=== PATIENT | female | born 2000 | race Caucasian/White ===

== ENCOUNTER → 2025-01-12 | Outpatient (CLI) | payer OTHER, SELFPAY ==
[2025-01-12 17:49] LABS: hCG Titer Quant., Serum 6784 mIU/mL (<9 non-preg)
== END | disposition home or self-care (01) ==
LOC: BWCLAB 15:03
PROVIDERS: Nurse Practitioner Family; Referring Provider Advanced Practice Midwife; Visit Provider Advanced Practice Midwife
DX: Z34.90 Encounter for supervision of normal pregnancy, unspecified, unspecified trimester (principal)
CPT/HCPCS: 36415; 84702

== ENCOUNTER → 2025-01-14 | Outpatient (CLI) | payer OTHER, SELFPAY ==
[2025-01-14 16:23] LABS: hCG Titer Quant., Serum 14772 mIU/mL (<9 non-preg)
== END | disposition home or self-care (01) ==
LOC: LAB 15:07
PROVIDERS: PCP Physician Assistant Medical; Referring Provider Nurse Practitioner Family; Visit Provider Nurse Practitioner Family
DX: Z34.90 Encounter for supervision of normal pregnancy, unspecified, unspecified trimester (principal)
CPT/HCPCS: 36415; 84702

== ENCOUNTER → 2025-02-10 | Outpatient (CLI) | payer OTHER, SELFPAY ==
[2025-02-10 16:47] LABS: Protein:Creat Ratio 123 mg/g CRE (0-200)
[2025-02-13 23:07] LABS: Chlamydia By Nucleic Acid AMP Negative (Negative); Gonococcus By Nucleic Acid AMP Negative (Negative)
== END | disposition home or self-care (01) ==
LOC: LABSPEC 14:56
PROVIDERS: Nurse Practitioner Women's Health; PCP Physician Assistant Medical; Referring Provider Registered Nurse; Visit Provider Registered Nurse
DX: O09.299 Supervision of pregnancy with other poor reproductive or obstetric history, unspecified trimester (principal); Z3A.00 Weeks of gestation of pregnancy not specified
CPT/HCPCS: 82570; 84156; 87086; 87491; 87591

== ENCOUNTER → 2025-02-20 | Outpatient (CLI) | payer OTHER, SELFPAY ==
[2025-02-20 17:12] LABS: Absolute Lymphocyte Count 2.28 X10^3/uL (0.83-4.51); Absolute Neutrophil Count 5.9 X10^3/uL (2.0-7.7); Basophil# 0.02 X10^3/uL; Basophil% 0.2 % (0-1); Eosinophil# 0.21 X10^3/uL; Eosinophils% 2.3 % (0-5); Hemoglobin 11.7 g/dL (12.0-15.0); Lymphocyte # 2.28 X10^3/ul (0.83-4.51); Lymphocyte % 25.4 % (19-41); Mean Corp Hgb Conc 34.4 g/dL (32-36); Mean Corpuscular Hgb 30.5 pg (27.0-32.0); Mean Corpuscular Volume 88.5 fL (81-99); Mean Platelet Vol. 9.3 fl (6.2-12.0); Monocyte# 0.53 X10^3/uL; Monocyte% 5.9 % (0-10); NRBC Flagged by Analyzer 0 % (0-5); Neutrophil # 5.91 X10^3/uL (2.7-7.7); Neutrophil % 65.9 % (47-70); Platelet Count 227 K/mm3 (150-450); RBC Distribution Width CV 12.3 % (11.6-14.6); RBC Distribution Width SD 39.6 fl (35.1-43.9); Red Blood Count 3.84 M/mm3 (4.2-5.4)
[2025-02-20 17:57] LABS: HIV Nonreactive (Nonreactive); Hepatitis B Surface Antigen Nonreactive (Nonreactive); Hepatitis C Antibody Nonreactive (Nonreactive); Rubella IgG REAC (Nonreactive); Syphilis Antibodies Nonreactive (Nonreactive)
[2025-02-20 18:44] LABS: ALB/GLOB Ratio 1.4 RATIO (0.9-2.4); AST(SGOT) 17 U/L (<=31); Alanine Aminotransfer ALT/SGPT 16 U/L (<=34); Albumin, Serum 3.9 g/dL (3.5-5.0); Alkaline Phosphatase 59 U/L (35-104); Anion Gap 14 (5-15); BUN 9 mg/dL (4-19); BUN/Creat Ratio 13.2 RATIO (10-20); Chloride 104 mmol/L (98-108); Creatinine, Serum 0.68 mg/dL (0.70-1.20); EST Glomerular Filtration Rate 123 (>60); Globulin 2.8 g/dL (2.2-4.2); Glucose 77 mg/dL (70-99); Potassium 3.9 mmol/L (3.3-5.1); Protein, Total 6.8 g/dL (5.9-8.4); Sodium Level 139 mmol/L (133-145); Total Bilirubin < 0.15 mg/dL (0.00-1.30)
--- OUTSIDE RECORDS SUMMARY | 2025-02-21 00:04 | XMS RPT_ITS | CCD ---
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 Name Role Phone Generic Provider MD, No Assigned Pcp Primary Car e Provider Unavailable Pat PA-C Bney B Primary Care Provider Pat PAJayden Beny B Primary Care Provider Pat NEWELL Beny B Primary Care Provider BRADY YANG Attending Unavailable GENERIC PROVIDER, NO ASSIGNED PCP Primary Care Unavailable PAT, BENY B Referring Unavailable PAT, BENY B Primary Care Unavailable PAT, BENY B Referring Unavailable PAT, BENY B Primary Care Unavailable PAT, BENY B Attending Unavailable PAT, BENY B Primary Care Unavailable PAT, BENY B Attending Unavailable PAT, BENY B Primary Care Unavailable DERECK HERNANDEZ Attending Unavailable PAT, BENY B Referring Unavailable PAT, BENY B Primary Care Unavailable Sherie Hubbard Attending Provider Olga Manzo CNM Attending Provider Olga Manzo CNM Referring Provider Beny Yanez Primary Care Provider Sherie Hubbard Referring Provider Beny Yanez Referring Provider Joanna COVINGTON, Dr. Elam Attending Provider Yeimi Anthony RN Attending Provider UnavailAraseli Heaton CNM Attending Provider Beny Yanez Primary Care UnavailBeny Villatoro Referring UnavailAraseli Heaton Attending Unavailable Yeimi Anthony Attending Unavailable Pat MEYER Beny [facility] UnavailSherie Ceballos Attending Unavailable Olga Manzo Attending Unavailable Olga Manzo Referring Unavailable Sherie Padilla Attending Unavailable Sherie Padilla Referring Unavailable Beny Yanez [facility] UnavailAraseli Heaton Referring Unavailable Beny Yanez [facility] Care UnavailAraseli Heaton Attending Unavailable Marialuisa Marshall Attending Unavailable Pat MEYER Beny [facility] UnavailHadley MEYER, Venus Referring Unavailvalentín Jacob CNM, Araseli Referring Provider Medications Current Medications Medication Drug Class(es) Dates Sig (Normalized) Sig (Original) docosahexaenoic acid 200 mg oral capsule (2 sources) Start: 01-24-2025 Docosahexaenoic Acid ( Dha) 200 mg capsule Active mg PO January 24, 2025 12:00am ergocalciferol 1.25 mg oral capsule (3 sources) Provitamin D2 Compound Start: 11-28-2024 take 1 capsule by mouth every week ergocalciferol (Vitamin D-2) 1250 mcg (50,000 units) capsule Indications: Vitamin D deficiency Take 1 capsule (50,000 Units) by mouth 1 (one) time per week. 4 capsule 11 11/28/2024 Active PNV no.95/ferrous fum/folic ac ( ORAL) (6 sources) PNV no.95/ferrou s fum/folic ac ( ORAL) Take by mouth once daily. Active Completed/Discontinued Medications Medication Drug Class(es) Dates Sig (Normalized) Sig (Original) 24 hr dilTIAZem hydrochloride 120 mg extended release oral capsule (5 sources) Calcium Channel Ventura Start: 12-26-2024 End: 12-26-2025 take 1 capsule by mouth once daily Diltiazem Hcl 120 mg capsule,extended release 24hr Discontinued 120 mg PO daily January 12, 2025 12:00am January 24, 2025 11:07am 24 hr metoprolol succinate 25 mg extended release oral tablet (3 sources) beta-Adrenergic Ventura Start: 10-27-2024 End: 12-26-2024 take 1 tablet by mouth once daily metoprolol succinate XL (Toprol-XL) 25 mg 24 hr tablet Indications: Tachycardia , Heart palpitations Take 1 tablet (25 mg) by mouth once daily. Do not crush or chew. 30 tablet 2 10/27/2024 12/26/2024 Discontinued (Side effects) Problems Active Problems Problem Classification Problem Date Documented Date Episodic/Chronic Administrative/social admission (3 sources) First encounter by subject; Translations: [Persons encountering health services in other specified circumstances] Onset: 09-28-2024 09-28-2024 Episodic Cardiac dysrhythmias (8 sources) Postural orthostatic tachycardia syndrome ; Translations: [POTS (postural orthostatic tachycardia syndrome)] Onset: 09-28-2024 12-26-2024 Chronic Comment on above: On Cardizem - stoppe d prior to , pt will talk with cardiology about new med Cardiac dysrhythmias (20 sources) Tachycardia; Translations: [Palpitations] Onset: 09-28-2024 09-28-2024 Episodic Conditions associated with dizziness or vertigo (18 sources) Dizziness; Translations: [Dizziness and giddiness] Onset: 09-28-2024 09-28-2024 Episodic Malaise and fatigue (12 sources) Fatigue; Translations: [Other fatigue] Onset: 09-28-2024 09-28-2024 Episodic Menstrual disorders (2 sources) Secondary amenorrhea; Translations: [Irregular menstruation, unspecified] Onset: 01-12-2025 Chronic Nutritional deficiencies (10 sources) Vitamin D deficiency; Translations: [Vitamin D deficiency, unspecified] Onset: 09-28-2024 09-28-2024 Chronic Other circulatory disease (4 sources) Postural orthostatic tachycardia syndrome ; Translations: [Postural orthostatic tachycardia syndrome (POTS)] Onset: 12-26-2024 Episodic Other complications of (4 sources) H/O: miscarriage; Translations: [Supervision of with other poor reproductive or obstetric history, unspecified trimester] 01-24-2025 Episodic Comment on above: chemical - Jul 2024 Other complications of (4 sources) High risk ; Translations: [Supervision of high risk , unspecified, unspecified trimester] 01-24-2025 Episodic Comment on above: ; VICKY 09/14/25; PC : Doan; : Tal Other complications of (2 sources) Supervision of with other poor reproductive or obstetric history, unspecified trimester; Translations: [Supervision of with other poor reproductive or obstetric history, unspecified trimester] Onset: 02-14-2025 Episodic Other complications of (2 sources) Supervision of high risk , unspecified, unspecified trimester; Translations: [Supervision of high risk , unspecified, unspecified trimester] Onset: 02-10-2025 Episodic Other female genital disorders (1 source) Vaginal bleeding; Translations: [Abnormal uterine and vaginal bleeding, unspecified] 08-08-2024 Chronic Other female genital disorders (2 sources) Abnormal uterine and vaginal bleeding, unspecified; Translations: [Abnormal uterine and vaginal bleeding, unspecified] Onset: 08-08-2024 Chronic Other nervous system disorders (2 sources) Other chronic pain; Translations: [Other chronic pain] Onset: 09-28-2024 Chronic Other non-traumatic joint disorders (8 sources) Chronic pain of left upper limb; Translations: [Pain in left shoulder] Onset: 09-28-2024 09-28-2024 Episodic Other non-traumatic joint disorders (2 sources) Pain in left shoulder; Translations: [Pain in left shoulder] Onset: 09-28-2024 Episodic Other and delivery including normal (6 sources) ; Translations: [Encounter for supervision of normal , unspecified, unspecified trimester] Onset: 01-18-2025 02-10-2025 Episodic Comment on above: Discussed genetic/ca rrier testing - undecided Other screening for suspected conditions (not mental disorders or infectious disease) (7 sources) Ferritin level low; Translations: [Abnormal level of blood mineral] Onset: 11-28-2024 11-28-2024 Episodic Residual codes; unclassified (12 sources) History of pre-eclampsia; Translations: [Personal history of other complications of , childbirth and the puerperium] Onset: 09-28-2024 09-28-2024 Episodic Comment on above: Pre-e baseline labs ordered w/NOB; Baby ASA @ 12-28weeks Residual codes; unclassified (2 sources) Personal history of other complications of , childbirth and the puerperium; Translations: [Personal history of other complications of , childbirth and the puerperium] Onset: 09-28-2024 Episodic Residual codes; unclassified (3 sources) History of operative procedure on shoulder; Translations: [Other specified postprocedural states] 01-24-2025 Episodic Comment on above: 2012, 2015 - both on L shoulder Residual codes; unclassified (1 source) 9 weeks gestation of ; Translations: [9 weeks gestation of ] Onset: 02-10-2025 Episodic Unclassified (2 sources) Chronic pain of left upper limb 09-28-2024 Past or Other Problems Problem Classification Problem Date Documented Da te Episodic/Chronic Unclassified (6 sources) Onset: 09-28-2024 Resolved: 12-26-2024 09-28-2024 Results Test Name Value Interpretation Reference Range Facility Chlamydia/GC TINA aptimaon CHLAMY,NUC ACID Negative Normal Negative [facility] Comment on above: Performed By: #### M 100.2200, L7000.1800 #### [facility] [address] [place], [place], [address] GC BY NUC ACID Negative Normal Negative [facility] Comment on above: Result Comment: Perf ormed at: =G - [facility] [address] [id number] Seafood Specialist: Nhi Isaac MD, Phone: [phone] Performed By: #### M 100.2200, L7000.1800 #### [facility] [address] [place], [place], [address] Urine Cultureon 02-11-2025 URC Culture exhibits no growth. Normal [facility] Comment on above: Performed By: #### M 100.2200, L7000.1800 #### [facility] [address] [place], [address] Chlamydia trachomatis rRNA d etection by probe and target amplification methodOrdered By: Araseli Jacob on 02-10-2025 C. trachomatis rRNA TINA+probe Ql (Unsp spec) Negative Negative [facility] Neisseria gonorrhoeae nuclei c acid detection by amplified probe techniqueOrdered By: Araseli Jacob on 02-10-2025 N. gonorrhoeae DNA TINA+probe Ql (Unsp spec) Negative Negative [facility] Comment on above: Performed at: =G [facility] [id number] [place] [id number] Director: Nhi Isaac MD, Phone: [phone] Specification Writer Office Visit Reporton 02-10-2025 Specification Writer Office Visit Report [facility] [address], [address] [place] [address] OFFICE VISIT Date of Service: 02/10/25 MR#: [id number] Acct: [id number] Name: JUSTINO RENDON Rep #: [id number] : 2000 Provider: FAB barr Age/Sex: 24/F Location: [facility] Status: Signed Intake Vital Signs 01/12/25 14:16 01/24/25 11:38 02/10/25 13:04 Height 5 ft 4 in 5 ft 4 in 5 ft 4 in Weight: 152 lb BMI 26.1 BP 120/76 Intake Visit Reasons: NOB LMP 12/08 Customer Engagement Manager Required: No Is patient in pain?: No Allergies No Known Allergies Allergy (Verified 02/10/25 13:08) Medications ???Medication ???Instructions ???Recorded ???Confirmed ???Type docosahexaenoic acid 200 mg mg PO 01/24/25 02/10/25 History capsule ( DHA) Last Menstrual Period: 12/08/24 Zika: Zika virus screening: Negative : Yes Have you fallen in the past year?: No PFSH PFSH Medical History H/O: hypertension POTS (postural orthostatic tachycardia syndrome) Surgical History S/P wisdom tooth extraction History of shoulder surgery Family History (Updated 02/10/25 @ 13:13 by Oneida Martinez) Father Diabetes Mother Age: 56 Breast cancer Grandmother Breast cancer Social History adopted: No household members: spouse and children housing: house number of children: 1 current occupational status: employed 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 current occupational exposures/hazards: No pets and animals: Yes pets and animals: dog(s) history of recent travel: Yes ([place] - December 2024) out of state: Yes out of country: No sexually active: Yes Smoking Status: Never smoker second hand exposure: No alcohol intake: current alcohol intake frequency: holidays/special occasions only details: Not while substance use type: does not use well-balanced diet: daily or most days caffeine: Yes Type: coffee Number of servings: 1 eating out: 1-3 times/week during the past year weight has: remained stable what type of physical activity do you participate in: weight training frequency: 1-2 times per week duration: 15-30 minutes/day deric/catholic: Cheondoism seatbelt use: always do you feel safe at home: Yes 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 Date Name GA/Weeks Outcome Route Bth Weight Infant Gen Labor Lgth Anesthesia Del Locatn Provider FOB 05/23/23 Doan 39 live - full term vacuum 7lbs 11oz Male epidural [facility] arolin Tal 07/15/24 Chemical 5 spontaneous Delivery Date: 05/23/23 Last Updated by: Yeimi Anthony RN Pre-e, loree pp htn x4mo HPI NOB LMP 12/08 Details: JUSTINO RENDON is a 24 year old who presents for New OB visit. OB Visit VICKY Calculator Estimated Delivery Date Method Current WG Current Estimate 09/14/25 LMP (Certain) 9w 1d Estimated Due Date: 09/14/25 Expected Delivery Route/Plan Labor Preferences- CB/BF classes: [] labor support person: [] labor intervention preferences: [] pain management options preferred: [] cut cord/dad catch: [] : [] PP control planned: [] discussed possible routes of delivery and associated risks: [] special requests: [] Specific Issue/Plans Covid status: [] Flu vaccine: [] Tdap vaccine: [] Rhogam: [] LARC form signed: [] Problem list reviewed and updated with the most current plan of care details and appropriate orders placed. Relevant counseling for the gestational age provided. Continue routine care and follow up unless otherwise noted in visit notes/problem list details Initial Weight: 152 lb Date -???-???-???-???-???- ???-???-???-???-???-? ??-???- EGA Weight BP Urine Prot -???-???-???-???-???- ???-???-???-???-???-? ??-???- Glucose FHR FuHt Pres Dilation -???-???-???-???-???- ???-???-???-???-???-? ??-???- Effaced St Visit Note 02/10/25 -???-???-???-???-???- ???-???-???-???-???-? ??-???- 9w 1d 152 lb (+0 oz) 120/76 -???-???-???-???-???- ???-???-???-???-???-? ??-???- 174 -???-???-???-???-???- ???-???-???-???-???-? ??-???- LC 2.24cm cr l con with lmp. accepts genetics. baseline pec labs added for hx. Menstrual History Last Menstrual Period: 12/08/24 Reported LMP: definite Normal amount/duration: Yes Antepartum Record Genetic Screening: Congenital Heart Defect: Other, Neural Tube Defect: Other, Hemoglobinopat (more content not included)... Normal [facility] Protein+Creatinine Ratio,Uri neon 02-10-2025 PROT:CRE RATIO 123 mg/g CRE Normal 0-200 [facility] Comment on above: Performed By: #### L 501.0900 #### [facility] [address] [place], [address] Protein (U) [Mass/Vol] 10.0 mg/dL Normal 0.0-12.0 [facility] Comment on above: Performed By: #### L 501.0900 #### [facility] [address] [place], [place], [id number] UR CREAT 81.00 mg/dL Normal 28.00-217.00 [facility] Comment on above: Performed By: #### L 501.0900 #### [facility] [address] [place], [address] Random urine creatinine luiza urement (mass/volume)Ordered By: Shireen Carnes on 02-10-2025 Creatinine Unsp time (U) [Mass/Vol] 81.00 mg/dL 28.00-217.00 [facility] Urine cultureOrdered By: Tania Jacob on 02-10-2025 Bacteria identified Cx Nom (U) Culture exhibits no growth. [facility] Urine protein measurement (m ass/volume)Ordered By: Shireen Carnes on 02-10-2025 Protein (U) [Mass/Vol] 10.0 mg/dL 0.0-12.0 [facility] Urine protein/creatinine mas s ratioOrdered By: Shireen Carnes on 02-10-2025 Protein/Creatinine (U) [Mass ratio] 123 mg/g CRE 0-200 [facility] Laboratory - Chemistry and C hemistry - challengeOrdered By: Marialuisa Marshall on 01-24-2025 HCG ( test) Ql (U) Positive [facility] Office Visit Reporton 2024 Office Visit Report [facility] [address] [place] [address] OFFICE VISIT Date of Service: MR#: [id number] Acct: [id number] Patient: JUSTINO RENDON Rep #: [id number] : 2000 Provider: Yeimi Anthony RN Age/Sex: 24/F Location: [facility] Status: Signed Intake Vital Signs 01/24/25 08:05 01/24/25 11:38 Height 5 ft 4 in 5 ft 4 in Weight: 151 lb 4 oz BMI 25.9 BP 110/64 Intake Visit Reasons: Amb Documentation Chief Complaint: PNOB in person Customer Engagement Manager Required: No Is patient in pain?: No Allergies No Known Allergies Allergy (Verified 01/24/25 11:07) Medications ???Medication ???Instructions ???Recorded ???Confirmed ???Type docosahexaenoic acid 200 mg mg PO 01/24/25 01/24/25 History capsule ( DHA) Is last menstrual period known: Yes Post menopausal: No Patient : Yes Have you fallen in the past year?: No Nurse's Note: Pt here for PNOB. Office UPT: positive. Vitals WNL. PNOB questions completed. Problem list, allergies, and medications updated. First trimester ACOG education completed. Results POC Urine Office , Urine Positive Last Edit by Yeimi Anthony RN on 01/24/25 11:41 Assessment and Plan Assessment and Plan (1) POTS (postural orthostatic tachycardia syndrome): Status: Acute Comment: On Cardizem - stopped prior to , pt will talk with cardiology about new med (2) History of pre-eclampsia in prior , currently : Status: Acute Comment: Pre-e baseline labs ordered w/NOB; Baby ASA @ 12-28weeks (3) : Status: Acute Comment: Discussed genetic/carrier testing - undecided (4) Supervision of high-risk : Status: Acute Comment: ; VICKY 09/14/25; PC: Franki; : Tal (5) History of miscarriage, currently : Status: Acute Comment: chemical - Jul 2024 Orders: Orders POC Urine 01/24/25 Dr. Marialuisa Marshall MD N91.1 - Secondary amenorrhea CBC W/Diff, Automated 01/24/25 Araseli Jacob CNM O09.90 - Supervision of high risk , unspecified, unspecified trimester Type Screen 01/24/25 Araseli Jacob CNM O09.90 - Supervision of high risk , unspecified, unspecified trimester Rubella IgG 01/24/25 Araseli Jacob CNM O09.90 - Supervision of high risk , unspecified, unspecified trimester Hepatitis C Antibody 01/24/25 Araseli Jacob CNM O09.90 - Supervision of high risk , unspecified, unspecified trimester Hepatitis B Surface Antigen 01/24/25 Araseli Jacob CNM O09.90 - Supervision of high risk , unspecified, unspecified trimester Culture, Urine 01/24/25 Araseli Jacob CNM O09.90 - Supervision of high risk , unspecified, unspecified trimester Syphilis Antibodies 01/24/25 Araseli Jacob CNM O09.90 - Supervision of high risk , unspecified, unspecified trimester Chlamydia/GC TINA aptima 01/24/25 Araseli Jacob CNM O09.90 - Supervision of high risk , unspecified, unspecified trimester HIV 01/24/25 Araseli Jacob CNM O09.90 - Supervision of high risk , unspecified, unspecified trimester Protein+Creatinine Ratio,Urine 01/24/25 Shireen Carnes NP, VICKI-Lea O09.299 - Supervision of with other poor reproductive or obstetric history, unspecified trimester, O09.90 - Supervision of high risk , unspecified, unspecified trimester Comprehensive Metabolic Profil 01/24/25 Shireen Carnes NP, NP-Lea O09.299 - Supervision of with other poor reproductive or obstetric history, unspecified trimester, O09.90 - Supervision of high risk , unspecified, unspecified trimester Clinical Quality Measures Falls Risk Screening/Assistive Devices Have you fallen in the past year?: No 01/27/25 1637 Date Marialuisa Shoemaker Signature: Date (if applicable) CC: Normal [facility] Serum human chorionic gonado tropin detection for pregnancyOrdered By: Sherie Padilla on 01-14-2025 HCG ( test) Ql [address] mIU/mL High <9 [facility] Comment on above: Gestational Age0.2-1 Week: 5-50 mIU/mL1-2 Weeks: 50-500 mIU/mL2-3 Weeks: 100-5000 mIU/mL3-4 Weeks: 500-10,000 mIU/mL4-5 Weeks:1000-50,000 mIU/mL5-6 Weeks: 10,000-100,000 mIU/mL6-8 Weeks: 15,000-200,000 mIU/mL2-3 Months:10,000-100,000 mIU/mL hCG Titer Quant., Serumon HCG QUANT. 55976 mIU/mL High <9 non-preg [facility] Comment on above: Result Comment: Gest ational Age 0.2-1 Week: 5-50 mIU/mL 1-2 Weeks: 50-500 mIU/mL 2-3 Weeks: 100-5000 mIU/mL 3-4 Weeks: 500-10,000 mIU/mL 4-5 Weeks:1000-50,000 mIU/mL 5-6 Weeks: 10,000-100,000 mIU/mL 6-8 Weeks: 15,000-200,000 mIU/mL 2-3 Months:10,000-100,000 mIU/mL Performed By: #### L 700.8000 #### [facility] [address] [place], [address] Laboratory - Chemistry and C hemistry - challengeOrdered By: Sherie Padilla on 01-12-2025 HCG ( test) Ql (U) Positive [facility] Specification Writer Office Visit Reporton 01-12-2025 Specification Writer Office Visit Report [facility] [address], [address] [place] [address] OFFICE VISIT Date of Service: 01/12/25 MR#: [id number] Acct: [id number] Name: JUSTINO RENDON Suzan Rep #: [id number] : 2000 Provider: JH Keating Age/Sex: 24/F Location: [facility] Status: Signed Intake Vital Signs 01/12/25 14:16 Height 5 ft 4 in Weight: 150 lb 4 oz BMI 25.7 BP 129/74 H 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) Chief Complaint: annual, est care Customer Engagement Manager Required: No Is patient in pain?: No Allergies No Known Allergies Allergy (Verified 01/12/25 14:09) Medications ???Medication ???Instructions ???Recorded ???Confirmed ???Type diltiazem HCl 120 mg 120 mg PO QDAY 01/12/25 01/12/25 H istory capsule,extended release 24 hr Is last menstrual period known: Yes Last Menstrual Period: 12/08/24 Post menopausal: No Patient : Yes : No Control Method: none PFSH Medical History POTS (postural orthostatic tachycardia syndrome) Family History (Updated 01/12/25 @ 14:17 by Oneida Martinez) Father Diabetes Mother Breast cancer Grandmother Breast cancer Social History adopted: No number of children: 1 current occupational status: employed 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 Date Name GA/Weeks Outcome Route Bth Weight [facility] Doan live - full term 7lbs 11oz Male epidural [facility] anastasia Parada [facility] Encounter for routine gynecological examination Details: JUSTINO RENDON is a 24 year old who presents for annual exam. She reports she has not had a period this month. Her and her are trying. She reports she previously had chemical in July. Since then she has had regular menses until this month. She reports no vaginal bleeding. 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 We do not have records for review. She was also recently diagnosed with POTS and has been started on Cardizem. Previous vaginal delivery; did have pre-eclampsia at end of . Last PAP: 2022 per patient--reports negative. History of abnormal PAP: no. Last mammogram: age 38 History of abnormal mammogram: n/a Colon cancer screening: age 43 Other preventative health care screenings: Beny Avalos; PCP. Female Reproductive History Last Menstrual Period: 12/08/24 Cycle Length: 21-35 Bleeding Duration: 5 Questions: metorrhagia: No, sexually active: Yes, dyspareunia: No and PCB: No ROS Const Constitutional: Denies chills, fatigue, fever(s), headache(s) or weight loss Eyes Eyes: Denies change in vision ENT ENT: Denies dizziness Resp Resp: Denies cough GI GI: Denies abdominal pain, constipation or nausea : Denies difficulty voiding, dysuria, hematuria, nipple discharge, pelvic pain, prolapse symptoms, urinary incontinence, vaginal discharge, vaginal dryness, vaginal odor or vaginal pruritus Skin Skin/Breast: Denies alopecia, rash, breast mass, breast pain, breast skin changes or nipple discharge Neuro Neuro: Denies dizziness Psych Psych: Denies anxiety or depression Endo Endo: Denies cold intolerance, excessive sweating or heat intolerance Exam Const General: cooperative, healthy appearing, comfortable, no acute distress, well groomed and well hydrated Nutritional Appearance: well nourished Orientation: alert, awake and oriented x3 HENMT Head: normal to inspection and normocephalic Ears: hearing grossly normal bilaterally and external ears normal Nose: external nose normal Face and sinus: normal facial exam Eyes General: appearance normal, both eyes and all related structures Neck Neck: normal visual inspection, full ROM and no lymphadenopathy Thyroid: thyroid normal Chest Chest palpation inspection: normal inspection of the chest Breast inspection: normal inspection of the breasts and normal inspection of the axillae Breast palpation: normal palpation of the breasts, normal palpation of the axillae and no axillary lymphadenopathy (more content not included)... Normal [facility] Serum human chorionic gonado tropin detection for pregnancyOrdered By: Sherie Padilla on 01-12-2025 HCG ( test) Ql 6784 mIU/mL High <9 [facility] Comment on above: Gestational Age0.2-1 Week: 5-50 mIU/mL1-2 Weeks: 50-500 mIU/mL2-3 Weeks: 100-5000 mIU/mL3-4 Weeks: 500-10,000 mIU/mL4-5 Weeks:1000-50,000 mIU/mL5-6 Weeks: 10,000-100,000 mIU/mL6-8 Weeks: 15,000-200,000 mIU/mL2-3 Months:10,000-100,000 mIU/mL hCG Titer Quant., Serumon HCG QUANT. 6784 mIU/mL High <9 non-preg [facility] Comment on above: Result Comment: Gest ational Age 0.2-1 Week: 5-50 mIU/mL 1-2 Weeks: 50-500 mIU/mL 2-3 Weeks: 100-5000 mIU/mL 3-4 Weeks: 500-10,000 mIU/mL 4-5 Weeks:1000-50,000 mIU/mL 5-6 Weeks: 10,000-100,000 mIU/mL 6-8 Weeks: 15,000-200,000 mIU/mL 2-3 Months:10,000-100,000 mIU/mL Performed By: #### L 700.8000 #### [facility] [address] [facility] [place], [address] ECG 12 lead (Clinic Performe d)on 12-26-2024 Normal sinus rhythm [facility] Work Phone: CBC (INCLUDES DIFF/PLT)on Basophils (Bld) [#/Vol] 0.042 10*3/uL Normal 0-200 [facility] Comment on above: Performed By: #### 7 573, 51670, 622, 7600, 6399, 899, 927, 69615, 866 #### [facility] [address] [facility], [address] [place] [phone] Picture Copyist: Noble Brown MD Basophils/100 WBC (Bld) 0.6 % Normal [facility] Comment on above: Performed By: #### 7 573, 10714, 622, 7600, 6399, 899, 927, 05495, 866 #### [facility] [address] [place] , [address] [place] [phone] Picture Copyist: Noble Brown MD Eosinophils (Bld) [#/Vol] 0.252 10*3/uL Normal 15-500 [facility] Comment on above: Performed By: #### 7 573, 41457, 622, 7600, 6399, 899, 927, 36505, 866 #### [facility] of [place] [address] Picture Copyist: Noble Brown MD Eosinophils/100 WBC (Bld) 3.6 % Normal [facility] Comment on above: Performed By: #### 7 573, 13574, 622, 7600, 6399, 899, 927, 16398, 866 #### [facility] of [place] [address] Picture Copyist: Noble Brown MD Erythrocyte distribution width (RBC) [Ratio] 12.6 % Normal 11.0-15.0 [facility] Comment on above: Performed By: #### 7 573, 49725, 622, 7600, 6399, 899, 927, 76051, 866 #### [facility] of [place] [address] Picture Copyist: Noble Brown MD Hematocrit (Bld) [Volume fraction] 43.5 % Normal 35.0-45.0 [facility] Comment on above: Performed By: #### 7 573, 39504, 622, 7600, 6399, 899, 927, 46879, 866 #### [facility] of [place] [address] Picture Copyist: Noble Brown MD Hemoglobin (Bld) [Mass/Vol] 13.9 g/dL Normal 11.7-15.5 [facility] Comment on above: Performed By: #### 7 573, 49168, 622, 7600, 6399, 899, 927, 42235, 866 #### [facility] of [place] [address] Picture Copyist: Noble Brown MD Lymphocytes (Bld) [#/Vol] 2.38 10*3/uL Normal 850-3900 [facility] Comment on above: Performed By: #### 7 573, 16093, 622, 7600, 6399, 899, 927, 57672, 866 #### [facility] [address], [address] [place] [address] Picture Copyist: Noble Brown MD Lymphocytes/100 WBC (Bld) 34.0 % Normal [facility] Comment on above: Performed By: #### 7 573, 83000, 622, 7600, 6399, 899, 927, 96322, 866 #### [facility] [place] [address] Picture Copyist: Noble Brown MD MCH (RBC) [Entitic mass] 30.0 pg Normal 27.0-33.0 [facility] Comment on above: Performed By: #### 7 573, 85191, 622, 7600, 6399, 899, 927, 68756, 866 #### [facility] [place] [address] Picture Copyist: Noble Brown MD MCHC (RBC) [Mass/Vol] 32.0 g/dL Normal 32.0-36.0 [facility] Comment on above: Result Comment: For adults, a slight decrease in the calculated MCHC value (in the range of 30 to 32 g/dL) is most likely not clinically significant; however, it should be interpreted with caution in correlation with other red cell parameters and the patient's clinical condition. Performed By: #### 7 573, 18469, 622, 7600, 6399, 899, 927, 96556, 866 #### [facility] [place] [address] Picture Copyist: Noble Brown MD MCV (RBC) [Entitic vol] 94.0 fL Normal 80.0-100.0 [facility] Comment on above: Performed By: #### 7 573, 57793, 622, 7600, 6399, 899, 927, 07089, 866 #### [facility] [place] [address] Picture Copyist: Noble Brown MD Monocytes (Bld) [#/Vol] 0.329 10*3/uL Normal 200-950 [facility] Comment on above: Performed By: #### 7 573, 25020, 622, 7600, 6399, 899, 927, 20229, 866 #### [facility] [address], [address] [place] [address] Picture Copyist: Noble Brown MD Monocytes/100 WBC (Bld) 4.7 % Normal [facility] Comment on above: Performed By: #### 7 573, 77253, 622, 7600, 6399, 899, 927, 46660, 866 #### [facility] [place] [address] Picture Copyist: Noble Bronw MD Neutrophils (Bld) [#/Vol] 3.997 10*3/uL Normal 5068-5679 [facility] Comment on above: Performed By: #### 7 573, 78912, 622, 7600, 6399, 899, 927, 89338, 866 #### [facility] [place] [address] Picture Copyist: Noble Brown MD Neutrophils/100 WBC (Bld) 57.1 % Normal [facility] Comment on above: Performed By: #### 7 573, 15357, 622, 7600, 6399, 899, 927, 23033, 866 #### [facility] [place] [address] Picture Copyist: Noble Brown MD Platelet mean volume (Bld) [Entitic vol] 10.2 fL Normal 7.5-12.5 [facility] Comment on above: Performed By: #### 7 573, 96466, 622, 7600, 6399, 899, 927, 25065, 866 #### [facility] of [address], [address] [place] [address] Picture Copyist: Noble Brown MD Platelets (Bld) [#/Vol] 257 10*3/uL Normal 140-400 [facility] Comment on above: Performed By: #### 7 573, 05170, 622, 7600, 6399, 899, 927, 18554, 866 #### [facility] [place] [address] Picture Copyist: Noble Brown MD RBC (Bld) [#/Vol] 4.63 10*6/uL Normal 3.80-5.10 [facility] Comment on above: Performed By: #### 7 573, 01619, 622, 7600, 6399, 899, 927, 54493, 866 #### [facility] [place] [address] Picture Copyist: Noble Brown MD WBC (Bld) [#/Vol] 7.0 10*3/uL Normal 3.8-10.8 [facility] Comment on above: Performed By: #### 7 573, 64851, 622, 7600, 6399, 899, 927, 37440, 866 #### [facility] [place] [address] Picture Copyist: Noble Brown MD COMPREHENSIVE METABOLIC PANE L W/ANION GAPon 10-25-2024 Albumin [Mass/Vol] 4.7 g/dL Normal 3.6-5.1 [facility] Comment on above: Performed By: #### 7 573, 08218, 622, 7600, 6399, 899, 927, 39354, 866 #### [facility] [place] [address] Picture Copyist: Noble Brown MD ALP [Catalytic activity/Vol] 71 U/L Normal 31-125 [facility] Comment on above: Performed By: #### 7 573, 24535, 622, 7600, 6399, 899, 927, 01379, 866 #### [facility] [place] [address] Picture Copyist: Noble Brown MD ALT [Catalytic activity/Vol] 11 U/L Normal 6-29 [facility] Comment on above: Performed By: #### 7 573, 00017, 622, 7600, 6399, 899, 927, 51177, 866 #### [facility] [place] [address] Picture Copyist: Noble Brown MD AST [Catalytic activity/Vol] 15 U/L Normal 10-30 [facility] Comment on above: Performed By: #### 7 573, 66105, 622, 7600, 6399, 899, 927, 74792, 866 #### [facility] [place] [address] Picture Copyist: Noble Brown MD Bilirubin [Mass/Vol] 0.3 mg/dL Normal 0.2-1.2 [facility] Comment on above: Performed By: #### 7 573, 36973, 622, 7600, 6399, 899, 927, 03445, 866 #### [facility] [place] [address] Picture Copyist: Noble Brown MD Calcium [Mass/Vol] 9.0 mg/dL Normal 8.6-10.2 [facility] Comment on above: Performed By: #### 7 573, 74321, 622, 7600, 6399, 899, 927, 79381, 866 #### [facility] [place] [address] Picture Copyist: Noble Brown MD Chloride [Moles/Vol] 104 mmol/L Normal 98-110 [facility] Comment on above: Performed By: #### 7 573, 91482, 622, 7600, 6399, 899, 927, 17843, 866 #### [facility] [address], [address] [place] [address] Picture Copyist: Noble Brown MD CO2 [Moles/Vol] 26 mmol/L Normal 20-32 [facility] Comment on above: Performed By: #### 7 573, 87878, 622, 7600, 6399, 899, 927, 00032, 866 #### [facility] [place] [address] Picture Copyist: Noble Brown MD Creatinine [Mass/Vol] 0.85 mg/dL Normal 0.50-0.96 [facility] Comment on above: Performed By: #### 7 573, 54283, 622, 7600, 6399, 899, 927, 91590, 866 #### [facility] [place] [address] Picture Copyist: Noble Brown MD ELECTROLYTE BALANCE 9 mmol/L (calc) Normal 7-17 [facility] Comment on above: Performed By: #### 7 573, 63241, 622, 7600, 6399, 899, 927, 28020, 866 #### [facility] [place] [address] Picture Copyist: Noble Brown MD GFR/1.73 sq M.predicted among non-blacks MDRD (S/P/Bld) [Vol rate/Area] 97 mL/min/{1.73_m2} Normal > OR = 60 [facility] Comment on above: Performed By: #### 7 573, 07553, 622, 7600, 6399, 899, 927, 54348, 866 #### [facility] [place] [address] Picture Copyist: Noble Brown MD Glucose [Mass/Vol] 89 mg/dL Normal 65-99 [facility] Comment on above: Result Comment: Fasting reference interval Performed By: #### 7 573, 20657, 622, 7600, 6399, 899, 927, 39904, 866 #### [facility] [place] [address] Picture Copyist: Noble Brown MD Potassium [Moles/Vol] 4.2 mmol/L Normal 3.5-5.3 [facility] Comment on above: Performed By: #### 7 573, 80093, 622, 7600, 6399, 899, 927, 74093, 866 #### [facility] [place] [address] Picture Copyist: Nbole Brown MD Protein [Mass/Vol] 7.3 g/dL Normal 6.1-8.1 [facility] Comment on above: Performed By: #### 7 573, 89961, 622, 7600, 6399, 899, 927, 33432, 866 #### [facility] [place] [address] Picture Copyist: Noble Brown MD Sodium [Moles/Vol] 139 mmol/L Normal 135-146 [facility] Comment on above: Performed By: #### 7 573, 82775, 622, 7600, 6399, 899, 927, 66688, 866 #### [facility] [place] [address] Picture Copyist: Noble Brown MD Urea nitrogen [Mass/Vol] 13 mg/dL Normal 7-25 [facility] Comment on above: Performed By: #### 7 573, 30170, 622, 7600, 6399, 899, 927, 94625, 866 #### [facility] [place] [address] Picture Copyist: Noble Brown MD FERRITINon 10-25-2024 Ferritin [Mass/Vol] 20 ng/mL Normal 16-154 [facility] Comment on above: Performed By: #### 7 573, 37380, 622, 7600, 6399, 899, 927, 87551, 866 #### [facility] [address], [address] [place] [address] Picture Copyist: Noble Brown MD IRON AND TOTAL IRON BINDING CAPACITYon 10-25-2024 % SATURATION 23 % (calc) Normal 16-45 [facility] Comment on above: Performed By: #### 7 573, 77800, 622, 7600, 6399, 899, 927, 49299, 866 #### [facility] [place] [address] Picture Copyist: Noble Brown MD IRON BINDING CAPACITY 330 mcg/dL (calc) Normal 250-450 [facility] Comment on above: Performed By: #### 7 573, 60568, 622, 7600, 6399, 899, 927, 30306, 866 #### [facility] [place] [address] Picture Copyist: Noble Brown MD IRON, TOTAL 75 mcg/dL Normal 40-190 [facility] Comment on above: Performed By: #### 7 573, 67529, 622, 7600, 6399, 899, 927, 34726, 866 #### [facility] [place] [address] Picture Copyist: Noble Brown MD LIPID PANEL, [facility] 10-15 Cholesterol [Mass/Vol] 136 mg/dL Normal <200 [facility] Comment on above: Order Comment: FASTI NG:YES FASTING: YES Performed By: #### 7 573, 98080, 622, 7600, 6399, 899, 927, 98437, 866 #### [facility] [place] [address] Picture Copyist: Noble Brown MD Cholesterol in HDL [Mass/Vol] 55 mg/dL Normal > OR = 50 [facility] Comment on above: Order Comment: FASTI NG:YES FASTING: YES Performed By: #### 7 573, 26750, 622, 7600, 6399, 899, 927, 59647, 866 #### [facility] [address], [address] [place] [address] Picture Copyist: Noble Brown MD Cholesterol in LDL [Mass/Vol] 68 mg/dL Normal [facility] Comment on above: Order Comment: FASTI NG:YES FASTING: YES Result Comment: Refe rence range: <100 Desirable range <100 mg/dL for primary prevention; <70 mg/dL for patients with CHD or diabetic patients with > or = 2 CHD risk factors. LDL-C is now calculated using the Zulema calculation, which is a validated novel method providing better accuracy than the Friedewald equation in the estimation of LDL-C. Calin SS et al. DINA. 2013;310(19): 3736-0385 (http://education.Cloud9 IDE/faq/YRP125) Performed By: #### 7 573, 30939, 622, 7600, 6399, 899, 927, 85160, 866 #### [facility] [address], [address] [place] [address] Picture Copyist: Noble Brown MD Cholesterol.total/Cho lesterol in HDL [Mass ratio] 2.5 {ratio} Normal <5.0 [facility] Comment on above: Order Comment: FASTI NG:YES FASTING: YES Performed By: #### 7 573, 77469, 622, 7600, 6399, 899, 927, 76559, 866 #### [facility] [address], [address] [place] [address] Picture Copyist: Noble Brown MD NON HDL CHOLESTEROL 81 mg/dL (calc) Normal <130 [facility] Comment on above: Order Comment: FASTI NG:YES FASTING: YES Result Comment: For patients with diabetes plus 1 major ASCVD risk factor, treating to a non-HDL-C goal of <100 mg/dL (LDL-C of <70 mg/dL) is considered a therapeutic option. Performed By: #### 7 573, 55974, 622, 7600, 6399, 899, 927, 34848, 866 #### [facility] of [address], [address] [place] [address] Picture Copyist: Noble Brown MD Triglyceride [Mass/Vol] 58 mg/dL Normal <150 [facility] Comment on above: Order Comment: FASTI NG:YES FASTING: YES Performed By: #### 7 573, 26884, 622, 7600, 6399, 899, 927, 46213, 866 #### [facility] [place] [address] Picture Copyist: Noble Brown MD MAGNESIUMon 10-25-2024 Magnesium [Mass/Vol] 2.2 mg/dL Normal 1.5-2.5 [facility] Comment on above: Performed By: #### 7 573, 61852, 622, 7600, 6399, 899, 927, 86695, 866 #### [facility] [place] [address] Picture Copyist: Noble Brown MD T4, FREEon 10-25-2024 Free T4 [Mass/Vol] 1.1 ng/dL Normal 0.8-1.8 [facility] Comment on above: Performed By: #### 7 573, 01986, 622, 7600, 6399, 899, 927, 75003, 866 #### [facility] [place] [address] Picture Copyist: Noble Brown MD TSHon 10-25-2024 TSH Qn 0.90 m[IU]/L Normal [facility] Comment on above: Result Comment: Refe rence Range > or = 20 Years 0.40-4.50 Ranges First trimester 0.26-2.66 Second trimester 0.55-2.73 Third trimester 0.43-2.91 Performed By: #### 7 573, 62789, 622, 7600, 6399, 899, 927, 99147, 866 #### [facility] [place] [address] Picture Copyist: Noble Brown MD VITAMIN B12on 10-25-2024 Cobalamin (Vitamin B12) [Mass/Vol] 351 pg/mL Normal 200-1100 [facility] Comment on above: Result Comment: Please Note: Although the reference range for vitamin B12 is 200-1100 pg/mL, it has been reported that between 5 and 10% of patients with values between 200 and 400 pg/mL may experience neuropsychiatric and hematologic abnormalities due to occult B12 deficiency; less than 1% of patients with values above 400 pg/mL will have symptoms. Performed By: #### 7 573, 63301, 622, 7600, 6399, 899, 927, 40707, 866 #### [facility] [address], [address] [place] [phone] Picture Copyist: Noble Brown MD VITAMIN D,25-OH,TOTAL,IAon 0 10-25-2024 VITAMIN D,25-OH,TOTAL,IA 28 ng/mL Low 30-100 [facility] Comment on above: Result Comment: Mary Jane min D Status 25-OH Vitamin D: Deficiency: <20 ng/mL Insufficiency: 20 - 29 ng/mL Optimal: > or = 30 ng/mL For 25-OH Vitamin D testing on patients on D2-supplementation and patients for whom quantitation of D2 and D3 fractions is required, the [facility](TM) 25-OH VIT D, (D2,D3), LC/MS/MS is recommended: order code 30700 (patients >2yrs). See Note 1 Note 1 For additional information, please refer to http://education.BoomBang.Tiqets/faq/WNI544 (This link is being provided for informational/ educational purposes only.) Performed By: #### 7 573, 24276, 622, 7600, 6399, 899, 927, 86987, 866 #### [facility] [address], [address] [place] [phone] Picture Copyist: Noble Brown MD TRANSTHORACIC ECHO (TTE) COM PLETEon 10-12-2024 TRANSTHORACIC ECHO (TTE) [place] [address] [phone], TRANSTHORACIC ECHOCARDIOGRAM REPORT Patient Name: JUSTINO RENDON Reading Physician: [id number] Sam Garcia MD Study Date: 10/12/2024 Ordering Provider: [id number] BENY Marck CORTÉSPAT MRN/PID: [id number] Fellow: Nurse: Sharmila Thurman RN Date of /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 Agitated saline used as a contrast agent for intraseptal flow evaluation. PHYSICIAN INTERPRETATION: Left Ventricle: Left ventricular ejection fraction is normal, by visual estimate at 55-60%. There are no regional wall motion abnormalities. The left ventricular cavity size is normal. There is normal septal and normal posterior left ventricular wall thickness. There is left ventricular concentric remodeling. Spectral Doppler shows a normal pattern of left ventricular diastolic filling. Left Atrium: The left atrial size is normal. A bubble study using agitated saline was performed. Bubble study is negative. Right Ventricle: The right ventricle is normal in size. There is normal right ventricular global systolic function. Right Atrium: The right atrial size is normal. Aortic Valve: The aortic valve is trileaflet. The aortic valve dimensionless index is 0.77. There is no evidence of aortic valve regurgitation. The peak instantaneous gradient of the aortic valve is 8 mmHg. The mean gradient of the aortic valve is 4 mmHg. Mitral Valve: The mitral valve is normal in structure. There is trace mitral valve regurgitation. Tricuspid Valve: The tricuspid valve is structurally normal. There is trace tricuspid regurgitation. Pulmonic Valve: The pulmonic valve is structurally normal. There is no indication of pulmonic valve regurgitation. Pericardium: No pericardial effusion noted. Aorta: The aortic root is normal. CONCLUSIONS: 1. Left ventricular ejection fraction is normal, by visual estimate at 55-60%. 2. There is normal right ventricular global systolic function. QUANTITATIVE DATA SUMMARY: 2D MEASUREMENTS: Normal Ranges: Ao Root d: 2.90 cm (2.0-3.7cm) LAs: 2.90 cm (2.7-4.0cm) IVSd: 0.78 cm (0.6-1.1cm) LVPWd: 0.87 cm (0.6-1.1cm) LVIDd: 3.66 cm (3.9-5.9cm) LVIDs: 2.56 cm LV Mass Index: 49.8 g/m2 LVEDV Index: 34.55 ml/m2 LV % FS 30.1 % LEFT ATRIUM: Normal Ranges: LA Vol A4C: 21.2 ml (22+/-6mL/m2) LA Vol A2C: 15.6 ml LA Vol BP: 18.2 ml LA Vol Index A4C: 12.5ml/m2 LA Vol Index A2C: 9.2 ml/m2 LA Vol Index BP: 10.8 ml/m2 LA Area A4C: 10.5 cm2 LA Area A2C: 9.0 cm2 LA Major [place] A4C: 4.4 cm LA Major [place] A2C: 4.4 cm LA Volume Index: 11.4 ml/m2 LA Vol A4C: 19.2 ml LA Vol A2C: 15.1 ml LA Vol Index BSA: 10.1 ml/m2 LV SYSTOLIC FUNCTION: Normal Ranges: EF-A4C View: 57 % (>=55%) EF-A2C View: 56 % EF-Biplane: 58 % EF-Visual: 58 % LV EF Reported: 58 % LV DIASTOLIC FUNCTION: Normal Ranges: MV Peak E: 1.02 m/s (0.7-1.2 m/s) MV Peak A: 0.61 m/s (0.42-0.7 m/s) E/A Ratio: 1.68 (1.0-2.2) MV e' 0.156 m/s (>8.0) MV lateral e' 0.18 m/s MV medial e' 0.13 m/s E/e' Ratio: 6.52 (<8.0) MITRAL VALVE: Normal Ranges: MV DT: 208 msec (150-240msec) AORTIC VALVE: Normal Ranges: AoV Vmax: 1.39 m/s (<=1.7m/s) AoV Peak P.7 mmHg (<20mmHg) AoV Mean P.0 mmHg (1.7-11.5mmHg) LVOT Max Arthur: 1.03 m/s (<=1.1m/s) AoV VTI: 27.00 cm (18-25cm) LVOT VTI: 20.80 cm LVOT Diameter: 1.60 cm (1.8-2.4cm) AoV Area, VTI: 1.55 cm2 (2.5-5.5cm2) AoV Area,Vmax: 1.49 cm2 (2.5-4.5cm2) AoV Dimensionless Index: 0.77 RIGHT VENTRICLE: RV Basal 3.39 cm RV Mid 2.30 cm RV Major 7.8 cm TAPSE: 18.3 mm RV s' 0.16 m/s TRICUSPID VALVE/RVSP: Normal Ranges: Peak TR Velocity: 1.73 m/s RV Syst Pressure: 15 mmHg (< 30mmHg) [id number] Sam Garcia MD Electronically signed on 10/13/2024 at 9:07:36 PM Final Normal [facility] ECG 12 Leadon 09-28-2024 NSR with sinus arrhythmia [facility] Work Phone: [facility] Work Phone: Bacteria identifiedon 2023 Bacteria identified Cx Nom (U) Test: Urine Culture Specimen Source: Clean Catch/Voided Specimen Type: Urine Specimen Date: 08/08/202436 Result Date: 08/09/2024 141 Result Status: Final result Abnormal: Yes Resulting Lab: [facility] [id number] [place] [address] CULTURE Growth indicates contamination with periurethral corey. Repeat culture if clinically indicated. <=10,000 CFU/mL Streptococcus agalactiae (Group B Streptococcus) (Abnormal) Streptococcus agalactiae (Group B Streptococcus, GBS) may be significant in individuals. Recovery from non- individuals likely represents an insignificant finding. Routine GBS screening should be ordered using test ???Group B Streptococcus (GBS) Screen, Culture??? ([id number]). Streptococcus agalactiae (Group B Streptococcus) is universally susceptible to beta-lactam antibiotics and vancomycin. Routine susceptibility testing not performed. For penicillin allergic patients, please contact the laboratory within 5 days of collection at to request susceptibility testing. Abnormal [facility] Comment on above: Performed By: #### 6 30-4 #### NAVI Delacruz ([id number]) [facility] ([facility]) [address] [place] [address] Blood type and Indirect anti body screen panel (Bld)on 08-08-2024 ABO group Nom (Bld) A Normal [facility] Comment on above: Performed By: #### 3 4532-2 #### BERTIN FERNÁNDEZ ([id number]) [facility] BLOOD [facility] ([facility]) [address] [place] [address] Blood group antibody screen Ql Negative Normal [facility] Comment on above: Performed By: #### 3 4532-2 #### BERTIN FERNÁNDEZ ([id number]) [facility] BLOOD [facility] ([facility]) [address] [place] [address] US D Ag Ql (Bld) Positive [facility] Comment on above: Performed By: #### 3 4532-2 #### BERTIN FERNÁNDEZ ([id number]) [facility] BLOOD [facility] ([facility]) [address] [place] [address] US Choriogonadotropin.beta subu niton 08-08-2024 HCG.beta subunit Qn 3 m[IU]/mL Normal <5 [facility] Comment on above: Order Comment: Total HCG measurement is performed using the Lei [employer]igi Access Immunoassay which detects intact HCG and free beta HCG subunit. This test is not indicated for use as a tumor marker. HCG testing is performed using a different test methodology at [facility] than other [facility]. Direct result comparison should only be made within the same method. Performed By: #### 2 1198-7 #### BERTIN FERNÁNDEZ ([id number]) [facility] ([facility]) [address] [id number] HCG ( test) IA.rapi d Ql (U)Ordered By: Amaya Turner on 08-08-2024 HCG ( test) Ql (U) Negative NEGATIVE [facility] Interpretation and review of laboratory results Normal [facility] HCG ( test) IA.rapi d Ql (U)on 08-08-2024 HCG ( test) Ql (U) Negative Normal NEGATIVE [facility] Comment on above: Performed By: #### 8 0384-1 #### DENTON JOLENE ([id number]) [facility] ([facility]) [address] [place] [address] HCG.beta subunit Qnon 2023 Interpretation and review of laboratory results Normal [facility] Total HCG measuremen t is performed using the [employer] [place] Access Immunoassay which detects intact HCG and free beta HCG subunit. This test is not indicated for use as a tumor marker. HCG testing is performed using a different test methodology at [facility] than other [facility]. Direct result comparison should only be made within the same method. [facility] No Panel Informationon 08-08 Interpretation and review of laboratory results Abnormal [facility] Urinalysis complete W Reflex Culture panel (U)on 08-08-2024 Appearance (U) Ex.Turbid Abnormal Clear [facility] Bilirubin (U) [Mass/Vol] Negative NEGATIVE [facility] Color (U) Dark-Brown Abnormal Light-Yellow, Yellow, Dark-Yellow [facility] Glucose Auto test strip (U) [Mass/Vol] Normal Normal mg/dL [facility] Ketones (U) [Mass/Vol] Negative NEGATIVE mg/dL [facility] Leukocyte esterase Auto test strip Ql (U) 250 Jomar/ L Abnormal NEGATIVE [facility] Nitrite Auto test strip Ql (U) Negative NEGATIVE [facility] pH (U) 6 [pH] 5.0, 5.5, 6.0, 6.5, 7.0, 7.5, 8.0 [facility] Protein (U) [Mass/Vol] 70 (1+) Abnormal NEGATIVE, 10 (TRACE), 20 (TRACE) mg/dL [facility] RBC (U) [#/Vol] OVER (3+) Abnormal NEGATIVE [facility] Specific gravity (U) [Rel density] 1.020 1.005 - 1.035 [facility] Urobilinogen (U) [Mass/Vol] Normal Normal mg/dL [facility] OVER is reported whe n the result is greater than the clinically reportable range. [facility] Appearance (U) Ex.Turbid Normal Clear [facility] Comment on above: Order Comment: OVER is reported when the result is greater than the clinically reportable range. Performed By: #### 5 8077-9 #### BERTIN FERNÁNDEZ ([id number]) [facility] ([facility]) [address] [place] [address] Bilirubin (U) [Mass/Vol] Negative Normal NEGATIVE [facility] Comment on above: Order Comment: OVER is reported when the result is greater than the clinically reportable range. Performed By: #### 5 8077-9 #### BERTIN FERNÁNDEZ ([id number]) [facility] ([facility]) [address] [place] [address] Color (U) Dark-Brown Normal Light-Yellow, Yellow, Dark-Yellow [facility] Comment on above: Order Comment: OVER is reported when the result is greater than the clinically reportable range. Performed By: #### 5 8077-9 #### BERTIN FERNÁNDEZ ([id number]) [facility] ([facility]) [address] [place], [place] [id number] Glucose Auto test strip (U) [Mass/Vol] Normal Normal Normal [facility] Comment on above: Order Comment: OVER is reported when the result is greater than the clinically reportable range. Performed By: #### 5 8077-9 #### BERTIN FERNÁNDEZ ([id number]) [facility] ([facility]) [address] [place] [id number] Ketones (U) [Mass/Vol] Negative Normal NEGATIVE [facility] Comment on above: Order Comment: OVER is reported when the result is greater than the clinically reportable range. Performed By: #### 5 8077-9 #### BERTIN FERNÁNDEZ ([id number]) [facility] ([facility]) [address] [place] [address] Leukocyte esterase Auto test strip Ql (U) 250 Jomar/???L Abnormal NEGATIVE [facility] Comment on above: Order Comment: OVER is reported when the result is greater than the clinically reportable range. Performed By: #### 5 8077-9 #### BERTIN FERNÁNDEZ ([id number]) [facility] ([facility]) [address] [place] [address] Nitrite Auto test strip Ql (U) Negative Normal NEGATIVE [facility] Comment on above: Order Comment: OVER is reported when the result is greater than the clinically reportable range. Performed By: #### 5 8077-9 #### BERTIN FERNÁNDEZ ([id number]) [facility] ([facility]) [address] [place] [address] pH (U) 6.0 [pH] Normal 5.0, 5.5, 6.0, 6.5, 7.0, 7.5, 8.0 [facility] Comment on above: Order Comment: OVER is reported when the result is greater than the clinically reportable range. Performed By: #### 5 8077-9 #### BERTIN FERNÁNDEZ ([id number]) [facility] ([facility]) [address] [place] [address] Protein (U) [Mass/Vol] 70 (1+) Abnormal NEGATIVE, 10 (TRACE), 20 (TRACE) [facility] Comment on above: Order Comment: OVER is reported when the result is greater than the clinically reportable range. Performed By: #### 5 8077-9 #### BERTIN FERNÁNDEZ ([id number]) [facility] ([facility]) [address] [place] [address] RBC (U) [#/Vol] OVER (3+) Abnormal NEGATIVE [facility] Comment on above: Order Comment: OVER is reported when the result is greater than the clinically reportable range. Performed By: #### 5 8077-9 #### BERTIN FERNÁNDEZ ([id number]) [facility] ([facility]) [address] [place] [address] Specific gravity (U) [Rel density] 1.020 Normal 1.005-1.035 [facility] Comment on above: Order Comment: OVER is reported when the result is greater than the clinically reportable range. Performed By: #### 5 8077-9 #### BERTIN FERNÁNDEZ ([id number]) [facility] ([facility]) [address] [place] [address] Urobilinogen (U) [Mass/Vol] Normal Normal Normal [facility] Comment on above: Order Comment: OVER is reported when the result is greater than the clinically reportable range. Performed By: #### 5 8077-9 #### BERTIN FERNÁNDEZ ([id number]) [facility] ([facility]) [address] [place] [address] Urinalysis microscopic panel Auto Ql (U)on 08-08-2024 Epithelial cells.squamous Auto (Urine sed) [#/Area] 10-25 (FEW) Reference range not established. /HPF [facility] Mucus Auto (Urine sed) [#/Area] 1+ Reference range not established. /LPF [facility] RBC Auto (Urine sed) [#/Area] >20 Abnormal NONE, 1-2, 3-5 /HPF [facility] WBC Auto (Urine sed) [#/Area] >50 Abnormal 1-5, NONE /HPF [facility] Epithelial cells.squamous Auto (Urine sed) [#/Area] 10-25 (FEW) Normal Reference range not established. [facility] Comment on above: Performed By: #### 5 3315-8 #### BERTIN FERNÁNDEZ ([id number]) [facility] ([facility]) [address] [place] [address] Mucus Auto (Urine sed) [#/Area] 1+ /LPF Normal Reference range not established. [facility] Comment on above: Performed By: #### 5 3315-8 #### BERTIN FERNÁNDEZ ([id number]) [facility] ([facility]) [address] [place] [address] RBC Auto (Urine sed) [#/Area] >20 Abnormal NONE, 1-2, 3-5 [facility] Comment on above: Performed By: #### 5 3315-8 #### BERTIN FERNÁNDEZ ([id number]) [facility] ([facility]) [address] [place] [address] WBC Auto (Urine sed) [#/Area] >50 Abnormal 1-5, NONE [facility] Comment on above: Performed By: #### 5 3315-8 #### BERTIN FERNÁNDEZ ([id number]) [facility] ([facility]) [address] [place] [id number] hCG, quantitative, on 08-08-2024 HCG.beta subunit Qn 3 m[IU]/mL [facility] Vital Signs Date Time Vital Sign Value Performing Clinician Facility 02-10-2025 13:04-0400 Body height 162.56 cm Olga Manzo CNM Work Phone: [facility] 02-10-2025 13:04-0400 Body mass index (BMI) [Ratio] 26.1 kg/m2 Olga CORDONM Work Phone: [facility] 02-10-2025 13:04-0400 Body weight 68.94 kg Olga CORDONM Work Phone: [facility] 02-10-2025 13:04-0400 Diastolic blood pressure 76 mm[Hg] Ogla CORDONM Work Phone: [facility] 02-10-2025 13:04-0400 Systolic blood pressure 120 mm[Hg] Olga CORDONM Work Phone: [facility] 01-24-2025 11:38-0400 Body mass index (BMI) [Ratio] 25.9 kg/m2 Olga CORDONM Work Phone: [facility] 01-24-2025 11:38-0400 Body weight 68.6 kg Olga CORDONM Work Phone: [facility] 01-24-2025 11:38-0400 Diastolic blood pressure 64 mm[Hg] Olga CORDONM Work Phone: [facility] 01-24-2025 11:38-0400 Systolic blood pressure 110 mm[Hg] Olga Manzo CNM Work Phone: [facility] 01-24-2025 08:05-0400 Body height 162.56 cm Olga Manzo CNM Work Phone: [facility] 01-12-2025 14:16-0400 Body height 162.56 cm Olga Manzo CNM Work Phone: [facility] 01-12-2025 14:16-0400 Body mass index (BMI) [Ratio] 25.7 kg/m2 Olga Manzo CNM Work Phone: [facility] 01-12-2025 14:16-0400 Body weight 68.15 kg Olga Manzo CNM Work Phone: [facility] 01-12-2025 14:16-0400 Diastolic blood pressure 74 mm[Hg] Olga Manzo CNM Work Phone: [facility] 01-12-2025 14:16-0400 Systolic blood pressure 129 mm[Hg] Olga Manzo CNM Work Phone: [facility] 12-26-2024 14:33-0400 Body height 162.6 cm Dereck Hernandez APRN-[employer] SALESPERSON Work Phone: [facility] 12-26-2024 14:33-0400 Body mass index (BMI) [Ratio] 25.52 kg/m2 Dereck Hernandez APRN-[employer] SALESPERSON Work Phone: [facility] 12-26-2024 14:33-0400 Body weight 67.45 kg Dereck Hernandez APRN-[employer] SALESPERSON Work Phone: [facility] 12-26-2024 14:33-0400 Diastolic blood pressure 78 mm[Hg] Dereck Hernandez APRN-[employer] SALESPERSON Work Phone: [facility] 12-26-2024 14:33-0400 Heart rate 93 /min Dereck Hernandez APRN-[employer] SALESPERSON Work Phone: [facility] 12-26-2024 14:33-0400 SaO2% (BldA) [Mass fraction] 99 % Dereck Duyen ROBOTIC WELD TECHNICIAN-[employer] SALESPERSON Work Phone: [facility] 12-26-2024 14:33-0400 Systolic blood pressure 110 mm[Hg] Dereck Duyen ROBOTIC WELD TECHNICIAN-[employer] SALESPERSON Work Phone: [facility] 12-15-2024 08:43-0400 Diastolic blood pressure 66 mm[Hg] Enrrique 1 [facility] 12-15-2024 08:43-0400 Heart rate 109 /min Enrrique 1 [facility] 12-15-2024 08:43-0400 SaO2% (BldA) [Mass fraction] 98 % Enrrique 1 [facility] 12-15-2024 08:43-0400 Systolic blood pressure 118 mm[Hg] Enrrique 1 [facility] 11-28-2024 14:20-0400 Body height 160 cm Beny Pat PA-C Work Phone: [facility] 11-28-2024 14:20-0400 Body mass index (BMI) [Ratio] 25.69 kg/m2 Beny Pat PA-C Work Phone: [facility] 11-28-2024 14:20-0400 Body weight 65.77 kg Beny [employer] PA-C Work Phone: [facility] 11-28-2024 14:20-0400 Diastolic blood pressure 68 mm[Hg] Beny Pat PA-C Work Phone: [facility] 11-28-2024 14:20-0400 Heart rate 92 /min Beny Pat PA-C Work Phone: [facility] 11-28-2024 14:20-0400 Systolic blood pressure 100 mm[Hg] Beny [employer] PA-C Work Phone: [facility] 09-28-2024 13:52-0500 Body height 160 cm Beny [employer] PA-C Work Phone: [facility] 09-28-2024 13:52-0500 Body mass index (BMI) [Ratio] 25.86 kg/m2 Beny Cortésall PA-C Work Phone: [facility] 09-28-2024 13:52-0500 Body weight 66.22 kg Benyradha Cortésall PA-C Work Phone: [facility] 09-28-2024 13:52-0500 Diastolic blood pressure 80 mm[Hg] Benyradha Cortésall PA-C Work Phone: [facility] 09-28-2024 13:52-0500 Heart rate 90 /min Benyradha Cortésall PA-C Work Phone: [facility] 09-28-2024 13:52-0500 Systolic blood pressure 133 mm[Hg] Benyradha Cortésall PA-C Work Phone: [facility] 08-08-2024 11:34-0500 Diastolic blood pressure 72 mm[Hg] Brady Yang DO Work Phone: [facility] 08-08-2024 11:34-0500 Heart rate 94 /min Brady Yang DO Work Phone: [facility] 08-08-2024 11:34-0500 Respiratory rate 18 /min Brady Yang DO Work Phone: [facility] 08-08-2024 11:34-0500 SaO2% (BldA) [Mass fraction] 99 % Brady Yang DO Work Phone: [facility] 08-08-2024 11:34-0500 Systolic blood pressure 119 mm[Hg] Brady Yang DO Work Phone: [facility] 08-08-2024 09:17-0500 Body height 160 cm Brady Yang DO Work Phone: [facility] 08-08-2024 09:17-0500 Body mass index (BMI) [Ratio] 25.69 kg/m2 Brady Yang DO Work Phone: [facility] 08-08-2024 09:17-0500 Body temperature 98.01 [degF] Brady Yang DO Work Phone: [facility] 08-08-2024 09:17-0500 Body weight 65.77 kg Brady Yang DO Work Phone: [facility] Encounters Encounter Date Encounter Type Care Provider Facility Start: 02-10-2025 End: 02-10-2025 ambulatory Olga Manzo CNM Work Phone: [facility] Work Phone: Start: 02-10-2025 End: 02-10-2025 Patient encounter procedure Araseli Jacob CNM -Laboratory Specimen Work Phone: Start: 02-10-2025 End: 02-10-2025 Patient encounter procedure Araseli Jacob CNM -[facility] Work Phone: Start: 02-10-2025 End: 02-10-2025 ambulatory Olga Manzo CNM Work Phone: [facility] Work Phone: Start: 02-10-2025 End: 02-10-2025 ambulatory Araseli Jacob Facility:[facility] Start: 01-24-2025 Non-patient / Non-visit Yeimi cruz RN -[facility] Work Phone: Start: 01-24-2025 End: 01-24-[address] Marialuisa Marshall MD -[facility] Work Phone: Start: 01-24-2025 End: 01-24-2025 ambulatory Olga Manzo CNM Work Phone: [facility] Work Phone: Start: 01-14-2025 End: 01-14-2025 ambulatory Olga Manzo CNM Work Phone: [facility] Work Phone: Start: 01-14-2025 End: 01-14-2025 Patient encounter procedure Sherie Barkman HAND I TUBE BENDER-C -Laboratory Work Phone: Start: 01-14-2025 End: 01-14-2025 ambulatory Sherie Padilla Facility:[facility] Start: 01-12-2025 End: 01-12-2025 Patient encounter procedure Sherie Padilla HAND I TUBE BENDER-C -[facility] Work Phone: Start: 01-12-2025 End: 01-12-2025 Patient encounter status Sherie Padilla HAND I TUBE BENDER-C [facility] Start: 01-12-2025 End: 01-12-2025 ambulatory Sheriemara Padilla [facility] Start: 01-12-2025 End: 01-12-2025 ambulatory Olga Manzo Facility:[facility] Start: 12-26-2024 End: 12-26-2024 Office outpatient new 45 minutes Dereck Hernandez ROBOTIC WELD TECHNICIAN-[employer] SALESPERSON Work Phone: [facility] Comment on above: Heart palpitations ( Primary Dx); Tachycardia; Dizziness; POTS (postural orthostatic tachycardia syndrome) Start: 12-26-2024 End: 12-26-2024 ambulatory [facility] Start: 12-15-2024 End: 12-15-2024 ambulatory [facility] Start: 12-15-2024 End: 12-15-2024 Subsequent hospital visit by physician Enrrique Exam 1 [facility] Comment on above: Tachycardia; Heart palpitations; Dizziness Start: 11-28-2024 End: 11-28-2024 Office outpatient visit 25 minutes Beny Avalos PA-C Work Phone: [facility] Internal Medicine Comment on above: Vitamin D deficiency (Primary Dx); Tachycardia; Heart palpitations; Dizziness; Low ferritin; Chronic left shoulder pain Start: 11-28-2024 End: 11-28-2024 ambulatory [facility] Ambulatory Start: 10-12-2024 End: 10-12-2024 Subsequent hospital visit by physician Enrrique Cordoba Cardiac Room [facility] Comment on above: Tachycardia; Dizziness; Fatigue, unspecified type; Heart palpitations Start: 10-12-2024 End: 10-12-2024 ambulatory [facility] Start: 09-28-2024 End: 09-28-2024 Office outpatient new 45 minutes Beny Avalos PA-C Work Phone: [facility] Internal Medicine Comment on above: Encounter to [facility] care with new doctor (Primary Dx); Chronic left shoulder pain; Vitamin D deficiency; Tachycardia; Dizziness; Fatigue, unspecified type; Heart palpitations; History of pre-eclampsia Start: 09-28-2024 End: 09-28-2024 ambulatory [facility] Ambulatory Start: 08-08-2024 End: 08-08-2024 Emergency department patient visit Brady Yang DO Work Phone: [facility] Emergency Medicine Comment on above: Vaginal bleeding (Pr imary Dx) Procedures Date Procedure Procedure Detail Performing Clinician Start: 02-10-2025 Urine culture Olga Coliln diego CNM Work Phone: Start: 12-26-2024 Ecg routine ecg w/le ast 12 lds w/i&r Dereck Hernandez ROBOTIC WELD TECHNICIAN-[employer] SALESPERSON Work Phone: Start: 10-22-2024 Lipid 1996 panel - S mallorie or Plasma Beny Avalos PA-C Work Phone: Start: 09-28-2024 Ecg routine ecg w/le ast 12 lds w/i&r Beny Avalos PA-C Work Phone: Start: 08-08-2024 Gonadotropin chorion ic quantitative Brady Yang DO Work Phone: Start: 08-08-2024 Urinalysis microscop ic panel - Urine Qualitative by Automated Brady Yang DO Work Phone: Start: 08-08-2024 Urine test visual color cmprsn meths Brady Yang DO Work Phone: Start: 08-08-2024 Urnls dip stick/tabl et reagent auto microscopy Brady Yang DO Work Phone: Plan of Treatment Date Care Activity Detail Author Start: 2073 RSV High Risk: (Elderly (60+) or Population) (1 - 1-dose 75+ series) RSV High Risk: (Elderly (60+) or Population) (1 - 1-dose 75+ series) [facility] Start: 2048 Zoster Vaccines (1 of 2) Zoster Vaccines (1 of 2) [facility] Start: 10-22-2029 Lipid panel Lipid Panel [facility] Start: 06-27-2025 End: 06-27-2025 Patient encounter procedure 06/27/2025 2:30 PM EDT Office Visit [facility] [address] [place] [phone] Dereck Hernandez, ROBOTIC WELD TECHNICIAN-[employer] SALESPERSON [address] [facility], [address] [place], [place] [phone] [facility] Start: 05-15-2025 Influenza vaccination Influenza Vaccine (Season Ended) [facility] Start: 05-01-2025 End: 05-01-2025 Patient encounter procedure 05/01/2025 2:00 PM EDT Office Visit [facility] Internal Medicine [address] [facility] [place] [phone] Beny Avalos, PAGuillerminaC [address] [place], [place] [phone] [facility] Start: 02-28-2025 End: 11-28-2025 25-hydroxyvitamin D3 [Mass/volume] in Serum or Plasma Vitamin D 25-Hydroxy,Total (for eval of Vitamin D levels) Lab Routine Vitamin D deficiency Expected: 02/28/2025 (Approximate), Expires: 11/28/2025 [facility] Work Phone: Comment on above: Expected: 02/28/2025 (Approximate), Expi res: 11/28/2025 Start: 02-28-2025 End: 11-28-2025 CBC W Auto Differential panel - Blood CBC and Auto Differential Lab Routine Heart palpitations Dizziness Low ferritin Expected: 02/28/2025 (Approximate), Expires: 11/28/2025 [facility] Work Phone: Comment on above: Expected: 02/28/2025 (Approximate), Expi res: 11/28/2025 Start: 02-28-2025 End: 11-28-2025 Ferritin [Mass/volume] in Serum or Plasma Ferritin Lab Routine Heart palpitations Dizziness Low ferritin Expected: 02/28/2025 (Approximate), Expires: 11/28/2025 [facility] Work Phone: Comment on above: Expected: 02/28/2025 (Approximate), Expi res: 11/28/2025 Start: 02-28-2025 End: 11-28-2025 Iron and Iron binding capacity panel - Serum or Plasma Iron and TIBC Lab Routine Heart palpitations Dizziness Low ferritin Expected: 02/28/2025 (Approximate), Expires: 11/28/2025 [facility] Work Phone: Comment on above: Expected: 02/28/2025 (Approximate), Expi res: 11/28/2025 Start: 12-26-2024 End: 12-26-2024 Patient encounter procedure 12/26/2024 2:30 PM EDT Office Visit [facility] [address] [place] [address] Dereck Hernandez, ROBOTIC WELD TECHNICIAN-[employer] SALESPERSON [address], [facility] [place] [address] [facility] Start: 12-15-2024 End: 12-15-2024 Patient encounter procedure 12/15/2024 8:00 AM EDT Appointment [facility] [address] [place] [phone] [facility] Start: 12-13-2024 End: 12-13-2024 Patient encounter procedure 12/13/2024 4:00 PM EDT Office Visit [facility] [address] [place] [phone] Dave Bryant MD [address] [place] [address] [facility] Start: 12-06-2024 End: 12-06-2024 Patient encounter procedure 12/06/2024 1:30 PM EDT Office Visit [facility] [address] [place] [address] Dereck Hernandez, ROBOTIC WELD TECHNICIAN-H[employer] SALESPERSON [address] [place] [address] [facility] Office [facility] Start: 11-28-2024 End: 11-28-2024 Patient encounter procedure 11/28/2024 2:40 PM EDT Office Visit [facility] Internal Medicine [address] [place] [phone] Beny Avalos, PAGuillerminaC [address] [place] [address] [facility] Start: 11-28-2024 End: 11-28-2026 Tilt table study [facility] Routine Tachycardia Heart palpitations Dizziness Expected: 11/28/2024 (Approximate), Expires: 11/28/2026 [facility] Service Area Work Phone: Comment on above: Expected: 11/28/2024 (Approximate), Expi res: 11/28/2026 Start: 10-12-2024 End: 10-12-2024 Patient encounter procedure [facility] Start: 09-28-2024 End: 09-28-2025 25-hydroxyvitamin D3 [Mass/volume] in Serum or Plasma Vitamin D 25-Hydroxy,Total (for eval of Vitamin D levels) Lab Routine Vitamin D deficiency Tachycardia Dizziness Fatigue, unspecified type Expected: 09/28/2024 (Approximate), Expires: 09/28/2025 [facility] Work Phone: Comment on above: Expected: 09/28/2024 (Approximate), Expi res: 09/28/2025 Start: 09-28-2024 End: 09-28-2025 CBC W Auto Differential panel - Blood CBC and Auto Differential Lab Routine Tachycardia Dizziness Fatigue, unspecified type Expected: 09/28/2024 (Approximate), Expires: 09/28/2025 [facility] Work Phone: Comment on above: Expected: 09/28/2024 (Approximate), Expi res: 09/28/2025 Start: 09-28-2024 End: 09-28-2025 Cobalamin (Vitamin B12) [Mass/volume] in Serum or Plasma Vitamin B12 Lab Routine Tachycardia Dizziness Fatigue, unspecified type Expected: 09/28/2024 (Approximate), Expires: 09/28/2025 [facility] Work Phone: Comment on above: Expected: 09/28/2024 (Approximate), Expi res: 09/28/2025 Start: 09-28-2024 End: 09-28-2025 Comprehensive metabolic 2000 panel - Serum or Plasma Comprehensive Metabolic Panel Lab Routine Tachycardia Dizziness Fatigue, unspecified type Expected: 09/28/2024 (Approximate), Expires: 09/28/2025 [facility] Work Phone: Comment on above: Expected: 09/28/2024 (Approximate), Expi res: 09/28/2025 Start: 09-28-2024 End: 09-28-2025 Ferritin [Mass/volume] in Serum or Plasma Ferritin Lab Routine Tachycardia Dizziness Fatigue, unspecified type Expected: 09/28/2024 (Approximate), Expires: 09/28/2025 [facility] Work Phone: Comment on above: Expected: 09/28/2024 (Approximate), Expi res: 09/28/2025 Start: 09-28-2024 End: 09-28-2026 Holter monitor study Holter Or Event Perishable Fruit Inspector Cardiac Services Routine Tachycardia Dizziness Fatigue, unspecified type Heart palpitations Expected: 09/28/2024 (Approximate), Expires: 09/28/2026 [facility] Work Phone: Comment on above: Expected: 09/28/2024 (Approximate), Expi res: 09/28/2026 Start: 09-28-2024 End: 09-28-2025 Iron and Iron binding capacity panel - Serum or Plasma Iron and TIBC Lab Routine Tachycardia Dizziness Fatigue, unspecified type Expected: 09/28/2024 (Approximate), Expires: 09/28/2025 [facility] Work Phone: Comment on above: Expected: 09/28/2024 (Approximate), Expi res: 09/28/2025 Start: 09-28-2024 End: 09-28-2025 Lipid 1996 panel - Serum or Plasma Lipid Panel Lab Routine Tachycardia Dizziness Fatigue, unspecified type Expected: 09/28/2024 (Approximate), Expires: 09/28/2025 [facility] Work Phone: Comment on above: Expected: 09/28/2024 (Approximate), Expi res: 09/28/2025 Start: 09-28-2024 End: 09-28-2025 Magnesium [Mass/volume] in Serum or Plasma Magnesium Lab Routine Tachycardia Dizziness Fatigue, unspecified type Expected: 09/28/2024 (Approximate), Expires: 09/28/2025 [facility] Work Phone: Comment on above: Expected: 09/28/2024 (Approximate), Expi res: 09/28/2025 Start: 09-28-2024 End: 09-28-2025 Thyrotropin [Units/volume] in Serum or Plasma Thyroid Stimulating Hormone Lab Routine Tachycardia Dizziness Fatigue, unspecified type Expected: 09/28/2024 (Approximate), Expires: 09/28/2025 [facility] Work Phone: Comment on above: Expected: 09/28/2024 (Approximate), Expi res: 09/28/2025 Start: 09-28-2024 End: 09-28-2025 Thyroxine (T4) free [Mass/volume] in Serum or Plasma Thyroxine, Free Lab Routine Tachycardia Dizziness Fatigue, unspecified type Expected: 09/28/2024 (Approximate), Expires: 09/28/2025 [facility] Work Phone: Comment on above: Expected: 09/28/2024 (Approximate), Expi res: 09/28/2025 Start: 09-28-2024 End: 09-28-2026 US Heart Transthoracic Transthoracic Echo Complete Echocardiography Routine Tachycardia Dizziness Fatigue, unspecified type Heart palpitations Expected: 09/28/2024 (Approximate), Expires: 09/28/2026 [facility] Work Phone: Comment on above: Expected: 09/28/2024 (Approximate), Expi res: 09/28/2026 Start: 09-28-2024 End: 09-28-2025 XR Shoulder - left 2 Views XR shoulder left 2+ views Imaging Routine Chronic left shoulder pain Expected: 09/28/2024, Expires: 09/28/2025 [facility] Service Area Work Phone: Comment on above: Expected: 09/28/2024, Expires: Start: 05-15-2024 COVID-19 Vaccine ( season) COVID-19 Vaccine ( season) [facility] Start: 05-15-2024 Influenza vaccination Influenza Vaccine (#1) [facility] Start: 2020 DTaP/Tdap/Td Vaccines (1 - Tdap) DTaP/Tdap/Td Vaccines (1 - Tdap) [facility] Start: 2019 Screening for malignant neoplasm of cervix [facility] Start: 2017 Hepatitis B Vaccines (1 of 3 - 19+ 3-dose series) Hepatitis B Vaccines (1 of 3 - 19+ 3-dose series) [facility] Start: 2016 Diabetes mellitus screening Diabetes Screening [facility] Start: 2016 Hepatitis C screening Hepatitis C Screening [facility] Start: 2013 HPV Vaccines (1 - 3-dose series) HPV Vaccines (1 - 3-dose series) [facility] Start: 2011 Varicella vaccination Varicella Vaccines (1 of 2 - 13+ 2-dose series) [facility] Start: 1999 MMR Vaccines (1 of 1 - Standard series) MMR Vaccines (1 of 1 - Standard series) [facility] Start: 1998 HIV screening HIV Screening [facility] Start: 1998 Lipid panel Lipid Panel [facility] Start: 1998 Yearly Adult Physical Yearly Adult Physical [facility] End: 08-08-2024 Bacteria identified in Urine by Culture [facility] Work Phone: Comment on above: Once (Lab) for 1 Occurrences starting until 08/08/2024 End: 08-08-2024 Blood type and Indirect antibody screen panel - Blood [facility] Work Phone: Comment on above: Once (Lab) for 1 Occurrences starting until 08/08/2024 CBC W Auto Different ial panel - Blood [facility] Chlamydia deoxyribonucleic acid detection [facility] Comprehensive metabo lic 2000 panel - Serum or Plasma [facility] End: 08-08-2024 Extra Urine Isabel Tube [facility] Work Phone: Comment on above: Once for 1 Occurrences starting 08/08/20 until 08/08/2024 Hepatitis C antibody measurement [facility] End: 10-12-[address] [facility] Service Area Work Phone: Comment on above: Once for 1 Occurrences starting 10/12/19 until 10/12/2024 Liquid based cervica l cytology screening [facility] Protein/Creatinine [Ratio] in Urine [facility] Rubella IgG measurement [facility] Serologic test for syphilis [facility] End: 12-15-[address] [facility] Service Area Work Phone: Comment on above: Once for 1 Occurrences starting 12/16/19 until 12/15/2024 End: 08-08-2024 Urinalysis complete W Reflex Culture panel - Urine [facility] Service Area Work Phone: Comment on above: Once (Lab) for 1 Occurrences starting until 08/08/2024 End: 10-12-[address] [facility] Service Area Work Phone: Comment on above: Once for 1 Occurrences starting 10/12/19 until 10/12/2024 General acute hospital Payers Date Payer Category Payer Self-pay 2023 Managed Care (Private) [id number] [id number] 2023 Private Health Insurance [id number] 1998 Unknown [id number] 2.16.8 [id number] 1998 Unknown [id number] 2.16.8 [id number] 1998 Unknown [id number] 2.16.8 [id number] 1998 Unknown [id number] 2.16.8 [id number] 1998 Unknown [id number] 2.16. [id number] 1998 Unknown [id number] 2.16. [id number] 1998 Unknown [id number] 2.16. [id number] Unknown [id number] 2.16.8 [id number] Unknown [id number] 2.16.8 [id number] Unknown [id number] 2.16.8 [id number] Unknown [id number] 2.16.8 [id number] Unknown [id number] 2.16.8 [id number] Unknown [id number] 2.16.8 [id number] Unknown [id number] 2.16.8 [id number] Social History Date Type Detail Facility Start: 08-08-2024 End: 01-24-2025 Tobacco smoking status NHIS Never smoked tobacco [facility] Work Phone: Start: 08-08-2024 Tobacco use and exposure Smokeless tobacco non-user [facility] Work Phone: Start: 08-08-2024 End: 11-28-2024 Alcoholic beverage intake Lifetime non-drinker (finding) [facility] Work Phone: Start: 2000 [facility] Start: 09-28-2024 End: 11-28-2024 Gender identity Not on file [facility] Work Phone: Start: 07-29-2024 End: 12-26-2024 Exposure to SARS-CoV-2 (event) Not sure [facility] Work Phone: Start: 09-28-2024 End: 11-28-2024 History of Social function [facility] Work Phone: Start: 12-26-2024 Alcoholic beverage intake Current drinker of alcohol (finding) [facility] Work Phone: Start: 2000 Sex Assigned At Female [facility] Clinical Notes 08-08-2024 to 02-10-2025 Note Date & Type Note Facility 02-10-2025 Progress note [facility] 01-12-2025 Evaluation note Diagnosis Onset Date Resolution Encounter for routine gynecological examination noneactive January 12, 2025 2: 05pm [facility] Work Phone: 1(983) 413-554405-01-2025 Evaluation note* Diagnosis Onset Date Resolution Status Admit Date Encounter for routine gynecological examination noneactive January 2:05pm History of miscarriage, currently acute February 10 1:02pm History of pre-eclampsia in prior , currently acute February 10, 2025 1 :02pm POTS (postural orthostatic tachycardia syndrome) acute February 10, 2025 1:02pm acute February 10, 2025 1:02pm Supervision of high-risk acute February 10, 2025 1 :02pm [facility] Work Phone: 1(328) 823-836804-14-2025 History of Present illness Narrative* Dereck Nubia Hernandez, MAR - 12/26/2024 2:30 PM EDT Images from the original note were not included. [facility] Clinic Visit Note History of present illness: This is a 24 y.o. female with history of preeclampsia and palpitations who presents to the clinic complain of palpitations She complained of palpitations at her new PCP visit. Echo, tilt and 7-day Holter monitor were ordered and she was referred to the cardiology clinic. Volleyball and softball and basketball in high school. Diagnosed with tachycardia and given PRN metoprolol but didn't take due to fear of hypotension. Reports home blood pressure 98/70 at lowest while taking metoprolol. Drinks 3-4 giant Kurtis cups of water a day. Has poor appetite at times, will fast until to dinner. PMHx/PSHx: As above Tobacco Quit vape in 2022 , Alcohol 1 beer or mixed drink every other week , Caffeine use previous 1 cup a day, now rare red bull , Drug use Denies FamHx: denies Subjective: Has complaints of palpitations, mostly with standing position changes and sometimes at night when she lays down to sleep. Endorses dizziness lightheadedness with position changes sitting to standing.Denies chest pain or pressure, shortness of breath, fever or chills. Cardiac Testing Tilt table (December 2024): Abnormal. Suggestive of postural orthostatic tachycardia syndrome. Echo (September 2024): LVEF 55 to 60%, normal biatrial size, no effusion, no hemodynamically significant valvular disease 7-day Holter (September 2024): Predominantly sinus rhythm with an average heart rate of 89 bpm with arange of 171 to 47 bpm. 30% of the time her heart rate was greater than 100 bpm. PVC and PAC burdenless than 1%. There were 12 patient triggered events with no specified symptoms send of which correlated with sinus tachycardia Assessment and Plan Palpitations Postural orthostatic tachycardia syndrome - Holter monitor and tilt table test suggestive of POTS - Unable to tolerate metoprolol in the past due to symptomatic hypotension - Offered autonomic testing, she elected to defer at this time - Start diltiazem 120 mg daily -Encouraged use of electrolyte supplement powders and her water and to better about eating more regularly that may certainly be a contributing factor. - If not controlled with AV odin blockers we will proceed with autonomic testing and neurology referral Return to Care: 6-months Objective VITALS Vitals: 12/26/24 1433 BP: 110/78 Pulse: 93 SpO2: 99% Weight Vitals: 12/26/24 1433 Weight: 67.4 kg (148 lb 11.2 oz) Past Medical History No past medical history on file. Past Surgical History Past Surgical History: Procedure Laterality Date SHOULDER SURGERY Left X 2 - DETACHED BICEP, BONE SPUR Medications Current Outpatient Medications Medication Instructions ergocalciferol (VITAMIN D-2) 50,000 Units, oral, Once Weekly metoprolol succinate XL (TOPROL-XL) 25 mg, oral, Daily, Do not crush or chew. PNV no.95/ferrous fum/folic ac ( ORAL) Daily Allergies No Known Allergies Social History Social History Tobacco Use Smoking status: Never Smokeless tobacco: Never Vaping Use Vaping status: Former Substance Use Topics Alcohol use: Never Drug use: Never Family History Family History Problem Relation Name Age of Onset Breast cancer Mother 40 METS TO LIVER - CURRENTLY IN REMISSION Diabetes type II Father 64 Lung cancer Maternal Grandmother Breast cancer Maternal Grandmother Lung cancer Maternal Grandfather Lung cancer Paternal Grandmother Lung cancer Paternal Grandfather PHYSICAL EXAM Physical Exam Vitals and nursing note reviewed. Constitutional: General: She is not in acute distress. HENT: Head: Normocephalic and atraumatic. Mouth/Throat: Mouth: Mucous membranes are moist. Pharynx: Oropharynx is clear. Eyes: General: No scleral icterus. Pupils: Pupils are equal, round, and reactive to light. Cardiovascular: Rate and Rhythm: Regular rhythm. Tachycardia present. Pulses: Normal pulses. Heart sounds: Normal heart sounds, S1 normal and S2 normal. No murmur heard. No friction rub. Pulmonary: Effort: Pulmonary effort is normal. Breath sounds: Normal breath sounds. Abdominal: General: Bowel sounds are normal. There is no distension. Palpations: Abdomen is soft. Tenderness: There is no abdominal tenderness. Musculoskeletal: General: Normal range of motion. Cervical back: Normal range of motion and neck supple. Right lower leg: No edema. Left lower leg: No edema. Skin: General: Skin is warm and dry. Capillary Refill: Capillary refill takes less than 2 seconds. Findings: No rash. Neurological: General: No focal deficit present. Mental Status: She is alert. Psychiatric: Mood and Affect: Mood normal. Behavior: Behavior normal. Cardiovascular Labs Lab Results Component Value Date HGB 13.9 10/22/2024 PLT 257 10/22/2024 WBC 7.0 10/22/2024 NA 139 10/22/2024 K 4.2 10/22/2024 CREATININE 0.85 10/22/2024 BUN 13 10/22/2024 CALCIUM 9.0 10/22/2024 Echocardiogram Results for orders placed during the hospital encounter of 10/12/24 [place] [phone], TRANSTHORACIC ECHOCARDIOGRAM REPORT Patient Name: JUSTINO Taylor Physician: [id number] Sam Garcia MD Study Date: 10/12/2024 Ordering Provider: [id number] BENY AVALOS MRN/PID: [id number] Fellow: Nurse: Sharmila Thurman RN Date of /Age: 9 2000 Country Printer Apprentice: Roberto Proctor RDCS years Gender Assigned at F Additional Staff: : Height: 160.02 cm Admit Date: Weight: 66.23 kg Admission Status: Outpatient BSA / BMI: 1.69 m2 / 25.86 Department Location: [facility] Echo Lab kg/m2 Blood Pressure: 102 /72 mmHg Study Type: TRANSTHORACIC ECHO (TTE) COMPLETE Diagnosis/ICD: Dizziness and giddiness-R42 CPT Codes: Echo Complete w Full Doppler-81684 Study Detail: The following Echo studies were performed: 2D, M-Mode, Doppler and color flow. Agitated saline used as a contrast agent for intraseptal flow evaluation. PHYSICIAN INTERPRETATION: Left Ventricle: Left ventricular ejection fraction is normal, by visual estimate at 55-60%. There are no regional wall motion abnormalities. The left ventricular cavity size is normal. There is normal septal and normal posterior left ventricular wall thickness. There is left ventricular concentric r emodeling. Spectral Doppler shows a normal pattern of left ventricular diastolic filling. Left Atrium: The left atrial size is normal. A bubble study using agitated saline was performed. Bubble study is negative. Right Ventricle: The right ventricle is normal in size. There is normal right ventricular global systolic function. Right Atrium: The right atrial size is normal. Aortic Valve: The aortic valve is trileaflet. The aortic valve dimensionless index is 0.77. There is no evidence of aortic valve regurgitation. The peak instantaneous gradient of the aortic valve is 8 mmHg. The mean gradient of the aortic valve is 4 mmHg. Mitral Valve: The mitral valve is normal in structure. There is trace mitral valve regurgitation. Tricuspid Valve: The tricuspid valve is structurally normal. There is trace tricuspid regurgitation. Pulmonic Valve: The pulmonic valve is structurally normal. There is no indication of pulmonic valveregurgitation. Pericardium: No pericardial effusion noted. Aorta: The aortic root is normal. CONCLUSIONS: 1. Left ventricular ejection fraction is normal, by visual estimate at 55-60%. 2. There is normal right ventricular global systolic function. QUANTITATIVE DATA SUMMARY: 2D MEASUREMENTS: Normal Ranges: Ao Root d: 2.90 cm (2.0-3.7cm) LAs: 2.90 cm (2.7-4.0cm) IVSd: 0.78 cm (0.6-1.1cm) LVPWd: 0.87 cm (0.6-1.1cm) LVIDd: 3.66 cm (3.9-5.9cm) LVIDs: 2.56 cm LV Mass Index: 49.8 g/m2 LVEDV Index: 34.55 ml/m2 LV % FS 30.1 % LEFT ATRIUM: Normal Ranges: LA Vol A4C: 21.2 ml (22+/-6mL/m2) LA Vol A2C: 15.6 ml LA Vol BP: 18.2 ml LA Vol Index A4C: 12.5ml/m2 LA Vol Index A2C: 9.2 ml/m2 LA Vol Index BP: 10.8 ml/m2 LA Area A4C: 10.5 cm2 LA Area A2C: 9.0 cm2 LA Major [place] A4C: 4.4 cm LA Major [place] A2C: 4.4 cm LA Volume Index: 11.4 ml/m2 LA Vol A4C: 19.2 ml LA Vol A2C: 15.1 ml LA Vol Index BSA: 10.1 ml/m2 LV SYSTOLIC FUNCTION: Normal Ranges: EF-A4C View: 57 % (>=55%) EF-A2C View: 56 % EF-Biplane: 58 % EF-Visual: 58 % LV EF Reported: 58 % LV DIASTOLIC FUNCTION: Normal Ranges: MV Peak E: 1.02 m/s (0.7-1.2 m/s) MV Peak A: 0.61 m/s (0.42-0.7 m/s) E/A Ratio: 1.68 (1.0-2.2) MV e' 0.156 m/s (>8.0) MV lateral e' 0.18 m/s MV medial e' 0.13 m/s E/e' Ratio: 6.52 (<8.0) MITRAL VALVE: Normal Ranges: MV DT: 208 msec (150-240msec) AORTIC VALVE: Normal Ranges: AoV Vmax: 1.39 m/s (<=1.7m/s) AoV Peak P.7 mmHg (<20mmHg) AoV Mean P.0 mmHg (1.7-11.5mmHg) LVOT Max Arthur: 1.03 m/s (<=1.1m/s) AoV VTI: 27.00 cm (18-25cm) LVOT VTI: 20.80 cm LVOT Diameter: 1.60 cm (1.8-2.4cm) AoV Area, VTI: 1.55 cm2 (2.5-5.5cm2) AoV Area,Vmax: 1.49 cm2 (2.5-4.5cm2) AoV Dimensionless Index: 0.77 RIGHT VENTRICLE: RV Basal 3.39 cm RV Mid 2.30 cm RV Major 7.8 cm TAPSE: 18.3 mm RV s' 0.16 m/s TRICUSPID VALVE/RVSP: Normal Ranges: Peak TR Velocity: 1.73 m/s RV Syst Pressure: 15 mmHg (< 30mmHg) [id number] Sam Garcia MD Electronically signed on 10/13/2024 at 9:07:36 PM Final The ASCVD Risk score (Katy DK, et al., 2019) failed to calculate for the following reasons: The 2019 ASCVD risk score is only valid for ages 40 to 79 Low Risk: <5% Borderline Risk: 5%-7.4% Intermediate Risk: 7.5% - 19.9% High Risk: >20% If your symptoms worsen or progress please go directory to your nearest emergency department for evaluation. Thank you for this interesting clinical case and allowing me to participate in the care of this patient. Please reach me out if you have any questions or if you need any clarifications regarding thispatient's care. Disclaimer: This note was dictated by speech recognition, and every effort has been made to prevent any error in supervisor quilting, however minor errors may be present Dereck Hernandez, MSN, HOTEL SUPPLIES SALESPERSON, ACNPC, CCRN Advanced Practice Provider, Nurse Practitioner Division of Cardiovascular Medicine [facility] documented in this [facility] Work Phone: 1(980) 559-324804-03-2025 Miscellaneous Notes* Post-Procedure Note - Patrick Armenta MD - 12/15/2024 8:00 AM EDT Physician Transition of Care Summary Invasive Cardiovascular Lab Procedure Date: 12/15/2024 Attending: * No surgeons found in log * Resident/Fellow/Other Principal Embedded Software Engineer: * No surgeons found in log * Indications: Postural orthostatic tachycardia syndrome (POTS) Post-procedure diagnosis: Postural orthostatic tachycardia syndrome (POTS) Procedure(s): Tilt-Table Test Procedure Findings: Tilt Table Study Summary: Abnormal Tilt table testing for Neurally Mediated Syncope. Symptoms are suggestive of neurocardiogenic syncope and Postural orthostatic tachycardia syndrome (POTS). No significant cardioinhibitory or vasodepressive response noted during the test Recommendations: The patient should continue with the present medications. Discharge: Patient was discharged from procedure room after vital signs returned to baseline. Follow up: Follow up with PCP or cardiology office in six weeks. Procedures: Tilt table test. Patient history: Health history was acquired from the patient's chart and the patient. Signs/symptoms include lightheadedness and syncope. Procedure narrative: The risks, benefits, and alternatives to the procedure were explained to the patient, and informed consent was obtained. The patient was in the fasting state. The patient was set up for continuous telemetry monitoring of surface 12 lead ECG. Blood pressure was monitored with automatic cuff measurements. Patient had a syncopal episode upon standing up, probably neurocardiogenic syncope. No vasodepression or cardio-inhibitory response. See signed procedural log and parameters. Complications: The patient tolerated the procedure without any complications or incident. Stents/Implants: Implants No implant documentation for this case. Estimated Blood Loss: * No values recorded between 12/15/2024 8:02 AM and 12/15/2024 9:01 AM * Anesthesia: * No anesthesia type entered * Anesthesia Staff: No anesthesia staff entered. Any Specimen(s) Removed: No specimens collected during this procedure. Disposition: Home Electronically signed by: Patrick Armenta MD, 12/15/2024 2:52 PM documented in this [facility] Work Phone: 1(554) 375-980604-03-2025 Surgery Postoperative evaluation and management note* Post-Procedure Note - Patrick Armenta MD - 12/15/2024 8:00 AM EDT Physician Transition of Care Summary Invasive Cardiovascular Lab Procedure Date: 12/15/2024 Attending: * No surgeons found in log * Resident/Fellow/Other Principal Embedded Software Engineer: * No surgeons found in log * Indications: Postural orthostatic tachycardia syndrome (POTS) Post-procedure diagnosis: Postural orthostatic tachycardia syndrome (POTS) Procedure(s): Tilt-Table Test Procedure Findings: Tilt Table Study Summary: Abnormal Tilt table testing for Neurally Mediated Syncope. Symptoms are suggestive of neurocardiogenic syncope and Postural orthostatic tachycardia syndrome (POTS). No significant cardioinhibitory or vasodepressive response noted during the test Recommendations: The patient should continue with the present medications. Discharge: Patient was discharged from procedure room after vital signs returned to baseline. Follow up: Follow up with PCP or cardiology office in six weeks. Procedures: Tilt table test. Patient history: Health history was acquired from the patient's chart and the patient. Signs/symptoms include lightheadedness and syncope. Procedure narrative: The risks, benefits, and alternatives to the procedure were explained to the patient, and informed consent was obtained. The patient was in the fasting state. The patient was set up for continuous telemetry monitoring of surface 12 lead ECG. Blood pressure was monitored with automatic cuff measurements. Patient had a syncopal episode upon standing up, probably neurocardiogenic syncope. No vasodepression or cardio-inhibitory response. See signed procedural log and parameters. Complications: The patient tolerated the procedure without any complications or incident. Stents/Implants: Implants No implant documentation for this case. Estimated Blood Loss: * No values recorded between 12/15/2024 8:02 AM and 12/15/2024 9:01 AM * Anesthesia: * No anesthesia type entered * Anesthesia Staff: No anesthesia staff entered. Any Specimen(s) Removed: No specimens collected during this procedure. Disposition: Home Electronically signed by: Patrick Armenta MD, 12/15/2024 2:52 PM [facility] Work Phone: 1(690) 664-937903-17-2025 History of Present illness Narrative* Beny Avalos PA-C - 11/28/2024 2:40 PM EDT Subjective Patient ID: Justino Rendon is a 24 y.o. female who presents for Follow-up (2 MONTH F/U WITH LABS, HOLTER, ECHO. CONTINUES TO HAVE DIZZINESS AND HEART PALPITATIONS. LEFT SHOULDER PAIN REMAINS - NO XRAY DONE YET. ) HPI Labs Meds L shoulder pain x 1 year and getting worse with time Hx of surgery x 2 Most recent surgery was around 2014 Denies any injury but just notes pain, inc weakness and inc limitations with ROM xray ordered but not done Set to do xray and follow with ortho in next few weeks Cardio concerns similar symptoms when in high school - exp 2-3 x/week Tachycardia and episodes last 20 min Palp, dizziness, SOB with spells but denies CP or sweating with the spells Pt denies feeling like anxiety component Monitor - - pt states was quite high in the evening but states nothing was really done outside of metoprolol but struggle taking this d/t BP being on the low side Denies echo done in the past Denies fam hx of cardio concerns Pt denies excessive caffeine and pt feels sleep is adequate Pt denies fam hx of sleep apnea and denies snoring In office EKG - NSR with sinus arrhythmia Suggest updated labs, echo and monitor BP is higher so consider retrial of BB pending tesitng Monitor Sinus tachy and PAC - possible POTS - consider BB or CCB ECHO CONCLUSIONS: 1. Left ventricular ejection fraction is normal, by visual estimate at 55-60%. 2. There is normal right ventricular global systolic function. Mid oct 2024 - given symptoms -started on trial of BB Possible slight inc in energy since starting BB but overall min to no change with the other cardio symptoms Given little changes suggest tilt table and start referral to cardio for second opinion Preventative PAP Mammo- suggest age 28, mom diagnosed with stage 4 age 40 DEXA Colon suggest age 45 Fall - NEG SEP 2024 Phq2 NEG SEP 2024 Patient Active Problem List Diagnosis Tachycardia Chronic left shoulder pain Vitamin D deficiency Heart palpitations History of pre-eclampsia Review of Systems Constitutional: Positive for fatigue. Negative for chills and fever. HENT: Negative for congestion, rhinorrhea, sinus pain, sore throat and tinnitus. Eyes: Negative for discharge, redness and visual disturbance. Respiratory: Positive for shortness of breath. Negative for cough, chest tightness and wheezing. Cardiovascular: Positive for palpitations. Negative for chest pain and leg swelling. Gastrointestinal: Negative for abdominal pain, constipation, diarrhea, nausea and vomiting. Endocrine: Negative for cold intolerance and heat intolerance. Genitourinary: Negative for flank pain, frequency and urgency. Musculoskeletal: Positive for arthralgias. Negative for back pain, gait problem and neck pain. Skin: Negative for rash and wound. Neurological: Positive for dizziness. Negative for tremors, syncope, numbness and headaches. Hematological: Does not bruise/bleed easily. Psychiatric/Behavioral: Negative for confusion, sleep disturbance and suicidal ideas. History reviewed. No pertinent past medical history. Past Surgical History: Procedure Laterality Date SHOULDER SURGERY Left X 2 - DETACHED BICEP, BONE SPUR Family History Problem Relation Name Age of Onset Breast cancer Mother 40 METS TO LIVER - CURRENTLY IN REMISSION Diabetes type II Father 64 Lung cancer Maternal Grandmother Breast cancer Maternal Grandmother Lung cancer Maternal Grandfather Lung cancer Paternal Grandmother Lung cancer Paternal Grandfather Social History Tobacco Use Smoking status: Never Smokeless tobacco: Never Vaping Use Vaping status: Former Substance Use Topics Alcohol use: Never Drug use: Never No Known Allergies Current Outpatient Medications Medication Sig Dispense Refill metoprolol succinate XL (Toprol-XL) 25 mg 24 hr tablet Take 1 tablet (25 mg) by mouth once daily. Do not crush or chew. 30 tablet 2 PNV no.95/ferrous fum/folic ac ( ORAL) Take by mouth once daily. No current facility-administered medications for this visit. Objective BP 100/68 Pulse 92 Ht 1.6 m (5' 3) Wt 65.8 kg (145 lb) BMI 25.69 kg/m Physical Exam Vitals reviewed. Constitutional: Appearance: Normal appearance. She is normal weight. HENT: Head: Normocephalic. Right Ear: External ear normal. Left Ear: External ear normal. Nose: Nose normal. No congestion or rhinorrhea. Mouth/Throat: Mouth: Mucous membranes are moist. Eyes: Extraocular Movements: Extraocular movements intact. Conjunctiva/sclera: Conjunctivae normal. Pupils: Pupils are equal, round, and reactive to light. Cardiovascular: Rate and Rhythm: Normal rate and regular rhythm. Pulses: Normal pulses. Pulmonary: Effort: Pulmonary effort is normal. Breath sounds: Normal breath sounds. Abdominal: General: Bowel sounds are normal. Palpations: Abdomen is soft. Tenderness: There is no abdominal tenderness. There is no right CVA tenderness or left CVA tenderness. Musculoskeletal: General: No tenderness. Normal range of motion. Cervical back: Normal range of motion and neck supple. No tenderness. Skin: General: Skin is warm and dry. Neurological: General: No focal deficit present. Mental Status: She is alert and oriented to person, place, and time. Psychiatric: Mood and Affect: Mood normal. Behavior: Behavior normal. Testing Component Latest Ref [facility] 10/22/2024 WHITE BLOOD CELL COUNT 3.8 - 10.8 Thousand/uL 7.0 RED BLOOD CELL COUNT 3.80 - 5.10 Million/uL 4.63 HEMOGLOBIN 11.7 - 15.5 g/dL 13.9 HEMATOCRIT 35.0 - 45.0 % 43.5 MCV 80.0 - 100.0 fL 94.0 MCH 27.0 - 33.0 pg 30.0 MCHC 32.0 - 36.0 g/dL 32.0 RDW 11.0 - 15.0 % 12.6 PLATELET COUNT 140 - 400 Thousand/uL 257 MPV 7.5 - 12.5 fL 10.2 ABSOLUTE NEUTROPHILS 1,500 - 7,800 cells/uL 3,997 ABSOLUTE LYMPHOCYTES 850 - 3,900 cells/uL 2,380 ABSOLUTE MONOCYTES 200 - 950 cells/uL 329 ABSOLUTE EOSINOPHILS 15 - 500 cells/uL 252 ABSOLUTE BASOPHILS 0 - 200 cells/uL 42 NEUTROPHILS % 57.1 LYMPHOCYTES % 34.0 MONOCYTES % 4.7 EOSINOPHILS % 3.6 BASOPHILS % 0.6 GLUCOSE 65 - 99 mg/dL 89 UREA NITROGEN (BUN) 7 - 25 mg/dL 13 CREATININE 0.50 - 0.96 mg/dL 0.85 EGFR > OR = 60 mL/min/1.73m2 97 SODIUM 135 - 146 mmol/L 139 POTASSIUM 3.5 - 5.3 mmol/L 4.2 CHLORIDE 98 - 110 mmol/L 104 CARBON DIOXIDE 20 - 32 mmol/L 26 ELECTROLYTE BALANCE 7 - 17 mmol/L (calc) 9 CALCIUM 8.6 - 10.2 mg/dL 9.0 PROTEIN, TOTAL 6.1 - 8.1 g/dL 7.3 ALBUMIN 3.6 - 5.1 g/dL 4.7 BILIRUBIN, TOTAL 0.2 - 1.2 mg/dL 0.3 ALKALINE PHOSPHATASE 31 - 125 U/L 71 AST 10 - 30 U/L 15 ALT 6 - 29 U/L 11 CHOLESTEROL, TOTAL <200 mg/dL 136 HDL CHOLESTEROL > OR = 50 mg/dL 55 TRIGLYCERIDES <150 mg/dL 58 LDL-CHOLESTEROL mg/dL (calc) 68 CHOL/HDLC RATIO <5.0 (calc) 2.5 NON HDL CHOLESTEROL <130 mg/dL (calc) 81 IRON, TOTAL 40 - 190 mcg/dL 75 IRON BINDING CAPACITY 250 - 450 mcg/dL (calc) 330 % SATURATION 16 - 45 % (calc) 23 MAGNESIUM 1.5 - 2.5 mg/dL 2.2 FERRITIN 16 - 154 ng/mL 20 T4, FREE 0.8 - 1.8 ng/dL 1.1 TSH mIU/L 0.90 VITAMIN B12 200 - 1,100 pg/mL 351 VITAMIN D,25-OH,TOTAL,IA 30 - 100 ng/mL 28 (L) vit D - start supplement Consider OTC b12 supplement Consider OTC iron few times/week Impression MDM 1) COMPLEXITY: 1 UNDIAGNOSED NEW PROBLEM WITH UNCERTAIN PROGNOSIS 2)DATA: TESTS INTERPRETED AND OR ORDERED, TOOK INDEPENDENT HISTORY OR RECORDS REVIEWED 3)RISK: MODERATE RISK DUE TO NATURE OF MEDICAL CONDITIONS/COMORBIDITY OR MEDICATIONS ORDERED OR SURGICAL OR PROCEDURE REFERRAL, . Reviewed labs and Testing on file Patient to follow diet low in cholesterol, fat, and sodium. Patient is advised to increase Exercise. Patient is recommended to lose weight. Reviewed Meds and discussed common side effects Continue as directed Patient is strongly advised to be compliant with recommendations. Return to Clinic sooner if needed. Patient denies further questions/concerns at this time Assessment/Plan Problem List Items Addressed This Visit ICD-10-CM Tachycardia R00.0 Relevant Orders Referral to Cardiology Tilt Table Chronic left shoulder pain M25.512, G89.29 Vitamin D deficiency - Primary E55.9 Relevant Medications ergocalciferol (Vitamin D-2) 1250 mcg (50,000 units) capsule Other Relevant Orders Vitamin D 25-Hydroxy,Total (for eval of Vitamin D levels) Heart palpitations R00.2 Relevant Orders Referral to Cardiology Tilt Table Iron and TIBC Ferritin CBC and Auto Differential Low ferritin R79.0 Relevant Orders Iron and TIBC Ferritin CBC and Auto Differential Other Visit Diagnoses Codes Dizziness R42 Relevant Orders Referral to Cardiology Tilt Table Iron and TIBC Ferritin CBC and Auto Differential FU in 3-6 mo with labs and med check Tile table [facility]: [phone]) 682-203301-29-2025 Note* Significant Event - Araseli Thurman RN - 10/12/2024 1:08 PM EST 10ml of saline given for bubble study per information technology professor instruction [facility]01-29-2025 Miscellaneous Notes* Significant Event - Araseli Thurman RN - 10/12/2024 1:08 PM EST 10ml of saline given for bubble study per information technology professor instruction documented in this [facility] Work Phone: 1(959) 382-481401-15-2025 History of Present illness Narrative* Beny Avalos PA-C - 09/28/2024 2:00 PM EST Subjective Patient ID: Justino Rendon is a 24 y.o. female who presents for New Patient Visit (NEW PATIENT TO ESTABLISH - [place] FROM [place] 1 YEAR AGO. C/O LEFT SHOULDER PAIN - HISTORY OF SURGERY X 2. LIMITED ROM. C/O EPISODE X 2 OF RACING HEART WITH HEART RATE IN THE 150'S - EPISODES LAST APPROXIMATELY 20 MINUTES. ) HPI Est as new patient Suggest gen labs Meds - currently not taking anything besides vitamins L shoulder pain x 1 year and getting worse with time Hx of surgery x 2 Most recent surgery was around 2014 Denies any injury but just notes pain, inc weakness and inc limitations with ROM Cardio concerns similar symptoms when in high school Tachycardia and episodes last 20 min Palp, dizziness, SOB with spells but denies CP or sweating with the spells Pt denies feeling like anxiety component Monitor - - pt states was quite high in the evening but states nothing was really done outside of metoprolol but struggle taking this d/t BP being on the low side Denies echo done in the past Denies fam hx of cardio concerns Pt denies excessive caffeine and pt feels sleep is adequate Pt denies fam hx of sleep apnea and denies snoring In office EKG - NSR with sinus arrhythmia Suggest updated labs, echo and monitor BP is higher so consider retrial of BB pending tesitng Preventative PAP Mammo- suggest age 28, mom diagnosed with stage 4 age 40 DEXA Colon suggest age 45 Fall - NEG SEP 2024 Phq2 NEG SEP 2024 She does have a 16 month old and recently moved here from [place] her husbands family is here Patient Active Problem List Diagnosis Tachycardia Review of Systems Constitutional: Positive for fatigue. Negative for chills and fever. HENT: Negative for congestion, rhinorrhea, sinus pain, sore throat and tinnitus. Eyes: Negative for discharge, redness and visual disturbance. Respiratory: Negative for cough, chest tightness, shortness of breath and wheezing. Cardiovascular: Positive for palpitations. Negative for chest pain and leg swelling. Gastrointestinal: Negative for abdominal pain, constipation, diarrhea, nausea and vomiting. Endocrine: Negative for cold intolerance and heat intolerance. Genitourinary: Negative for flank pain, frequency and urgency. Musculoskeletal: Positive for arthralgias. Negative for back pain, gait problem and neck pain. Skin: Negative for rash and wound. Neurological: Positive for dizziness. Negative for tremors, syncope, numbness and headaches. Hematological: Does not bruise/bleed easily. Psychiatric/Behavioral: Negative for confusion, sleep disturbance and suicidal ideas. History reviewed. No pertinent past medical history. Past Surgical History: Procedure Laterality Date SHOULDER SURGERY Left X 2 - DETACHED BICEP, BONE SPUR Family History Problem Relation Name Age of Onset Breast cancer Mother 40 METS TO LIVER - CURRENTLY IN REMISSION Diabetes type II Father 64 Lung cancer Maternal Grandmother Breast cancer Maternal Grandmother Lung cancer Maternal Grandfather Lung cancer Paternal Grandmother Lung cancer Paternal Grandfather Social History Tobacco Use Smoking status: Never Smokeless tobacco: Never Vaping Use Vaping status: Former Substance Use Topics Alcohol use: Never Drug use: Never No Known Allergies No current outpatient medications on file. No current facility-administered medications for this visit. Objective BP 133/80 Pulse 90 Ht 1.6 m (5' 3) Wt 66.2 kg (146 lb) BMI 25.86 kg/m Physical Exam Vitals reviewed. Constitutional: Appearance: Normal appearance. She is normal weight. HENT: Head: Normocephalic. Right Ear: External ear normal. Left Ear: External ear normal. Nose: Nose normal. No congestion or rhinorrhea. Mouth/Throat: Mouth: Mucous membranes are moist. Eyes: Extraocular Movements: Extraocular movements intact. Conjunctiva/sclera: Conjunctivae normal. Pupils: Pupils are equal, round, and reactive to light. Cardiovascular: Rate and Rhythm: Regular rhythm. Tachycardia present. Pulses: Normal pulses. Pulmonary: Effort: Pulmonary effort is normal. Breath sounds: Normal breath sounds. Abdominal: General: Bowel sounds are normal. Palpations: Abdomen is soft. Tenderness: There is no abdominal tenderness. There is no right CVA tenderness or left CVA tenderness. Musculoskeletal: General: Tenderness present. Normal range of motion. Cervical back: Normal range of motion and neck supple. No tenderness. Comments: L shoulder tenderness Weakness and limited ROM with abduction, internal, external Skin: General: Skin is warm and dry. Neurological: General: No focal deficit present. Mental Status: She is alert and oriented to person, place, and time. Psychiatric: Mood and Affect: Mood normal. Behavior: Behavior normal. Testing Reviewed labs on file - limited from jul 2024 Impression MDM 1) COMPLEXITY: 1 UNDIAGNOSED NEW PROBLEM WITH UNCERTAIN PROGNOSIS 2)DATA: TESTS INTERPRETED AND OR ORDERED, TOOK INDEPENDENT HISTORY OR RECORDS REVIEWED 3)RISK: MODERATE RISK DUE TO NATURE OF MEDICAL CONDITIONS/COMORBIDITY OR MEDICATIONS ORDERED OR SURGICAL OR PROCEDURE REFERRAL, . Reviewed labs and Testing on file Patient to follow diet low in cholesterol, fat, and sodium. Patient is advised to increase Exercise. Patient is recommended to lose weight. Reviewed Meds and discussed common side effects Continue as directed Patient is strongly advised to be compliant with recommendations. Return to Clinic sooner if needed. Patient denies further questions/concerns at this time Assessment/Plan Problem List Items Addressed This Visit ICD-10-CM Tachycardia R00.0 Relevant Orders CBC and Auto Differential Comprehensive Metabolic Panel Lipid Panel Thyroid Stimulating Hormone Thyroxine, Free Iron and TIBC Ferritin Magnesium Vitamin B12 Vitamin D 25-Hydroxy,Total (for eval of Vitamin D levels) ECG 12 Lead (Completed) Transthoracic Echo Complete Holter Or Event Perishable Fruit Inspector Chronic left shoulder pain M25.512, G89.29 Relevant Orders XR shoulder left 2+ views Referral to Orthopaedic Surgery Vitamin D deficiency E55.9 Relevant Orders Vitamin D 25-Hydroxy,Total (for eval of Vitamin D levels) Heart palpitations R00.2 Relevant Orders ECG 12 Lead (Completed) Transthoracic Echo Complete Holter Or Event Perishable Fruit Inspector History of pre-eclampsia Z87.59 Other Visit Diagnoses Codes Encounter to establish care with new doctor - Primary Z76.89 Dizziness R42 Relevant Orders CBC and Auto Differential Comprehensive Metabolic Panel Lipid Panel Thyroid Stimulating Hormone Thyroxine, Free Iron and TIBC Ferritin Magnesium Vitamin B12 Vitamin D 25-Hydroxy,Total (for eval of Vitamin D levels) ECG 12 Lead (Completed) Transthoracic Echo Complete Holter Or Event Perishable Fruit Inspector Fatigue, unspecified type R53.83 Relevant Orders CBC and Auto Differential Comprehensive Metabolic Panel Lipid Panel Thyroid Stimulating Hormone Thyroxine, Free Iron and TIBC Ferritin Magnesium Vitamin B12 Vitamin D 25-Hydroxy,Total (for eval of Vitamin D levels) ECG 12 Lead (Completed) Transthoracic Echo Complete Holter Or Event Perishable Fruit Inspector FU in 1-2 mo with labs at [facility] fasting and med check Echo, monitor Ortho referral documented in this [facility] Work Phone: [phone]) 131-862611-25-2024 Emergency department Note* Brady Yang, DO - 08/08/2024 9:10 AM EST HPI Chief Complaint Patient presents with Vaginal Bleeding - Pt found out she was yesterday by at home preg test. This morning patient started having bright red vaginal bleeding with clots. Called OB and they told her to come here. Patient presents to the emergency department secondary to vaginal bleeding. She states that her last normal period was a month ago and her next normal period would have been 2 days ago. And her next normal period would have been 2 days ago. She took a positive test at home yesterday. States she began having bleeding today that is like a period. Denies pain or cramping. She has had 1 prior which was uneventful with 1 living child. States that she is currently trying to get and not using any form of control. History provided by: Patient certified massage therapist used: No Patient History History reviewed. No pertinent past medical history. History reviewed. No pertinent surgical history. No family history on file. Social History Tobacco Use Smoking status: Never Smokeless tobacco: Never Substance Use Topics Alcohol use: Never Drug use: Never Physical Exam ED Triage Vitals Temperature Heart Rate Respirations BP 08/08/24 0914 08/08/24 0917 08/08/24 0914 08/08/24 0917 36.7 C (98 F) (!) 104 18 123/79 Pulse Ox Temp src Heart Rate Source Patient Position 08/08/24916 -- -- -- 100 % BP Location FiO2 (%) -- -- Physical Exam Vitals and nursing note reviewed. Constitutional: General: She is not in acute distress. Appearance: Normal appearance. She is normal weight. She is not ill-appearing, toxic-appearing or diaphoretic. HENT: Head: Normocephalic and atraumatic. Nose: Nose normal. No rhinorrhea. Neck: Comments: Trachea is midline Cardiovascular: Rate and Rhythm: Normal rate and regular rhythm. Heart sounds: No murmur heard. Pulmonary: Effort: Pulmonary effort is normal. Breath sounds: Normal breath sounds. No wheezing. Abdominal: General: Abdomen is flat. Bowel sounds are normal. There is no distension. Palpations: Abdomen is soft. Tenderness: There is no abdominal tenderness. Musculoskeletal: General: Normal range of motion. Cervical back: Normal range of motion. Skin: General: Skin is warm and dry. Findings: No rash. Neurological: General: No focal deficit present. Mental Status: She is alert and oriented to person, place, and time. Mental status is at baseline. Psychiatric: Mood and Affect: Mood normal. Behavior: Behavior normal. Thought Content: Thought content normal. Judgment: Judgment normal. ED Course & MDM Diagnoses as of 08/08/24 1127 Vaginal bleeding No data recorded [place] Coma Scale Score: 15 (08/08/24 0915 : Jos Alex RN) Medical Decision Making Patient's urine test was negative. Given the history we did check a serum quantitative hCG level and that is also negative. It appears the patient may very well have had a false positive test at home although extraordinarily early spontaneous miscarriage is also a possibility. Regardless the patient is not experiencing life-threatening bleeding and I feel can be discharged safely at this time. She will be referred to [facility] and instructed to return for any other ongoing concerns. Procedure Procedures Brady Yang DO 08/08/24 1131 documented in this [facility] Work Phone: 1(274) 973-168711-25-2024 Physician Emergency department Note* Brady Yang DO - 08/08/2024 9:10 AM EST HPI Chief Complaint Patient presents with Vaginal Bleeding - Pt found out she was yesterday by at home preg test. This morning patient started having bright red vaginal bleeding with clots. Called OB and they told her to come here. Patient presents to the emergency department secondary to vaginal bleeding. She states that her last normal period was a month ago and her next normal period would have been 2 days ago. And her next normal period would have been 2 days ago. She took a positive test at home yesterday. States she began having bleeding today that is like a period. Denies pain or cramping. She has had 1 prior which was uneventful with 1 living child. States that she is currently trying to get and not using any form of control. History provided by: Patient certified massage therapist used: No Patient History History reviewed. No pertinent past medical history. History reviewed. No pertinent surgical history. No family history on file. Social History Tobacco Use Smoking status: Never Smokeless tobacco: Never Substance Use Topics Alcohol use: Never Drug use: Never Physical Exam ED Triage Vitals Temperature Heart Rate Respirations BP 08/08/2414 08/08/2491608/08/2491308/08/24916 36.7 C (98 F) (!) 104 18 123/79 Pulse Ox Temp src Heart Rate Source Patient Position 08/08/24916 -- -- -- 100 % BP Location FiO2 (%) -- -- Physical Exam Vitals and nursing note reviewed. Constitutional: General: She is not in acute distress. Appearance: Normal appearance. She is normal weight. She is not ill-appearing, toxic-appearing or diaphoretic. HENT: Head: Normocephalic and atraumatic. Nose: Nose normal. No rhinorrhea. Neck: Comments: Trachea is midline Cardiovascular: Rate and Rhythm: Normal rate and regular rhythm. Heart sounds: No murmur heard. Pulmonary: Effort: Pulmonary effort is normal. Breath sounds: Normal breath sounds. No wheezing. Abdominal: General: Abdomen is flat. Bowel sounds are normal. There is no distension. Palpations: Abdomen is soft. Tenderness: There is no abdominal tenderness. Musculoskeletal: General: Normal range of motion. Cervical back: Normal range of motion. Skin: General: Skin is warm and dry. Findings: No rash. Neurological: General: No focal deficit present. Mental Status: She is alert and oriented to person, place, and time. Mental status is at baseline. Psychiatric: Mood and Affect: Mood normal. Behavior: Behavior normal. Thought Content: Thought content normal. Judgment: Judgment normal. ED Course & MDM Diagnoses as of 08/08/24 1127 Vaginal bleeding No data recorded [place] Coma Scale Score: 15 (08/08/24 0915 : Jos Alex RN) Medical Decision Making Patient's urine test was negative. Given the history we did check a serum quantitative hCG level and that is also negative. It appears the patient may very well have had a false positive test at home although extraordinarily early spontaneous miscarriage is also a possibility. Regardless the patient is not experiencing life-threatening bleeding and I feel can be discharged safely at this time. She will be referred to [facility] and instructed to return for any other ongoing concerns. Procedure Procedures Brady Yang DO 08/08/24 1131 [facility] Work Phone: Evaluation note* Diagnosis Vaginal bleeding- Primary Other specified noninflammatory disorder of vagina documented in this encounter [facility] Work Phone: Evaluation note* Diagnosis Encounter to establish care with new doctor- Primary Chronic left shoulder pain Pain in joint, shoulder region Vitamin D deficiency Tachycardia Unspecified tachycardia Dizziness Dizziness and giddiness Fatigue, unspecified type Heart palpitations Palpitations History of pre-eclampsia documented in this encounter [facility] Work Phone: Evaluation note* Diagnosis Tachycardia Unspecified tachycardia Dizziness Dizziness and giddiness Fatigue, unspecified type Heart palpitations Palpitations documented in this encounter [facility] Work Phone: Evaluation note* Diagnosis Tachycardia Unspecified tachycardia Dizziness Dizziness and giddiness Fatigue, unspecified type Heart palpitations Palpitations documented in this encounter [facility] Work Phone: Evaluation note* Diagnosis Vitamin D deficiency- Primary Tachycardia Unspecified tachycardia Heart palpitations Palpitations Dizziness Dizziness and giddiness Low ferritin Other nonspecific findings on examination of blood Chronic left shoulder pain Pain in joint, shoulder region Left shoulder pain, unspecified chronicity documented in this encounter [facility] Work Phone: Evaluation note* Diagnosis Tachycardia Unspecified tachycardia Heart palpitations Palpitations Dizziness Dizziness and giddiness documented in this encounter [facility] Work Phone: Evaluation note* Diagnosis Heart palpitations- Primary Palpitations Tachycardia Unspecified tachycardia Dizziness Dizziness and giddiness POTS (postural orthostatic tachycardia syndrome) Unspecified tachycardia documented in this encounter [facility] Work Phone: Hospital Discharge instructions* Attachments The following attachments cannot be sent through Care Everywhere. * Menstruation ([place]an) documented in this [facility] Work Phone: Progress note Author Araseli Jacob [facility] Note Date/Time February 10, 2025 1:42p [facility] [address], [address] [place] [address] OFFICE VISIT Date of Service: 02/10/25 MR#: [id number] Acct: [id number] Name: JUSTINO RENDON Rep #: [id number] : 2000 Provider: FAB Jacob Age/Sex: 24/F Location: [facility] [place] Status: Signed Intake Vital Signs 01/12/25 14:16 01/24/25 11:38 02/10/25 13:04 Height 5 ft 4 in 5 ft 4 in 5 ft 4 in Weight: 152 lb BMI 26.1 BP 120/76 Intake Visit Reasons: NOB LMP 12/08 Customer Engagement Manager Required: No Is patient in pain?: No Allergies No Known Allergies Allergy (Verified 02/10/25 13:08) Medications ?Medication ?Instructions ?Recorded ?Confirmed ?Type docosahexaenoic acid 200 mg mg PO 01/24/25 02/10/25 Hi story capsule ( DHA) Last Menstrual Period: 12/08/24 Zika: Zika virus screening: Negative : Yes Have you fallen in the past year?: No PFSH PFSH Medical History H/O: hypertension POTS (postural orthostatic tachycardia syndrome) Surgical History S/P wisdom tooth extraction History of shoulder surgery Family History (Updated 02/10/25 @ 13:13 by Oneida Martinez) Father Diabetes Mother Age: 56 Breast cancer Grandmother Breast cancer Social History adopted: No household members: spouse and children housing: house number of children: 1 current occupational status: employed current occupation: [employer]- [employer] current occupational exposures/hazards: No pets and animals: Yes pets and animals: dog(s) history of recent travel: Yes ([place] - December 2024) out of state: Yes out of country: No sexually active: Yes Smoking Status: Never smoker second hand exposure: No alcohol intake: current alcohol intake frequency: holidays/special occasions only details: Not while substance use type: does not use well-balanced diet: daily or most days caffeine: Yes Type: coffee Number of servings: 1 eating out: 1-3 times/week during the past year weight has: remained stable what type of physical activity do you participate in: weight training frequency: 1-2 times per week duration: 15-30 minutes/day deric/catholic: Cheondoism seatbelt use: always do you feel safe at home: Yes 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 Date Name GA/Weeks Outcome Route Bth Weight Gen Labor Lgth Anesthesia Del Locatn Provider FOB 05/23/23 Doan 39 live - full term vacuum 7lbs 11oz Male epidural [place] 07/15/24 Chemical 5 spontaneous Delivery Date: 05/23/23 Last Updated by: Yeimi Anthony RN Pre-e, lingshakeel pp htn x4mo HPI NOB LMP 12/08 Details: JUSTINO RENDON is a 24 year old who presents for New OB visit. OB Visit VICKY Calculator Estimated Delivery Date Method Current WG Current Estimate 09/14/25 LMP (Certain) 9w 1d Estimated Due Date: 09/14/25 Expected Delivery Route/Plan Labor Preferences- CB/BF classes: [] labor support person: [] labor intervention preferences: [] pain management options preferred: [] cut cord/dad catch: [] : [] PP control planned: [] discussed possible routes of delivery and associated risks: [] special requests: [] Specific Issue/Plans Covid status: [] Flu vaccine: [] Tdap vaccine: [] Rhogam: [] LARC form signed: [] Problem list reviewed and updated with the most current plan of care details and appropriate orders placed. Relevant counseling for the gestational age provided. Continue routine care and follow up unless otherwise noted in visit notes/problem list details Initial Weight: 152 lb Date -?-?-?-?-?-?-?-?-?-?-?-?- EGA Weight BP Urine Prot -?-?-?-?-?-?-?-?-?-?-?-?- Glucose FHR FuHt Pres Dilation -?-?-?-?-?-?-?-?-?-?-?-?- Effaced St Visit Note 02/10/25 -?-?-?-?-?-?-?-?-?-?-?-?- 9w 1d 152 lb (+0 oz) 120/76 -?-?-?-?-?-?-?-?-?-?-?-?- 174 -?-?-?-?-?-?-?-?-?-?-?-?- LC 2.24cm crl co n with lmp. accepts genetics. baseline pec labs added for hx. Menstrual History Last Menstrual Period: 12/08/24 Reported LMP: definite Normal amount/duration: Yes Antepartum Record Genetic Screening: Congenital Heart Defect: Other, Neural Tube Defect: Other, Hemoglobinopathy Or Carrier: Other, Cystic Fibrosis: Other, Chromosome Abnormality: Other, Melvin-Sachs: Other, Hemophilia: Other, Intellectual Disability/Autism: Other, Recurrent Loss/Stillbirth: Other, Other Structural Defect: Other, Other Genetic Disease: Other and Maternal Metabolic Disorder: Other Comments/Counseling: FOB sister with downs syndrome Infection History: Live with someone with TB or Exposed to TB: No, Patient or Partner has history of Genital Herpes: No, Rash or Viral illness since last mentrual period: No, Prior GBS-Infected child: No, History of STD: No, HIV Infection: No, History of Hepatitis: No, Recent travel outside of [place]: No, Concern for hepatitis exposure: No, Varicella immune: Yes and Covid Vaccinated: No Medical History Medical History: Negative: Diabetes, Hypertension, Heart disease, Auto-immune disorder, Kidney disease/UTI, Neurologic/epilepsy, Psychiatric, Depression/ depression, Hepatitis/liver disease, Varicosities/phlebitis, Thyroid dysfunction, Trauma/domestic violence, History of blood transfusions, D (Rh) Sensitized, Pulmonary (e.g.,TB,Asthma), Seasonal allergies, Drug/latex allergies/reactions, Breast, International Relations Teacher surgery, Operations/hospitalizations, Anesthetic complications, History of abnormal pap, Uterine anomaly/dario, Infertility, Anti-retroviral treatment, Relevant family history and Other ACOG First Trimester First Trimester: Desire for , Alcohol, Tobacco Cessation, Illicit/Recreational Drug/Substance Use, Intimate Partner Violence, Barriers to care, Unstable Housing, Communication Barriers, Environmental/Work Hazards, Anticipated Course of Care, Nurtrition and weight gain, Toxoplasmosis Precations, Use of Any medications, Sexual activity, Exercise, Dental Care, Sauna/Hot tub use, Seat Belt use, Childbirth classes/Hospital facilities, , Travel, Indications for Ultrasound and Screening for Aneuploidy ROS Const Denies anorexia, Denies body aches, Denies chills, Denies excessive sweating, Denies fatigue, Denies headache(s) and Denies lethargy ENT Denies headache(s) GI Denies abdominal pain, Denies coffee ground emesis, Reports constipation, Denies cramping and Reports nausea Denies sexual dysfunction, Reports urinary frequency, Denies urinary incontinence, Denies urinary hesitancy, Denies urinary urgency, Denies vaginal discharge, Denies vaginal dryness, Denies vaginal odor and Denies vaginal pruritus Skin/Breast Details: breast discomfort Neuro No headache(s) Endo Denies cold intolerance, Denies deepening of the voice, Denies excessive sweating, Denies fatigue, Denies flushing, Denies heat intolerance, Denies polydipsia and Denies polyphagia Exam Const General: cooperative, healthy appearing, comfortable and no acute distress Neck Neck: normal visual inspection, full ROM and no lymphadenopathy Thyroid: thyroid normal Chest Chest palpation & inspection: normal inspection of the chest Breast inspection: normal inspection of the breasts and normal inspection of the axillae Resp Effort & Inspection: normal respiratory effort, able to speak in complete sentences and symmetric chest movement GI Inspection: normal to inspection Palpation: soft External Female Exam: normal external appearance and normal appearance of the urethra Urethra: normal appearance of the urethra Speculum Exam - Vagina: normal appearance of the vagina Speculum Exam - Cervix: normal appearance of the cervix Bimanual Exam- Vagina & Uterus: uterine size normal (consistent with dates of ) OB/External & Speculum: no bleeding Skin General: rashes and/or lesions noted Neuro General: patient alert, patient awake and patient oriented x3 Psych Appearance: grossly normal and well kempt Coding Level of Care Code OB Routine Diagnoses History of miscarriage, currently O09.299 Supervision of high-risk O09.90 9 weeks gestation of Z3A.09 Weeks of gestation: 9 weeks History of pre-eclampsia in prior , currently O09.299 POTS (postural orthostatic tachycardia syndrome) G90.A Assessment and Plan Assessment and Plan (1) History of miscarriage, currently : Status: Acute Comment: chemical - Jul 2024 (2) Supervision of high-risk : Status: Acute Comment: ; VICKY 09/14/25; PC: Franki; : Tal (3) : Status: Acute Qualifiers: Weeks of gestation: 9 weeks Qualified Code(s): Z3A.09 - 9 weeks gestation of Comment: Discussed genetic/carrier testing - undecided (4) History of pre-eclampsia in prior , currently : Status: Acute Comment: Pre-e baseline labs ordered w/NOB; Baby ASA @ 12-28weeks (5) POTS (postural orthostatic tachycardia syndrome): Status: Acute Comment: On Cardizem - stopped prior to , pt will talk with cardiology about new med Orders: Orders PAP I-G w/rfx hrHPV-Aptima Today Z12.4 - Encounter for screening for malignant neoplasm of cervix Plan Details Additional Comments: ACOG trimester education reviewed and updated. oriented to practice. reviewed genetic and carrier screening patient has decided to [obtain screening]. nutrition, medication approved list reviewed. weight gain goal [] in ACOG booklet provided and reviewed see problem list details for updated plan management information and see below for orders placed at this visit. GA appropriate handout given. Clinical Quality Measures Falls Risk Screening/Assistive Devices Have you fallen in the past year?: No 02/10/25 2542 <Electronically signed by Araseli merino CNM> Date _ Araseli Jacob CNM Cosigner Signature: Date (if applicable) CC: ~ [facility] Work Phone: Reason for referral (narrative)No reason for referral information availableWAshtab[facility] Work Phone: Reason for visit Narrative* Cardiovascular (Routine) - Authorized Specialty Diagnoses / Procedures Referred By Contac t Referred To Contact Cardiology Diagnoses Tachycardia Dizziness Fatigue, unspecified type Heart palpitations Procedures Holter Or Event Perishable Fruit Inspector Beny Avalos PA-C [address] [place] [address] Phone: tel: fax: Referral ID Status Reason Start Date Expiration Date V isits Requested Visits Authorized [id number] Authorized 09/28/2024 09/28/2025 1 1 [facility] Work Phone: Reason for visit Narrative* CV Imaging (Routine) - Authorized Specialty Diagnoses / Procedures Referred By Contac t Referred To Contact Cardiology Diagnoses Tachycardia Dizziness Fatigue, unspecified type Heart palpitations Procedures Transthoracic Echo Complete [place] ECHO TTHRC R-T 2D W/WOM-MODE COMPL SPEC&COLR D Beny Avalos PA-C [address] [place] [address] Phone: tel: fax: Referral ID Status Reason Start Date Expiration Date Visits Requested Visits Authorized [id number] Authorized Perform Procedure 09/28/2024 09/28/2025 1 1 [facility] Work Phone: Reason for visit Narrative* Cardiovascular (Routine) - Authorized Specialty Diagnoses / Procedures Referred By Contac t Referred To Contact Cardiology Diagnoses Tachycardia Heart palpitations Dizziness Procedures Tilt Table Beny Avalos PA-C Phone: tel: fax: Referral ID Status Reason Start Date Expiration Date V isits Requested Visits Authorized [id number] Authorized 11/28/2024 11/28/2025 1 1 [facility] Work Phone: Summary Purpose Family History Relationship Condition Age at Onset Recorded Date/T dotty father Diabetes mellitus Unknown mother Malignant neoplasm of breast Unknown grandmother Malignant neoplasm of breast Unknown Advance Directives No Advanced Directives Records FoundNo Advanced Directives Records FoundNo Advanced Directives Records FoundNo Advanced Directives Records Found Chief Complaint and Reason for Visit Chief Complaint Admit Date Annual (CITY CONTROLLER) January 12, 2025 2:05pm E ORDER January 14, 2025 3:05pm Reason for Visit Admit Date Encounter for routine gynecological exam ination January 12, 2025 2:05pm Chief Complaint Admit Date Annual (CITY CONTROLLER) January 12, 2025 2:05pm E ORDER January 14, 2025 3:05pm New ob/confirm /vitals January 10:55am Amb Documentation January 24, 2025 11:06 am Chief Complaint Admit Date Annual (CITY CONTROLLER) January 12, 2025 2:05pm E ORDER January 14, 2025 3:05pm New ob/confirm /vitals January 10:55am Amb Documentation January 24, 2025 11:06 am NOB LMP 12/08February 10, 2025 1:02p m Reason for Visit Admit Date Encounter for routine gynecological exam ination January 12, 2025 2:05pm History of miscarriage, currently pregna nt February 10, 2025 1:02pm History of pre-eclampsia in prior pregna ncy, currently February 10, 2025 1:02pm POTS (postural orthostatic tachycardia s yndrome) February 10, 2025 1:02pm February 10, 2025 1:02p m Supervision of high-risk January 142024 1:02pm Additional Source Comments Reason for Visit (unrecogniz ed section and content) Reason Comments Vaginal Bleeding - Pt found out she was yesterday by at home preg test. This morning patient started having bright red vaginal bleeding with clots. Called OB and they told her to come here. Reason Comments New Patient Visit NEW PATIENT TO [facility] - MOVED TO THE AREA FROM [place] 1 YEAR AGO. C/O LEFT SHOULDER PAIN - HISTORY OF SURGERY X 2. LIMITED ROM. C/O EPISODE X 2 OF RACING HEART WITH HEART RATE IN THE 150'S - EPISODES LAST APPROXIMATELY 20 MINUTES. Specialty Diagnoses / Procedures Referred By Contac t Referred To Contact Diagnoses Tachycardia Dizziness Fatigue, unspecified type Heart palpitations Procedures ECG 12 Lead Bryants StoreBeny belcher PA-C [address] [place] [address] Phone: tel: fax: Referral ID Status Reason Start Date Expiration Date V isits Requested Visits Authorized [id number] Authorized 09/28/2024 09/28/2025 1 1 Reason Comments Follow-up 2 MONTH F/U WITH LAB S, HOLTER, ECHO. CONTINUES TO HAVE DIZZINESS AND HEART PALPITATIONS. LEFT SHOULDER PAIN REMAINS - NO XRAY DONE YET. Reason Comments Dizziness Palpitations TachycardiaNPV Specialty Diagnoses / Procedures Referred By Contleon t Referred To Contact Cardiology Diagnoses Tachycardia Heart palpitations Dizziness Beny Avalos PA-C Phone: tel: fax: Referral ID Status Reason Start Date Expiration Date Visits Requested Visits Authorized [id number] Authorized Specialty Services Required 11/28/2024 11/28/2025 1 1 Care Teams (unrecognized sec tion and content) Metal Mold Dresser Relationship Specialty Start Date End Date Generic Provider, No [place] [address] PCP - General Automotive General Sales Manager 08/08/24 Metal Mold Dresser Relationship Specialty Start Date End Date Beny Avalos PA-C [address] [place] [address] PCP - General Internal Medicine 09/28/24 Metal Mold Dresser Relationship Specialty Start Date End Date Beny Avalos PA-C [address] [place] [address] PCP - General Internal Medicine 09/28/24 Metal Mold Dresser Relationship Specialty Start Date End Date Beny Avalos PA-C [address] [place] [address] [place] [address] PCP - General Internal Medicine 09/28/24 Metal Mold Dresser Relationship Specialty Start Date End Date Beny Avalos PA-C [address] [place] [address] PCP - General Internal Medicine 09/28/24 Metal Mold Dresser Relationship Specialty Start Date End Date Beny Avalos PA-C [address] [place] [address] PCP - General Internal Medicine 09/28/24 Metal Mold Dresser Relationship Specialty Start Date End Date Beny Avalos PA-C [address] [place] [address] PCP - General Internal Medicine 09/28/24 Team Status: Active Member Role Status Dates MITCH Claudio Primary Care Provider Active Team Status: Inactive Member Role Status Dates JH Almeida Attending Provider Active Start: January 12, 2025 End: January 12, 2025 Team Status: Inactive Member Role Status Dates Olga Manzo CNM Attending Provider Active S tart: January 12, 2025 End: January 12, 2025 Olga Manzo CNM Referring Provider Active S tart: January 12, 2025 End: January 12, 2025 Team Status: Inactive Member Role Status Dates MITCH Claudio Primary Care Provider Active Start: January 14, 2025 End: January 14, 2025 JH Almeida Attending Provider Active Start: January 14, 2025 End: January 14, 2025 JH Almeida Referring Provider Active Start: January 14, 2025 End: January 14, 2025 Team Status: Inactive Member Role Status Dates MITCH Claudio Primary Care Provider Active Start: January 24, 2025 End: January 24, 2025 MITCH Claudio Referring Provider Active Start: January 24, 2025 End: January 24, 2025 Dr. Marialuisa Marshall MD Attending Provider Active Start: January 24, 2025 End: January 24, 2025 Team Status: Active Member Role Status Dates MITCH Claudio Primary Care Provider Active Start: January 24, 2025 Yeimi Anthony RN Attending Provider Active St art: January 24, 2025 Team Status: Inactive Member Role Status Dates Araseli Jacob CNM Attending Provider Active Start: February 10, 2025 End: February 10, 2025 MITCH Claudio Primary Care Provider Active Start: February 10, 2025 End: February 10, 2025 MITCH Claudio Referring Provider Active Start: February 10, 2025 End: February 10, 2025 Team Status: Inactive Member Role Status Dates MITCH Claudio Primary Care Provider Active Start: February 10, 2025 End: February 10, 2025 Araseli Jacob CNM Attending Provider Active Start: February 10, 2025 End: February 10, 2025 Araseli Jacob CNM Referring Provider Active Start: February 10, 2025 End: February 10, 2025 INFORMATION SOURCE (unrecogn ized section and content) DATE CREATED AUTHOR 10/25/2024 [facility] DATE CREATED AUTHOR AUTHOR'S ORGANIZ ATION 12/22/2024 [facility] DATE CREATED AUTHOR AUTHOR'S ORGANIZ ATION 12/28/2024 [facility] DATE CREATED AUTHOR AUTHOR'S ORGANIZ ATION 02/17/2025 [facility] Goals (unrecognized section and content) Goals may be documented in a n alternate sectionGoals may be documented in an alternate sectionGoals may be documented in an alternate sectionGoals may be documented in an alternate section FOR RECORDS PERTAINING TO PATIENTS WHO ARE OR HAVE BEEN ENROLLED IN A CHEMICAL DEPENDENCY/SUBSTANCEABUSE PROGRAM, SOME INFORMATION MAY BE OMITTED. This clinical summary was aggregated from multiple sources. Caution should be exercised in using it in the provision of clinical care. This summary normalizes information from multiple sources, and as a consequence, information in this document may materially change the coding, format and clinical context of patient data. In addition, data may be omitted in some cases. CLINICAL DECISIONS SHOULD BE BASED ON THE PRIMARY CLINICAL RECORDS. [facility]. provides no warranty or guarantee of the accuracy or completeness of information in this document.
== END | disposition home or self-care (01) ==
PROVIDERS: Nurse Practitioner Women's Health; PCP Physician Assistant Medical; Referring Provider Registered Nurse; Visit Provider Registered Nurse
DX: O09.299 Supervision of pregnancy with other poor reproductive or obstetric history, unspecified trimester (principal); Z3A.00 Weeks of gestation of pregnancy not specified
CPT/HCPCS: 36415; 80053; 85025; 86703; 86762; 86780; 86803; 86850; 86900; 86901; 87340

== ENCOUNTER 2025-06-19 15:24 | Outpatient (CLI) | payer OTHER, SELFPAY ==
--- NOTE | 2025-06-19 16:15 | US_ITS ---
PROCEDURE: OB LIMITED WITH BIOMETRICS 06/19/2025 REASON FOR EXAM: DECREASED MOVEMENT TECHNIQUE: Procedure Code: USOBGROWTH Modality: US Procedure: OB LIMITED WITH BIOMETRICS COMPARISON: None FINDINGS Cephalic position with cardiac activity of 155 beats per minute. Max vertical pocket of 4.9 cm. CARMEN of 11.6 cm. Cervical length of 4 cm with closed cervix. Placenta is posterior position with grade 1. BPD of 7.4 cm, OFD of 9.4 cm, HC of 26.8 cm, AC of 24.5 cm, and FL 5.6 cm corresponding to overall gestational age of 29 weeks and 1 day and VICKY of 09/03/2025. Estimated weight of 1352g. US/OB Limited With Biometrics IMPRESSION: Sonographic gestational age of 29 weeks and 1 day and VICKY of 09/03/2025. No ac beatriz abnormalities. Reading Location: [id number]
[2025-06-19 16:23] VITALS: BP 113/64; PULSE 93; PULSE 94; RESP 16; TEMP 36.7; O2SAT 98
[2025-06-19 16:29] VITALS: BMI 29.5
[2025-06-19 16:59] LABS: Hematocrit 31.8 % (37-47); Hemoglobin 10.5 g/dL (12.0-15.0); Immature Granulocytes Count 0.090 X10^3/uL (0.0-0.0); Mean Corp Hgb Conc 33.0 g/dL (32-36); Mean Corpuscular Volume 89.1 fL (81-99); Mean Platelet Vol. 9.8 fl (6.2-12.0); NRBC Flagged by Analyzer 0 % (0-5); Platelet Count 240 K/mm3 (150-450); RBC Distribution Width CV 12.9 % (11.6-14.6); RBC Distribution Width SD 42.0 fl (35.1-43.9); Red Blood Count 3.57 M/mm3 (4.2-5.4); White Blood Count 11.0 K/mm3 (4.4-11.0)
[2025-06-19 17:36] LABS: Glucose Challenge Gest 1H 50g 131 mg/dL (70-140); HIV Nonreactive (Nonreactive); Syphilis Antibodies Nonreactive (Nonreactive)
--- NOTE | 2025-06-19 18:21 | OB.TRI.PN_ITS ---
Progress Notes Date of Service: 06/19/25 Progress Note: Patient presents for triage evaluation secondary to decreased movement FHT: 140 Moderate variability reactive no decelerations category I tracing [place]: no regular Contractions Assessment and plan: dec movement nl growth US done Reactive NST, re assuring maternal and status patient discharged to home to follow-up ass cheduled. See problem list details for additional plan information. Laboratory Studies: Laboratory Tests 06/19/25 Range/Units 15:25 WBC 11.0 (4.4-11.0) K/mm3 RBC 3.57 L (4.2-5.4) M/mm3 Hgb 10.5 L (12.0-15.0) g/dL Hct 31.8 L (37-47) % MCV 89.1 (81-99) fL MCH 29.4 (27.0-32.0) pg MCHC 33.0 (32-36) g/dL RDW Std Deviation 42.0 (35.1-43.9) fl RDW Coeff of Arcenio 12.9 (11.6-14.6) % Plt Count 240 (150-450) K/mm3 MPV 9.8 (6.2-12.0) fl Immature Gran % (Auto) 0.800 (0.0-0.9) % Neut % (Auto) 69.4 (47-70) % Lymph % (Auto) 22.5 (19-41) % [place] % (Auto) 5.9 (0-10) % Eos % (Auto) 1.3 (0-5) % Baso % (Auto) 0.1 (0-1) % Absolute Neuts (auto) 7.7 (2.0-7.7) X10^3/uL Absolute Lymphs (auto) 2.48 (0.83-4.51) X10^3/uL Nucleated RBC % 0 (0-5) % Glucose 1 Hr 50 gm 131 (70-140) mg/dL Syphilis Total Ab Nonreactive (Nonreactive) HIV 1&2 Antibody Nonreactive (Nonreactive) Charges/Coding Procedures Urinary/Genital 52xxx-59xxx: 44157-26 non-stress test Interp
== END 2025-06-19 18:30 | disposition home or self-care (01) ==
LOC: BWCLAB 15:24 → WPOUT 16:13 → WP 16:13
PROVIDERS: PCP Physician Assistant Medical; Referring Provider Obstetrics & Gynecology; Visit Provider Advanced Practice Midwife
DX: O36.8190 Decreased fetal movements, unspecified trimester, not applicable or unspecified (principal); Z79.82 Long term (current) use of aspirin; Z3A.00 Weeks of gestation of pregnancy not specified
CPT/HCPCS: 36415; 59050; 76816; 82950; 85025; 86703; 86780; 99221; G0378

== ENCOUNTER → 2025-07-20 | Outpatient (CLI) | payer OTHER, SELFPAY | END | disposition home or self-care (01) | LOC: LABSPEC 16:18 | PROVIDERS: PCP Physician Assistant Medical; Visit Provider Advanced Practice Midwife | DX: O26.899 Other specified pregnancy related conditions, unspecified trimester (principal); R10.20 Pelvic and perineal pain unspecified side; Z3A.00 Weeks of gestation of pregnancy not specified | CPT/HCPCS: 87086; 87088 ==

== ENCOUNTER → 2025-08-01 | Outpatient (CLI) | payer OTHER, SELFPAY | END | disposition home or self-care (01) | LOC: LABSPEC 16:12 | PROVIDERS: PCP Physician Assistant Medical; Visit Provider Obstetrics & Gynecology | DX: N76.0 Acute vaginitis (principal) | CPT/HCPCS: 87070; 87205 ==

== ENCOUNTER → 2025-08-17 | Outpatient (CLI) | payer OTHER, SELFPAY | END | disposition home or self-care (01) | LOC: LABSPEC 16:28 | PROVIDERS: PCP Physician Assistant Medical; Referring Provider Obstetrics & Gynecology; Visit Provider Obstetrics & Gynecology | DX: O09.92 Supervision of high risk pregnancy, unspecified, second trimester (principal); Z3A.00 Weeks of gestation of pregnancy not specified | CPT/HCPCS: 87077; 87081; 87186 ==

== ENCOUNTER 2025-09-05 19:40 | Outpatient (CLI) | payer OTHER, SELFPAY ==
[2025-09-05 19:46] VITALS: BMI 31.5
--- OUTSIDE RECORDS SUMMARY | 2025-09-05 19:46 | XMS RPT_ITS | CCD ---
Author Organization [facility] Clini[facility] Care Team Providers Care Director Of Grants Name Role Phone Generic Provider MD, No Assigned Pcp Primary Car e Provider Unavailable Pat PAJayden Beny B Primary Care Provider Beny Stewart PA-C Primary Care Provider Beny Stewart PA-C Primary Care Provider Sherie Hubbard Attending Provider Olga Manzo CNM Attending Provider Olga Manzo CNM Referring Provider Beny Yanez Primary Care Provider [phone] Sherie Hubbard Referring Provider Beny Yanez Referring Provider Joanna COVINGTON, Dr. Elam Attending Provider Yeimi Anthony RN Attending Provider UnavailAraseli Heaton CNM Attending Provider Araseli Jacob CNM Referring Provider Dr. Alyssia Moss DO Attending Provider BENY STEWART Referring Unavailable PAT BENY B Primary Care Unavailable PAT, BENY B Primary Care Unavailable BRADY YANG Attending Unavailable GENERIC PROVIDER, NO ASSIGNED PCP Primary Care Unavailable BENY STEWART B Referring Unavailable PAT, BENY B Primary Care Unavailable BENY STEWART B Attending Unavailable PAT, BENY B Primary Care Unavailable PAT BENY B Attending Unavailable PAT, BENY B Primary Care Unavailable DERECK GELLER Attending Unavailable PAT, BENY B Referring Unavailable PAT, BENY B Primary Care Unavailable PAT, BENY [facility] Primary Care UnavailAGUSTIN Dowling Attending Unavaila ble Pat MEYER, Beny Primary Care Provider Pat MEYER, Beny Referring Provider Olga Manzo CNM Attending Provider [phone] Dr. Marialuisa Marshall MD Attending Provider [phone] Pat PA, [place] Primary Care Physician Araseli Jacob CNM Attending Physician [phone] Araseli Jacob CNM Referring Provider [phone] Alyssia Moss DO Attending Physician Pat MEYER Beny Referring Provider Olga Manzo CNM Attending Physician [phone] Marialuisa Marshall MD Attending Physician Shireen Horton Attending Physician [phone] Dr. Marialuisa Marshall MD Referring Provider Olga Manzo CNM Nurse Practitioner [phone] Pat MEYER [place] Primary Care Physician Pat MEYER Beny Referring Provider Olga Manzo CNM Attending Physician [phone] Alyssia Moss DO Attending Physician Dr. Marialuisa Marshall MD Attending Physician Shireen Horton Attending Physician [phone] Dr. Marialuisa Marshall MD Referring Provider Olga Manzo CNM Nurse Practitioner [phone] Pat MEYER, [place] Primary Care Unavailabl Yeimi Blancas Attending Unavailable Pat MEYER, [place] Primary Care Unavailvalentín e Olga Manzo Attending Unavailable Marialuisa Marshall Referring Unavailable [place] PA, [facility] Unavailabl e Pat PA, [place] Referring Unavailabl e Marialuisa Marshall Attending Unavailable [place] PA, [facility] Care Unavailabl e Pat PA, [place] Referring Unavailabl e Olga Manzo Attending Unavailable [place] PA, [facility] Care Unavailabl e Pat PA, Beny Referring Unavailabl e Alyssia Moss Attending Unavailabl e Pat PA, [facility] Unavailabl e Pat PA, [place] Referring Unavailabl e Marialuisa Marshall Attending Unavailable [place] PA, [facility] Unavailabl e Trice BUSINESS REPRESENTATIVE, Shireen Attending Unavailable Pat PA, [place] Referring Unavailabl e [place] PA, [place] Referring Unavailabl e Pat PA, [facility] Unavailabl Olga La Attending Unavailable Sherie Padilla Attending Unavailable Pat PA, [place] Referring Unavailabl e [place] PA, [facility] UnavailOlga Haile Attending Unavailable [place] PA, [facility] Unavailabl e [place] PA, [place] Referring Unavailabl e Alyssia Moss Attending Unavailabl e Pat PA, [facility] Unavailabl e Marialuisa Marshall Referring Unavailable Marialuisa Marshall Attending Unavailable Olga Manzo Consulting Unavailable Araseli Jacob Attending Unavailable [place] PA, [facility] Unavailabl e Pat PA, [place] Referring Unavailabl e [place] PA, [facility] UnavailOlga Haile Attending Unavailable Araseli Jacob Attending Unavailable Pat PA, [facility] UnavailAraseli Heaton Referring Unavailable Araseli Jacob Referring Unavailable Araseli Jacob Attending Unavailable [place] PA, [facility] UnavailOlga Haile Attending Unavailable Olga Manzo Referring Unavailable Pat PA, [facility] UnavailSherie Ceballos Referring Unavailable Sherie Padilla Attending Unavailable Medications Current Medications Medication Drug Class(es) Dates Sig (Normalized) Sig (Original) aspirin 81 mg oral tablet (3 sources) Platelet Aggregation Inhibitor, Nonsteroidal Anti-inflammatory Drug Start: 06-19-2025 take 1 capsule by mouth once daily docosahexaenoic acid 200 mg oral capsule (10 sources) Start: 01-24-2025 ergocalciferol 1.25 mg oral capsule (3 sources) Provitamin D2 Compound Start: 11-28-2024 take 1 capsule by mouth every week ergocalciferol (Vitamin D-2) 1250 mcg (50,000 units) capsule Indications: Vitamin D deficiency Take 1 capsule (50,000 Units) by mouth 1 (one) time per week. 4 capsule 11 11/28/2024 Active Magnesium (6 sources) Start: 04-07-2025 take 1 tablet by mouth once daily Start: 04-07-2025 take 1 tablet by aldair th once daily Start: 04-07-2025 take 1 tablet by aldair th once daily Magnesium 250 mg tablet Active 250 mg PO daily April 07, 2025 12:00am On Hold: not currently taking Complies with drug therapy Start: 04-07-2025 take 1 tablet by aldair th once daily Magnesium 250 mg tablet Active 250 mg PO daily April 07, 2025 12:00am PNV no.95/ferrous fum/folic ac ( ORAL) (6 sources) PNV no.95/ferrou s fum/folic ac ( ORAL) Take by mouth once daily. Active Completed/Discontinued Medications Medication Drug Class(es) Dates Sig (Normalized) Sig (Original) 24 hr dilTIAZem hydrochloride 120 mg extended release oral capsule (13 sources) Calcium Channel [place] Start: 12-26-2024 End: 12-26-2025 take 1 capsule by mouth once daily Diltiazem Hcl 120 mg capsule,extended release 24hr Discontinued 120 mg PO daily January 11, 2025 11:00pm January 24, 2025 10:07am 24 hr metoprolol succinate 25 mg extended [...] Active Problems Problem Classification Problem Date Documented Da te Episodic/Chronic Cardiac dysrhythmias (20 sources) Postural orthostatic tachycardia syndrome ; Translations: [POTS (postural orthostatic tachycardia syndrome)] Onset: 09-28-2024 12-26-2024 Chronic Comment on above: On Cardizem - stoppe d prior to , pt will talk with cardiology about new med Immunizations and screening for infectious disease (1 source) Encounter for immunization; Translations: [Encounter for immunization] Onset: 07-03-2025 Episodic Menstrual disorders (2 sources) Secondary amenorrhea; Translations: [Irregular menstruation, unspecified] Onset: 01-12-2025 Chronic Nausea and vomiting (2 sources) Nausea with vomiting, unspecified; Translations: [Nausea with vomiting, unspecified] Onset: 03-20-2025 Episodic Nutritional deficiencies (10 sources) Vitamin D deficiency; Translations: [Vitamin D deficiency, unspecified] Onset: 09-28-2024 09-28-2024 Chronic Other bone disease and musculoskeletal deformities (2 sources) Chondrocostal junction syndrome [Tietze]; Translations: [Chondrocostal junction syndrome (tietze)] Onset: 05-11-2025 Episodic Other circulatory disease (4 sources) Postural orthostatic tachycardia syndrome ; Translations: [Postural orthostatic tachycardia syndrome (POTS)] Onset: 12-26-2024 Episodic Other complications of (20 sources) H/O: miscarriage; Translations: [Supervision of with other poor reproductive or obstetric history, unspecified trimester] 01-24-2025 Episodic Comment on above: chemical - Jul 2024 Other complications of (20 sources) High risk ; Translations: [Supervision of high risk , unspecified, unspecified trimester] 01-24-2025 Episodic Comment on above: ; VICKY 09/14/25; PC : Doan; : Tal PRR ; VICKY 09/14/25 ;boy jimenez PC: Doan; : Tal Other complications of (2 sources) Unspecified infection of urinary tract in , second trimester; Translations: [Unspecified infection of urinary tract in , second trimester ([facility])] Onset: 03-20-2025 Episodic Other complications of (8 sources) Reduced movement; Translations: [Decreased movements, unspecified trimester, not applicable or unspecified] 06-19-2025 Episodic Comment on above: To WP to monitor, gr owth US Other complications of (2 sources) Supervision of with other poor reproductive or obstetric history, unspecified trimester; Translations: [Supervision of with other poor reproductive or obstetric history, unspecified trimester] Onset: 03-29-2025 Episodic Other complications of (1 source) Other specified related conditions, unspecified trimester; Translations: [Other specified related conditions, unspecified trimester] Onset: 07-20-2025 Episodic Other complications of (1 source) Decreased movements, second trimester, not applicable or unspecified; Translations: [Decreased movements, second trimester, not applicable or unspecified] Onset: 07-20-2025 Episodic Other complications of (1 source) Supervision of high risk , unspecified, second trimester; Translations: [Supervision of high risk , unspecified, second trimester] Onset: 07-20-2025 Episodic Other complications of (2 sources) Supervision of high risk , unspecified, unspecified trimester; Translations: [Supervision of high risk , unspecified, unspecified trimester] Onset: 05-29-2025 Episodic Other complications of (1 source) Decreased movements, unspecified trimester, not applicable or unspecified; Translations: [Decreased movements, unspecified trimester, not applicable or unspecified] Onset: 07-18-2025 Episodic Other female genital disorders (1 source) [...] left shoulder] Onset: 09-28-2024 09-28-2024 Episodic Other screening for suspected conditions (not mental disorders or infectious disease) (8 sources) Ferritin level low; Translations: [Abnormal level of blood mineral] Onset: 11-28-2024 11-28-2024 Episodic Residual codes; unclassified (20 sources) History of pre-eclampsia; Translations: [Personal history of other complications of , childbirth and the puerperium] Onset: 09-28-2024 09-28-2024 Episodic Comment on above: Pre-e baseline labs ordered w/NOB; Baby ASA @ 12-28weeks Residual codes; unclassified (11 sources) History of operative procedure on shoulder; Translations: [Other specified postprocedural states] 01-24-2025 Episodic Comment on above: 2012, 2015 - both on L shoulder Residual codes; unclassified (1 source) 32 weeks gestation of ; Translations: [32 weeks gestation of ] Onset: 07-20-2025 Episodic Residual codes; unclassified (1 source) 24 weeks gestation of ; Translations: [24 weeks gestation of ] Onset: 05-29-2025 Episodic Residual codes; unclassified (1 source) 20 weeks gestation of ; Translations: [20 weeks gestation of ] Onset: 05-03-2025 Episodic Unclassified (2 sources) Chronic pain of left upper limb 09-28-2024 Unclassified (1 source) Pelvic and perineal pain unspecified side; Translations: [Pelvic and perineal pain unspecified side] Onset: 07-20-2025 Past or Other Problems Problem Classification Problem Date Documented Date Episodic/Chronic Administrative/social admission (3 sources) First encounter by subject; Translations: [Persons encountering health services in other specified circumstances] Onset: 09-28-2024 09-28-2024 Episodic Cardiac dysrhythmias (20 sources) Tachycardia; Translations: [Palpitations] Onset: 09-28-2024 09-28-2024 Episodic Conditions associated with dizziness or vertigo (18 sources) Dizziness; Translations: [Dizziness and giddiness] Onset: 09-28-2024 09-28-2024 Episodic Malaise and fatigue (12 sources) Fatigue; Translations: [Other fatigue] Onset: 09-28-2024 09-28-2024 Episodic Other non-traumatic joint disorders (2 sources) Pain in left shoulder; Translations: [Pain in left shoulder] Onset: 09-28-2024 Episodic Other and delivery including normal (20 sources) ; Translations: [Encounter for supervision of normal , unspecified, unspecified trimester] Onset: 01-18-2025 02-10-2025 Episodic Comment on above: Discussed genetic/ca rrier testing - undecided Discussed genetic/ca rrier testing - undecided, normal anatomy Residual codes; unclassified (2 sources) Personal history of other complications of , childbirth and the puerperium; Translations: [Personal history of other complications of , childbirth and the puerperium] Onset: 09-28-2024 Episodic Residual codes; unclassified (1 source) 17 weeks gestation of ; Translations: [17 weeks gestation of ] Onset: 04-07-2025 Episodic Residual codes; unclassified (1 source) 9 weeks gestation of ; Translations: [9 weeks gestation of ] Onset: 02-10-2025 Episodic Unclassified (6 sources) Onset: 09-28-2024 Resolved: 12-26-2024 09-28-2024 Results Test Name Value Interpretation Reference Range Facility Urine Cultureon 07-22-2025 URC Below infection level. Mixed Gram Positive Organisms [place] Count 1000-10,000 MIXC Mixed contaminants. Submit a new specimen if indicated. CALBP [place] Count <1000 Normal [facility] Comment on above: Performed By: #### M 100.2200 ####[facility] [id number] [place], [place], [id number] Laboratory - Chemistry and C hemistry - challengeOrdered By: Olga Manzo on 07-20-2025 Bilirubin Ql (U) Negative [facility] Glucose Ql (U) Negative [facility] Ketones Ql (U) Negative [facility] pH (U) 5.0 [pH] [facility] Specific gravity (U) [Rel density] 1.025 [facility] Urobilinogen (U) [Mass/Vol] 0.2201114 mg/dL [facility] Laboratory - Hematology and Cell countsOrdered By: Olga Manzo on 07-20-2025 Hemoglobin Ql (U) Negative [facility] Laboratory - Specimen inform ationOrdered By: Olga Manzo on 07-20-2025 Clarity (U) Clear [facility] Color (U) YELLOW [facility] Laboratory - UrinalysisOrder ed By: Olga Manzo on 07-20-2025 Nitrite Ql (U) Negative [facility] Protein Ql (U) Negative [facility] No Panel InformationOrdered By: Olga Manzo on 07-20-2025 Urine Leukocytes Positive [facility] Urine Non-Hemolyzed Blood Negative [facility] Textile Designer Office Visit Reporton 07-20-2025 Textile Designer Office Visit Report [facility] [address], [address] [place] [address] OFFICE VISIT Date of Service: 07/20/25 MR#: [id number] Acct: [id number] Name: JUSTINO RENDON Rep #: [id number] : 2000 Provider: FAB Lema ams Age/Sex: 25/F [place] [facility] [place]: Signed Intake Vital Signs 06/19/25 15:27 07/03/25 15:17 07/20/25 15:31 07/20/25 15:32 Height 5 ft 4 in 5 ft 3 in 5 ft 3 in 5 ft 3 in Weight: 172 lb 5 oz BMI 30.5 BP 113/78 Intake Visit Reasons: 32wk ob Spring Fitter Required: No Is patient in pain?: No Allergies No Known Allergies Allergy (Verified 07/20/25 15:31) Medications ???Medication ???Instructions ???Recorded ???Confirmed ???Type docosahexaenoic acid 200 mg mg PO 01/24/25 07/20/25 History capsule ( DHA) magnesium 250 mg tablet 250 mg PO QDAY 04/07/25 07/20/25 H istory Held on 06/19/25. 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- [employer] current occupational exposures/hazards: No pets and animals: Yes pets and animals: dog(s) history of recent travel: Yes ([place] - December 2024) out of state: Yes [...] 1-2 times per week duration: 15-30 minutes/day deric/bahai: Advent seatbelt use: always do you feel safe [...] full term vacuum 7lbs 11oz Male epidural [facility] Tal 07/15/24 Chemical 5 spontaneous Delivery Date: 05/23/23 Last Updated by: Yeimi Anthony RN Pre-e, lingering pp htn x4mo HPI 32wk ob Details: JUSTINO RENDON is a 25 year old who presents for routine OB visit. OB Visit VICKY Calculator Estimated Delivery Date Method Current WG Current Estimate 09/14/25 LMP (Certain) 32w 0d Expected Delivery Route/Plan Labor Preferences- CB/BF classes: no labor support person: Tal labor intervention preferences: [] pain management options preferred: epidural when requested cut cord/dad catch: cord : no PP control planned: discussed discussed possible routes of delivery and associated risks: [] special requests: [] Specific Issue/Plans Covid status: [] Flu vaccine: [] Tdap vaccine: [] Rhogam: [] LARC form signed: yes Problem list reviewed and updated with the most current plan of care details and appropriate orders placed. Relevant counseling for the gestational age provided. Continue routine care and follow up unless otherwise noted in visit notes/problem list details Initial Weight: 152 lb Date -???-???-???-???-?? ?-???-???-???-???-? ??-???-???- EGA Weight BP Urine Prot -???-???-???-???-?? ?-???-???-???-???-? ??-???-???- Glucose FHR FuHt Pres Dilation -???-???-???-???-?? ?-???-???-???-???-? ??-???-???- Effaced St Visit Note 02/10/25 -???-???-???-???-?? ?-???-???-???-???-? ??-???-???- 9w 1d 152 lb (+0 oz) 120/76 -???-???-???-???-?? ?-???-???-???-???-? ??-???-???- 174 -???-???-???-???-?? ?-???-???-???-???-? ??-???-???- LC 2.24cm cr l con with lmp. accepts genetics. baseline pec labs added for hx. (more content not included)... Normal [facility] Laboratory - Chemistry and C hemistry - challengeOrdered By: Olga Manzo on 07-03-2025 Glucose Ql (U) Negative [facility] Laboratory - UrinalysisOrder ed By: Olga Manzo on 07-03-2025 Protein Ql (U) Negative [facility] Textile Designer Office Visit Reporton 07-03-2025 Textile Designer Office Visit Report [facility] [address], [address] [place] [address] OFFICE VISIT Date of Service: 07/03/25 MR#: [id number] Acct: [id number] Name: JUSTINO RENDON Rep #: [id number] : 2000 Provider: FAB Lema ams Age/Sex: 25/F [place] [facility] [place]: Signed Intake Vital Signs 04/07/25 13:04 06/19/25 16:29 07/03/25 15:17 Height 5 ft 4 in 5 ft 3 in 5 ft 3 in Weight: 171 lb 7 oz BMI 30.3 BP 117/75 Intake Visit Reasons: 29 WK 4D OB Chief Complaint: 29wk OB Spring Fitter Required: No Is patient in pain?: No Allergies No Known Allergies Allergy (Verified 07/03/25 15:17) Medications ???Medication ???Instructions ???Recorded ???Confirmed ???Type docosahexaenoic acid 200 mg mg PO 01/24/25 07/03/25 History capsule ( DHA) magnesium 250 mg tablet 250 mg PO QDAY 04/07/25 07/03/25 H istory Held on 06/19/25. Instructions: not currently taking aspirin 81 mg capsule 81 mg PO DAILY 06/19/25 07/03/25 H istory Last Menstrual Period: 12/08/24 : No Have you fallen in the past year?: No PFSH PFSH Medical History H/O: hypertension POTS (postural orthostatic tachycardia syndrome) Surgical History S/P wisdom tooth extraction History of shoulder surgery Family History Father Diabetes Mother Age: 57 Breast cancer Grandmother Breast cancer Social History adopted: No household members: spouse and children housing: house number of children: 1 current occupational status: employed current occupation: [employer]- [employer] current occupational exposures/hazards: No pets and animals: Yes pets and animals: dog(s) history of recent travel: Yes ([place] - December 2024) out of state: Yes [...] 1-2 times per week duration: 15-30 minutes/day deric/bahai: Advent seatbelt use: always do you feel safe [...] full term vacuum 7lbs 11oz Male epidural [facility] 07/15/24 Chemical 5 spontaneous Delivery Date: 05/23/23 Last Updated by: Yeimi Anthony RN Pre-e, lingering pp htn x4mo HPI 29 WK 4D OB Details: JUSTINO RENDON is a 25 year old who presents for routine OB visit. OB Visit VICKY Calculator Estimated Delivery Date Method Current WG Current Estimate 09/14/25 LMP (Certain) 29w 4d Expected Delivery Route/Plan Labor Preferences- CB/BF classes: no labor support person: Tal labor intervention preferences: [] pain management options preferred: epidural when requested cut cord/dad catch: cord : no PP control planned: discussed discussed possible routes of delivery and associated risks: [] special requests: [] Specific Issue/Plans Covid status: [] Flu vaccine: [] Tdap vaccine: [] Rhogam: [] LARC form signed: yes Problem list reviewed and updated with the most current plan of care details and appropriate orders placed. Relevant counseling for the gestational age provided. Continue routine care and follow up unless otherwise noted in visit notes/problem list details Initial Weight: 152 lb Date -???-???-???-???-?? ?-???-???-???-???-? ??-???-???- EGA Weight BP Urine Prot -???-???-???-???-?? ?-???-???-???-???-? ??-???-???- Glucose FHR FuHt Pres Dilation -???-???-???-???-?? ?-???-???-???-???-? ??-???-???- Effaced St Visit Note 02/10/25 -???-???-???-???-?? ?-???-???-???-???-? ??-???-???- 9w 1d 152 lb (+0 oz) 120/76 -???-???-???-???-?? ?-???-???-???-???-? ??-???-???- 174 -???-???-???-???-?? ?-???-???-???-???-? ??-???-???- LC 2.24cm cr l con with lmp. accepts genetics. baseline pec labs added for hx. 03/10/25 -???-?? (more content not included)... Normal [facility] Absolute lymphocyte countOrd ered By: Marialuisa Marshall on 06-19-2025 Lymphocytes Auto (Unsp spec) [#/Vol] 2.48 10*3/uL 0.83-4.51 [facility] Absolute neutrophil countOrd ered By: Marialuisa Marshall on 06-19-2025 Neutrophils (Bld) [#/Vol] 7.7 10*3/uL 2.0-7.7 [facility] Automated lymphocyte count a s percentage of total leukocytesOrdered By: Marialuisa Marshall on 06-19-2025 Lymphocytes/100 WBC Auto (Unsp spec) 22.5 % 19-41 [facility] Basophil percentageOrdered B y: Marialuisa Marshall on 06-19-2025 Basophils/100 WBC (Bld) 0.1 % 0-1 [facility] CBC W/Diff, Automatedon 10-0 6-2025 Absolute Lymph 2.48 X10 3/uL Normal 0.83-4.51 [facility] Comment on above: Performed By: #### L 509.8002, L501.0250, L3890.6006, L100.0100 ####[facility] [id number] [place], [address] Absolute Neut 7.7 X10 3/uL Normal 2.0-7.7 [facility] Comment on above: Performed By: #### L 509.8002, L501.0250, L3890.6006, L100.0100 ####[facility] [id number] [place], [address] Basophils/100 WBC (Bld) 0.1 % Normal 0-1 [facility] Comment on above: Performed By: #### L 509.8002, L501.0250, L3890.6006, L100.0100 ####[facility] [id number] [place], [address] Eosinophils/100 WBC (Bld) 1.3 % Normal 0-5 [facility] Comment on above: Performed By: #### L 509.8002, L501.0250, L3890.6006, L100.0100 ####[facility] [id number] [place], [address] Erythrocyte distribution width (RBC) [Ratio] 12.9 % Normal 11.6-14.6 [facility] Comment on above: Performed By: #### L 509.8002, L501.0250, L3890.6006, L100.0100 ####[facility] [address] [place], [address] Hematocrit (Bld) [Volume fraction] 31.8 % Low 37-47 [facility] Comment on above: Performed By: #### L 509.8002, L501.0250, L3890.6006, L100.0100 ####[facility] [address] [place], [address] Hemoglobin (Bld) [Mass/Vol] 10.5 g/dL Low 12.0-15.0 [facility] Comment on above: Performed By: #### L 509.8002, L501.0250, L3890.6006, L100.0100 ####[facility] [address] [place], [address] IG% 0.800 Normal 0.0-0.9 [facility] Comment on above: Result Comment: IG% - Immature Granulocytes (promyelocytes, myelocytes and metamyelocytes) > 1% indicates that a LEFT SHIFT is Present. Performed By: #### L 509.8002, L501.0250, L3890.6006, L100.0100 ####[facility] [address] [place], [address] Lymphocytes/100 WBC (Bld) 22.5 % Normal 19-41 [facility] Comment on above: Performed By: #### L 509.8002, L501.0250, L3890.6006, L100.0100 ####[facility] [address] [place], [address] MCH (RBC) [Entitic mass] 29.4 pg Normal 27.0-32.0 [facility] Comment on above: Performed By: #### L 509.8002, L501.0250, L3890.6006, L100.0100 ####[facility] [address] [place], [address] MCHC (RBC) [Mass/Vol] 33.0 g/dL Normal 32-36 [facility] Comment on above: Performed By: #### L 509.8002, L501.0250, L3890.6006, L100.0100 ####[facility] [address] [place], [address] MCV (RBC) [Entitic vol] 89.1 fL Normal 81-99 [facility] Comment on above: Performed By: #### L 509.8002, L501.0250, L3890.6006, L100.0100 ####[facility] [address] [place], [address] Monocytes/100 WBC (Bld) 5.9 % Normal 0-10 [facility] Comment on above: Performed By: #### L 509.8002, L501.0250, L3890.6006, L100.0100 ####[facility] [address] [place], [address] Neutrophils/100 WBC (Bld) 69.4 % Normal 47-70 [facility] Comment on above: Performed By: #### L 509.8002, L501.0250, L3890.6006, L100.0100 ####[facility] [address] [place], [address] Nucleated RBC (Bld) [#/Vol] 0 10*3/uL Normal 0-5 [facility] Comment on above: Performed By: #### L 509.8002, L501.0250, L3890.6006, L100.0100 ####[facility] [address] [place], [address] Platelet mean volume (Bld) [Entitic vol] 9.8 fL Normal 6.2-12.0 [facility] Comment on above: Performed By: #### L 509.8002, L501.0250, L3890.6006, L100.0100 ####[facility] [address] [place], [address] Platelets (Bld) [#/Vol] 240 10*3/uL Normal 150-450 [facility] Comment on above: Performed By: #### L 509.8002, L501.0250, L3890.6006, L100.0100 ####[facility] [address] [place], [address] RBC (Bld) [#/Vol] 3.57 10*6/uL Low 4.2-5.4 [facility] Comment on above: Performed By: #### L 509.8002, L501.0250, L3890.6006, L100.0100 ####[facility] [address] [place], [address] RDW SD 42.0 fl Normal 35.1-43.9 [facility] Comment on above: Performed By: #### L 509.8002, L501.0250, L3890.6006, L100.0100 ####[facility] [address] [place], [address] WBC (Bld) [#/Vol] 11.0 10*3/uL Normal 4.4-11.0 [facility] Comment on above: Performed By: #### L 509.8002, L501.0250, L3890.6006, L100.0100 ####[facility] [address] [place], [address] Eosinophil percentageOrdered By: Marialuisa Marshall on 06-19-2025 Eosinophils/100 WBC (Bld) 1.3 % 0-5 [facility] Erythrocyte distribution wid th ratioOrdered By: Marialuisa Marshall on 06-19-2025 Erythrocyte distribution width (RBC) [Ratio] 12.9 % 11.6-14.6 [facility] Erythrocyte distribution wid th standard deviationOrdered By: Marialuisa Marshall on 06-19-2025 Erythrocyte distribution width (RBC) [Ratio] 42.0 fl 35.1-43.9 [facility] Glucose Challenge Gest 1H 50 carlota 06-19-2025 GLU GEST 50g 1H 131 mg/dL Normal 70-140 [facility] Comment on above: Performed By: #### L 509.8002, L501.0250, L3890.6006, L100.0100 ####[facility] [address] [place], [place], [id number] Glucose measurement at 2 monet rs post-dose gestational glucose tolerance testOrdered By: Marialuisa Marshall on 06-19-2025 Glucose [Mass/Vol] 131 mg/dL 70-140 [facility] HIVon 06-19-2025 HIV Non-Reactive Normal Nonreactive [facility] Comment on above: Result Comment: Non- Reactive Reactive Repeatedly reactive samples must be confirmed according to CDC recommended confirmatory algorithms. The subresults for either HIVAG or AHIV can be used as an aid in the selection of the confirmation algorithm for reactive samples. Send out specimens with Reactive results to [facility] for confirmation. Order the HIV antibody detection and differentiation: lc#[id number] Performed By: #### L 509.8002, L501.0250, L3890.6006, L100.0100 ####[facility] [address] [place], [place], [id number] Hematocrit Auto (Bld) [Volum e fraction]Ordered By: Marialuisa Marshall on 06-19-2025 Hematocrit (Bld) [Volume fraction] 31.8 % Low 37-47 [facility] Hemoglobin measurementOrdere d By: Marialuisa Marshall on 06-19-2025 Hemoglobin (Bld) [Mass/Vol] 10.5 g/dL Low 12.0-15.0 [facility] Immature granulocytes/100 WB C Auto (Bld)Ordered By: Marialuisa Marshall on 06-19-2025 Immature granulocytes/100 WBC (Bld) 0.800 % 0.0-0.9 [facility] Comment on above: IG% - Immature Granu locytes (promyelocytes, myelocytes and metamyelocytes) > 1% indicates that a LEFT SHIFT is Present. Laboratory - Chemistry and C hemistry - challengeOrdered By: Shireen Carnes on 06-19-2025 Glucose Ql (U) Negative [facility] Laboratory - UrinalysisOrder ed By: Shireen Carnes on 06-19-2025 Protein Ql (U) Negative [facility] MCV (mean corpuscular volume ) determinationOrdered By: Marialuisa Marshall on 06-19-2025 MCV (RBC) [Entitic vol] 89.1 fL 81-99 [facility] Mean corpuscular hemoglobin (MCH) determinationOrdered By: Marialuisa Marshall on 06-19-2025 MCH (RBC) [Entitic mass] 29.4 pg 27.0-32.0 [facility] Mean corpuscular hemoglobin concentration (MCHC) determinationOrdered By: Marialuisa Marshall on 06-19-2025 MCHC (RBC) [Mass/Vol] 33.0 g/dL 32-36 [facility] Mean platelet volume determi nationOrdered By: Marialuisa Marshall on 06-19-2025 Platelet mean volume (Bld) [Entitic vol] 9.8 fL 6.2-12.0 [facility] Monocyte percentageOrdered B y: Marialuisa Marshall on 06-19-2025 Monocytes/100 WBC (Bld) 5.9 % 0-10 [facility] Neutrophil percentageOrdered By: Marialuisa Marshall on 06-19-2025 Neutrophils/100 WBC (Bld) 69.4 % 47-70 [facility] No Panel InformationOrdered By: Marialuisa Marshall on 06-19-2025 HIV (1&2) Antibody Non-Reactive Nonreactive [facility] Comment on above: Non-ReactiveReactive Repeatedly reactive samples must be confirmed according to CDC recommended confirmatory algorithms. The subresults for either HIVAG or AHIV can be used as an aid in the selection of the confirmation algorithm for reactive samples.Send out specimens with Reactive results to [facility] for confirmation.Order the HIV antibody detection and differentiation: #[id number] Nucleated red blood cell per centageOrdered By: Marialuisa Marshall on 06-19-2025 Nucleated RBC/100 WBC (Bld) [Ratio] 0 % 0-5 [facility] OB Limited With Biometricson 06-19-2025 OB Limited With Biometrics [facility] Imaging Services [address] [place], [place] [id number] OB Limited With Biometrics MR#: [id number] Acct: [id number] Name: JUSTINO RENDON Rep #: [id number] : 2000 F 25 From: Enrique Angelo PCP: MITCH Duran Status: REG CLI Study: OB Limited With Biometrics Date of Exam: 06/19 Exam# [id number] Ordering Dr: Marialuisa Marshall PROCEDURE: OB LIMITED WITH BIOMETRICS 06/19/2025 REASON FOR EXAM: DECREASED MOVEMENT TECHNIQUE: Procedure Code: USOBGROWTH Modality: US Procedure: OB LIMITED WITH BIOMETRICS COMPARISON: None FINDINGS Cephalic position with cardiac activity of 155 beats per minute. Max vertical pocket of 4.9 cm. CARMEN of 11.6 cm. Cervical length of 4 cm with closed cervix. Placenta is posterior position with grade 1. BPD of 7.4 cm, OFD of 9.4 cm, HC of 26.8 cm, AC of 24.5 cm, and FL 5.6 cm corresponding to overall gestational age of 29 weeks and 1 day and VICKY of 09/03/2025. Estimated weight of 1352g. US/OB Limited With Biometrics IMPRESSION: Sonographic gestational age of 29 weeks and 1 day and VICKY of 09/03/2025. No acute abnormalities. Reading Location: [facility] CC: Dr. Marialuisa Marshall MD; MITCH Duran Flanging Roll Operator: Signed Normal [facility] OB Triage Progress Noteon OB Triage Progress Note [facility] Medical Records Department [address] [place] [address] OB Triage Progress Note 06/19/25 1821 MR#: [id number] Acct: [id number] Name: JUSTINO RENDON Rep #: [id number] : 2000 25 From: Marialuisa Marshall MD PCP: MITCH Duran Status:DEP CLI Y DOS: Location: [facility]OUT Progress Notes Date of Service: 06/19/25 Progress Note: Patient presents for triage evaluation secondary to decreased movement FHT: 140 Moderate variability reactive no decelerations category I tracing [place]: no regular Contractions Assessment and plan: dec movement nl growth US done Reactive NST, reassuring maternal and status patient discharged to home to follow-up ass cheduled. See problem list details for additional plan information. Laboratory Studies: Laboratory Tests 06/19/25 Range/Units 15:25 WBC 11.0 (4.4-11.0) K/mm3 RBC 3.57 L (4.2-5.4) M/mm3 Hgb 10.5 L (12.0-15.0) g/dL Hct 31.8 L (37-47) % MCV 89.1 (81-99) fL MCH 29.4 (27.0-32.0) pg MCHC 33.0 (32-36) g/dL RDW Std Deviation 42.0 (35.1-43.9) fl RDW Coeff of Arcenio 12.9 (11.6-14.6) % Plt Count 240 (150-450) K/mm3 MPV 9.8 (6.2-12.0) fl Immature Gran % (Auto) 0.800 (0.0-0.9) % Neut % (Auto) 69.4 (47-70) % Lymph % (Auto) 22.5 (19-41) % Hawkins % (Auto) 5.9 (0-10) % Eos % (Auto) 1.3 (0-5) % Baso % (Auto) 0.1 (0-1) % Absolute Neuts (auto) 7.7 (2.0-7.7) X10 3/uL Absolute Lymphs (auto) 2.48 (0.83-4.51) X10 3/uL Nucleated RBC % 0 (0-5) % Glucose 1 Hr 50 gm 131 (70-140) mg/dL Syphilis Total Ab Nonreactive (Nonreactive) HIV 1 2 Antibody Nonreactive (Nonreactive) Charges/Coding Procedures Urinary/Genital 52xxx-59xxx: 27645-61 non-stress test Interp 06/19/25 5684 Date Marialuisa Marshall MD Cosigner Signature (if applicable): Date __ CC: Dr. Marialuisa Marshall MD; MITCH Duran Signed ADDENDUM by Dr. Marialuisa Marshall MD on 07/17/25 at 2140 Addendum 28 weeks 07/17/25 2140 Date Marialuisa Marshall MD cc: Dr. Marialuisa Marshall MD; MITCH Duran * Signed Normal [facility] Textile Designer Office Visit Reporton 06-19-2025 Textile Designer Office Visit Report [facility] [address], [address] [place] [address] OFFICE VISIT Date of Service: 06/19/25 MR#: [id number] Acct: [id number] Name: JUSTINO RENDON Rep #: [id number] : 2000 Provider: JH chun Age/Sex: 25/F [place] [facility] [place] [facility] Status: Signed Intake Vital Signs 04/07/25 13:04 05/29/25 14:54 06/19/25 15:27 Height 5 ft 4 in 5 ft 4 in 5 ft 4 in Weight: 168 lb 1 oz BMI 28.8 BP 126/77 H Intake Visit Reasons: 28 WK OB/Glucose Spring Fitter Required: No Is patient in pain?: No Allergies No Known Allergies Allergy (Verified 06/19/25 15:27) Medications ???Medication ???Instructions ???Recorded ???Confirmed ???Type docosahexaenoic acid 200 mg mg PO 01/24/25 06/19/25 History capsule ( DHA) magnesium 250 mg tablet 250 mg PO QDAY 04/07/25 06/19/25 H istory Last Menstrual Period: 12/08/24 Zika: Zika virus screening: Negative : No PFSH PFSH Medical History H/O: hypertension POTS (postural orthostatic tachycardia syndrome) Surgical History S/P wisdom tooth extraction History of shoulder surgery Family History Father Diabetes Mother Age: 57 Breast cancer Grandmother Breast cancer Social History adopted: No household members: spouse and children housing: house number of children: 1 current occupational status: employed current occupation: [employer]- [employer] current occupational exposures/hazards: No pets and animals: Yes pets and animals: dog(s) history of recent travel: Yes ([place] - December 2024) out of state: Yes [...] 1-2 times per week duration: 15-30 minutes/day deric/bahai: Advent seatbelt use: always do you feel safe at home: Yes additional social history: : Tal Naik History 3 Elective abortions Hx Para 1 Spontaneous abortions 1 Hx # Term Pregnancies Ectopic pregnancies Hx # Pregnancies Multiple births # of living children 1 Past Pregnancies Del. Date Name GA/Weeks Outcome Route Bth Weight Gen Labor Lgth Anesthesia Del Locatn Provider FOB 05/23/23 Doan 39 live - full term vacuum 7lbs 11oz Male epidural [place] Tal 07/15/24 Chemical 5 spontaneous Delivery Date: 05/23/23 Last Updated by: Yeimi Anthony RN Pre-e, lingering pp htn x4mo HPI 28 WK OB/Glucose Details: JUSTINO RENDON is a 25 year old who presents for routine OB visit. OB Visit VICKY Calculator Estimated Delivery Date Method Current WG Current Estimate 09/14/25 LMP (Certain) 27w 4d Expected Delivery Route/Plan Labor Preferences- CB/BF classes: no labor support person: Tal labor intervention preferences: [] pain management options preferred: epidural when requested cut cord/dad catch: cord : no PP control planned: discussed discussed possible routes of delivery and associated risks: [] special requests: [] Specific Issue/Plans Covid status: [] Flu vaccine: [] Tdap vaccine: [] Rhogam: [] LARC form signed: yes Problem list reviewed and updated with the most current plan of care details and appropriate orders placed. Relevant counseling for the gestational age provided. Continue routine care and follow up unless otherwise noted in visit notes/problem list details Initial Weight: 152 lb Date -???-???-???-???-?? ?-???-???-???-???-? ??-???-???- EGA Weight BP Urine Prot -???-???-???-???-?? ?-???-???-???-???-? ??-???-???- Glucose FHR FuHt Pres Dilation -???-???-???-???-?? ?-???-???-???-???-? ??-???-???- Effaced St Visit Note 02/10/25 -???-???-???-???-?? ?-???-???-???-???-? ??-???-???- 9w 1d 152 lb (+0 oz) 120/76 -???-???-???-???-?? ?-???-???-???-???-? ??-???-???- 174 -???-???-???-???-?? ?-???-???-???-???-? ??-???-???- LC 2.24cm cr l con with lmp. accepts genetics. baseline pec labs added for hx. 03/10/25 -???-???-???-???-?? ?-???-???-???-???-? ??-???-???- 13w 1d 148 lb 2 oz (-3 lb 14 oz) 110/73 Negative -???-???-???-???-?? ?-???-???-??? (more content not included)... Normal [facility] Platelet countOrdered By: Art Marshall on 06-19-2025 Platelets (Bld) [#/Vol] 240 10*3/uL 150-450 [facility] RBC Auto (Bld) [#/Vol]Ordere d By: Marialuisa Marshall on 06-19-2025 RBC (Bld) [#/Vol] 3.57 10*6/uL Low 4.2-5.4 [facility] Syphilis Antibodieson 2024 Syphilis Abs Non-Reactive Normal Nonreactive [facility] Comment on above: Performed By: #### L 509.8002, L501.0250, L3890.6006, L100.0100 ####[facility] [address] [place], [address] White blood cell (WBC) count Ordered By: Marialuisa Marshall on 06-19-2025 WBC (Bld) [#/Vol] 11.0 10*3/uL 4.4-11.0 [facility] Laboratory - Chemistry and C hemistry - challengeOrdered By: Marialuisa Marshall on 05-29-2025 Glucose Ql (U) Negative [facility] Laboratory - UrinalysisOrder ed By: Marialuisa Marshall on 05-29-2025 Protein Ql (U) Negative [facility] Textile Designer Office Visit Reporton 05-29-2025 Textile Designer Office Visit Report [address], [address] [place] [address] OFFICE VISIT Date of Service: 05/29/25 MR#: [id number] Acct: [id number] Name: JUSTINO RENDON Rep #: [id number] : 2000 Provider: Dr. Marialuisa burnette MD Age/Sex: 25/F [place] [facility] [place]: Signed Intake Vital Signs 04/07/25 13:04 05/03/25 13:11 05/29/25 14:54 Height 5 ft 4 in 5 ft 4 in 5 ft 4 in Weight: 165 lb 2 oz BMI 28.3 BP 119/72 Intake Visit Reasons: 25 WK OB Spring Fitter Required: No Is patient in pain?: No Allergies No Known Allergies Allergy (Verified 05/29/25 14:55) Medications ???Medication ???Instructions ???Recorded ???Confirmed ???Type docosahexaenoic acid 200 mg mg PO 01/24/25 05/29/25 History capsule ( DHA) magnesium 250 mg tablet 250 mg PO QDAY 04/07/25 05/29/25 H istory Last Menstrual Period: 12/08/24 Zika: Zika virus screening: Negative : No PFSH PFSH Medical History H/O: hypertension POTS (postural orthostatic tachycardia syndrome) Surgical History S/P wisdom tooth extraction History of shoulder surgery Family History Father Diabetes Mother Age: 57 Breast cancer Grandmother Breast cancer Social History adopted: No household members: spouse and children housing: house number of children: 1 current occupational status: employed 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 OB Visit VICKY Calculator Estimated Delivery Date Method Current WG Current Estimate 09/14/25 LMP (Certain) 24w 4d Expected Delivery Route/Plan Labor Preferences- CB/BF classes: [...] list details Initial Weight: 152 lb Date -???-???-???-???-?? ?-???-???-???-???-? ??-???-???- EGA Weight BP Urine Prot -???-???-???-???-?? ?-???-???-???-???-? ??-???-???- Glucose FHR FuHt Pres Dilation -???-???-???-???-?? ?-???-???-???-???-? ??-???-???- Effaced St Visit Note 02/10/25 -???-???-???-???-?? ?-???-???-???-???-? ??-???-???- 9w 1d 152 lb (+0 oz) 120/76 -???-???-???-???-?? ?-???-???-???-???-? ??-???-???- 174 -???-???-???-???-?? ?-???-???-???-???-? ??-???-???- LC 2.24cm cr l con with lmp. accepts genetics. baseline pec labs added for hx. 03/10/25 -???-???-???-???-?? ?-???-???-???-???-? ??-???-???- 13w 1d 148 lb 2 oz (-3 lb 14 oz) 110/73 Negative -???-???-???-???-?? ?-???-???-???-???-? ??-???-???- Negative 156 -???-???-???-???-?? ?-? (more content not included)... Normal [facility] ED Prov Noteon 05-11-2025 ED Prov Note ED PROVIDER NOTE [facility] EMERGENCY DEPARTMENT NAME: Justino Rendon AGE: 24 y.o. : 2000 VISIT DATE: 05/11/2025 CSN: [id number] PCP: No primary care provider on file. Chief Complaint Patient presents with Chest Pain 24-year-old female presents ER for evaluation of chest wall pain, patient states she she has pain in the mid sternum and left chest wall worse with movement palpation relieved rest, no pleuritic pain, no shortness of breath nausea, no diaphoresis. No dyspnea with exertion, no lower extremity. No traumas or injuries Past Medical History: Diagnosis Date POTS (postural orthostatic tachycardia syndrome) History reviewed. No pertinent surgical history. History reviewed. No pertinent family history. Social History [1] No current outpatient medications on file prior to encounter. Allergies[2] Review of Systems All other systems reviewed and are negative. Patient Vitals for the past 24 hrs: BP Temp Temp src Pulse Resp SpO2 Height Weight 05/11/25 1523 121/76 97.9 degrees F (36.6 degrees C) Temporal (!) 100 16 100 % 5' 3 70.3 kg (155 lb) Physical Exam Vitals and nursing note reviewed. Constitutional: Appearance: Normal appearance. HENT: Head: Normocephalic and atraumatic. Right Ear: External ear normal. Left Ear: External ear normal. Nose: Nose normal. Mouth/Throat: Mouth: Mucous membranes are moist. Pharynx: Oropharynx is clear. Eyes: Extraocular Movements: Extraocular movements intact. Conjunctiva/sclera: Conjunctivae normal. Pupils: Pupils are equal, round, and reactive to light. Cardiovascular: Rate and Rhythm: Normal rate and regular rhythm. Musculoskeletal: General: Normal range of motion. Cervical back: Normal range of motion and neck supple. Pulmonary: Effort: Pulmonary effort is normal. Breath sounds: Normal breath sounds. Chest: Comments: Tenderness to the anterior chest wall Abdominal: General: Abdomen is flat. Bowel sounds are normal. Palpations: Abdomen is soft. Neurological: General: No focal deficit present. Mental Status: She is alert and oriented to person, place, and time. Mental status is at baseline. Psychiatric: Mood and Affect: Mood normal. Thought Content: Thought content normal. Laboratory & Radiographic Imaging (if done): No results found for this visit on 05/11/25. No orders to display EKG 12-lead Date/Time: 05/11/2025 3:32 PM Performed by: Agustin Greenberg MD Authorized by: Agustin Greenberg MD BPM: 96 Comments: Sinus, rate 96, normal axis, no STEMI Medical Decision Making Patient presents for atraumatic chest wall pain likely secondary costochondritis she is otherwise well-appearing, no acute stress. EKG was sinus no acute ischemic changes or dysrhythmias. Patient concern for possible rib fractures however given atraumatic nature, low suspicion, she is and through shared decision making, will defer advanced imaging, recommend supportive measures and outpatient follow-up, return precautions discussed The patient has been informed that they may have pre-hypertension or hypertension based on a blood pressure reading in the Emergency Department. I recommend that the patient call the primary care provider listed on their discharge instructions or a physician of their choice as soon as possible to arrange follow-up in the next 4 weeks for further evaluation of possible pre-hypertension or hypertension. . Clinical Impression: No diagnosis found. ED Disposition None Follow-up Information Follow-up information has not been specified. Contact information for after-discharge care Follow-up information has not been specified. [1] Social History Tobacco Use Smoking status: Never Passive exposure: Never Smokeless tobacco: Never Vaping Use Vaping status: Never Used Substance and Sexual Activity Drug use: Never [2] No Known Allergies Agustin Greenberg MD 05/11/25 1532 AUTHENTICATED BY AGUSTIN GREENBERG, ON 05/11/2025 15:32:45 Normal [facility] Laboratory - Chemistry and C hemistry - challengeOrdered By: Alyssia Monzon on 05-03-2025 Glucose Ql (U) Negative [facility] Laboratory - UrinalysisOrder ed By: Alyssia Monzon on 05-03-2025 Protein Ql (U) Negative [facility] Textile Designer Office Visit Reporton 05-03-2025 Textile Designer Office Visit Report [facility] [address], [address] [place] [address] OFFICE VISIT Date of Service: 05/03/25 MR#: [id number] Acct: [id number] Name: JUSTINO RENDON Rep #: [id number] : 2000 Provider: Dr. Alyssia Childress DO Age/Sex: 24/F [place] [facility] [place]: Signed Intake Vital Signs 02/10/25 13:04 04/07/25 13:04 05/03/25 13:11 05/03/25 13:11 Height 5 ft 4 in 5 ft 4 in 5 ft 4 in 5 ft 4 in Weight: 155 lb 5 oz BMI 26.6 BP 111/71 Intake Visit Reasons: 21wk ob Spring Fitter Required: No Is patient in pain?: No Allergies No Known Allergies Allergy (Verified 05/03/25 13:11) Medications ???Medication ???Instructions ???Recorded ???Confirmed ???Type docosahexaenoic acid 200 mg mg PO 01/24/25 05/03/25 History capsule ( DHA) magnesium 250 mg tablet 250 mg PO QDAY 04/07/25 05/03/25 H istory Last Menstrual Period: 12/08/24 Zika: Zika virus screening: Negative : No PFSH PFSH Medical History H/O: hypertension POTS (postural orthostatic tachycardia syndrome) Surgical History S/P wisdom tooth extraction History of shoulder surgery Family History Father Diabetes Mother Age: 57 Breast cancer Grandmother Breast cancer Social History adopted: No household members: spouse and children housing: house number of children: 1 current occupational status: employed current occupation: [employer]- [employer] current occupational exposures/hazards: No pets and animals: Yes pets and animals: dog(s) history of recent travel: Yes ([place] - December 2024) out of state: Yes [...] 1-2 times per week duration: 15-30 minutes/day deric/bahai: Advent seatbelt use: always do you feel safe at home: Yes 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 Date Name GA/Weeks Outcome Route Bth Weight Gen Labor Lgth Anesthesia Del Samatn Provider FOB 05/23/23 Doan 39 live - full term vacuum 7lbs 11oz Male epidural [place] anastasia Parada 07/15/24 Chemical 5 spontaneous Delivery Date: 05/23/23 Last Updated by: Yeimi Anthony RN Pre-e, lingering pp htn x4mo HPI 21wk ob Details: JUSTINO RENDON is a 24 year old who presents for routine OB visit. OB Visit VICKY Calculator Estimated Delivery Date Method Current WG Current Estimate 09/14/25 LMP (Certain) 20w 6d Expected Delivery Route/Plan Labor Preferences- CB/BF classes: [...] list details Initial Weight: 152 lb Date -???-???-???-???-?? ?-???-???-???-???-? ??-???-???- EGA Weight BP Urine Prot -???-???-???-???-?? ?-???-???-???-???-? ??-???-???- Glucose FHR FuHt Pres Dilation -???-???-???-???-?? ?-???-???-???-???-? ??-???-???- Effaced St Visit Note 02/10/25 -???-???-???-???-?? ?-???-???-???-???-? ??-???-???- 9w 1d 152 lb (+0 oz) 120/76 -???-???-???-???-?? ?-???-???-???-???-? ??-???-???- 174 -???-???-???-???-?? ?-???-???-???-???-? ??-???-???- LC 2.24cm cr l con with lmp. accepts genetics. baseline pec labs added for hx. 03/10/25 -???-???-???-???-?? ?-???-???-???-???-? ??-???-???- 13w 1d 148 lb 2 oz (-3 lb 14 oz) 110/73 Negative -???-???-???-???-?? ?-???-???-???-???-? ??-???-???- Ne (more content not included)... Normal [facility] Laboratory - Chemistry and C hemistry - challengeOrdered By: Olga Manzo on 04-07-2025 Glucose Ql (U) Negative [facility] Laboratory - UrinalysisOrder ed By: Olga Manzo on 04-07-2025 Protein Ql (U) Negative [facility] Textile Designer Office Visit Reporton 04-07-2025 Textile Designer Office Visit Report [facility] [address], [address] [place] [address] OFFICE VISIT Date of Service: 04/07/25 MR#: [id number] Acct: [id number] Name: JUSTINO RENDON Rep #: [id number] : 2000 Provider: FAB Lema ams Age/Sex: 24/F [place] [facility] [place]: Signed Intake Vital Signs 02/10/25 13:04 03/10/25 08:56 04/07/25 13:04 Height 5 ft 4 in 5 ft 4 in 5 ft 4 in Weight: 149 lb 2 oz BMI 25.6 BP 108/70 Intake Visit Reasons: 17wk ob Chief Complaint: 17 Week OB Spring Fitter Required: No Is patient in pain?: No Allergies No Known Allergies Allergy (Verified 04/07/25 13:05) Medications ???Medication ???Instructions ???Recorded ???Confirmed ???Type docosahexaenoic acid 200 mg mg PO 01/24/25 04/07/25 History capsule ( DHA) magnesium 250 mg tablet 250 mg PO QDAY 04/07/25 04/07/25 H istory Last Menstrual Period: 12/08/24 Zika: Zika virus screening: Negative : No PFSH PFSH Medical History H/O: hypertension POTS (postural orthostatic tachycardia syndrome) Surgical History S/P wisdom tooth extraction History of shoulder surgery Family History Father Diabetes Mother Age: 56 Breast cancer Grandmother Breast cancer Social History adopted: No household members: spouse and children housing: house number of children: 1 current occupational status: employed 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 OB Visit VICKY Calculator Estimated Delivery Date Method Current WG Current Estimate 09/14/25 LMP (Certain) 17w 1d Expected Delivery Route/Plan Labor Preferences- CB/BF classes: [...] list details Initial Weight: 152 lb Date -???-???-???-???-?? ?-???-???-???-???-? ??-???-???- EGA Weight BP Urine Prot -???-???-???-???-?? ?-???-???-???-???-? ??-???-???- Glucose FHR FuHt Pres Dilation -???-???-???-???-?? ?-???-???-???-???-? ??-???-???- Effaced St Visit Note 02/10/25 -???-???-???-???-?? ?-???-???-???-???-? ??-???-???- 9w 1d 152 lb (+0 oz) 120/76 -???-???-???-???-?? ?-???-???-???-???-? ??-???-???- 174 -???-???-???-???-?? ?-???-???-???-???-? ??-???-???- LC 2.24cm cr l con with lmp. accepts genetics. baseline pec labs added for hx. 03/10/25 -???-???-???-???-?? ?-???-???-???-???-? ??-???-???- 13w 1d 148 lb 2 oz (-3 lb 14 oz) 110/73 Negative -???-???-???-???-?? ?-???-???-???-???-? ??-???-???- Negat (more content not included)... Normal [facility] Bacteria identifiedon 2024 Bacteria identified Cx Nom (U) Test: Urine Culture Specimen Source: Clean Catch/Voided Specimen Type: Urine Specimen Date: 03/20/2025 1853 Result Date: 03/21/2025 235 Result Status: Final result Abnormal: Yes Resulting Lab: [facility] [address] [address] [place] [address] CULTURE >=100,000 CFU/mL Streptococcus agalactiae (Group B Streptococcus) (Abnormal) Streptococcus agalactiae (Group B Streptococcus) is universally susceptible to beta-lactam antibiotics and vancomycin. Routine susceptibility testing not performed. For penicillin allergic patients, please contact the laboratory within 5 days of collection at to request susceptibility testing. Abnormal [facility] Comment on above: Performed By: #### 5 8077-9 #### BERTIN FERNÁNDEZ ([id number]) [facility] [address] [place] [address] 21709 Basic metabolic 2000 panelon 03-20-2025 Anion gap [Moles/Vol] 11 mmol/L Normal 10-20 [facility] Comment on above: Performed By: #### 2 4321-2 #### BERTIN FERNÁNDEZ ([id number]) [facility] [address] [place] [address] 84942 Calcium [Mass/Vol] 8.5 mg/dL Low 8.6-10.3 [facility] Comment on above: Performed By: #### 2 4321-2 #### BERTIN FERNÁNDEZ ([id number]) [facility] [address] [place] [address] 00457 Chloride [Moles/Vol] 106 mmol/L Normal 98-107 [facility] Comment on above: Performed By: #### 2 4321-2 #### BERTIN FERNÁNDEZ (76349) [facility] [address] [place] [address] 80533 CO2 [Moles/Vol] 24 mmol/L Normal 21-32 [facility] Comment on above: Performed By: #### 2 4321-2 #### BERTIN FERNÁNDEZ (31526) [facility] [address] [place] [address] 33618 Creatinine [Mass/Vol] 0.61 mg/dL Normal 0.50-1.05 [facility] Comment on above: Performed By: #### 2 4321-2 #### BERTIN FERNÁNDEZ ([id number]) [facility] [address] [place] [address] 96048 GFR/1.73 sq M.predicted MDRD (S/P/Bld) [Vol rate/Area] mL/min/{1.73_m2} Normal >60 [facility] Comment on above: Result Comment: Calc ulations of estimated GFR are performed using the 2020 CKD-EPI Study Refit equation without the race variable for the IDMS-Traceable creatinine methods. https://jasn.asnjournals.org/content//ASN.692 9301164 Performed By: #### 2 4321-2 #### BERTIN FERNÁNDEZ ([id number]) [facility] [address] [place] [address] 47549 Glucose [Mass/Vol] 73 mg/dL Low 74-99 [facility] Comment on above: Performed By: #### 2 4321-2 #### BERTIN FERNÁNDEZ ([id number]) [facility] [address] [place] [address] 62346 Potassium [Moles/Vol] 3.5 mmol/L Normal 3.5-5.3 [facility] Comment on above: Performed By: #### 2 4321-2 #### BERTIN FERNÁNDEZ ([id number]) [facility] [address] [place] [address] 15486 Sodium [Moles/Vol] 137 mmol/L Normal 136-145 [facility] Comment on above: Performed By: #### 2 4321-2 #### BERTIN FERNÁNDEZ (25779) [facility] [address] [place] [address] 84479 Urea nitrogen [Mass/Vol] 7 mg/dL Normal 6-23 [facility] Comment on above: Performed By: #### 2 4321-2 #### BERTIN FERNÁNDEZ ([id number]) [facility] [address] [place] [address] 99505 CBC W Auto Differential pane l (Bld)on 03-20-2025 Basophils (Bld) [#/Vol] 0.02 x10*3/uL Normal 0.00-0.10 [facility] Comment on above: Performed By: #### 5 8077-9 #### BERTIN FERNÁNDEZ ([id number]) [facility] [address] [place] [address] 45251 Basophils/100 WBC (Bld) 0.2 % Normal 0.0-2.0 [facility] Comment on above: Performed By: #### 5 8077-9 #### BERTIN FERNÁNEDZ (72434) [facility] [address] [place] [address] 26363 Eosinophils (Bld) [#/Vol] 0.25 x10*3/uL Normal 0.00-0.70 [facility] Comment on above: Performed By: #### 5 8077-9 #### BERTIN FERNÁNDEZ ([id number]) [facility] [address] [place] [address] 20529 Eosinophils/100 WBC (Bld) 2.3 % Normal 0.0-6.0 [facility] Comment on above: Performed By: #### 5 8077-9 #### BERTIN FERNÁNDEZ ([id number]) [facility] [address] [place] [address] 79601 Erythrocyte distribution width (RBC) [Ratio] 12.6 % Normal 11.5-14.5 [facility] Comment on above: Performed By: #### 5 8077-9 #### BERTIN FERNÁNDEZ (38793) [facility] [address] [place] [address] 24073 Hematocrit (Bld) [Volume fraction] 32.6 % Low 36.0-46.0 [facility] Comment on above: Performed By: #### 5 8077-9 #### BERTIN FERNÁNDEZ ([id number]) [facility] [address] [place] [address] 18514 Hemoglobin (Bld) [Mass/Vol] 11.1 g/dL Low 12.0-16.0 [facility] Comment on above: Performed By: #### 5 8077-9 #### BERTIN FERNÁNDEZ ([id number]) [facility] [address] [place] [address] 49689 Immature granulocytes (Bld) [#/Vol] 0.03 x10*3/uL Normal 0.00-0.70 [facility] Comment on above: Performed By: #### 5 8077-9 #### BERTIN FERNÁNDEZ ([id number]) [facility] [address] [place] [address] 14272 Immature granulocytes/100 WBC (Bld) 0.3 % Normal 0.0-0.9 [facility] Comment on above: Result Comment: Larissa ture Granulocyte Count (IG) includes promyelocytes, myelocytes and metamyelocytes but does not include bands. Percent differential counts (%) should be interpreted in the context of the absolute cell counts (cells/UL). Performed By: #### 5 8077-9 #### BERTIN FERNÁNDEZ ([id number]) [facility] [address] [place] [address] Lymphocytes (Bld) [#/Vol] 2.84 x10*3/uL Normal 1.20-4.80 [facility] Comment on above: Performed By: #### 5 8077-9 #### BERTIN FERNÁNDEZ ([id number]) [facility] [address] [place] [address] 39310 Lymphocytes/100 WBC (Bld) 26.3 % Normal 13.0-44.0 [facility] Comment on above: Performed By: #### 5 8077-9 #### BERTIN FERNÁNDEZ (57451) [facility] [address] [place] [address] 60623 MCH (RBC) [Entitic mass] 30.2 pg Normal 26.0-34.0 [facility] Comment on above: Performed By: #### 5 8077-9 #### BERTIN FERNÁNDEZ (35730) [facility] [address] [place] [address] 22217 MCHC (RBC) [Mass/Vol] 34.0 g/dL Normal 32.0-36.0 [facility] Comment on above: Performed By: #### 5 8077-9 #### BERTIN FERNÁNDEZ (62214) [facility] [address] [place] [address] 02497 MCV (RBC) [Entitic vol] 89 fL Normal 80-[address] [facility] Comment on above: Performed By: #### 5 8077-9 #### BERTIN FERNÁNDEZ ([id number]) [facility] [address] [place] [address] 67426 Monocytes (Bld) [#/Vol] 0.55 x10*3/uL Normal 0.10-1.00 [facility] Comment on above: Performed By: #### 5 8077-9 #### BERTIN FERNÁNDEZ (37281) [facility] [address] [place] [address] 50145 Monocytes/100 WBC (Bld) 5.1 % Normal 2.0-10.[address] [facility] Comment on above: Performed By: #### 5 8077-9 #### BERTIN FERNÁNDEZ (07971) [facility] [address] [place] [address] 77895 Neutrophils (Bld) [#/Vol] 7.10 x10*3/uL Normal 1.20-7.70 [facility] Comment on above: Result Comment: Perc ent differential counts (%) should be interpreted in the context of the absolute cell counts (cells/uL). Performed By: #### 5 8077-9 #### BERTIN FERNÁNDEZ ([id number]) [facility] [address] [place] [address] 42347 Neutrophils/100 WBC (Bld) 65.8 % Normal 40.0-80.0 [facility] Comment on above: Performed By: #### 5 8077-9 #### BERTIN FERNÁNDEZ (66928) [facility] [address] [place] [address] 22751 Nucleated RBC/100 WBC (Bld) [Ratio] 0.0 /100 WBCs Normal 0.0-0.0 [facility] Comment on above: Performed By: #### 5 8077-9 #### BERTIN FERNÁNDEZ (74121) [facility] [address] [place] [address] 16261 Platelets (Bld) [#/Vol] 187 x10*3/uL Normal 150-450 [facility] Comment on above: Performed By: #### 5 8077-9 #### BERTIN FERNÁNDEZ ([id number]) [facility] [address] [place] [address] RBC (Bld) [#/Vol] 3.67 x10*6/uL Low 4.00-5.20 [facility] Comment on above: Performed By: #### 5 8077-9 #### BERTIN FERNÁNDEZ ([id number]) [facility] [address] [place] [address] WBC (Bld) [#/Vol] 10.8 x10*3/uL Normal 4.4-11.3 [facility] Comment on above: Performed By: #### 5 8077-9 #### BERTIN FERNÁNDEZ ([id number]) [facility] [address] [place] [address] Glucose Test strip manual (B ld) [Mass/Vol]on 03-20-2025 Glucose [Mass/Vol] 81 mg/dL Normal 74-99 [facility] Comment on above: Performed By: #### 5 8077-9 #### BERTIN FERNÁNDEZ (85555) [facility] [address] [place] [address] Urinalysis complete W Reflex Culture panel (U)on 03-20-2025 Appearance (U) Turbid Normal Clear [facility] Comment on above: Performed By: #### 5 8077-9 #### BERTIN FERNÁNDEZ (85013) [facility] [address] [place] [address] Bilirubin (U) [Mass/Vol] Negative Normal NEGATIVE [facility] Comment on above: Performed By: #### 5 8077-9 #### BERTIN FERNÁNDEZ (24778) [facility] [address] [place] [address] Color (U) Light-Yellow Normal Light-Yellow, Yellow, Dark-Yellow [facility] Comment on above: Performed By: #### 5 8077-9 #### BERTIN FERNÁNDEZ ([id number]) [facility] [address] [place] [address] Glucose Auto test strip (U) [Mass/Vol] Normal Normal Normal [facility] Comment on above: Performed By: #### 5 8077-9 #### BERTIN FERNÁNDEZ ([id number]) [facility] [address] [place] [address] Ketones (U) [Mass/Vol] 40 (2+) Abnormal NEGATIVE [facility] Comment on above: Performed By: #### 5 8077-9 #### BERTIN FERNÁNDEZ (25493) [facility] [address] [place] [address] Leukocyte esterase Auto test strip Ql (U) 250 Jomar/uL Abnormal NEGATIVE [facility] Comment on above: Performed By: #### 5 8077-9 #### BERTIN FERNÁNDEZ (80010) [facility] [address] [place] [address] Nitrite Auto test strip Ql (U) Negative Normal NEGATIVE [facility] Comment on above: Performed By: #### 5 8077-9 #### BERTIN FERNÁNDEZ ([id number]) [facility] [address] [place] [address] pH (U) 6.0 [pH] Normal 5.0, 5.5, 6.0, 6.5, 7.0, 7.5, 8.0 [facility] Comment on above: Performed By: #### 5 8077-9 #### BERTIN FERNÁNDEZ ([id number]) [facility] [address] [place] [address] Protein (U) [Mass/Vol] Negative Normal NEGAT ROMULO, 10 (TRACE), 20 (TRACE) [facility] Comment on above: Performed By: #### 5 8077-9 #### BERTIN FERNÁNDEZ ([id number]) [facility] [address] [place] [address] RBC (U) [#/Vol] Negative Normal NEGATIVE [facility] Comment on above: Performed By: #### 5 8077-9 #### BERTIN FERNÁNDEZ ([id number]) [facility] [address] [place] [address] Specific gravity (U) [Rel density] 1.019 Normal 1.005-1.035 [facility] Comment on above: Performed By: #### 5 8077-9 #### BERTIN FERNÁNDEZ (16927) [facility] [address] [place] [address] Urobilinogen (U) [Mass/Vol] Normal Normal Normal [facility] Comment on above: Performed By: #### 5 8077-9 #### BERTIN FERNÁNDEZ ([id number]) [facility] [address] [place] [address] Urinalysis microscopic panel Auto Ql (U)on 03-20-2025 Bacteria Auto (Urine sed) [#/Area] 1+ /HPF Abnormal NONE SEEN [facility] Comment on above: Performed By: #### 5 3315-8 #### BERTIN FERNÁNDEZ ([id number]) [facility] [address] [place] [address] Epithelial cells.squamous Auto (Urine sed) [#/Area] 10-25 (FEW) Normal Reference range not established. [facility] Comment on above: Performed By: #### 5 3315-8 #### BERTIN FERNÁNDEZ ([id number]) [facility] [address] [place] [address] Mucus Auto (Urine sed) [#/Area] FEW Normal Reference range not established. [facility] Comment on above: Performed By: #### 5 3315-8 #### BERTIN FERNÁNDEZ (36188) [facility] [address] [place] [address] RBC Auto (Urine sed) [#/Area] 1-2 Normal NONE, 1-2, 3-5 [facility] Comment on above: Performed By: #### 5 3315-8 #### BERTIN FERNÁNDEZ ([id number]) [facility] [address] [place] [address] WBC Auto (Urine sed) [#/Area] 11-20 Abnormal 1-5, NONE [facility] Comment on above: Performed By: #### 5 3315-8 #### DENTON JOLENE ([id number]) [facility] [address] [place], [place] [id number] Laboratory - Chemistry and C hemistry - challengeOrdered By: Alyssia Monzon on 03-10-2025 Glucose Ql (U) Negative [facility] Laboratory - UrinalysisOrder ed By: Alyssia Monzon on 03-10-2025 Protein Ql (U) Negative [facility] Textile Designer Office Visit Reporton 03-10-2025 Textile Designer Office Visit Report [facility] [address], [address] [place] [address] OFFICE VISIT Date of Service: 03/10/25 MR#: [id number] Acct: [id number] Name: JUSTINO RENDON Rep #: [id number] : 2000 Provider: Dr. Alyssia Childress DO Age/Sex: 24/F [place] [facility] [facility] [place]: Signed Intake Vital Signs 01/12/25 14:16 02/10/25 13:04 03/10/25 08:56 03/10/25 08:56 Height 5 ft 4 in 5 ft 4 in 5 ft 4 in 5 ft 4 in Weight: 148 lb 2 oz BMI 25.4 BP 110/73 Intake Visit Reasons: 13wk OB Spring Fitter Required: No Is patient in pain?: No Allergies No Known Allergies Allergy (Verified 03/10/25 08:56) Medications ???Medication ???Instructions ???Recorded ???Confirmed ???Type docosahexaenoic acid 200 mg mg PO 01/24/25 03/10/25 History capsule ( DHA) Last Menstrual Period: 12/08/24 Zika: Zika virus screening: Negative : No PFSH PFSH Medical History H/O: hypertension POTS (postural orthostatic tachycardia syndrome) Surgical History S/P wisdom tooth extraction History of shoulder surgery Family History Father Diabetes Mother Age: 56 Breast cancer Grandmother Breast cancer Social History adopted: No household members: spouse and children housing: house number of children: 1 current occupational status: employed 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 Date Name GA/Weeks Outcome Route Bth Weight Gen Labor Lgth Anesthesia Del Locatn Provider FOB 05/23/23 Doan 39 live - full term vacuum 7lbs 11oz Male epidural [place] ch[place]aa Tal 07/15/24 Chemical 5 spontaneous Delivery Date: 05/23/23 Last Updated by: Yeimi Anthony RN Pre-e, loree pp htn x4mo HPI 13wk OB Details: JUSTINO RENDON is a 24 year old who presents for routine OB visit. OB Visit VICKY Calculator Estimated Delivery Date Method Current WG Current Estimate 09/14/25 LMP (Certain) 13w 1d Expected Delivery Route/Plan Labor Preferences- CB/BF classes: [...] list details Initial Weight: 152 lb Date -???-???-???-???-?? ?-???-???-???-???-? ??-???-???- EGA Weight BP Urine Prot -???-???-???-???-?? ?-???-???-???-???-? ??-???-???- Glucose FHR FuHt Pres Dilation -???-???-???-???-?? ?-???-???-???-???-? ??-???-???- Effaced St Visit Note 02/10/25 -???-???-???-???-?? ?-???-???-???-???-? ??-???-???- 9w 1d 152 lb (+0 oz) 120/76 -???-???-???-???-?? ?-???-???-???-???-? ??-???-???- 174 -???-???-???-???-?? ?-???-???-???-???-? ??-???-???- LC 2.24cm cr l con with lmp. accepts genetics. baseline pec labs added for hx. 03/10/25 -???-???-???-???-?? ?-???-???-???-???-? ??-???-???- 13w 1d 148 lb 2 oz (-3 lb 14 oz) 110/73 Negative -???-???-???-???-?? ?-???-???-???-???-? ??-???-???- Negative 156 -???-???-???-???-?? ?-???-???-???-???-? ??-???-???- MARIANA- David (more content not included)... Normal [facility] Absolute lymphocyte countOrd ered By: Araseli Jacob on 02-20-2025 Lymphocytes Auto (Unsp spec) [#/Vol] 2.28 10*3/uL 0.83-4.51 [facility] Absolute neutrophil countOrd ered By: Araseli Jacob on 02-20-2025 Neutrophils (Bld) [#/Vol] 5.9 10*3/uL 2.0-7.7 [facility] Anion gap in Serum or Plasma Ordered By: Shireen Carnes on 02-20-2025 Anion gap [Moles/Vol] 14 mmol/L 5-15 [facility] Automated lymphocyte count a s percentage of total leukocytesOrdered By: Araseli Jacob on 02-20-2025 Lymphocytes/100 WBC Auto (Unsp spec) 25.4 % 19-41 [facility] BUN/creatinine ratioOrdered By: Shireen Carnes on 02-20-2025 Urea nitrogen/Creatinine [Mass ratio] 13.2 mg/mg 10-20 [facility] Basophil percentageOrdered B y: Araseli Jacob on 02-20-2025 Basophils/100 WBC (Bld) 0.2 % 0-1 [facility] Bilirubin, totalOrdered By: Shireen aCrnes on 02-20-2025 Bilirubin [Mass/Vol] mg/dL 0.00-1.30 [facility] CBC W/Diff, Automatedon 5 Absolute Lymph 2.28 X10 3/uL Normal 0.83-4.51 [facility] Comment on above: Performed By: #### L 3890.6102, L3890.6301, BTS, L3890.6006, L509.8002, L100.0100, L509.4006 #### [facility] Laboratory [address] [place], [address] Absolute Neut 5.9 X10 3/uL Normal 2.0-7.7 [facility] Comment on above: Performed By: #### L 3890.6102, L3890.6301, BTS, L3890.6006, L509.8002, L100.0100, L509.4006 #### [facility] Laboratory [address] [place], [address] Basophils/100 WBC (Bld) 0.2 % Normal 0-1 [facility] Comment on above: Performed By: #### L 3890.6102, L3890.6301, BTS, L3890.6006, L509.8002, L100.0100, L509.4006 #### [facility] Laboratory [address] [place], [address] Eosinophils/100 WBC (Bld) 2.3 % Normal 0-5 [facility] Comment on above: Performed By: #### L 3890.6102, L3890.6301, BTS, L3890.6006, L509.8002, L100.0100, L509.4006 #### [facility] Laboratory [address] [place], [address] Erythrocyte distribution width (RBC) [Ratio] 12.3 % Normal 11.6-14.6 [facility] Comment on above: Performed By: #### L 3890.6102, L3890.6301, BTS, L3890.6006, L509.8002, L100.0100, L509.4006 #### [facility] Laboratory [address] [place], [address] Hematocrit (Bld) [Volume fraction] 34.0 % Low 37-47 [facility] Comment on above: Performed By: #### L 3890.6102, L3890.6301, BTS, L3890.6006, L509.8002, L100.0100, L509.4006 #### [facility] Laboratory [address] [place], [address] Hemoglobin (Bld) [Mass/Vol] 11.7 g/dL Low 12.0-15.0 [facility] Comment on above: Performed By: #### L 3890.6102, L3890.6301, BTS, L3890.6006, L509.8002, L100.0100, L509.4006 #### [facility] Laboratory [address] [place], [address] IG% 0.300 Normal 0.0-0.9 [facility] Comment on above: Result Comment: IG% - Immature Granulocytes (promyelocytes, myelocytes and metamyelocytes) > 1% indicates that a LEFT SHIFT is Present. Performed By: #### L 3890.6102, L3890.6301, BTS, L3890.6006, L509.8002, L100.0100, L509.4006 #### [facility] Laboratory [address] [place], [address] Lymphocytes/100 WBC (Bld) 25.4 % Normal 19-41 [facility] Comment on above: Performed By: #### L 3890.6102, L3890.6301, BTS, L3890.6006, L509.8002, L100.0100, L509.4006 #### [facility] Laboratory [address] [place], [address] MCH (RBC) [Entitic mass] 30.5 pg Normal 27.0-32.0 [facility] Comment on above: Performed By: #### L 3890.6102, L3890.6301, BTS, L3890.6006, L509.8002, L100.0100, L509.4006 #### [facility] Laboratory [address] [place], [address] MCHC (RBC) [Mass/Vol] 34.4 g/dL Normal 32-36 [facility] Comment on above: Performed By: #### L 3890.6102, L3890.6301, BTS, L3890.6006, L509.8002, L100.0100, L509.4006 #### [facility] Laboratory [address] [place], [address] MCV (RBC) [Entitic vol] 88.5 fL Normal 81-99 [facility] Comment on above: Performed By: #### L 3890.6102, L3890.6301, BTS, L3890.6006, L509.8002, L100.0100, L509.4006 #### [facility] Laboratory [address] [place], [address] Monocytes/100 WBC (Bld) 5.9 % Normal 0-10 [facility] Comment on above: Performed By: #### L 3890.6102, L3890.6301, BTS, L3890.6006, L509.8002, L100.0100, L509.4006 #### [facility] Laboratory [address] [place], [address] Neutrophils/100 WBC (Bld) 65.9 % Normal 47-70 [facility] Comment on above: Performed By: #### L 3890.6102, L3890.6301, BTS, L3890.6006, L509.8002, L100.0100, L509.4006 #### [facility] Laboratory [address] [place], [address] Nucleated RBC (Bld) [#/Vol] 0 10*3/uL Normal 0-5 [facility] Comment on above: Performed By: #### L 3890.6102, L3890.6301, BTS, L3890.6006, L509.8002, L100.0100, L509.4006 #### [facility] Laboratory [address] [place], [address] Platelet mean volume (Bld) [Entitic vol] 9.3 fL Normal 6.2-12.0 [facility] Comment on above: Performed By: #### L 3890.6102, L3890.6301, BTS, L3890.6006, L509.8002, L100.0100, L509.4006 #### [facility] Laboratory [address] [place], [address] Platelets (Bld) [#/Vol] 227 10*3/uL Normal 150-450 [facility] Comment on above: Performed By: #### L 3890.6102, L3890.6301, BTS, L3890.6006, L509.8002, L100.0100, L509.4006 #### [facility] Laboratory [address] [place], [address] RBC (Bld) [#/Vol] 3.84 10*6/uL Low 4.2-5.4 [facility] Comment on above: Performed By: #### L 3890.6102, L3890.6301, BTS, L3890.6006, L509.8002, L100.0100, L509.4006 #### [facility] Laboratory [address] [place], [address] RDW SD 39.6 fl Normal 35.1-43.9 [facility] Comment on above: Performed By: #### L 3890.6102, L3890.6301, BTS, L3890.6006, L509.8002, L100.0100, L509.4006 #### [facility] Laboratory [address] [place], [address] WBC (Bld) [#/Vol] 9.0 10*3/uL Normal 4.4-11.0 [facility] Comment on above: Performed By: #### L 3890.6102, L3890.6301, BTS, L3890.6006, L509.8002, L100.0100, L509.4006 #### [facility] Laboratory [address] [place], [address] Carbon dioxide, total [Moles /volume] in Central venous bloodOrdered By: Shireen Carnes on 02-20-2025 CO2 [Moles/Vol] 21.0 mmol/L 21.0-32.0 [facility] Chloride assayOrdered By: Oscar Carnes on 02-20-2025 Chloride [Moles/Vol] 104 mmol/L 98-108 [facility] Comprehensive Metabolic Prof ilon 02-20-2025 Albumin [Mass/Vol] 3.9 g/dL Normal 3.5-5.0 [facility] Comment on above: Performed By: #### L 500.4050 ####[facility] [address] [place], [address] Albumin/Globulin [Mass ratio] 1.4 {ratio} Normal 0.9-2.4 [facility] Comment on above: Performed By: #### L 500.4050 ####[facility] [address] [place], [address] ALK PHOS 59 U/L Normal 35-104 [facility] Comment on above: Performed By: #### L 500.4050 ####[facility] [address] [place], [address] ALT [Catalytic activity/Vol] 16 U/L Normal <=34 [facility] Comment on above: Performed By: #### L 500.4050 ####[facility] [address] [place], [address] AST [Catalytic activity/Vol] 17 U/L Normal <=31 [facility] Comment on above: Performed By: #### L 500.4050 ####[facility] [address] [place], [address] BUN/CRE 13.2 RATIO Normal 10-20 [facility] Comment on above: Performed By: #### L 500.4050 ####[facility] [address] [place], [address] Calcium [Mass/Vol] 9.0 mg/dL Normal 7.6-11.0 [facility] Comment on above: Performed By: #### L 500.4050 ####[facility] [address] [place], [address] Chloride [Moles/Vol] 104 mmol/L Normal 98-108 [facility] Comment on above: Performed By: #### L 500.4050 ####[facility] [address] [place], [address] CO2 [Moles/Vol] 21.0 mmol/L Normal 21.0-32.0 [facility] Comment on above: Performed By: #### L 500.4050 ####[facility] [address] [place], [address] Creatinine [Mass/Vol] 0.68 mg/dL Low 0.70-1.20 [facility] Comment on above: Performed By: #### L 500.4050 ####[facility] [address] [place], [address] GAP 14 Normal 5-15 [facility] Comment on above: Performed By: #### L 500.4050 ####[facility] [address] [place], [address] GFR/1.73 sq M.predicted among non-blacks MDRD (S/P/Bld) [Vol rate/Area] 123 mL/min/{1.73_m2} Normal >60 [facility] Comment on above: Result Comment: mL/m in/1.73m2 CKD-EPI Creatinine Equation (2020) Performed By: #### L 500.4050 ####[facility] [address] [place], [address] Globulin (S) [Mass/Vol] 2.8 g/dL Normal 2.2-4.2 [facility] Comment on above: Performed By: #### L 500.4050 ####[facility] [address] [place], [address] Glucose [Mass/Vol] 77 mg/dL Normal 70-99 [facility] Comment on above: Performed By: #### L 500.4050 ####[facility] [address] [place], [address] Potassium [Moles/Vol] 3.9 mmol/L Normal 3.3-5.1 [facility] Comment on above: Performed By: #### L 500.4050 ####[facility] [address] [place], [address] Sodium [Moles/Vol] 139 mmol/L Normal 133-145 [facility] Comment on above: Performed By: #### L 500.4050 ####[facility] [address] [place], [address] T BILI < 0.15 Normal 0.00-1.30 [facility] Comment on above: Performed By: #### L 500.4050 ####[facility] [address] [place], [address] T PROT 6.8 g/dL Normal 5.9-8.4 [facility] Comment on above: Performed By: #### L 500.4050 ####[facility] [address] [place], [address] Urea nitrogen [Mass/Vol] 9 mg/dL Normal 4-19 [facility] Comment on above: Performed By: #### L 500.4050 ####[facility] [address] [place], [address] Eosinophil percentageOrdered By: Araseli Jacob on 02-20-2025 Eosinophils/100 WBC (Bld) 2.3 % 0-5 [facility] Erythrocyte distribution wid th ratioOrdered By: Araselipranay Jacob on 02-20-2025 Erythrocyte distribution width (RBC) [Ratio] 12.3 % 11.6-14.6 [facility] Erythrocyte distribution wid th standard deviationOrdered By: Araselipranay Jacob on 02-20-2025 Erythrocyte distribution width (RBC) [Ratio] 39.6 fl 35.1-43.9 [facility] Glomerular filtration rate ( GFR) estimation/1.73 sq m using serum, plasma, or whole bOrdered By: Shireen Carnes on 02-20-2025 GFR/1.73 sq M.predicted among non-blacks MDRD (S/P/Bld) [Vol rate/Area] 123 mL/min/{1.73_m2} >60 [facility] Comment on above: mL/min/1.73m2 CKD-EP I Creatinine Equation (2020) HIVon 02-20-2025 HIV Non-Reactive Normal Nonreactive [facility] Comment on above: Result Comment: Non- Reactive Reactive Repeatedly reactive samples must be confirmed according to CDC recommended confirmatory algorithms. The subresults for either HIVAG or AHIV can be used as an aid in the selection of the confirmation algorithm for reactive samples. Send out specimens with Reactive results to [facility] for confirmation. Order the HIV antibody detection and differentiation: lc#[id number] Performed By: #### L 3890.6102, L3890.6301, BTS, L3890.6006, L509.8002, L100.0100, L509.4006 #### [facility] Laboratory [address] [place], [place], [address] Hematocrit Auto (Bld) [Volum e fraction]Ordered By: Araselipranay Jacob on 02-20-2025 Hematocrit (Bld) [Volume fraction] 34.0 % Low 37-47 [facility] Hemoglobin measurementOrdere d By: Araseli Jacob on 02-20-2025 Hemoglobin (Bld) [Mass/Vol] 11.7 g/dL Low 12.0-15.0 [facility] Hepatitis C Antibodyon 02-20 Hepatitis C Ab Non-Reactive Normal Nonreactive [facility] Comment on above: Result Comment: Reac tive: Presumptive evidence of antibodies to HCV. Follow CDC recommendations for supplemental testing. Non-Reactive: Antibodies to HCV were not detected; does not exclude the possibility of exposure to HCV Reactive Results are presumptive evidence of antibodies to HCV. Follow CDC recommendations for supplemental testing. Order confirmation testing: HCV Quant by PCR testing - HCVPCR lc#[id number] Non Reactive: < 0.8 Equivocal: >/= 0.8 to < 1.0 Reactive: >/= 1.0 The [facility] requires that a reactive/equivocal HCV antibody result be sent out for confirmation. HCV Quant by PCR testing. Performed By: #### L 3890.6102, L3890.6301, BTS, L3890.6006, L509.8002, L100.0100, L509.4006 ####[facility] [address] [place], [place], [address] Immature granulocytes/100 WB C Auto (Bld)Ordered By: Araseli Jacob on 02-20-2025 Immature granulocytes/100 WBC (Bld) 0.300 % 0.0-0.9 [facility] Comment on above: IG% - Immature Granu locytes (promyelocytes, myelocytes and metamyelocytes) > 1% indicates that a LEFT SHIFT is Present. L3890.6102on 02-20-2025 HEP B Surf Ag Non-Reactive Normal Nonreactive [facility] Comment on above: Result Comment: Reac tive: Presumptive evidence of HBV. Repeatedly reactive samples must be confirmed using a neutralization test ([employer] HBsAg Confirmatory Test) Non-Reactive: HBsAg not detected; does not exclude the possibility of exposure to HBV Performed By: #### L 3890.6102, L3890.6301, BTS, L3890.6006, L509.8002, L100.0100, L509.4006 #### [facility] Laboratory [address] [place], [address] L509.4006on 02-20-2025 Rubella IgG REAC Normal Nonreactive [facility] Comment on above: Result Comment: Anti body Result: Interpretation Non-Reactive: Non-Immune Reactive: Immune The following results were obtained with the [employer] Rubella IgG assay. Results from assays of other manufacturers cannot be used interchangeably. Performed By: #### L 3890.6102, L3890.6301, BTS, L3890.6006, L509.8002, L100.0100, L509.4006 #### [facility] Laboratory [address] [facility] [place], [place], [address] Laboratory - Chemistry and C hemistry - challengeOrdered By: Shireen Carnes on 02-20-2025 AST [Catalytic activity/Vol] 17 U/L <32 [facility] Laboratory - Microbiology an d Antimicrobial susceptibilityOrdered By: Araseli Jacob on 02-20-2025 HBV surface Ag Ql (S) Non-Reactive Nonreactive [facility] Comment on above: Reactive: Presumptiv e evidence of HBV. Repeatedly reactive samples must be confirmed using a neutralization test ([employer] HBsAg Confirmatory Test)Non-Reactive: HBsAg not detected; does not exclude the possibility of exposure to HBV MCV (mean corpuscular volume ) determinationOrdered By: Araseli Jacob on 02-20-2025 MCV (RBC) [Entitic vol] 88.5 fL 81-99 [facility] Mean corpuscular hemoglobin (MCH) determinationOrdered By: Araseli Jacob on 02-20-2025 MCH (RBC) [Entitic mass] 30.5 pg 27.0-32.0 [facility] Mean corpuscular hemoglobin concentration (MCHC) determinationOrdered By: Araseli Jacob on 02-20-2025 MCHC (RBC) [Mass/Vol] 34.4 g/dL 32-36 [facility] Mean platelet volume determi nationOrdered By: Araseli Jacob on 02-20-2025 Platelet mean volume (Bld) [Entitic vol] 9.3 fL 6.2-12.0 [facility] Monocyte percentageOrdered B y: Araseli Jacob on 02-20-2025 Monocytes/100 WBC (Bld) 5.9 % 0-10 [facility] NATERAon 02-20-2025 NATURA SEE SCANNED REPORT Normal [facility] Comment on above: Performed By: #### L 900.0098 ####[facility] [address] [place], [address] Neutrophil percentageOrdered By: Araseli Jacob on 02-20-2025 Neutrophils/100 WBC (Bld) 65.9 % 47-70 [facility] No Panel InformationOrdered By: Araseli Jacob on 02-20-2025 HIV (1&2) Antibody Non-Reactive Nonreactive [facility] Comment on above: Non-ReactiveReactive Repeatedly reactive samples must be confirmed according to CDC recommended confirmatory algorithms. The subresults for either HIVAG or AHIV can be used as an aid in the selection of the confirmation algorithm for reactive samples.Send out specimens with Reactive results to [facility] for confirmation.Order the HIV antibody detection and differentiation: #[id number] Nucleated red blood cell per centageOrdered By: Araseli Jacob on 02-20-2025 Nucleated RBC/100 WBC (Bld) [Ratio] 0 % 0-5 [facility] Platelet countOrdered By: Clara Jacob on 02-20-2025 Platelets (Bld) [#/Vol] 227 10*3/uL 150-450 [facility] Potassium measurement (mass/ volume)Ordered By: Shireen Carnes on 02-20-2025 Potassium (Unsp spec) [Mass/Vol] 3.9 mmol/L 3.3-5.1 [facility] RBC Auto (Bld) [#/Vol]Ordere d By: Araseli Jacob on 02-20-2025 RBC (Bld) [#/Vol] 3.84 10*6/uL Low 4.2-5.4 [facility] Serum creatinine measurement (mass/volume)Ordered By: Shireen Carnes on 02-20-2025 Creatinine [Mass/Vol] 0.68 mg/dL Low 0.70-1.20 [facility] Serum globulin measurementOr dered By: Shireen Carnes on 02-20-2025 Globulin (S) [Mass/Vol] 2.8 g/dL 2.2-4.2 [facility] Serum glucose measurement (m ass/volume)Ordered By: Shireen Carnes on 02-20-2025 Glucose [Mass/Vol] 77 mg/dL 70-99 [facility] Serum or plasma alanine du otransferase (ALT) measurementOrdered By: Shireen Carnes on 02-20-2025 ALT [Catalytic activity/Vol] 16 U/L <35 [facility] Serum or plasma albumin luiza urement (mass/volume)Ordered By: Shireen Carnes on 02-20-2025 Albumin [Mass/Vol] 3.9 g/dL 3.5-5.0 [facility] Serum or plasma albumin/glob ulin mass ratioOrdered By: Shireen Carnes on 02-20-2025 Albumin/Globulin [Mass ratio] 1.4 {ratio} 0.9-2.4 [facility] Serum or plasma alkaline neo sphatase measurementOrdered By: Shireen Carnes on 02-20-2025 ALP [Catalytic activity/Vol] 59 U/L 35-104 [facility] Serum or plasma calcium luiza urement (mass/volume)Ordered By: Shireen Carnes on 02-20-2025 Calcium [Mass/Vol] 9.0 mg/dL 7.6-11.0 [facility] Serum or plasma urea nitroge n measurement (mass/volume)Ordered By: Shireen Carnes on 02-20-2025 Urea nitrogen [Mass/Vol] 9 mg/dL 4-19 [facility] Sodium levelOrdered By: Yoni Carnes on 02-20-2025 Sodium [Moles/Vol] 139 mmol/L 133-145 [facility] Syphilis Antibodieson 2024 Syphilis Abs Non-Reactive Normal Nonreactive [facility] Comment on above: Performed By: #### L 3890.6102, L3890.6301, BTS, L3890.6006, L509.8002, L100.0100, L509.4006 #### [facility] Laboratory [address] [place], [address] Total proteinOrdered By: Nae Carnes on 02-20-2025 Protein [Mass/Vol] 6.8 g/dL 5.9-8.4 [facility] Type AND Screenon 02-20-2025 ABO and Rh group Nom (Bld) Blood group A Rh(D) positive Normal [facility] Comment on above: Order Comment: PN Performed By: #### L 3890.6102, L3890.6301, BTS, L3890.6006, L509.8002, L100.0100, L509.4006 ####[facility] [address] [place], [address] White blood cell (WBC) count Ordered By: Araseli Jacob on 02-20-2025 WBC (Bld) [#/Vol] 9.0 10*3/uL 4.4-11.0 [facility] Chlamydia/GC TINA aptimaon CHLAMY,NUC ACID Negative Normal Negative [facility] Comment on above: Performed By: #### L 7000.1800, M100.2200 #### [facility] Laboratory [address] [place], [address] GC BY NUC ACID Negative Normal Negative [facility] Comment on above: Result Comment: Perf ormed at: =G - [facility] [address] [id number] Merchant Banker: Nhi Isaac MD, Phone: [phone] Performed By: #### L 7000.1800, M100.2200 #### [facility] Laboratory [address] [place], [address] Urine Cultureon 02-11-2025 URC Culture exhibits no growth. Normal [facility] Comment on above: Performed By: #### L 7000.1800, M100.2200 #### [facility] Laboratory [address] [place], [address] Chlamydia trachomatis rRNA d etection by probe and target amplification methodOrdered By: Araseli Jacob on 02-10-2025 C. trachomatis rRNA TINA+probe Ql (Unsp spec) Negative Negative [facility] Neisseria gonorrhoeae nuclei c acid detection by amplified probe techniqueOrdered By: Araseli Jacob on 02-10-2025 N. gonorrhoeae DNA TINA+probe Ql (Unsp spec) Negative Negative [facility] Comment on above: Performed at: =[address] [id number] Director: Nhi Isaac MD, Phone: [phone] [employer] Office Visit Reporton 02-10-2025 Text[employer]er Office Visit Report [facility] [address], [address] [place] [address] OFFICE VISIT Date of Service: 02/10/25 MR#: [id number] Acct: [id number] Name: JUSTINO RENDON Rep #: [id number] : 2000 Provider: FAB barr Age/Sex: 24/F [place] [facility] [place]: [place] Intake Vital Signs 01/12/25 14:16 01/24/25 11:38 02/10/25 13:04 Height 5 ft 4 in 5 ft 4 in 5 ft 4 in Weight: 152 lb BMI 26.1 BP 120/76 Intake Visit Reasons: NOB LMP 12/08 Spring Fitter Required: No Is patient in pain?: No [...] 1 current occupational status: employed 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 ?-???-???-???-???-? ??-???-???- EGA Weight BP Urine Prot -???-???-???-???-?? ?-???-???-???-???-? ??-???-???- Glucose FHR FuHt Pres Dilation -???-???-???-???-?? ?-???-???-???-???-? ??-???-???- Effaced St Visit Note 02/10/25 -???-???-???-???-?? ?-???-???-???-???-? ??-???-???- 9w 1d 152 lb (+0 oz) 120/76 -???-???-???-???-?? ?-???-???-???-???-? ??-???-???- 174 -???-???-???-???-?? ?-???-???-???-???-? ??-???-???- LC 2.24cm cr l con with lmp. accepts genetics. baseline pec labs added for hx. Menstrual History Last Menstrual Period: 12/08/24 Reported LMP: definite Normal amount/duration: Yes Antepartum Record Genetic Screening: Congenital Heart Defect: Other, Neural Tube Defect: Other, Hemoglobinopat (more content not included)... Normal [facility] Protein+Creatinine Ratio,Uri neon 02-10-2025 PROT:CRE RATIO 123 mg/g CRE Normal 0-200 [facility] Comment on above: Performed By: #### L 501.0900 ####[facility] [address] [place], [address] Protein (U) [Mass/Vol] 10.0 mg/dL Normal 0.0-12.0 [facility] Comment on above: Performed By: #### L 501.0900 ####[facility] [address] [place], [address] UR CREAT 81.00 mg/dL Normal 28.00-217.00 [facility] Comment on above: Performed By: #### L 501.0900 ####[facility] [address] [place], [address] Random urine creatinine luiza urement (mass/volume)Ordered By: Shireen Carnes on 02-10-2025 Creatinine Unsp time (U) [Mass/Vol] 81.00 mg/dL 28.00-217.00 [facility] Urine cultureOrdered By: Tania Jacob on 02-10-2025 Bacteria identified Cx Nom (U) Culture exhibits no growth. [facility] Urine protein measurement (m ass/volume)Ordered By: Shireen Carnes on 02-10-2025 Protein (U) [Mass/Vol] 10.0 mg/dL 0.0-12.0 [facility] Urine protein/creatinine mas s ratioOrdered By: Shireen Carnes on 02-10-2025 Protein/Creatinine (U) [Mass ratio] 123 mg/g CRE 0-200 [facility] Laboratory - Chemistry and C hemistry - challengeOrdered By: Marialuisa Marshall on 01-24-2025 HCG ( test) Ql (U) Positive [facility] Office Visit Reporton 2024 Office Visit Report [facility] [address] [place] [address] OFFICE VISIT Date of Service: MR#: [id number] Acct: [id number] Patient: JUSTINO RENDON Rep #: [id number] : 2000 Provider: Yeimi Anthony RN Age/Sex: 24/F [place] [facility] [facility] [place]: Signed Intake Vital Signs 01/24/25 08:05 01/24/25 11:38 Height 5 ft 4 in 5 ft 4 in Weight: 151 lb 4 oz BMI 25.9 BP 110/64 Intake Visit Reasons: Amb Documentation Chief Complaint: PNOB in person Spring Fitter Required: No Is patient in pain?: No [...] trimester Protein+Creatinine Ratio,Urine 01/24/25 Shireen Carnes NP, BUSINESS REPRESENTATIVE-C O09.299 - Supervision of with other poor reproductive or obstetric history, unspecified trimester, O09.90 - Supervision of high risk , unspecified, unspecified trimester Comprehensive Metabolic Profil 01/24/25 Shireen Carnes NP, BUSINESS REPRESENTATIVE-C O09.299 - Supervision of with other poor reproductive or obstetric history, unspecified trimester, O09.90 - Supervision of high risk , unspecified, unspecified trimester Clinical Quality Measures Falls Risk Screening/Assistive Devices Have you fallen in the past year?: No 01/27/25 1637 Date Marailuisa Marshall MD [facility] Signature: Date (if applicable) CC: Normal [facility] Serum human chorionic gonado tropin detection for pregnancyOrdered By: Sherie Padilla on 01-14-2025 HCG ( test) [place]l [address] mIU/mL High <9 [facility] Comment on above: Gestational Age0.2-1 Week: 5-50 mIU/mL1-2 Weeks: 50-500 mIU/mL2-3 Weeks: 100-5000 mIU/mL3-4 Weeks: 500-10,000 mIU/mL4-5 Weeks:1000-50,000 mIU/mL5-6 Weeks: 10,000-100,000 mIU/mL6-8 Weeks: 15,000-200,000 mIU/mL2-3 Months:10,000-100,000 mIU/mL hCG Titer Quant., Serumon HCG QUANT. 36312 mIU/mL High <9 non-preg [facility] Comment on above: Result Comment: Gest ational Age 0.2-1 Week: 5-50 mIU/mL 1-2 Weeks: 50-500 mIU/mL 2-3 Weeks: 100-5000 mIU/mL 3-4 Weeks: 500-10,000 mIU/mL 4-5 Weeks:1000-50,000 mIU/mL 5-6 Weeks: 10,000-100,000 mIU/mL 6-8 Weeks: 15,000-200,000 mIU/mL 2-3 Months:10,000-100,000 mIU/mL Performed By: #### L 700.8000 ####[facility] [address] [place], [address] Laboratory - Chemistry and C hemistry - challengeOrdered By: Sherie Padilla on 01-12-2025 HCG ( test) Ql (U) Positive 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 Date Name GA/Weeks Outcome Route Bth Weight Infant Gen Labor Lgth Anesthesia Del Locatn Provider FOB 05/23/23 Doan live - full term 7lbs 11oz Male epidural [facility] Encounter for routine gynecological examination Details: JUSTINO RENDON is a 24 year old who presents for annual exam. She reports she has not had a period this month. Her and her are trying. She reports she previously had chemical in July. Since then she has had regular menses until this month. She reports no vaginal bleeding. 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 We do not have records for review. She was also recently diagnosed with POTS and has been started on Cardizem. Previous vaginal delivery; did have pre-eclampsia at end of . Last PAP: 2022 per patient--reports negative. History of abnormal PAP: no. Last mammogram: age 38 History of abnormal mammogram: n/a Colon cancer screening: age 43 Other preventative health care screenings: Beny Stewart; PCP. Female Reproductive History Last Menstrual Period: [...] axillary lymphadenopathy (more content not included)... Normal [facility] Serum human chorionic gonado tropin detection for pregnancyOrdered By: Sherie Padilla on 01-12-2025 HCG ( test) Ql 6784 mIU/mL High <9 [facility] Comment on above: Gestational Age0.2-1 Week: 5-50 mIU/mL1-2 Weeks: 50-500 mIU/mL2-3 Weeks: 100-5000 mIU/mL3-4 Weeks: 500-10,000 mIU/mL4-5 Weeks:1000-50,000 mIU/mL5-6 Weeks: 10,000-100,000 mIU/mL6-8 Weeks: 15,000-200,000 mIU/mL2-3 Months:10,000-100,000 mIU/mL hCG Titer Quant., Serumon HCG QUANT. 6784 mIU/mL High <9 non-preg [facility] Comment on above: Result Comment: Gest ational Age 0.2-1 Week: 5-50 mIU/mL 1-2 Weeks: 50-500 mIU/mL 2-3 Weeks: 100-5000 mIU/mL 3-4 Weeks: 500-10,000 mIU/mL 4-5 Weeks:1000-50,000 mIU/mL 5-6 Weeks: 10,000-100,000 mIU/mL 6-8 Weeks: 15,000-200,000 mIU/mL 2-3 Months:10,000-100,000 mIU/mL Performed By: #### L 806.5193 ####[facility] [address] [place], [address] ECG 12 lead (Clinic Performe d)on 12-26-2024 Normal sinus rhythm [facility] Work Phone: CBC (INCLUDES DIFF/PLT)on Basophils (Bld) [#/Vol] 0.042 10*3/uL Normal 0-200 [facility] Comment on above: Performed By: #### 7 573, 54208, 622, 9030, 0405, 899, 927, 99365, 866 #### [facility] of [place] [address] [employer] Supervisor: Noble Brown MD Basophils/100 WBC (Bld) 0.6 % Normal [facility] Comment on above: Performed By: #### 7 573, 52720, 622, 7600, 6399, 899, 927, 28452, 866 #### [facility] [place] [address] [employer] Supervisor: Noble Brown MD Eosinophils (Bld) [#/Vol] 0.252 10*3/uL Normal 15-500 [facility] Comment on above: Performed By: #### 7 573, 16517, 622, 7600, 6399, 899, 927, 29203, 866 #### [facility] [place] [address] [employer] Supervisor: Noble Brown MD Eosinophils/100 WBC (Bld) 3.6 % Normal [facility] Comment on above: Performed By: #### 7 573, 30125, 622, 7600, 6399, 899, 927, 28016, 866 #### [facility] [place] [address] [employer] Supervisor: Noble Brown MD Erythrocyte distribution width (RBC) [Ratio] 12.6 % Normal 11.0-15.0 [facility] Comment on above: Performed By: #### 7 573, 38237, 622, 7600, 6399, 899, 927, 10766, 866 #### [facility] [place] [address] [employer] Supervisor: Noble Brown MD Hematocrit (Bld) [Volume fraction] 43.5 % Normal 35.0-45.0 [facility] Comment on above: Performed By: #### 7 573, 74081, 622, 7600, 6399, 899, 927, 39106, 866 #### [facility] [place] [address] [employer] Supervisor: Noble Brown MD Hemoglobin (Bld) [Mass/Vol] 13.9 g/dL Normal 11.7-15.5 [facility] Comment on above: Performed By: #### 7 573, 58971, 622, 7600, 6399, 899, 927, 25477, 866 #### [facility] [place] [address] [employer] Supervisor: Noble Brown MD Lymphocytes (Bld) [#/Vol] 2.38 10*3/uL Normal 850-3900 [facility] Comment on above: Performed By: #### 7 573, 19681, 622, 7600, 6399, 899, 927, 94121, 866 #### [facility] [place] [address] [employer] Supervisor: Noble Brown MD Lymphocytes/100 WBC (Bld) 34.0 % Normal [facility] Comment on above: Performed By: #### 7 573, 01017, 622, 7600, 6399, 899, 927, 61919, 866 #### [facility] [place] [address] [employer] Supervisor: Noble Brown MD MCH (RBC) [Entitic mass] 30.0 pg Normal 27.0-33.0 [facility] Comment on above: Performed By: #### 7 573, 04603, 622, 7600, 6399, 899, 927, 45339, 866 #### [facility] [place] [address] [employer] Supervisor: Noble Brown MD MCHC (RBC) [Mass/Vol] 32.0 g/dL Normal 32.0-36.[address] [facility] Comment on above: Result Comment: For adults, a slight decrease in the calculated MCHC value (in the range of 30 to 32 g/dL) is most likely not clinically significant; however, it should be interpreted with caution in correlation with other red cell parameters and the patient's clinical condition. Performed By: #### 7 573, 20137, 622, 7600, 6399, 899, 927, 55417, 866 #### [facility] [place] [address] [employer] Supervisor: Noble Brown MD MCV (RBC) [Entitic vol] 94.0 fL Normal 80.0-100.0 [facility] Comment on above: Performed By: #### 7 573, 97728, 622, 7600, 6399, 899, 927, 32356, 866 #### [facility] [place] [address] [employer] Supervisor: Noble Brown MD Monocytes (Bld) [#/Vol] 0.329 10*3/uL Normal 200-950 [facility] Comment on above: Performed By: #### 7 573, 80021, 622, 7600, 6399, 899, 927, 51192, 866 #### [facility] [place] [address] [employer] Supervisor: Noble Brown MD Monocytes/100 WBC (Bld) 4.7 % Normal [facility] Comment on above: Performed By: #### 7 573, 93871, 622, 7600, 6399, 899, 927, 33445, 866 #### [facility] [place] [address] [employer] Supervisor: Noble Brown MD Neutrophils (Bld) [#/Vol] 3.997 10*3/uL Normal 1608-1516 [facility] Comment on above: Performed By: #### 7 573, 25745, 622, 7600, 6399, 899, 927, 54133, 866 #### [facility] [place] [address] [employer] Supervisor: Noble Brown MD Neutrophils/100 WBC (Bld) 57.1 % Normal [facility] Comment on above: Performed By: #### 7 573, 75563, 622, 7600, 6399, 899, 927, 12363, 866 #### [facility] [place] [address] [employer] Supervisor: Noble Brown MD Platelet mean volume (Bld) [Entitic vol] 10.2 fL Normal 7.5-12.5 [facility] Comment on above: Performed By: #### 7 573, 16735, 622, 7600, 6399, 899, 927, 30697, 866 #### [facility] [place] [address] [employer] Supervisor: Noble Brown MD Platelets (Bld) [#/Vol] 257 10*3/uL Normal 140-400 [facility] Comment on above: Performed By: #### 7 573, 32323, 622, 7600, 6399, 899, 927, 39689, 866 #### [facility] [place] [address] [employer] Supervisor: Noble Brown MD RBC (Bld) [#/Vol] 4.63 10*6/uL Normal 3.80-5.10 [facility] Comment on above: Performed By: #### 7 573, 68327, 622, 7600, 6399, 899, 927, 76160, 866 #### [facility] [place] [address] [employer] Supervisor: Noble Brown MD WBC (Bld) [#/Vol] 7.0 10*3/uL Normal 3.8-10.8 [facility] Comment on above: Performed By: #### 7 573, 82701, 622, 7600, 6399, 899, 927, 77905, 866 #### [facility] [place] [address] [employer] Supervisor: Noble Brown MD COMPREHENSIVE METABOLIC PANE L W/ANION GAPon 10-25-2024 Albumin [Mass/Vol] 4.7 g/dL Normal 3.6-5.1 [facility] Comment on above: Performed By: #### 7 573, 67955, 622, 7600, 6399, 899, 927, 80725, 866 #### [facility] of [address], [address] [place] [address] [employer] Supervisor: Noble Brown MD ALP [Catalytic activity/Vol] 71 U/L Normal 31-125 [facility] Comment on above: Performed By: #### 7 573, 36768, 622, 7600, 6399, 899, 927, 07049, 866 #### [facility] [place] [address] [employer] Supervisor: Noble Brown MD ALT [Catalytic activity/Vol] 11 U/L Normal 6-29 [facility] Comment on above: Performed By: #### 7 573, 79908, 622, 7600, 6399, 899, 927, 00593, 866 #### [facility] [place] [address] [employer] Supervisor: Noble Brown MD AST [Catalytic activity/Vol] 15 U/L Normal 10-30 [facility] Comment on above: Performed By: #### 7 573, 40187, 622, 7600, 6399, 899, 927, 10055, 866 #### [facility] [place] [address] [employer] Supervisor: Noble Brown MD Bilirubin [Mass/Vol] 0.3 mg/dL Normal 0.2-1.2 [facility] Comment on above: Performed By: #### 7 573, 21667, 622, 7600, 6399, 899, 927, 08797, 866 #### [facility] [place] [address] [employer] Supervisor: Noble Brown MD Calcium [Mass/Vol] 9.0 mg/dL Normal 8.6-10.2 [facility] Comment on above: Performed By: #### 7 573, 65252, 622, 7600, 6399, 899, 927, 35533, 866 #### [facility] [place] [address] [employer] Supervisor: Noble Brown MD Chloride [Moles/Vol] 104 mmol/L Normal 98-110 [facility] Comment on above: Performed By: #### 7 573, 69830, 622, 7600, 6399, 899, 927, 69644, 866 #### [facility] [place] [address] [employer] Supervisor: Noble Brown MD CO2 [Moles/Vol] 26 mmol/L Normal 20-32 [facility] Comment on above: Performed By: #### 7 573, 83033, 622, 7600, 6399, 899, 927, 41582, 866 #### [facility] [place] [address] [employer] Supervisor: Noble Brown MD Creatinine [Mass/Vol] 0.85 mg/dL Normal 0.50-0.[address] [facility] Comment on above: Performed By: #### 7 573, 49139, 622, 7600, 6399, 899, 927, 06125, 866 #### [facility] [place] [address] [employer] Supervisor: Noble Brown MD ELECTROLYTE BALANCE 9 mmol/L (calc) Normal 7-17 [facility] Comment on above: Performed By: #### 7 573, 84634, 622, 7600, 6399, 899, 927, 49102, 866 #### [facility] [place] [address] [employer] Supervisor: Noble Brown MD GFR/1.73 sq M.predicted among non-blacks MDRD (S/P/Bld) [Vol rate/Area] 97 mL/min/{1.73_m2} Normal > OR = 60 [facility] Comment on above: Performed By: #### 7 573, 29626, 622, 7600, 6399, 899, 927, 19446, 866 #### [facility] [place] [address] [employer] Supervisor: Noble Brown MD Glucose [Mass/Vol] 89 mg/dL Normal 65-99 [facility] Comment on above: Result Comment: Fasting reference interval Performed By: #### 7 573, 07622, 622, 7600, 6399, 899, 927, 06506, 866 #### [facility] [place] [address] [employer] Supervisor: Noble Brown MD Potassium [Moles/Vol] 4.2 mmol/L Normal 3.5-5.[address] [facility] Comment on above: Performed By: #### 7 573, 01589, 622, 7600, 6399, 899, 927, 81407, 866 #### [facility] [place] [address] [employer] Supervisor: Noble Brown MD Protein [Mass/Vol] 7.3 g/dL Normal 6.1-8.1 [facility] Comment on above: Performed By: #### 7 573, 62969, 622, 7600, 6399, 899, 927, 40840, 866 #### [facility] [place] [address] [employer] Supervisor: Noble Brown MD Sodium [Moles/Vol] 139 mmol/L Normal 135-146 [facility] Comment on above: Performed By: #### 7 573, 74353, 622, 7600, 6399, 899, 927, 16568, 866 #### [facility] [place] [address] [employer] Supervisor: Noble Brown MD Urea nitrogen [Mass/Vol] 13 mg/dL Normal 7-25 [facility] Comment on above: Performed By: #### 7 573, 81234, 622, 7600, 6399, 899, 927, 28136, 866 #### [facility] [place] [address] [employer] Supervisor: Noble Brown MD FERRITINon 10-25-2024 Ferritin [Mass/Vol] 20 ng/mL Normal 16-154 [facility] Comment on above: Performed By: #### 7 573, 31657, 622, 7600, 6399, 899, 927, 68121, 866 #### [facility] [place] [address] [employer] Supervisor: Noble Brown MD IRON AND TOTAL IRON BINDING CAPACITYon 10-25-2024 % SATURATION 23 % (calc) Normal 16-45 [facility] Comment on above: Performed By: #### 7 573, 53067, 622, 7600, 6399, 899, 927, 26104, 866 #### [facility] [place] [address] [employer] Supervisor: Noble Brown MD IRON BINDING CAPACITY 330 mcg/dL (calc) Normal 250-450 [facility] Comment on above: Performed By: #### 7 573, 70013, 622, 7600, 6399, 899, 927, 77427, 866 #### [facility] [place] [address] [employer] Supervisor: Noble Brown MD IRON, TOTAL 75 mcg/dL Normal 40-190 [facility] Comment on above: Performed By: #### 7 573, 78585, 622, 7600, 6399, 899, 927, 50221, 866 #### [facility] [place] [address] [employer] Supervisor: Noble Brown MD LIPID PANEL, STANDARDon 10-15 Cholesterol [Mass/Vol] 136 mg/dL Normal <200 [facility] Comment on above: Order Comment: FASTI NG:YES FASTING: YES Performed By: #### 7 573, 00226, 622, 7600, 6399, 899, 927, 21345, 866 #### [facility] [address], [address] [place] [address] [employer] Supervisor: Noble Brown MD Cholesterol in HDL [Mass/Vol] 55 mg/dL Normal > OR = 50 [facility] Comment on above: Order Comment: FASTI NG:YES FASTING: YES Performed By: #### 7 573, 82062, 622, 7600, 6399, 899, 927, 54337, 866 #### [facility] [address], [address] [place] [address] [employer] Supervisor: Noble Brown MD Cholesterol in LDL [Mass/Vol] 68 mg/dL Normal [facility] Comment on above: Order Comment: FASTI NG:YES FASTING: YES Result Comment: Refe rence range: <100 Desirable range <100 mg/dL for primary prevention; <70 mg/dL for patients with CHD or diabetic patients with > or = 2 CHD risk factors. LDL-C is now calculated using the Calin-[place] calculation, which is a validated novel method providing better accuracy than the Friedewald equation in the estimation of LDL-C. Calin CHANG et al. DINA. 2013;310(19): 8321-1946 (http://education.bizk.it/faq/TQX830) Performed By: #### 7 573, 07029, 622, 7600, 6399, 899, 927, 83627, 866 #### [facility] [address], [address] [place] [address] [employer] Supervisor: Noble Brown MD Cholesterol.total/Choles terol in HDL [Mass ratio] 2.5 {ratio} Normal <5.0 [facility] Comment on above: Order Comment: FASTI NG:YES FASTING: YES Performed By: #### 7 573, 73214, 622, 7600, 6399, 899, 927, 97760, 866 #### [facility] [address], [address] [place] [address] [employer] Supervisor: Noble Brown MD NON HDL CHOLESTEROL 81 mg/dL (calc) Normal <130 [facility] Comment on above: Order Comment: FASTI NG:YES FASTING: YES Result Comment: For patients with diabetes plus 1 major ASCVD risk factor, treating to a non-HDL-C goal of <100 mg/dL (LDL-C of <70 mg/dL) is considered a therapeutic option. Performed By: #### 7 573, 43872, 622, 7600, 6399, 899, 927, 98800, 866 #### [facility] [address], [address] [place] [address] [employer] Supervisor: Noble Brown MD Triglyceride [Mass/Vol] 58 mg/dL Normal <150 [facility] Comment on above: Order Comment: FASTI NG:YES FASTING: YES Performed By: #### 7 573, 80325, 622, 7600, 6399, 899, 927, 36495, 866 #### [facility] [address], [address] [place] [address] [employer] Supervisor: Noble Brown MD MAGNESIUMon 10-25-2024 Magnesium [Mass/Vol] 2.2 mg/dL Normal 1.5-2.5 [facility] Comment on above: Performed By: #### 7 573, 08163, 622, 7600, 6399, 899, 927, 31588, 866 #### [facility] [address], [address] [place] [address] [employer] Supervisor: Noble Brown MD T4, FREEon 10-25-2024 Free T4 [Mass/Vol] 1.1 ng/dL Normal 0.8-1.8 [facility] Comment on above: Performed By: #### 7 573, 08993, 622, 7600, 6399, 899, 927, 49529, 866 #### [facility] [address], [address] [place] [address] [employer] Supervisor: Noble Brown MD TSHon 10-25-2024 TSH Qn 0.90 m[IU]/L Normal [facility] Comment on above: Result Comment: Refe rence Range > or = 20 Years 0.40-4.50 Ranges First trimester 0.26-2.66 Second trimester 0.55-2.73 Third trimester 0.43-2.91 Performed By: #### 7 573, 09812, 622, 7600, 6399, 899, 927, 12590, 866 #### [facility] [address], [address] [place], [place] [id number] [employer] Supervisor: Noble Brown MD VITAMIN B12on 10-25-2024 Cobalamin (Vitamin B12) [Mass/Vol] 351 pg/mL Normal 200-1100 [facility] Comment on above: Result Comment: Please [...] have symptoms. Performed By: #### 7 573, 02803, 622, 7600, 6399, 899, 927, 76953, 866 #### [facility] [address] [employer] Supervisor: Noble Brown MD VITAMIN D,25-OH,TOTAL,IAon 0 10-25-2024 VITAMIN D,25-OH,TOTAL,IA 28 ng/mL Low 30-100 [facility] Comment on above: Result Comment: Mary Jane min D Status 25-OH Vitamin D: Deficiency: <20 ng/mL Insufficiency: 20 - 29 ng/mL Optimal: > or = 30 ng/mL For 25-OH Vitamin D testing on patients on D2-supplementation and patients for whom quantitation of D2 and D3 fractions is required, the QuestAssureD(TM) 25-OH VIT D, (D2,D3), LC/MS/MS is recommended: order code 35095 (patients >2yrs). See Note 1 Note 1 For additional information, please refer to [email or web address] (This link is being provided for informational/ educational purposes only.) Performed By: #### 7 573, 53875, 452, 9800, 4999, 899, 927, 02641, 866 #### [facility] [address] [facility], [address] [place] [address] Warehouse Packaging Supervisor: Noble Brown MD TRANSTHORACIC ECHO (TTE) [facility] 10-12-2024 TRANSTHORACIC ECHO ([place]) [place] [address] [phone], TRANSTHORACIC ECHOCARDIOGRAM REPORT Patient Name: JUSTINO Taylor Physician: [id number] Sam Garcia MD Study Date: 10/12/2024 Ordering Provider: [id number] BENY STEWART MRN/PID: [id number] Fellow: Nurse: Sharmila Thurman RN Date of /Age: 9 2000 Software Release Manager: Roberto Proctor RDCS years Gender Assigned at F Additional Staff: : Height: 160.02 cm Admit Date: Weight: 66.23 kg Admission Status: Outpatient BSA / BMI: 1.69 m2 / 25.86 Department Location: [facility] Lab kg/m2 Blood Pressure: 102 /72 mmHg Study Type: TRANSTHORACIC ECHO (TTE) COMPLETE Diagnosis/ICD: Dizziness and giddiness-R42 CPT Codes: Echo Complete w Full Doppler-30506 Study Detail: The following Echo studies were [...] LA Area A2C: 9.0 cm2 LA [place] A4C: 4.4 cm LA [place] A2C: 4.4 cm LA Volume Index: 11.4 [...] RV Syst Pressure: 15 mmHg (< 30mmHg) [id number] Sam Garcia MD Electronically signed on 10/13/2024 at 9:07:36 PM Final Normal [facility] ECG 12 Leadon 09-28-2024 NSR with sinus arrhythmia [facility] Work Phone: [facility] Work Phone: Bacteria identifiedon 2023 Bacteria identified Cx Nom (U) Test: Urine Culture Specimen Source: Clean Catch/Voided Specimen Type: Urine Specimen Date: 08/08/2024 0936 Result Date: 08/09/2024 1413 Result Status: Final result Abnormal: Yes Resulting Lab: [facility] [address] [id number] CULTURE Growth indicates contamination with periurethral corey. Repeat culture if clinically indicated. <=10,000 CFU/mL Streptococcus agalactiae (Group B Streptococcus) (Abnormal) Streptococcus agalactiae (Group B Streptococcus, GBS) may be significant in individuals. Recovery from non- individuals likely represents an insignificant finding. Routine GBS screening should be ordered using test ???Group B Streptococcus (GBS) Screen, Culture??? ([id number]). Streptococcus agalactiae (Group B Streptococcus) is universally susceptible to beta-lactam antibiotics and vancomycin. Routine susceptibility testing not performed. For penicillin allergic patients, please contact the laboratory within 5 days of collection at to request susceptibility testing. Abnormal [facility] Comment on above: Performed By: #### 6 30-4 #### NAVI Delacruz ([id number]) [facility] ([facility]) [address] [place] [address] Blood type and Indirect anti body screen panel (Bld)on 08-08-2024 ABO group Nom (Bld) A Normal [facility] Comment on above: Performed By: #### 3 4532-2 #### BERTIN FERNÁNDEZ ([id number]) [facility] ([facility]) [address] [place] [address] Blood group antibody screen Ql Negative [facility] Comment on above: Performed By: #### 3 4532-2 #### BERTIN FERNÁNDEZ ([id number]) [facility] ([facility]) [address] [place] [address] D Ag Ql (Bld) Positive [facility] Comment on above: Performed By: #### 3 4532-2 #### BERTIN FERNÁNDEZ ([id number]) [facility] ([facility]) [address] [place] [address] US Choriogonadotropin.beta subu niton 08-08-2024 HCG.beta subunit Qn 3 m[IU]/mL Normal <5 [facility] Comment on above: Order Comment: Total HCG measurement is performed using the Lei Gigi Access Immunoassay which detects intact HCG and free beta HCG subunit. This test is not indicated for use as a tumor marker. HCG testing is performed using a different test methodology at [facility] than other [facility]. Direct result comparison should only be made within the same method. Performed By: #### 2 1198-7 #### BERTIN FERNÁNDEZ ([id number]) [facility] ([facility]) [address] [place] [address] HCG ( test) IA.rapi d Ql (U)Ordered By: Amaya Turner on 08-08-2024 HCG ( test) Ql (U) Negative NEGATIVE [facility] Interpretation and review of laboratory results Normal [facility] HCG ( test) IA.rapi d Ql (U)on 08-08-2024 HCG ( test) Ql (U) Negative Normal NEGATIVE [facility] Comment on above: Performed By: #### 8 0384-1 #### BERTIN FERNÁNDEZ ([id number]) [facility] ([facility]) [address] [place] [address] HCG.beta subunit Qnon 2023 Interpretation and review of laboratory results Normal [facility] Total HCG measurement is performed using the Lei Gigi Access Immunoassay which detects intact HCG and free beta HCG subunit. This test is not indicated for use as a tumor marker. HCG testing is performed using a different test methodology at [facility] than other [facility]. Direct result comparison should only be made within the same method. [facility] No Panel Informationon 08-08 Interpretation and review of laboratory results Abnormal [facility] Urinalysis complete W Reflex Culture panel (U)on 08-08-2024 Appearance (U) Ex.Turbid Abnormal Clear [facility] Bilirubin (U) [Mass/Vol] Negative NEGATIVE [facility] Color (U) Dark-Brown Abnormal Light-Yellow, Yellow, Dark-Yellow [facility] Glucose Auto test strip (U) [Mass/Vol] Normal Normal mg/dL [facility] Ketones (U) [Mass/Vol] Negative NEGATIVE mg/d L [facility] Leukocyte esterase Auto test strip Ql (U) 250 Jomar/ L Abnormal NEGATIVE [facility] Nitrite Auto test strip Ql (U) Negative NEGATIVE [facility] pH (U) 6 [pH] 5.0, 5.5, 6.0, 6.5, 7.0, 7.5, 8.0 [facility] Protein (U) [Mass/Vol] 70 (1+) Abnormal NEGAT ROMULO, 10 (TRACE), 20 (TRACE) mg/dL [facility] RBC (U) [#/Vol] OVER (3+) Abnormal NEGATIVE [facility] Specific gravity (U) [Rel density] 1.020 1.005 - 1.035 [facility] Urobilinogen (U) [Mass/Vol] Normal Normal mg/dL [facility] OVER is reported when the result is greater than the clinically reportable range. [facility] Appearance (U) Ex.Turbid Normal Clear [facility] Comment on above: Order Comment: OVER is reported when the result is greater than the clinically reportable range. Performed By: #### 5 8077-9 #### BERTIN FERNÁNDEZ ([id number]) [facility] ([facility]) [address] [place] [address] Bilirubin (U) [Mass/Vol] Negative Normal NEGATIVE [facility] Comment on above: Order Comment: OVER is reported when the result is greater than the clinically reportable range. Performed By: #### 5 8077-9 #### BERTIN FERNÁNDEZ ([id number]) [facility] ([facility]) [address] [place] [address] Color (U) Dark-Brown Normal Light-Yellow, Yellow, Dark-Yellow [facility] Comment on above: Order Comment: OVER is reported when the result is greater than the clinically reportable range. Performed By: #### 5 8077-9 #### BERTIN FERNÁNDEZ ([id number]) [facility] ([facility]) [address] [place], [place] [address] Glucose Auto test strip (U) [Mass/Vol] Normal Normal Normal [facility] Comment on above: Order Comment: OVER is reported when the result is greater than the clinically reportable range. Performed By: #### 5 8077-9 #### BERTIN FERNÁNDEZ ([id number]) [facility] ([facility]) [address] [place], [place] [address] Ketones (U) [Mass/Vol] Negative Normal [facility]IVE [facility] Comment on above: Order Comment: OVER is reported when the result is greater than the clinically reportable range. Performed By: #### 5 8077-9 #### BERTIN FERNÁNDEZ ([id number]) [facility] ([facility]) [address] [place], [place] [address] Leukocyte esterase Auto test strip Ql (U) 250 Jomar/???L Abnormal NEGATIVE [facility] Comment on above: Order Comment: OVER is reported when the result is greater than the clinically reportable range. Performed By: #### 5 8077-9 #### BERTIN FERNÁNDEZ ([id number]) [facility] ([facility]) [address] [place], [place] [address] Nitrite Auto test strip Ql (U) Negative Normal NEGATIVE [facility] Comment on above: Order Comment: OVER is reported when the result is greater than the clinically reportable range. Performed By: #### 5 8077-9 #### BERTIN FERNÁNDEZ ([id number]) [facility] ([facility]) [address] [place], [place] [address] pH (U) 6.0 [pH] Normal 5.0, 5.5, 6.0, 6.5, 7.0, 7.5, 8.0 [facility] Comment on above: Order Comment: OVER is reported when the result is greater than the clinically reportable range. Performed By: #### 5 8077-9 #### BERTIN FERNÁNDEZ ([id number]) [facility] ([facility]) [address] [place] [address] Protein (U) [Mass/Vol] 70 (1+) Abnormal NEGAT ROMULO, 10 (TRACE), 20 (TRACE) [facility] Comment on above: Order Comment: OVER is reported when the result is greater than the clinically reportable range. Performed By: #### 5 8077-9 #### BERTIN FERNÁNDEZ ([id number]) [facility] ([facility]) [address] [place] [address] RBC (U) [#/Vol] OVER (3+) Abnormal NEGATIVE [facility] Comment on above: Order Comment: OVER is reported when the result is greater than the clinically reportable range. Performed By: #### 5 8077-9 #### BERTIN FERNÁNDEZ ([id number]) [facility] ([facility]) [address] [place], [place] [address] Specific gravity (U) [Rel density] 1.020 Normal 1.005-1.035 [facility] Comment on above: Order Comment: OVER is reported when the result is greater than the clinically reportable range. Performed By: #### 5 8077-9 #### BERTIN FERNÁNDEZ ([id number]) [facility] ([facility]) [address] [place] [address] Urobilinogen (U) [Mass/Vol] Normal Normal Normal [facility] Comment on above: Order Comment: OVER is reported when the result is greater than the clinically reportable range. Performed By: #### 5 8077-9 #### BERTIN FERNÁNDEZ ([id number]) [facility] ([facility]) [address] [place] [address] Urinalysis microscopic panel Auto Ql (U)on 08-08-2024 Epithelial cells.squamous Auto (Urine sed) [#/Area] 10-25 (FEW) Reference range not established. /HPF [facility] Mucus Auto (Urine sed) [#/Area] 1+ Reference range not established. /LPF [facility] RBC Auto (Urine sed) [#/Area] >20 Abnormal NONE, 1-2, 3-5 /HPF [facility] WBC Auto (Urine sed) [#/Area] >50 Abnormal 1-5, NONE /HPF [facility] Epithelial cells.squamous Auto (Urine sed) [#/Area] 10-25 (FEW) Normal Reference range not established. [facility] Comment on above: Performed By: #### 5 3315-8 #### BERTIN FERNÁNDEZ ([id number]) [facility] ([facility]) [address] [place], [place] [address] Mucus Auto (Urine sed) [#/Area] 1+ /LPF Normal Reference range not established. [facility] Comment on above: Performed By: #### 5 3315-8 #### BERTIN FERNÁNDEZ ([id number]) [facility] ([facility]) [address] [place] [address] RBC Auto (Urine sed) [#/Area] >20 Abnormal NONE, 1-2, 3-5 [facility] Comment on above: Performed By: #### 5 3315-8 #### BERTIN FERNÁNDEZ ([id number]) [facility] ([facility]) [address] [place] [address] WBC Auto (Urine sed) [#/Area] >50 Abnormal 1-5, NONE [facility] Comment on above: Performed By: #### 5 3315-8 #### BERTIN FERNÁNDEZ ([id number]) [facility] ([facility]) [address] [place] [address] hCG, quantitative, on 08-08-2024 HCG.beta subunit Qn 3 m[IU]/mL [facility] Vital Signs Date Time Vital Sign Value Performing Clinician Facility 07-20-2025 15:32-0500 Body height 160.02 cm Beny MEYER Work Phone: [facility] 07-20-2025 15:31-0500 Body mass index (BMI) [Ratio] 30.5 kg/m2 Beny MEYER Work Phone: [facility] 07-20-2025 15:31-0500 Body weight 78.15 kg Beny MEYER Work Phone: [facility] 07-20-2025 15:31-0500 Diastolic blood pressure 78 mm[Hg] Beny MEYER Work Phone: [facility] 07-20-2025 15:31-0500 Systolic blood pressure 113 mm[Hg] Beny Pat PA Work Phone: [facility] 07-03-2025 15:17-0400 Body mass index (BMI) [Ratio] 30.3 kg/m2 Beny Pat PA Work Phone: [facility] 07-03-2025 15:17-0400 Body weight 77.76 kg Beny [place] PA Work Phone: [facility] 07-03-2025 15:17-0400 Diastolic blood pressure 75 mm[Hg] Beny Pat PA Work Phone: [facility] 07-03-2025 15:17-0400 Systolic blood pressure 117 mm[Hg] Beny Pat PA Work Phone: [facility] 06-19-2025 16:29-0400 Body height 160.02 cm Beny Pat PA Work Phone: [facility] 06-19-2025 16:29-0400 Body mass index (BMI) [Ratio] 29.5 kg/m2 Beny [place] PA Work Phone: [facility] 06-19-2025 16:29-0400 Body weight 75.47 kg Beny [place] PA Work Phone: [facility] 06-19-2025 16:23-0400 Body temperature 98.1 [degF] Beny Pat PA Work Phone: [facility] 06-19-2025 16:23-0400 Diastolic blood pressure 64 mm[Hg] Beny Pat PA Work Phone: [facility] 06-19-2025 16:23-0400 Heart rate 93 /min Beny [place] PA Work Phone: [facility] 06-19-2025 16:23-0400 Respiratory rate 16 /min Beny [place] PA Work Phone: [facility] 06-19-2025 16:23-0400 SaO2% (BldA) [Mass fraction] 98 % Beny Pat PA Work Phone: [facility] 06-19-2025 16:23-0400 Systolic blood pressure 113 mm[Hg] Beny [place] PA Work Phone: [facility] 06-19-2025 15:27-0400 Body mass index (BMI) [Ratio] 28.8 kg/m2 Beny Pat PA Work Phone: [facility] 06-19-2025 15:27-0400 Body weight 76.23 kg Beny [place] PA Work Phone: [facility] 06-19-2025 15:27-0400 Diastolic blood pressure 77 mm[Hg] Beny Pat PA Work Phone: [facility] 06-19-2025 15:27-0400 Systolic blood pressure 126 mm[Hg] Beny Pat PA Work Phone: [facility] 05-29-2025 14:54-0400 Body height 162.56 cm Beny Pat PA Work Phone: [facility] 05-29-2025 14:54-0400 Body mass index (BMI) [Ratio] 28.3 kg/m2 Beny [place] PA Work Phone: [facility] 05-29-2025 14:54-0400 Body weight 74.89 kg Beny Pat PA Work Phone: [facility] 05-29-2025 14:54-0400 Diastolic blood pressure 72 mm[Hg] Beny Pat PA Work Phone: [facility] 05-29-2025 14:54-0400 Systolic blood pressure 119 mm[Hg] Beny Pat PA Work Phone: [facility] 05-03-2025 13:11-0400 Body height 162.56 cm Olga Manzo CNM Work Phone: [facility] 05-03-2025 13:11-0400 Body mass index (BMI) [Ratio] 26.6 kg/m2 Olga Manzo CNM Work Phone: [facility] 05-03-2025 13:11-0400 Body weight 70.44 kg Olga Manzo CNM Work Phone: [facility] 05-03-2025 13:11-0400 Diastolic blood pressure 71 mm[Hg] Olga Manzo CNM Work Phone: [facility] 05-03-2025 13:11-0400 Systolic blood pressure 111 mm[Hg] Olga Manzo CNM Work Phone: [facility] 04-07-2025 13:04-0400 Body height 162.56 cm Olga Manzo CNM Work Phone: [facility] 04-07-2025 13:04-0400 Body mass index (BMI) [Ratio] 25.6 kg/m2 Olga Manzo CNM Work Phone: [facility] 04-07-2025 13:04-0400 Body weight 67.64 kg Olga Manzo CNM Work Phone: [facility] 04-07-2025 13:04-0400 Diastolic blood pressure 70 mm[Hg] Olga Manzo CNM Work Phone: [facility] 04-07-2025 13:04-0400 Systolic blood pressure 108 mm[Hg] Olga Manzo CNM Work Phone: [facility] 03-10-2025 08:56-0400 Body height 162.56 cm Olga Manzo CNM Work Phone: [facility] 03-10-2025 08:56-0400 Body mass index (BMI) [Ratio] 25.4 kg/m2 Olga CORDONM Work Phone: [facility] 03-10-2025 08:56-0400 Body weight 67.18 kg Olga Manzo CNM Work Phone: [facility] 03-10-2025 08:56-0400 Diastolic blood pressure 73 mm[Hg] Olga Manzo CNM Work Phone: [facility] 03-10-2025 08:56-0400 Systolic blood pressure 110 mm[Hg] Olga Manzo CNM Work Phone: [facility] 02-10-2025 13:04-0400 Body height 162.56 cm Olga Manzo CNM Work Phone: [facility] 02-10-2025 13:04-0400 Body mass index (BMI) [Ratio] 26.1 kg/m2 Olga Manzo CNM Work Phone: [facility] 02-10-2025 13:04-0400 Body weight 68.94 kg Olga Manzo CNM Work Phone: [facility] 02-10-2025 13:04-0400 Diastolic blood pressure 76 mm[Hg] Olga Manzo CNM Work Phone: [facility] 02-10-2025 13:04-0400 Systolic blood pressure 120 mm[Hg] Olga Manzo CNM Work Phone: [facility] 01-24-2025 11:38-0400 Body mass index (BMI) [Ratio] 25.9 kg/m2 Olga Manzo CNM Work Phone: [facility] 01-24-2025 11:38-0400 Body weight 68.6 kg Olga Manzo CNM Work Phone: [facility] 01-24-2025 11:38-0400 Diastolic blood pressure 64 mm[Hg] Olga Manzo CNM Work Phone: [facility] 01-24-2025 11:38-0400 Systolic blood pressure 110 mm[Hg] Olga Manzo CNM Work Phone: [facility] 01-24-2025 08:05-0400 Body height 162.56 cm Olga Manzo CNM Work Phone: [facility] 01-12-2025 14:16-0400 Body height 162.56 cm Olga Manzo CNM Work Phone: [facility] 01-12-2025 14:16-0400 Body mass index (BMI) [Ratio] 25.7 kg/m2 Olga Manzo CNM Work Phone: [facility] 01-12-2025 14:16-0400 Body weight 68.15 kg Olga Manzo CNM Work Phone: [facility] 01-12-2025 14:16-0400 Diastolic blood pressure 74 mm[Hg] Olga Manzo CNM Work Phone: [facility] 01-12-2025 14:16-0400 Systolic blood pressure 129 mm[Hg] Olga Manzo CNM Work Phone: [facility] 12-26-2024 14:33-0400 Body height 162.6 cm Dereck Geller APRN-CLINICAL LAB ASSISTANT Work Phone: [facility] 12-26-2024 14:33-0400 Body mass index (BMI) [Ratio] 25.52 kg/m2 Dereck Geller APRN-CLINICAL LAB ASSISTANT Work Phone: [facility] 12-26-2024 14:33-0400 Body weight 67.45 kg Dereck Geller PROJECT LEAD-CLINICAL LAB ASSISTANT Work Phone: [facility] 12-26-2024 14:33-0400 Diastolic blood pressure 78 mm[Hg] Dereck Geller APRN-CLINICAL LAB ASSISTANT Work Phone: [facility] 12-26-2024 14:33-0400 Heart rate 93 /min Dereck Geller APRN-CLINICAL LAB ASSISTANT Work Phone: [facility] 12-26-2024 14:33-0400 SaO2% (BldA) [Mass fraction] 99 % Dereck Geller PROJECT LEAD-CLINICAL LAB ASSISTANT Work Phone: [facility] 12-26-2024 14:33-0400 Systolic blood pressure 110 mm[Hg] Dereck Geller APRN-CLINICAL LAB ASSISTANT Work Phone: [facility] 12-15-2024 08:43-0400 Diastolic blood pressure 66 mm[Hg] [facility] 1 [facility] 12-15-2024 08:43-0400 Heart rate 109 /min [facility] 1 [facility] 12-15-2024 08:43-0400 SaO2% (BldA) [Mass fraction] 98 % [facility] 1 [facility] 12-15-2024 08:43-0400 Systolic blood pressure 118 mm[Hg] [facility] 1 [facility] 11-28-2024 14:20-0400 Body height 160 cm Beny Pat PA-C Work Phone: [facility] 11-28-2024 14:20-0400 Body mass index (BMI) [Ratio] 25.69 kg/m2 Beny [place] PA-C Work Phone: [facility] 11-28-2024 14:20-0400 Body weight 65.77 kg Beny [place] PA-C Work Phone: [facility] 11-28-2024 14:20-0400 Diastolic blood pressure 68 mm[Hg] Beny Pat PA-C Work Phone: [facility] 11-28-2024 14:20-0400 Heart rate 92 /min Beny Pat PA-C Work Phone: [facility] 11-28-2024 14:20-0400 Systolic blood pressure 100 mm[Hg] Beny [place] PA-C Work Phone: [facility] 09-28-2024 13:52-0500 Body height 160 cm Beny [place] PA-C Work Phone: [facility] 09-28-2024 13:52-0500 Body mass index (BMI) [Ratio] 25.86 kg/m2 Beny Pat PA-C Work Phone: [facility] 09-28-2024 13:52-0500 Body weight 66.22 kg Beny [place] PA-C Work Phone: [facility] 09-28-2024 13:52-0500 Diastolic blood pressure 80 mm[Hg] Beny Pat PA-C Work Phone: [facility] 09-28-2024 13:52-0500 Heart rate 90 /min Beny [place] PA-C Work Phone: [facility] 09-28-2024 13:52-0500 Systolic blood pressure 133 mm[Hg] Beny Stewart PA-C Work Phone: [facility] 08-08-2024 11:34-0500 Diastolic blood pressure 72 mm[Hg] Brady Yang DO Work Phone: [facility] 08-08-2024 11:34-0500 Heart rate 94 /min Brady Yang DO Work Phone: [facility] 08-08-2024 11:34-0500 Respiratory rate 18 /min Brady Yang DO Work Phone: [facility] 08-08-2024 11:34-0500 SaO2% (BldA) [Mass fraction] 99 % Brady Yang DO Work Phone: [facility] 08-08-2024 11:34-0500 Systolic blood pressure 119 mm[Hg] Brady Yang DO Work Phone: [facility] 08-08-2024 09:17-0500 Body height 160 cm Brady Yang DO Work Phone: [facility] 08-08-2024 09:17-0500 Body mass index (BMI) [Ratio] 25.69 kg/m2 Brady Yang DO Work Phone: [facility] 08-08-2024 09:17-0500 Body temperature 98.01 [degF] Brady Yang DO Work Phone: [facility] 08-08-2024 09:17-0500 Body weight 65.77 kg Brady Yang DO Work Phone: [facility] Encounters Encounter Date Encounter Type Care Provider Facility Start: 07-20-2025 End: 07-20-2025 ambulatory Beny MEYER Facility:[facility] Start: 07-03-2025 End: 07-03-2025 Patient encounter procedure Olga Manzo CNM -[facility] Work Phone: Start: 07-03-2025 End: 07-03-2025 ambulatory Beny Stewart PA Work Phone: -[facility] Start: 06-19-2025 ambulatory Benyradha Stewart PA Fa cility:[facility] Start: 06-19-2025 Non-patient / Non-visit Dr. Art Marshall MD -[facility] Start: 06-19-2025 End: 06-19-2025 Patient encounter procedure Olga CORDONM [facility] Work Phone: Start: 06-19-2025 End: 06-19-2025 ambulatory Beny Stewart PA Work Phone: -[facility] Start: 05-29-2025 End: 05-29-[address] Marialuisa Marshall MD -[facility] Work Phone: Start: 05-29-2025 End: 05-29-2025 ambulatory Beny Stewart PA Work Phone: -[facility] Start: 05-11-2025 End: 05-11-2025 Emergency department patient visit [facility] Start: 05-03-2025 End: 05-03-[address] Alyssia Moss DO -[facility] Work Phone: Start: 05-03-2025 End: 05-03-2025 ambulatory Olga Manzo CNM Work Phone: -[facility] Start: 04-07-2025 End: 04-07-2025 Patient encounter procedure Olga Manzo CNM -[facility] Work Phone: Start: 04-07-2025 End: 04-07-2025 ambulatory Olga Manzo CNM Work Phone: -[facility] Start: 03-20-2025 End: 03-20-2025 Emergency department patient visit [facility] Start: 03-10-2025 End: 03-10-[address] Alyssia Moss DO -[facility] Work Phone: Start: 03-10-2025 End: 03-10-2025 ambulatory Olga Manzo CNM Work Phone: [facility] Work Phone: Start: 02-20-2025 End: 02-20-2025 ambulatory Olga Manzo CNM Work Phone: [facility] Work Phone: Start: 02-20-2025 End: 02-20-2025 Patient encounter procedure Araseli Jacob BRAVOM -Lab [facility] Start: 02-20-2025 End: 02-20-2025 ambulatory [facility] Facility:[facility] Start: 02-10-2025 End: 02-10-2025 ambulatory Olga Manzo CNM Work Phone: [facility] Work Phone: Start: 02-10-2025 End: 02-10-2025 Patient encounter procedure Araseli Jacob CNM -Laboratory Specimen Work Phone: Start: 02-10-2025 End: 02-10-2025 Patient encounter procedure Araseli Jacob BRAVOM -[facility] Work Phone: Start: 02-10-2025 End: 02-10-2025 ambulatory Olga Manzo CNM Work Phone: [facility] Work Phone: Start: 02-10-2025 End: 02-10-2025 ambulatory Araseli Conover Facility:[facility] Start: 01-24-2025 Non-patient / Non-visit Yeimi cruz RN -[facility] Work Phone: Start: 01-24-2025 End: 01-24-[address] Marialuisa Marshall MD -[facility] Work Phone: Start: 01-24-2025 End: 01-24-2025 ambulatory Olga Jovany CNM Work Phone: [facility] Work Phone: Start: 01-14-2025 End: 01-14-2025 ambulatory Olga Manzo CNM Work Phone: [facility] Work Phone: Start: 01-14-2025 End: 01-14-2025 Patient encounter procedure Sherie PEÑALOZA -Laboratory Work Phone: Start: 01-14-2025 End: 01-14-2025 ambulatory Beny MEYER Facility:[facility] Start: 01-12-2025 End: 01-12-2025 Patient encounter procedure Sherie PEÑALOZA -[facility] Work Phone: Start: 01-12-2025 End: 01-12-2025 Patient encounter status Sherie PEÑALOZA [facility] Start: 01-12-2025 End: 01-12-2025 ambulatory Sherie Padilla [place] [place]: 01-12-2025 End: 01-12-2025 ambulatory Olga Manzo Facility:[facility] Start: 12-26-2024 End: 12-26-2024 Office outpatient new 45 minutes Dereck Geller PROJECT LEAD-CLINICAL LAB ASSISTANT Work Phone: [facility] Office Building Comment on above: Heart palpitations ( Primary Dx); Tachycardia; Dizziness; POTS (postural orthostatic tachycardia syndrome) Start: 12-26-2024 End: 12-26-2024 ambulatory [facility] Start: 12-15-2024 End: 12-15-2024 ambulatory BENY ORONAENHALL [facility] Start: 12-15-2024 End: 12-15-2024 Subsequent hospital visit by physician Enrrique Exam 1 [facility] Comment on above: Tachycardia; Heart palpitations; Dizziness Start: 11-28-2024 End: 11-28-2024 Office outpatient visit 25 minutes Beny Stewart PA-C Work Phone: [facility] Comment on above: Vitamin D deficiency (Primary Dx); Tachycardia; Heart palpitations; Dizziness; Low ferritin; Chronic left shoulder pain Start: 11-28-2024 End: 11-28-[address] [facility] Start: 10-12-2024 End: 10-12-2024 Subsequent hospital visit by physician [facility] Cardiac Room [facility] Comment on above: Tachycardia; Dizziness; Fatigue, unspecified type; Heart palpitations Start: 10-12-2024 End: 10-12-2024 ambulatory [facility] Start: 09-28-2024 End: 09-28-2024 Office outpatient new 45 minutes Beny Stewart PA-C Work Phone: [facility] Comment on above: Encounter to [facility] with new doctor (Primary Dx); Chronic left shoulder pain; Vitamin D deficiency; Tachycardia; Dizziness; Fatigue, unspecified type; Heart palpitations; History of pre-eclampsia Start: 09-28-2024 End: 09-28-[address] [facility] Start: 08-08-2024 End: 08-08-2024 Emergency department patient visit Brady Yang DO Work Phone: [facility] Medicine Comment on above: Vaginal bleeding (Pr imary Dx) Procedures Date Procedure Procedure Detail Performing Clinician Start: 06-19-2025 Ultrasound scan for growth Beny MEYER Work Phone: Start: 06-19-2025 Serologic test for syphilis Beny MEYER Work Phone: Start: 02-20-2025 Hepatitis C antibody measurement Olga Manzo CNM Work Phone: Comment on above: Reactive: Presumptiv e evidence of antibodies to HCV. Follow CDC recommendations for supplemental testing.Non-Reactive: Antibodies to HCV were not detected; does not exclude the possibility of exposure to HCVReactive Results are presumptive evidence of antibodies to HCV. Follow CDC recommendations for supplemental testing.Order confirmation testing: HCV Quant by PCR testing - HCVPCR #[id number] Non Reactive: < 0.8 Equivocal: >/= 0.8 to < 1.0 Reactive: >/= 1.0The CDC requires that a reactive/equivocal HCV antibody result be sent out for confirmation. HCV Quant by PCR testing. Start: 02-20-2025 Procedure Olga lyman [facility] Work Phone: Start: 02-20-2025 Rubella IgG measurement Olga Manzo [facility] Work Phone: Comment on above: Antibody Result: Int erpretationNon-Reactive: Non- ImmuneReactive: ImmuneThe following results were obtained with the [employer] Rubella IgG assay. Results from assays of other manufacturers cannot be used interchangeably. Start: 02-20-2025 Serologic test for syphilis Olga Manzo [facility] Work Phone: Start: 02-10-2025 Urine culture Olga diego [facility] Work Phone: Start: 12-26-2024 Ecg routine ecg w/le ast 12 lds w/i&r Dereck Geller APRN-CLINICAL LAB ASSISTANT Work Phone: Start: 10-22-2024 Lipid 1996 panel - S mallorie or Plasma Beny Stewart PA-C Work Phone: Start: 09-28-2024 Ecg routine ecg w/le ast 12 lds w/i&r Beny Stewart PA-C Work Phone: Start: 08-08-2024 Gonadotropin chorion [...] or Population) (1 - 1-dose 75+ series) [facility] Start: 2048 Zoster Vaccines (1 of 2) Zoster Vaccines (1 of 2) [facility] Start: 10-22-2029 Lipid panel Lipid Panel [facility] Start: 07-20-2025 End: 07-20-2025 Patient encounter procedure -Laboratory Specimen Work Phone: Start: 07-20-2025 Bacteria identified in Urine by Culture Urine Culture [facility] Start: 07-20-2025 [facility] Start: 06-27-2025 End: 06-27-2025 Patient encounter procedure 06/27/2025 2:30 PM EDT Office Visit [facility] [address] [place] [address] Dereck Geller, PROJECT LEAD-CLINICAL LAB ASSISTANT [address] [facility] [place] [address] [facility] Start: 06-19-2025 Nonstress test [facility] Start: 06-19-2025 Obstetric monitoring [facility] Start: 06-19-2025 Ultrasound scan for growth [facility] Start: 06-19-2025 Vital signs measurements [facility] Start: 06-19-2025 [facility] Start: 06-19-2025 Patient discharge [facility] Start: 05-15-2025 Influenza vaccination Influenza Vaccine (Season Ended) [facility] Start: 05-01-2025 End: 05-01-2025 Patient encounter procedure 05/01/2025 2:00 PM EDT Office Visit [facility] [address] [facility] [place] [phone] Beny Stewart, PAGuillerminaC [address] [place], [place] [id number] [facility] Start: 02-28-2025 End: 11-28-2025 25-hydroxyvitamin D3 [Mass/volume] in Serum or Plasma Vitamin D 25-Hydroxy,Total (for eval of Vitamin D levels) Lab Routine Vitamin D deficiency Expected: 02/28/2025 (Approximate), Expires: 11/28/2025 [facility] Work Phone: Comment on above: Expected: 02/28/2025 (Approximate), Expi res: 11/28/2025 Start: 02-28-2025 End: 11-28-2025 CBC W Auto Differential panel - Blood CBC and Auto Differential Lab Routine Heart palpitations Dizziness Low ferritin Expected: 02/28/2025 (Approximate), Expires: 11/28/2025 [facility] Work Phone: Comment on above: Expected: 02/28/2025 (Approximate), Expi res: 11/28/2025 Start: 02-28-2025 End: 11-28-2025 Ferritin [Mass/volume] in Serum or Plasma Ferritin Lab Routine Heart palpitations Dizziness Low ferritin Expected: 02/28/2025 (Approximate), Expires: 11/28/2025 [facility] Work Phone: Comment on above: Expected: 02/28/2025 (Approximate), Expi res: 11/28/2025 Start: 02-28-2025 End: 11-28-2025 Iron and Iron binding capacity panel - Serum or Plasma Iron and TIBC Lab Routine Heart palpitations Dizziness Low ferritin Expected: 02/28/2025 (Approximate), Expires: 11/28/2025 [facility] Work Phone: Comment on above: Expected: 02/28/2025 (Approximate), Expi res: 11/28/2025 Start: 12-26-2024 End: 12-26-2024 Patient encounter procedure 12/26/2024 2:30 PM EDT Office Visit [facility] [address] [place] [phone] Dereck Geller, PROJECT LEAD-CLINICAL LAB ASSISTANT [address] [place] [address] [facility] Start: 12-15-2024 End: 12-15-2024 Patient encounter procedure 12/15/2024 8:00 AM EDT Appointment [facility] [address] [place] [address] [facility] Start: 12-13-2024 End: 12-13-2024 Patient encounter procedure 12/13/2024 4:00 PM EDT Office Visit [facility] [address] [place] [phone] Dave Bryant MD [address] [place] [address] [facility] Start: 12-06-2024 End: 12-06-2024 Patient encounter procedure 12/06/2024 1:30 PM EDT Office Visit [facility] Building [address] [place] [phone] Dereck Geller, PROJECT LEAD-CLINICAL LAB ASSISTANT [address] [place] [address] [facility] Medical Office [facility] Start: 11-28-2024 End: 11-28-2024 Patient encounter procedure 11/28/2024 2:40 PM EDT Office Visit [facility] [address] [place] [phone] Beny Stewart, PA-C [address] [place] [address] [facility] Start: 11-28-2024 End: 11-28-2026 Tilt table study Tilt Table Cardiac Services Routine Tachycardia Heart palpitations Dizziness Expected: 11/28/2024 (Approximate), Expires: 11/28/2026 [facility] Service Area Work Phone: Comment on above: Expected: 11/28/2024 (Approximate), Expi res: 11/28/2026 Start: 10-12-2024 End: 10-12-2024 Patient encounter procedure [facility] Start: 09-28-2024 End: 09-28-2025 25-hydroxyvitamin D3 [Mass/volume] in Serum or Plasma Vitamin D 25-Hydroxy,Total (for eval of Vitamin D levels) Lab Routine Vitamin D deficiency Tachycardia Dizziness Fatigue, unspecified type Expected: 09/28/2024 (Approximate), Expires: 09/28/2025 [facility] Work Phone: Comment on above: Expected: 09/28/2024 (Approximate), Expi res: 09/28/2025 Start: 09-28-2024 End: 09-28-2025 CBC W Auto Differential panel - Blood CBC and Auto Differential Lab Routine Tachycardia Dizziness Fatigue, unspecified type Expected: 09/28/2024 (Approximate), Expires: 09/28/2025 [facility] Work Phone: Comment on above: Expected: 09/28/2024 (Approximate), Expi res: 09/28/2025 Start: 09-28-2024 End: 09-28-2025 Cobalamin (Vitamin B12) [Mass/volume] in Serum or Plasma Vitamin B12 Lab Routine Tachycardia Dizziness Fatigue, unspecified type Expected: 09/28/2024 (Approximate), Expires: 09/28/2025 [facility] Work Phone: Comment on above: Expected: 09/28/2024 (Approximate), Expi res: 09/28/2025 Start: 09-28-2024 End: 09-28-2025 Comprehensive metabolic 2000 panel - Serum or Plasma Comprehensive Metabolic Panel Lab Routine Tachycardia Dizziness Fatigue, unspecified type Expected: 09/28/2024 (Approximate), Expires: 09/28/2025 [facility] Work Phone: Comment on above: Expected: 09/28/2024 (Approximate), Expi res: 09/28/2025 Start: 09-28-2024 End: 09-28-2025 Ferritin [Mass/volume] in Serum or Plasma Ferritin Lab Routine Tachycardia Dizziness Fatigue, unspecified type Expected: 09/28/2024 (Approximate), Expires: 09/28/2025 [facility] Work Phone: Comment on above: Expected: 09/28/2024 (Approximate), Expi res: 09/28/2025 Start: 09-28-2024 End: 09-28-2026 Holter monitor study Holter Or Event Stacker [facility] Cardiac Services Routine Tachycardia Dizziness Fatigue, unspecified type Heart palpitations Expected: 09/28/2024 (Approximate), Expires: 09/28/2026 [facility] Work Phone: Comment on above: Expected: 09/28/2024 (Approximate), Expi res: 09/28/2026 Start: 09-28-2024 End: 09-28-2025 Iron and Iron binding capacity panel - Serum or Plasma Iron and TIBC Lab Routine Tachycardia Dizziness Fatigue, unspecified type Expected: 09/28/2024 (Approximate), Expires: 09/28/2025 [facility] Work Phone: Comment on above: Expected: 09/28/2024 (Approximate), Expi res: 09/28/2025 Start: 09-28-2024 End: 09-28-2025 Lipid 1996 panel - Serum or Plasma Lipid Panel Lab Routine Tachycardia Dizziness Fatigue, unspecified type Expected: 09/28/2024 (Approximate), Expires: 09/28/2025 [facility] Work Phone: Comment on above: Expected: 09/28/2024 (Approximate), Expi res: 09/28/2025 Start: 09-28-2024 End: 09-28-2025 Magnesium [Mass/volume] in Serum or Plasma Magnesium Lab Routine Tachycardia Dizziness Fatigue, unspecified type Expected: 09/28/2024 (Approximate), Expires: 09/28/2025 [facility] Work Phone: Comment on above: Expected: 09/28/2024 (Approximate), Expi res: 09/28/2025 Start: 09-28-2024 End: 09-28-2025 Thyrotropin [Units/volume] in Serum or Plasma Thyroid Stimulating Hormone Lab Routine Tachycardia Dizziness Fatigue, unspecified type Expected: 09/28/2024 (Approximate), Expires: 09/28/2025 [facility] Work Phone: Comment on above: Expected: 09/28/2024 (Approximate), Expi res: 09/28/2025 Start: 09-28-2024 End: 09-28-2025 Thyroxine (T4) free [Mass/volume] in Serum or Plasma Thyroxine, Free Lab Routine Tachycardia Dizziness Fatigue, unspecified type Expected: 09/28/2024 (Approximate), Expires: 09/28/2025 [facility] Work Phone: Comment on above: Expected: 09/28/2024 (Approximate), Expi res: 09/28/2025 Start: 09-28-2024 End: 09-28-2026 US Heart Transthoracic Transthoracic Echo Complete Echocardiography Routine Tachycardia Dizziness Fatigue, unspecified type Heart palpitations Expected: 09/28/2024 (Approximate), Expires: 09/28/2026 [facility] Work Phone: Comment on above: Expected: 09/28/2024 (Approximate), Expi res: 09/28/2026 Start: 09-28-2024 End: 09-28-2025 XR Shoulder - left 2 Views XR shoulder left 2+ views Imaging Routine Chronic left shoulder pain Expected: 09/28/2024, Expires: 09/28/2025 [facility] Service Area Work Phone: Comment on above: Expected: 09/28/2024, Expires: Start: 05-15-2024 COVID-19 Vaccine ( season) COVID-19 Vaccine ( season) [facility] Start: 05-15-2024 Influenza vaccination Influenza Vaccine (#1) [facility] Start: 2020 DTaP/Tdap/Td Vaccines (1 - Tdap) DTaP/Tdap/Td Vaccines (1 - Tdap) [facility] Start: 2019 Screening for malignant neoplasm of cervix [facility] Start: 2017 Hepatitis B Vaccines (1 of 3 - 19+ 3-dose series) Hepatitis B Vaccines (1 of 3 - 19+ 3-dose series) [facility] Start: 2016 Diabetes mellitus screening Diabetes Screening [facility] Start: 2016 Hepatitis C screening Hepatitis C Screening [facility] Start: 2013 HPV Vaccines (1 - 3-dose series) HPV Vaccines (1 - 3-dose series) [facility] Start: 2011 Varicella vaccination Varicella Vaccines (1 of 2 - 13+ 2-dose series) [facility] Start: 1999 MMR Vaccines (1 of 1 - Standard series) MMR Vaccines (1 of 1 - Standard series) [facility] Start: 1998 HIV screening HIV Screening [facility] Start: 1998 Lipid panel Lipid Panel [facility] Start: 1998 Yearly Adult Physical Yearly Adult Physical [facility] End: 08-08-2024 Bacteria identified in Urine by Culture [facility] Work Phone: Comment on above: Once (Lab) for 1 Occurrences starting until 08/08/2024 End: 08-08-2024 Blood type and Indirect antibody screen panel - Blood [facility] Work Phone: Comment on above: Once (Lab) for 1 Occurrences starting until 08/08/2024 CBC W Auto Different ial panel - Blood [facility] CBC W Auto Different ial panel - Blood [facility] Chlamydia deoxyribonucleic acid detection [facility] Comprehensive metabo lic 2000 panel - Serum or Plasma [facility] End: 08-08-2024 Extra Urine Isabel Tube [facility] Work Phone: Comment on above: Once for 1 Occurrences starting 08/08/20 until 08/08/2024 Hepatitis C antibody measurement [facility] End: 10-12-2024 Holter monitor study [facility] Service Area Work Phone: Comment on above: Once for 1 Occurrences starting 10/12/19 until 10/12/2024 Liquid based cervica l cytology screening [facility] Measurement of gluco se 2 hours after glucose challenge for glucose tolerance test [facility] Patient Education Kick Counts ED False Labor OB Triage: Return to Hospital or Notify Physician if you Experience: [facility] Work Phone: Protein/Creatinine [Ratio] in Urine [facility] Rubella IgG measurement [facility] Serologic test for syphilis [facility] Serologic test for syphilis [facility] End: 12-15-2024 Tilt table study [facility] Service Area Work Phone: Comment on above: Once for 1 Occurrences starting 12/16/19 until 12/15/2024 End: 08-08-2024 Urinalysis complete W Reflex Culture panel - Urine [facility] Area Work Phone: Comment on above: Once (Lab) for 1 Occurrences starting until 08/08/2024 Urine culture [facility] End: 10-12-2024 US Heart Transthoracic [facility] Service Area Work Phone: Comment on above: Once for 1 Occurrences starting 10/12/19 until 10/12/2024 [facility] Immunizations Immunization Date Immunization Notes Care Provider Fa cility 07-03-2025 tetanus toxoid, reduced diphtheria toxoid, and acellular pertussis vaccine, adsorbed Beny MEYER Work Phone: [facility] Payers Date Payer Category Payer Self-pay 2023 Managed Care (Private) [id number] [id number] 2023 Private Health Insurance [id number] 1998 Unknown [id number] 2.16.8 [id number] 1998 Unknown [id number] 2.16.8 40.1.534066.3.579.2.1242 1998 Unknown [id number] 2.16.8 40.1.129528.3.579.2.1242 1998 Unknown [id number] 2.16.8 40.1.811127.3.579.2.1243 1998 Unknown [id number] 2.16.8 40.1.092034.3.579.2.1243 1998 Unknown [id number] 2.16. 840.1.244640.3.579.2.1244 1998 Unknown [id number] 2.16. 840.1.844197.3.579.2.124 1998 Unknown [id number] 2.16. 840.1.885599.3.579.2.1244 1998 Unknown [id number] 2.16. 840.1.731098.3.579.2.902 Unknown [id number] 2.16.8 40.1.179594.3.579.2.462 Unknown [id number] 2.16.8 40.1.358003.3.579.2.462 Unknown [id number] 2.16.8 40.1.327576.3.579.2.462 Unknown [id number] 2.16.8 40.1.562185.3.579.2.462 Unknown [id number] 2.16.8 40.1.686206.3.579.2.462 Unknown [id number] 2.16.8 40.1.194932.3.579.2.462 Unknown [id number] 2.16.8 40.1.153350.3.579.2.462 Unknown [id number] 2.16.8 40.1.685300.3.579.2.462 Unknown [id number] 2.16.8 40.1.799093.3.579.2.462 Unknown [id number] 2.16.8 40.1.706288.3.579.2.462 Unknown [id number] 2.16.8 40.1.772481.3.579.2.462 Unknown [id number] 2.16.8 40.1.211390.3.579.2.462 Unknown [id number] 2.16.8 40.1.316100.3.579.2.462 Unknown [id number] 2.16.8 40.1.275059.3.579.2.462 Unknown [id number] 2.16.8 40.1.857756.3.579.2.462 Unknown [id number] 2.16.8 40.1.972825.3.579.2.462 Unknown [id number] 2.16.8 40.1.904079.3.579.2.462 Unknown [id number] 2.16.8 40.1.537024.3.579.2.462 Social History Date Type Detail Facility Start: 08-08-2024 End: 01-24-2025 Tobacco smoking status NHIS Never smoked tobacco [facility] Work Phone: Start: 08-08-2024 Tobacco use and exposure Smokeless tobacco non-user [facility] Work Phone: Start: 08-08-2024 End: 11-28-2024 Alcoholic beverage intake Lifetime non-drinker (finding) [facility] Work Phone: Start: 2000 Sex assigned at Not on file [facility] Work Phone: Start: 09-28-2024 End: 11-28-2024 Gender identity Not on file [facility] Work Phone: Start: 07-29-2024 End: 12-26-2024 Exposure to SARS-CoV-2 (event) Not sure [facility] Work Phone: Start: 09-28-2024 End: 11-28-2024 History of Social function [facility] Work Phone: Start: 12-26-2024 Alcoholic beverage intake Current drinker of alcohol (finding) [facility] Work Phone: Start: 2000 Sex Assigned At Female [facility] Clinical Notes 08-08-2024 to 07-03-2025 Note Date & Type Note Facility 07-03-2025 Progress note [facility] 07-03-2025 Progress note Note Date/Time July 03, 2025 4:34pm [facility] [address], [address] [place] [address] OFFICE VISIT Date of Service: 07/03/25 MR#: [id number] Acct: [id number] Name: JUSTINO RENDON Rep #: [id number] : 2000 Provider: FAB Manzo Age/Sex: 25/F [place] [facility] [place]: Signed Intake Vital Signs 04/07/25 13:04 06/19/25 16:29 07/03/25 15:17 Height 5 ft 4 in 5 ft 3 in 5 ft 3 in Weight: 171 lb 7 oz BMI 30.3 BP 117/75 Intake Visit Reasons: 27 WK 4D OB Chief Complaint: 29wk OB Spring Fitter Required: No Is patient in pain?: No Allergies No Known Allergies Allergy (Verified 07/03/25 15:17) Medications ?Medication ?Instructions ?Recorded ?Confirmed ?Type docosahexaenoic acid 200 mg mg PO 01/24/25 07/03/25 Hi story capsule ( DHA) magnesium 250 mg tablet 250 mg PO QDAY 04/07/2506/15 History Held on 06/19/25. 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 OB Visit VICKY Calculator Estimated Delivery Date Method Current WG Current Estimate 09/14/25 LMP (Certain) 29w 4d Expected Delivery Route/Plan Labor Preferences- CB/BF classes: no labor support person: Tal labor intervention preferences: [] pain management options preferred: epidural when requested cut cord/dad catch: cord : no PP control planned: discussed discussed possible routes of delivery and associated risks: [] special requests: [] Specific Issue/Plans Covid status: [] Flu vaccine: [] Tdap vaccine: [] Rhogam: [] LARC form signed: yes Problem list reviewed and updated with the [...] 152 lb (+0 oz) 120/76 -?-?-?-?-?-?-?-?-?-?-?-?- 174 -?--?-?-?-?-?-?-?-?-?-?-?- LC 2.24cm crl co n with lmp. accepts genetics. baseline pec labs added for hx. 03/10/25 -?-?-?-?-?-?-?-?-?-?-?-?- 13w 1d 148 lb 2 oz (-3 lb 14 oz) 110/73 Negative -?-?-?-?-?-?-?-?-?-?-?-?- Negative 156 -?-?-?-?-?-?-?-?-?-?-?-?- JV- Heart tones only today. c/o constipation. discussed miralax + metamucil + stool softener and use of preparation H for hemorrhoids. JV- Heart tones only today. c/o constipation. discussed miralax + metamucil + stool softener and use of preparation H for hemorrhoids. Low risk male on NIPT 04/07/25 -?-?-?-?-?-?-?-?-?-?-?-?- 17w 1d 149 lb 2 oz (-2 lb 14 oz) 108/70 Negative -?-?-?-?-?-?-?-?-?-?-?-?- Negative 146 -?-?-?-?-?-?-?-?-?-?-?-?- KW- no vb/crampi ng. passed out 2 times on thursday d/t POTS. will contact Cardiology to see about medication to help with this- was on medication prior to . Has MFM US scheduled. still struggling with constipation. 05/03/25 -?-?-?-?-?-?-?-?-?-?-?-?- 20w 6d 155 lb 5 oz (+3 lb 5 oz) 111/71 Negative -?-?-?-?-?-?-?-?-?-?-?-?- Negative 157 -?-?-?-?-?-?-?-?-?-?-?-?- JV- feeling over all better. still having intermittent constipation. anatomy scan reviewed. 05/29/25 -?-?-?-?-?-?-?-?-?-?-?-?- 24w 4d 165 lb 2 oz (+13 lb 2 oz) 119/72 Negative -?-?-?-?-?-?-?-?-?-?-?-?- Negative 150 24 -?-?-?-?-?-?-?-?-?-?-?-?- SM- no vb lof go od fm no regular ctx discussed birthing experience 06/19/25 -?-?-?-?-?-?-?-?-?-?-?-?- 27w 4d 168 lb 1 oz (+16 lb 1 oz) 126/77 Negative -?-?-?-?-?-?-?-?-?-?-?-?- Negative 145 26 -?-?-?-?-?-?-?-?-?-?-?-?- MH-No vB, LOF. N ot feeling movement today. NST nonreactive, baby difficult to monitor, at least audible decel noted with movement. To WP per for growth US and prolonged monitoring. 07/03/25 -?-?-?-?-?-?-?-?-?-?-?-?- 29w 4d 171 lb 7 oz (+19 lb 7 oz) 117/75 Negative -?-?-?-?-?-?-?-?-?-?-?-?- Negative 155 30 -?-?-?-?-?-?-?-?-?-?-?-?- KW- no vb/lof/ct x. good fm. chiropractor for hip pain. Tdap today. ACOG First Trimester First Trimester: Desire for , Alcohol, Tobacco Cessation, Illicit/Recreational Drug/Substance Use, Intimate Partner Violence, Barriers to care, Unstable Housing, Communication Barriers, Environmental/Work Hazards, Anticipated Course of Care, Toxoplasmosis Precations, Use of Any medications, Sexual activity, Exercise, Dental Care, Sauna/Hot tub use, Seat Belt use, Childbirth classes/Hospital facilities, Travel, Indications for Ultrasound and Screening for Aneuploidy; Discussed Second Trimester Second Trimester: Signs and Symptoms of Labor Third Trimester Third Trimester: Pain Management Plans, Labor support person(s), Circumcision preference, Signs and Symptoms of Preeclampsia, Feeding No and Family Medical Leave or Disability Forms ROS Const Reports system reviewed and no additional complaints, except as documented Eyes Reports system reviewed and no additional complaints, except as documented ENT Reports system reviewed and no additional complaints, except as documented Card Reports system reviewed and no additional complaints, except as documented Resp Reports system reviewed and no additional complaints, except as documented GI Reports system reviewed and no additional complaints, except as documented, Denies nausea and Denies vomiting Reports system reviewed and no additional complaints, except as documented Musc Reports system reviewed and no additional complaints, except as documented Skin/Breast Reports system reviewed and no additional complaints, except as documented Neuro Yes system reviewed and no additional complaints, except as documented Psych Reports system reviewed and no additional complaints, except as documented Endo Reports system reviewed and no additional complaints, except as documented Pérez/Lymph Reports system reviewed and no additional complaints, except as documented Aller/Immun Reports system reviewed and no additional complaints, except as documented Exam Const General: cooperative, healthy appearing and no acute distress Orientation: alert, awake and oriented x3 Neck Neck: normal visual inspection and full ROM Resp Effort & Inspection: normal respiratory effort, able to speak in complete sentences and symmetric chest movement GI Inspection: normal to inspection Palpation: soft and other Other: gravid Skin General: no rashes or lesions noted Neuro General: patient alert, patient awake and patient oriented x3 Cognition: normal cognition Speech: speech normal Gait: normal gait Motor: muscle tone normal throughout Extrem General: normal to inspection and full ROM Psych Appearance: grossly normal Mental Status: mental status grossly normal Mood: congruent mood Affect: normal affect Speech and Movement: speech and movement normal Attitude: cooperative Thought Process: normal Thought Content: normal Judgment: judgment good Results POC Urinalysis 2 Dip (Clinic) Office Urine Glucose Negative Last Edit by Mickie Valles on 07/03/25 15:25 Office Urine Protein Negative Last Edit by Mickie Valles on 07/03/25 15:25 Immunizations Adacel(Tdap Adolesn/Adult)(PF) 2 Lf-(2.5-5-3-5)-5 Lf/0.5 mL IM syringe Performing Provider: Olga Manzo CNM Performing Location: [facility] Administered by: Mickie Valles on 07/03/25 15:33 Dose Route Admin Location Dispensed Lot Number Expiration Date Pack age NDC NDC Cat Swamper 0.5 mL IM Right Deltoid 0.5 mL [id number] 05/13/27 72650-132-10 [id number] SANOFI- PASTEUR VIS Given Date VIS Provided VIS Publication Date 07/03/25 Single Vaccine 24 Eligibility Eligibility Date Funding Source Not Applicable Coding Level of Care Code OB Routine Diagnoses Decreased movements in second trimester, single or unspecified fetus O36.8120 Fetus number: single or unspecified fetus Trimester: second trimester History of miscarriage, currently O09.299 Supervision of high risk in second trimester O09.92 Trimester: second trimester 29 weeks gestation of Z3A.29 Weeks of gestation: 29 weeks History of pre-eclampsia in prior , currently O09.299 POTS (postural orthostatic tachycardia syndrome) G90.A Assessment and Plan Assessment and Plan (1) Decreased movement: Status: Acute Qualifiers: Fetus number: single or unspecified fetus Trimester: second trimester Qualified Code(s): O36.8120 - Decreased movements, second trimester, not applicable or unspecified Comment: To to monitor, growth US (2) History of miscarriage, currently : Status: Acute Comment: chemical - Jul 2024 (3) Supervision of high-risk : Status: Acute Qualifiers: Trimester: second trimester Qualified Code(s): O09.92 - Supervision of high risk , unspecified, second trimester Comment: PRR ; VICKY 09/14/25;boy tony PC: Franki; : Tal (4) : Status: Acute Qualifiers: Weeks of gestation: 29 weeks Qualified Code(s): Z3A.29 - 29 weeks gestation of Comment: Discussed genetic/carrier testing - undecided, normal anatomy (5) History of pre-eclampsia in prior , currently : Status: Acute Comment: Pre-e baseline labs ordered w/NOB; Baby ASA @ 12-28weeks (6) POTS (postural orthostatic tachycardia syndrome): Status: Acute Comment: On Cardizem - stopped prior to , pt will talk with cardiology about new med Orders: Orders POC Urinalysis 2 Dip (Clinic) Today Tdap Immunization Today Z23 - Encounter for immunization Plan Details Additional Comments: ACOG trimester education reviewed and updated. see problem list details for updated plan management information and see below for orders placed at this visit. GA appropriate handout given. Clinical Quality Measures Falls Risk Screening/Assistive Devices Have you fallen in the past year?: No 07/07/25 3783 <Electronically signed by Olga mcdaniel CNM> Date _ Olga Manzo CNM Cosigner Signature: Date (if applicable) CC: ~ [facility] [employer] [employer] [facility] Work Phone: 1(678) 591-886510-06-2025 Radiology Diagnostic study note [facility] Imaging Services [address] [place] [address] [id number] OB Limited With Biometrics MR#: [id number] Acct: [id number] Name: JUSTINO RENDON Rep #: [id number] : 2000 F 25 From: Rosalva Tiwari MD PCP: MITCH Duran Status: REG CLI Study:OB Limited With Biometrics Date of Exam : 06/19/25 Exam# [id number] Ordering Dr: Marialuisa Gunderson MD PROCEDURE: OB LIMITED WITH BIOMETRICS 06/19/2025 REASON FOR EXAM: DECREASED MOVEMENT TECHNIQUE: Procedure Code: USOBGROWTH Modality: US Procedure: OB LIMITED WITH BIOMETRICS COMPARISON: None FINDINGS Cephalic position with cardiac activity of 155 beats per minute. Max vertical pocket of4.9 cm. CARMEN of 11.6 cm. Cervical length of 4 cm with closed cervix. Placenta is posterior position withgrade 1. BPD of 7.4 cm, OFD of 9.4 cm, HC of 26.8 cm, AC of 24.5 cm, and FL 5.6 cm corresponding to overall gestational age of 29 weeks and 1 day and VICKY of 09/03/2025. Estimated weight of 1352g. US/OB Limited With Biometrics IMPRESSION: Sonographic gestational age of 29 weeks and 1 day and VICKY of 09/03/2025. No acute abnormalities. Reading Location: [facility] CC: Dr. Marialuisa Marshall MD; MITCH Duran ~ Flanging Roll Operator: Signed [facility]10-06-2025 Progress note [facility] Medical Records Department [address] [place] [address] OB Triage Progress Note 06/19/25 1821 MR#: [id number] Acct: [id number] Name: JUSTINO RENDON Rep #:[id number] : 2000 25 From: Marialuisa castillo MD PCP: MITCH Duran Status:REG CLI Y DOS: Location: [place] [address] Progress Notes Date of Service: 06/19/25 Progress Note: Patient presents for triage evaluation secondary to decreased movement FHT: 140 Moderate variability reactive no decelerations category I tracing [place]: no regular Contractions Assessment and plan: dec movement nl growth US done Reactive NST, reassuring maternal and status patient discharged to home to follow-up asscheduled. See problem list details for additional plan information. Laboratory Studies: Laboratory Tests 06/19/25 Range/Units 15:25 WBC 11.0 (4.4-11.0) K/mm3 RBC 3.57 L (4.2-5.4) M/mm3 Hgb 10.5 L (12.0-15.0) g/dL Hct 31.8 L (37-47) % MCV 89.1 (81-99) fL MCH 29.4 (27.0-32.0) pg MCHC 33.0 (32-36) g/dL RDW Std Deviation 42.0 (35.1-43.9) fl RDW Coeff of Arcenio 12.9 (11.6-14.6) % Plt Count 240 (150-450) K/mm3 MPV 9.8 (6.2-12.0) fl Immature Gran % (Auto) 0.800 (0.0-0.9) % Neut % (Auto) 69.4 (47-70) % Lymph % (Auto) 22.5 (19-41) % Hawkins % (Auto) 5.9 (0-10) % Eos % (Auto) 1.3 (0-5) % Baso % (Auto) 0.1 (0-1) % Absolute Neuts (auto) 7.7 (2.0-7.7) X10^3/uL Absolute Lymphs (auto) 2.48 (0.83-4.51) X10^3/uL Nucleated RBC % 0 (0-5) % Glucose 1 Hr 50 gm 131 (70-140) mg/dL Syphilis Total Ab Nonreactive (Nonreactive) HIV 1&2 Antibody Nonreactive (Nonreactive) Charges/Coding Procedures Urinary/Genital 52xxx-59xxx: 96537-93 non-stress test Interp 06/19/25 1824 stacy [place]> Date _ Marialuisa Marshall MD Cosign Signature (if applicable): Date CC: Dr. Marialuisa Marshall MD; MITCH Duran ~ Signed [facility]10-06-2025 Progress [facility] [address], [address] [place] [address] OFFICE VISIT Date of Service: 06/19/25 MR#: [id number] Acct: [id number] Name: JUSTINO RENDON Rep #: [id number] : 2000 Provider: JH Carnes Age/Sex: 25/F [place] [facility] [place]: Signed Intake Vital Signs 04/07/25 13:04 05/29/25 14:54 06/19/25 15:27 Height 5 ft 4 in 5 ft 4 in 5 ft 4 in Weight: 168 lb 1 oz BMI 28.8 BP 126/77 H Intake Visit Reasons: 28 WK OB/Glucose Spring Fitter Required: No Is patient in pain?: No Allergies No Known Allergies Allergy (Verified 06/19/25 15:27) Medications ?Medication ?Instructions ?Recorded ?Confirmed ?Type docosahexaenoic acid 200 mg mg PO 01/24/25 06/19/25 Hi story capsule ( DHA) magnesium 250 mg tablet 250 mg PO QDAY 04/07/2503/08 History Last Menstrual Period: 12/08/24 Zika: Zika virus screening: Negative : No PFSH PFSH Medical History H/O: hypertension POTS (postural orthostatic tachycardia syndrome) Surgical History S/P wisdom tooth extraction History of shoulder surgery Family History Father Diabetes Mother Age: 57 Breast cancer Grandmother Breast cancer Social History adopted: No household members: spouse and children housing: house number of children: 1 current occupational status: employed 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 OB Visit VICKY Calculator Estimated Delivery Date Method Current WG Current Estimate 09/14/25 LMP (Certain) 27w 4d Expected Delivery Route/Plan Labor Preferences- CB/BF classes: no labor support person: Tal labor intervention preferences: [] pain management options preferred: epidural when requested cut cord/dad catch: cord : no PP control planned: discussed discussed possible routes of delivery and associated risks: [] special requests: [] Specific Issue/Plans Covid status: [] Flu vaccine: [] Tdap vaccine: [] Rhogam: [] LARC form signed: yes Problem list reviewed and updated with the most current plan of care details and appropriate ordersplaced. Relevant counseling for the gestational age provided. [...] genetics. baseline pec labs added for hx. 03/10/25 -?-?-?-?-?-?-?-?-?-?-?-?- 13w 1d 148 lb 2 oz (-3 lb 14 oz) 110/73 Negative -?-?-?-?-?-?-?-?-?-?-?-?- Negative 156 -?-?-?-?-?-?-?-?-?-?-?-?- JV- Heart tones only today. c/o constipation. discussed miralax + metamucil + stool softener and use of preparation H for hemorrhoids. JV- Heart tones only today. c/o constipation. discussed miralax + metamucil + stool softener and use of preparation H for hemorrhoids. Low risk male on NIPT 04/07/25 -?-?-?-?-?-?-?-?-?-?-?-?- 17w 1d 149 lb 2 oz (-2 lb 14 oz) 108/70 Negative -?-?-?-?-?-?-?-?-?-?-?-?- Negative 146 -?-?-?-?-?-?-?-?-?-?-?-?- KW- no vb/crampi ng. passed out 2 times on thursday d/t POTS. will contact Cardiology to see about medication to help with this- was on medication prior to . Has MFMUS scheduled. still struggling with constipation. 05/03/25 -?-?-?--?-?-?-?-?-?-?-?-?- 20w 6d 155 lb 5 oz (+3 lb 5 oz) 111/71 Negative -?-?-?-?-?-?-?-?-?-?-?-?- Negative 157 -?-?-?-?-?-?-?-?-?-?-?-?- JV- feeling over all better. still having intermittent constipation. anatomy scan reviewed. 05/29/25 -?-?-?-?-?-?-?-?-?-?-?-?- 24w 4d 165 lb 2 oz (+13 lb 2 oz) 119/72 Negative -?-?-?-?-?-?-?-?-?-?-?-?- Negative 150 24 -?-?-?-?-?-?-?-?-?-?-?-?- SM- no vb lof go od fm no regular ctx discussed birthing experience 06/19/25 -?-?-?-?-?-?-?-?-?-?-?-?- 27w 4d 168 lb 1 oz (+16 lb 1 oz) 126/77 Negative -?-?-?-?-?-?-?-?-?-?-?-?- Negative 145 26 -?-?-?-?-?-?-?-?-?-?-?-?- MH-No vB, LOF. N ot feeling movement today. NST nonreactive, baby difficult to monitor, at least audible decel noted with movement. To WP per SM for growth US and prolonged monitoring. ACOG First Trimester First Trimester: Desire for , Alcohol, Tobacco Cessation, Illicit/Recreational Drug/Substance Use, Intimate Partner Violence, Barriers to care, Unstable Housing, Communication Barriers, Environmental/Work Hazards, Anticipated Course of Care, Toxoplasmosis Precations, Use of Any med ications, Sexual activity, Exercise, Dental Care, Sauna/Hot tub use, Seat Belt use, Childbirth classes/Hospital facilities, Travel, Indications for Ultrasound and Screening for Aneuploidy; Discussed Second Trimester Second Trimester: Signs and Symptoms of Labor Third Trimester Third Trimester: Pain Management Plans, Labor support person(s), Circumcision preference Yes Yes, Signs and Symptoms of Preeclampsia, Feeding No and Family Medical Leave or Disability Forms ROS Const Reports system reviewed and no additional complaints, except as documented GI Denies abdominal pain, Denies nausea and Denies vomiting Exam Const General: cooperative Nutritional Appearance: well nourished GI Palpation: soft, nontender and other (gravid) Results POC Urinalysis 2 Dip (Clinic) Office Urine Glucose Negative Last Edit by Maryjane Yang on 06/19/25 15 :33 Office Urine Protein Negative Last Edit by Maryjane Yang on 06/19/25 15 :33 Coding Level of Care Code OB Routine Diagnoses Decreased movements in second trimester, single or unspecified fetus O36.8120 Fetus number: single or unspecified fetus Trimester: second trimester Supervision of high risk in second trimester O09.92 Trimester: second trimester 27 weeks gestation of Z3A.27 Weeks of gestation: 27 weeks History of miscarriage, currently O09.299 History of pre-eclampsia in prior , currently O09.299 POTS (postural orthostatic tachycardia syndrome) G90.A Assessment and Plan Assessment and Plan (1) Decreased movement: Status: Acute Qualifiers: Fetus number: single or unspecified fetus Trimester: second trimester Qualified Code(s): O36.8120 -Decreased movements, second trimester, not applicable or unspecified Comment: To WP to monitor, growth US (2) Supervision of high-risk : Status: Acute Qualifiers: Trimester: second trimester Qualified Code(s): O09.92 - Supervision of high risk , unspecified, second trimester Comment: PRR ; VICKY 09/14/25;michael tony PC: Franki; : Tal (3) : Status: Acute Qualifiers: Weeks of gestation: 27 weeks Qualified Code(s): Z3A.27 - 27 weeks gestation of Comment: Discussed genetic/carrier testing - undecided, normal anatomy (4) History of miscarriage, currently : Status: Acute Comment: chemical - Jul 2024 (5) History of pre-eclampsia in prior , currently : Status: Acute Comment: Pre-e baseline labs ordered w/NOB; Baby ASA @ 12-28weeks (6) POTS (postural orthostatic tachycardia syndrome): Status: Acute Comment: On Cardizem - stopped prior to , pt will talk with cardiology about new med Orders: Orders POC Urinalysis 2 Dip (Clinic) Today Plan problem list reviewed and updated for most current plan of care and appropriate orders placed. Relevant counseling for the gestational age appropriate provided and ACOG education checklist updated. Continue routine care and follow up. 06/19/25 1605 s BUSINESS REPRESENTATIVE BUSINESS REPRESENTATIVE-C> Date _ Shireen Carnes BUSINESS REPRESENTATIVE BUSINESS REPRESENTATIVE-C Cosigner Signature: Date (if applicable) CC: ~ [facility]10-06-2025 Progress note Author Shireen [facility] Services Note Date/Time June 19, 2025 4: 00pm [facility] [address], [address] [place] [address] OFFICE VISIT Date of Service: 06/19/25 MR#: [id number] Acct: [id number] Name: JUSTINO RENDON Rep #: [id number] : 2000 Provider: JH Carnes Age/Sex: 25/F [place] [facility] Status: Signed Intake Vital Signs 04/07/25 13:04 05/29/25 14:54 06/19/25 15:27 Height 5 ft 4 in 5 ft 4 in 5 ft 4 in Weight: 168 lb 1 oz BMI 28.8 BP 126/77 H Intake Visit Reasons: 28 WK OB/Glucose Spring Fitter Required: No Is patient in pain?: No Allergies No Known Allergies Allergy (Verified 06/19/25 15:27) Medications ?Medication ?Instructions ?Recorded ?Confirmed ?Type docosahexaenoic acid 200 mg mg PO 01/24/25 06/19/25 Hi story capsule ( DHA) magnesium 250 mg tablet 250 mg PO QDAY 04/07/2503/08 History Last Menstrual Period: 12/08/24 Zika: Zika virus screening: Negative : No PFSH PFSH Medical History H/O: hypertension POTS (postural orthostatic tachycardia syndrome) Surgical History S/P wisdom tooth extraction History of shoulder surgery Family History Father Diabetes Mother Age: 57 Breast cancer Grandmother Breast cancer Social History adopted: No household members: spouse and children housing: house number of children: 1 current occupational status: employed 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 OB Visit VICKY Calculator Estimated Delivery Date Method Current WG Current Estimate 09/14/25 LMP (Certain) 27w 4d Expected Delivery Route/Plan Labor Preferences- CB/BF classes: no labor support person: Tal labor intervention preferences: [] pain management options preferred: epidural when requested cut cord/dad catch: cord : no PP control planned: discussed discussed possible routes of delivery and associated risks: [] special requests: [] Specific Issue/Plans Covid status: [] Flu vaccine: [] Tdap vaccine: [] Rhogam: [] LARC form signed: yes Problem list reviewed and updated with the [...] genetics. baseline pec labs added for hx. 03/10/25 -?-?-?-?-?-?-?-?-?-?-?-?- 13w 1d 148 lb 2 oz (-3 lb 14 oz) 110/73 Negative -?-?-?-?-?-?-?-?-?-?-?-?- Negative 156 -?-?-?-?-?-?-?-?-?-?-?-?- JV- Heart tones only today. c/o constipation. discussed miralax + metamucil + stool softener and use of preparation H for hemorrhoids. JV- Heart tones only today. c/o constipation. discussed miralax + metamucil + stool softener and use of preparation H for hemorrhoids. Low risk male on NIPT 04/07/25 -?-?-?-?-?-?-?-?-?-?-?-?- 17w 1d 149 lb 2 oz (-2 lb 14 oz) 108/70 Negative -?-?-?-?-?-?-?-?-?-?-?-?- Negative 146 -?-?-?-?-?-?-?-?-?-?-?-?- KW- no vb/crampi ng. passed out 2 times on thursday d/t POTS. will contact Cardiology to see about medication to help with this- was on medication prior to . Has MFM US scheduled. still struggling with constipation. 05/03/25 -?-?-?--?-?-?-?-?-?-?-?-?- 20w 6d 155 lb 5 oz (+3 lb 5 oz) 111/71 Negative -?-?-?-?-?-?-?-?-?-?-?-?- Negative 157 -?-?-?-?-?-?-?-?-?-?-?-?- JV- feeling over all better. still having intermittent constipation. anatomy scan reviewed. 05/29/25 -?-?-?-?-?-?-?-?-?-?-?-?- 24w 4d 165 lb 2 oz (+13 lb 2 oz) 119/72 Negative -?-?-?-?-?-?-?-?-?-?-?-?- Negative 150 24 -?-?-?-?-?-?-?-?-?-?-?-?- SM- no vb lof go od fm no regular ctx discussed birthing experience 06/19/25 -?-?-?-?-?-?-?-?-?-?-?-?- 27w 4d 168 lb 1 oz (+16 lb 1 oz) 126/77 Negative -?-?-?-?-?-?-?-?-?-?-?-?- Negative 145 26 -?-?-?-?-?-?-?-?-?-?-?-?- MH-No vB, LOF. N ot feeling movement today. NST nonreactive, baby difficult to monitor, at least audible decel noted with movement. To WP per for growth US and prolonged monitoring. ACOG First Trimester First Trimester: Desire for , Alcohol, Tobacco Cessation, Illicit/Recreational Drug/Substance Use, Intimate Partner Violence, Barriers to care, Unstable Housing, Communication Barriers, Environmental/Work Hazards, Anticipated Course of Care, Toxoplasmosis Precations, Use of Any medications, Sexual activity, Exercise, Dental Care, Sauna/Hot tub use, Seat Belt use, Childbirth classes/Hospital facilities, Travel, Indications for Ultrasound and Screening for Aneuploidy; Discussed Second Trimester Second Trimester: Signs and Symptoms of Labor Third Trimester Third Trimester: Pain Management Plans, Labor support person(s), Circumcision preference Yes Yes, Signs and Symptoms of Preeclampsia, Infant Feeding No and Family Medical Leave or Disability Forms ROS Const Reports system reviewed and no additional complaints, except as documented GI Denies abdominal pain, Denies nausea and Denies vomiting Exam Const General: cooperative Nutritional Appearance: well nourished GI Palpation: soft, nontender and other (gravid) Results POC Urinalysis 2 Dip (Clinic) Office Urine Glucose Negative Last Edit by Maryjane Yang on 06/19/25 15 :33 Office Urine Protein Negative Last Edit by Maryjane Yang on 06/19/25 15 :33 Coding Level of Care Code OB Routine Diagnoses Decreased movements in second trimester, single or unspecified fetus O36.8120 Fetus number: single or unspecified fetus Trimester: second trimester Supervision of high risk in second trimester O09.92 Trimester: second trimester 27 weeks gestation of Z3A.27 Weeks of gestation: 27 weeks History of miscarriage, currently O09.299 History of pre-eclampsia in prior , currently O09.299 POTS (postural orthostatic tachycardia syndrome) G90.A Assessment and Plan Assessment and Plan (1) Decreased movement: Status: Acute Qualifiers: Fetus number: single or unspecified fetus Trimester: second trimester Qualified Code(s): O36.8120 - Decreased movements, second trimester, not applicable or unspecified Comment: To WP to monitor, growth US (2) Supervision of high-risk : Status: Acute Qualifiers: Trimester: second trimester Qualified Code(s): O09.92 - Supervision of high risk , unspecified, second trimester Comment: PRR ; VICKY 09/14/25;michael jimenez PC: Franki; : Tal (3) : Status: Acute Qualifiers: Weeks of gestation: 27 weeks Qualified Code(s): Z3A.27 - 27 weeks gestation of Comment: Discussed genetic/carrier testing - undecided, normal anatomy (4) History of miscarriage, currently : Status: Acute Comment: chemical - Jul 2024 (5) History of pre-eclampsia in prior , currently : Status: Acute Comment: Pre-e baseline labs ordered w/NOB; Baby ASA @ 12-28weeks (6) POTS (postural orthostatic tachycardia syndrome): Status: Acute Comment: On Cardizem - stopped prior to , pt will talk with cardiology about new med Orders: Orders POC Urinalysis 2 Dip (Clinic) Today Plan problem list reviewed and updated for most current plan of care and appropriate orders placed. Relevant counseling for the gestational age appropriate provided and ACOG education checklist updated. Continue routine care and follow up. 06/19/25 1605 <Electronically signed by Shireen DIOPC> Date _ Shireen Huitron Signature: Date (if applicable) CC: ~ [facility] Work Phone: 1(346) 967-123409-15-2025 [facility] [address] [place] [address], [address] [place] [address] OFFICE VISIT Date of Service: 05/29/25 MR#: [id number] Acct: [id number] Name: JUSTINO RENDON Rep #: [id number] : 2000 Provider: Dr. Victor M Marshall MD Age/Sex: 25/F [place] [facility] [place]: Signed Intake Vital Signs 04/07/25 13:04 05/03/25 13:11 05/29/25 14:54 Height 5 ft 4 in 5 ft 4 in 5 ft 4 in Weight: 165 lb 2 oz BMI 28.3 BP 119/72 Intake Visit Reasons: 25 WK OB Spring Fitter Required: No Is patient in pain?: No Allergies No Known Allergies Allergy (Verified 05/29/25 14:55) Medications ?Medication ?Instructions ?Recorded ?Confirmed ?Type docosahexaenoic acid 200 mg mg PO 01/24/25 05/29/25 Hi story capsule ( DHA) magnesium 250 mg tablet 250 mg PO QDAY 04/07/2505/15 History Last Menstrual Period: 12/08/24 Zika: Zika virus screening: Negative : No PFSH PFSH Medical History H/O: hypertension POTS (postural orthostatic tachycardia syndrome) Surgical History S/P wisdom tooth extraction History of shoulder surgery Family History Father Diabetes Mother Age: 57 Breast cancer Grandmother Breast cancer Social History adopted: No household members: spouse and children housing: house number of children: 1 current occupational status: employed current occupation: [employer]- [employer] current occupational exposures/hazards: No pets and animals: Yes pets and animals: dog(s) history of recent travel: Yes ([place] - December 2024) out of state: Yes [...] 1-2 times per week duration: 15-30 minutes/day deric/bahai: Advent seatbelt use: always do you feel safe [...] full term vacuum 7lbs 11oz Male epidural [place] Tal 07/15/24 Chemical 5 spontaneous Delivery Date: 05/23/23 Last Updated by: Yeimi Anthony RN Pre-e, lingering pp htn x4mo HPI 25 WK OB Details: JUSTINO RENDON is a 25 year old who presents for routine OB visit. OB Visit VICKY Calculator Estimated Delivery Date Method Current WG Current Estimate 09/14/25 LMP (Certain) 24w 4d Expected Delivery Route/Plan Labor Preferences- CB/BF classes: [...] current plan of care details and appropriate ordersplaced. Relevant counseling for the gestational age provided. [...] genetics. baseline pec labs added for hx. 03/10/25 -?-?-?-?-?-?-?-?-?-?-?-?- 13w 1d 148 lb 2 oz (-3 lb 14 oz) 110/73 Negative -?-?-?-?-?-?-?-?-?-?-?-?- Negative 156 -?-?-?-?-?-?-?-?-?-?-?-?- JV- Heart tones only today. c/o constipation. discussed miralax + metamucil + stool softener and use of preparation H for hemorrhoids. JV- Heart tones only today. c/o constipation. discussed miralax + metamucil + stool softener and use of preparation H for hemorrhoids. Low risk male on NIPT 04/07/25 -?-?-?-?-?-?-?-?-?-?-?-?- 17w 1d 149 lb 2 oz (-2 lb 14 oz) 108/70 Negative -?-?-?-?-?-?-?-?-?-?-?--?- Negative 146 -?-?-?-?-?-?-?-?-?-?-?-?- KW- no vb/crampi ng. passed out 2 times on thursday d/t POTS. will contact Cardiology to see about medication to help with this- was on medication prior to . Has MFMUS scheduled. still struggling with constipation. 05/03/25 -?-?-?-?-?-?-?-?-?-?-?-?- 20w 6d 155 lb 5 oz (+3 lb 5 oz) 111/71 Negative -?-?-?-?-?-?-?-?-?-?-?-?- Negative 157 -?-?-?-?-?-?-?-?-?-?-?-?- JV- feeling over all better. still having intermittent constipation. anatomy scan reviewed. 05/29/25 -?-?-?-?-?-?-?-?-?-?-?-?- 24w 4d 165 lb 2 oz (+13 lb 2 oz) 119/72 Negative -?-?-?-?-?-?-?-?-?-?-?-?- Negative 150 24 -?-?-?-?-?-?-?-?-?-?-?-?- SM- no vb lof go od fm no regular ctx discussed birthing experience ACOG First Trimester First Trimester: Desire for , Alcohol, Tobacco Cessation, Illicit/Recreational Drug/Substance Use, Intimate Partner Violence, Barriers to care, Unstable Housing, Communication Barriers, Environmental/Work Hazards, Anticipated Course of Care, Toxoplasmosis Precations, Use of Any med ications, Sexual activity, Exercise, Dental Care, Sauna/Hot tub use, Seat Belt use, Childbirth classes/Hospital facilities, Travel, Indications for Ultrasound and Screening for Aneuploidy; Discussed Results POC Urinalysis 2 Dip (Clinic) Office Urine Glucose Negative Last Edit by Shireen Hernandez on 05/29/25 15:00 Office Urine Protein Negative Last Edit by Shireen Hernandez on 05/29/25 15:00 Coding Level of Care Code OB Routine Diagnoses History of miscarriage, currently O09.299 Supervision of high-risk O09.90 24 weeks gestation of Z3A.24 Weeks of gestation: 24 weeks History of pre-eclampsia in prior , currently O09.299 POTS (postural orthostatic tachycardia syndrome) G90.A Assessment and Plan Assessment and Plan (1) History of miscarriage, currently : Status: Acute Comment: chemical - Jul 2024 (2) Supervision of high-risk : Status: Acute Comment: PRR ; VICKY 09/14/25;boy tony PC: Franki; : Tal (3) : Status: Acute Qualifiers: Weeks of gestation: 24 weeks Qualified Code(s): Z3A.24 - 24 weeks gestation of Comment: Discussed genetic/carrier testing - undecided, normal anatomy (4) History of pre-eclampsia in prior , currently : Status: Acute Comment: Pre-e baseline labs ordered w/NOB; Baby ASA @ 12-28weeks (5) POTS (postural orthostatic tachycardia syndrome): Status: Acute Comment: On Cardizem - stopped prior to , pt will talk with cardiology about new med Orders: Orders POC Urinalysis 2 Dip (Clinic) Today CBC W/Diff, Automated Today O09.90 - Supervision of high risk , unspecified, unspecified trimester Glucose Challenge Gest 1H 50g Today O09 - Supervision of high risk , unspecified, unspecified trimester, Z13.1 - Encounter for screening for diabetes mellitus HIV Today O - Supervision of high risk , unspecified, unspecified trimester Syphilis Antibodies Today O - Supervision of high risk , unspecified, unspecified trimester 05/29/25 1524 stacy COVINGTON> Date _ Marialuisa Marshall MD Cosigner Signature: Date (if applicable) CC: ~ [facility]09-15-2025 Progress note Author Marialuisa Marshall [facility] Note Date/Time May 29, 2025 3:24pm [facility] [address], [address] [place] [address] OFFICE VISIT Date of Service: 05/29/25 MR#: [id number] Acct: [id number] Name: JUSTINO RENDON Rep #: [id number] : 2000 Provider: Dr. Victor M Marshall MD Age/Sex: 25/F [place] [facility] [place]: Signed Intake Vital Signs 04/07/25 13:04 05/03/25 13:11 05/29/25 14:54 Height 5 ft 4 in 5 ft 4 in 5 ft 4 in Weight: 165 lb 2 oz BMI 28.3 BP 119/72 Intake Visit Reasons: 25 WK OB Spring Fitter Required: No Is patient in pain?: No Allergies No Known Allergies Allergy (Verified 05/29/25 14:55) Medications ?Medication ?Instructions ?Recorded ?Confirmed ?Type docosahexaenoic acid 200 mg mg PO 01/24/25 05/29/25 Hi story capsule ( DHA) magnesium 250 mg tablet 250 mg PO QDAY 04/07/2505/15 History Last Menstrual Period: 12/08/24 Zika: Zika virus screening: Negative : No PFSH PFSH Medical History H/O: hypertension POTS (postural orthostatic tachycardia syndrome) Surgical History S/P wisdom tooth extraction History of shoulder surgery Family History Father Diabetes Mother Age: 57 Breast cancer Grandmother Breast cancer Social History adopted: No household members: spouse and children housing: house number of children: 1 current occupational status: employed current occupation: [employer]- [employer] current occupational exposures/hazards: No pets and animals: Yes pets and animals: dog(s) history of recent travel: Yes ([place] - December 2024) out of state: Yes [...] 1-2 times per week duration: 15-30 minutes/day deric/bahai: Advent seatbelt use: always do you feel safe [...] full term vacuum 7lbs 11oz Male epidural [place] Tal 07/15/24 Chemical 5 spontaneous Delivery Date: 05/23/23 Last Updated by: Yeimi Anthony RN Pre-e, lingering pp htn x4mo HPI 25 WK OB Details: JUSTINO RENDON is a 25 year old who presents for routine OB visit. OB Visit VICKY Calculator Estimated Delivery Date Method Current WG Current Estimate 09/14/25 LMP (Certain) 24w 4d Expected Delivery Route/Plan Labor Preferences- CB/BF classes: [...] genetics. baseline pec labs added for hx. 03/10/25 -?-?-?-?-?-?-?-?-?-?-?-?- 13w 1d 148 lb 2 oz (-3 lb 14 oz) 110/73 Negative -?-?-?-?-?-?-?-?-?-?-?-?- Negative 156 -?-?-?-?-?-?-?-?-?-?-?-?- JV- Heart tones only today. c/o constipation. discussed miralax + metamucil + stool softener and use of preparation H for hemorrhoids. JV- Heart tones only today. c/o constipation. discussed miralax + metamucil + stool softener and use of preparation H for hemorrhoids. Low risk male on NIPT 04/07/25 -?-?-?-?-?-?-?-?-?-?-?-?- 17w 1d 149 lb 2 oz (-2 lb 14 oz) 108/70 Negative -?-?-?-?-?-?-?-?-?-?-?--?- Negative 146 -?-?-?-?-?-?-?-?-?-?-?-?- KW- no vb/crampi ng. passed out 2 times on thursday d/t POTS. will contact Cardiology to see about medication to help with this- was on medication prior to . Has M US scheduled. still struggling with constipation. 05/03/25 -?-?-?-?-?-?-?-?-?-?-?-?- 20w 6d 155 lb 5 oz (+3 lb 5 oz) 111/71 Negative -?-?-?-?-?-?-?-?-?-?-?-?- Negative 157 -?-?-?-?-?-?-?-?-?-?-?-?- JV- feeling over all better. still having intermittent constipation. anatomy scan reviewed. 05/29/25 -?-?-?-?-?-?-?-?-?-?-?-?- 24w 4d 165 lb 2 oz (+13 lb 2 oz) 119/72 Negative -?-?-?-?-?-?-?-?-?-?-?-?- Negative 150 24 -?-?-?-?-?-?-?-?-?-?-?-?- SM- no vb lof go od fm no regular ctx discussed birthing experience ACOG First Trimester First Trimester: Desire for , Alcohol, Tobacco Cessation, Illicit/Recreational Drug/Substance Use, Intimate Partner Violence, Barriers to care, Unstable Housing, Communication Barriers, Environmental/Work Hazards, Anticipated Course of Care, Toxoplasmosis Precations, Use of Any medications, Sexual activity, Exercise, Dental Care, Sauna/Hot tub use, Seat Belt use, Childbirth classes/Hospital facilities, Travel, Indications for Ultrasound and Screening for Aneuploidy; Discussed Results POC Urinalysis 2 Dip (Clinic) Office Urine Glucose Negative Last Edit by Shireen Hernandez on 05/29/25 15:00 Office Urine Protein Negative Last Edit by Shireen Hernandez on 05/29/25 15:00 Coding Level of Care Code OB Routine Diagnoses History of miscarriage, currently O09.299 Supervision of high-risk O09.90 24 weeks gestation of Z3A.24 Weeks of gestation: 24 weeks History of pre-eclampsia in prior , currently O09.299 POTS (postural orthostatic tachycardia syndrome) G90.A Assessment and Plan Assessment and Plan (1) History of miscarriage, currently : Status: Acute Comment: chemical - Jul 2024 (2) Supervision of high-risk : Status: Acute Comment: PRR ; VICKY 09/14/25;michael jimenez PC: Franki; : Tal (3) : Status: Acute Qualifiers: Weeks of gestation: 24 weeks Qualified Code(s): Z3A.24 - 24 weeks gestation of Comment: Discussed genetic/carrier testing - undecided, normal anatomy (4) History of pre-eclampsia in prior , currently : Status: Acute Comment: Pre-e baseline labs ordered w/NOB; Baby ASA @ 12-28weeks (5) POTS (postural orthostatic tachycardia syndrome): Status: Acute Comment: On Cardizem - stopped prior to , pt will talk with cardiology about new med Orders: Orders POC Urinalysis 2 Dip (Clinic) Today CBC W/Diff, Automated Today O09.90 - Supervision of high risk , unspecified, unspecified trimester Glucose Challenge Gest 1H 50g Today O09.90 - Supervision of high risk , unspecified, unspecified trimester, Z13.1 - Encounter for screening for diabetes mellitus HIV Today O09.90 - Supervision of high risk , unspecified, unspecified trimester Syphilis Antibodies Today O09.90 - Supervision of high risk , unspecified, unspecified trimester 05/29/25 1524 <Electronically signed by Marialuisa kumar MD> Date _ Marialuisa Huitron Signature: Date (if applicable) CC: ~ [facility] Work Phone: 1(809) 250-867908-20-2025 [facility] [address] [place] [address], [address] [place] [address] OFFICE VISIT Date of Service: 05/03/25 MR#: [id number] Acct: [id number] Name: JUSTINO RENDON Rep #: [id number] : 2000 Provider: Dr. Radha Moss DO Age/Sex: 24/F [place] [facility] [place]: Signed Intake Vital Signs 02/10/25 13:04 04/07/25 13:04 05/03/25 13:11 05/03/25 13:11 Height 5 ft 4 in 5 ft 4 in 5 ft 4 in 5 ft 4 in Weight: 155 lb 5 oz BMI 26.6 BP 111/71 Intake Visit Reasons: 21wk ob Spring Fitter Required: No Is patient in pain?: No Allergies No Known Allergies Allergy (Verified 05/03/25 13:11) Medications ?Medication ?Instructions ?Recorded ?Confirmed ?Type docosahexaenoic acid 200 mg mg PO 01/24/25 05/03/25 Hi story capsule ( DHA) magnesium 250 mg tablet 250 mg PO QDAY 04/07/2504/15 History Last Menstrual Period: 12/08/24 Zika: Zika virus screening: Negative : No PFSH PFSH Medical History H/O: hypertension POTS (postural orthostatic tachycardia syndrome) Surgical History S/P wisdom tooth extraction History of shoulder surgery Family History Father Diabetes Mother Age: 57 Breast cancer Grandmother Breast cancer Social History adopted: No household members: spouse and children housing: house number of children: 1 current occupational status: employed current occupation: [employer]- [employer] current occupational exposures/hazards: No pets and animals: Yes pets and animals: dog(s) history of recent travel: Yes ([place] - December 2024) out of state: Yes [...] 1-2 times per week duration: 15-30 minutes/day deric/bahai: Advent seatbelt use: always do you feel safe at home: Yes additional social history: : Tal Naik History 3 Elective abortions Hx Para 1 Spontaneous abortions 1 Hx # Term Pregnancies Ectopic pregnancies Hx # Pregnancies Multiple births # of living children 1 Past Pregnancies Del. Date Name GA/Weeks Outcome Route Bth Weight Gen Labor Lgth Anesthesia Del Locatn Provider FOB 05/23/23 Doan 39 live - full term vacuum 7lbs 11oz Male epidural [place] Tal 07/15/24 Chemical 5 spontaneous Delivery Date: 05/23/23 Last Updated by: Yeimi Anthony RN Pre-e, loree pp htn x4mo HPI 21wk ob Details: JUSTINO RENDON is a 24 year old who presents for routine OB visit. OB Visit VICKY Calculator Estimated Delivery Date Method Current WG Current Estimate 09/14/25 LMP (Certain) 20w 6d Expected Delivery Route/Plan Labor Preferences- CB/BF classes: [...] current plan of care details and appropriate ordersplaced. Relevant counseling for the gestational age provided. [...] genetics. baseline pec labs added for hx. 03/10/25 -?-?-?-?-?-?-?-?-?-?-?-?- 13w 1d 148 lb 2 oz (-3 lb 14 oz) 110/73 Negative -?-?-?-?-?-?-?-?-?-?-?-?- Negative 156 -?-?-?-?-?-?-?-?-?-?-?-?- JV- Heart tones only today. c/o constipation. discussed miralax + metamucil + stool softener and use of preparation H for hemorrhoids. JV- Heart tones only today. c/o constipation. discussed miralax + metamucil + stool softener and use of preparation H for hemorrhoids. Low risk male on NIPT 04/07/25 -?-?-?-?-?-?-?-?-?-?-?-?- 17w 1d 149 lb 2 oz (-2 lb 14 oz) 108/70 Negative -?-?-?-?-?-?-?-?-?-?-?-?- Negative 146 -?-?-?-?-?-?-?-?-?-?-?-?- KW- no vb/crampi ng. passed out 2 times on thursday d/t POTS. will contact Cardiology to see about medication to help with this- was on medication prior to . Has MFMUS scheduled. still struggling with constipation. 05/03/25 -?-?-?-?-?-?-?-?-?--?-?-?- 20w 6d 155 lb 5 oz (+3 lb 5 oz) 111/71 -?-?-?-?-?-?-?-?-?-?-?-?- 157 -?-?-?-?-?-?-?-?-?-?-?-?- JV- feeling over all better. still having intermittent constipation. anatomy scan reviewed. ACOG First Trimester First Trimester: Desire for , Alcohol, Tobacco Cessation, Illicit/Recreational Drug/Substance Use, Intimate Partner Violence, Barriers to care, Unstable Housing, Communication Barriers, Environmental/Work Hazards, Anticipated Course of Care, Toxoplasmosis Precations, Use of Any med ications, Sexual activity, Exercise, Dental Care, Sauna/Hot tub use, Seat Belt use, Childbirth classes/Hospital facilities, Travel, Indications for Ultrasound and Screening for Aneuploidy; Discussed Coding Level of Care Code OB Routine Diagnoses History of miscarriage, currently O09.299 Supervision of high-risk O09.90 20 weeks gestation of Z3A.20 Weeks of gestation: 20 weeks History of pre-eclampsia in prior , currently O09.299 POTS (postural orthostatic tachycardia syndrome) G90.A Assessment and Plan Assessment and Plan (1) History of miscarriage, currently : Status: Acute Comment: chemical - Jul 2024 (2) Supervision of high-risk : Status: Acute Comment: ; VICKY 09/14/25; PC: Franki; : Tal (3) : Status: Acute Qualifiers: Weeks of gestation: 20 weeks Qualified Code(s): Z3A.20 - 20 weeks gestation of Comment: Discussed genetic/carrier testing - undecided, normal anatomy (4) History of pre-eclampsia in prior , currently : Status: Acute Comment: Pre-e baseline labs ordered w/NOB; Baby ASA @ 12-28weeks (5) POTS (postural orthostatic tachycardia syndrome): Status: Acute Comment: On Cardizem - stopped prior to , pt will talk with cardiology about new med Orders: Orders POC Urinalysis 2 Dip (Clinic) Today 05/03/25 1327 e Velde DO> Date _ Alyssia Wrightignannika Signature: Date (if applicable) CC: ~ [facility]07-25-2025 Evaluation note* Diagnosis Onset Date Resolution Status Admit Date History of miscarriage, currently acute April 07 12:56pm History of pre-eclampsia in prior , currently acute April 07, 2025 12:56pm POTS (postural orthostatic tachycardia syndrome) acute April 07, 2025 12:56pm acute April 07 12:56pm Supervision of high-risk acute April 07, 2025 12:56pm History of miscarriage, currently acute May 03, 2025 12:58pm History of pre-eclampsia in prior , currently acute May 03 12:58pm POTS (postural orthostatic tachycardia syndrome) acute April 12:58pm acute May 03, 025 12:58pm Supervision of high-risk acute May 03 12:58pm History of miscarriage, currently acute May 2:44pm History of pre-eclampsia in prior , currently acute May 29, 2025 2:44pm POTS (postural orthostatic tachycardia syndrome) acute May 29, 2025 2:44pm acute May 2:44pm Supervision of high-risk acute Veda 15th, 2025 2:44pm Decreased movement acute June 19, 2025 3:21pm History of miscarriage, currently acute June 19, 2025 3:21pm History of pre-eclampsia in prior , currently acute June 19 3:21pm POTS (postural orthostatic tachycardia syndrome) acute June 3:21pm acute June 19, 025 3:21pm Supervision of high-risk acute June 19 3:21pm Decreased movement acute July 03, 2025 3:14pm History of miscarriage, currently acute July 03, 2025 3:14pm History of pre-eclampsia in prior , currently acute July 03 3:14pm POTS (postural orthostatic tachycardia syndrome) acute July 032024 3:14pm acute July 03, 2025 3:14pm Supervision of high-risk acute July 03 3:14pm Decreased movement acute July 20, 2025 3:21pm History of miscarriage, currently acute July 20, 2025 3:21pm History of pre-eclampsia in prior , currently acute July 20 3:21pm POTS (postural orthostatic tachycardia syndrome) acute July 202024 3:21pm acute July 20, 2025 3:21pm Supervision of high-risk acute July 20 3:21pm [facility] Work Phone: 1(228) 303-775507-25-2025 [facility] [address] [place] [address], [address] [place] [address] OFFICE VISIT Date of Service: 04/07/25 MR#: [id number] Acct: [id number] Name: JUSITNO RENDON Suzan Rep #: [id number] : 2000 Provider: FAB Manzo Age/Sex: 24/F [place] [facility] [place]: Signed Intake Vital Signs 02/10/25 13:04 03/10/25 08:56 04/07/25 13:04 Height 5 ft 4 in 5 ft 4 in 5 ft 4 in Weight: 149 lb 2 oz BMI 25.6 BP 108/70 Intake Visit Reasons: 17wk ob Chief Complaint: 17 Week OB Spring Fitter Required: No Is patient in pain?: No Allergies No Known Allergies Allergy (Verified 04/07/25 13:05) Medications ?Medication ?Instructions ?Recorded ?Confirmed ?Type docosahexaenoic acid 200 mg mg PO 01/24/25 04/07/25 Hi story capsule ( DHA) magnesium 250 mg tablet 250 mg PO QDAY 04/07/2503/15 History Last Menstrual Period: 12/08/24 Zika: Zika virus screening: Negative : No PFSH PFSH Medical History H/O: hypertension POTS (postural orthostatic tachycardia syndrome) Surgical History S/P wisdom tooth extraction History of shoulder surgery Family History Father Diabetes Mother Age: 56 Breast cancer Grandmother Breast cancer Social History adopted: No household members: spouse and children housing: house number of children: 1 current occupational status: employed current occupation: [employer]- [employer] current occupational exposures/hazards: No pets and animals: Yes pets and animals: dog(s) history of recent travel: Yes ([place] - December 2024) out of state: Yes [...] 1-2 times per week duration: 15-30 minutes/day deric/bahai: Advent seatbelt use: always do you feel safe at home: Yes 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 Date Name GA/Weeks Outcome Route Bth Weight [facility]/23/23 Doan 39 live - full term vacuum 7lbs 11oz Male epidural Logan Parada 07/15/24 Chemical 5 spontaneous Delivery Date: 05/23/23 Last Updated by: Yeimi Anthony RN Pre-e, lingering pp htn x4mo HPI 17wk ob Details: JUSTINO RENDON is a 24 year old who presents for routine OB visit. OB Visit VICKY Calculator Estimated Delivery Date Method Current WG Current Estimate 09/14/25 LMP (Certain) 17w 1d Expected Delivery Route/Plan Labor Preferences- CB/BF classes: [...] current plan of care details and appropriate ordersplaced. Relevant counseling for the gestational age provided. [...] genetics. baseline pec labs added for hx. 03/10/25 -?-?-?-?-?-?-?-?-?-?-?-?- 13w 1d 148 lb 2 oz (-3 lb 14 oz) 110/73 Negative -?-?-?-?-?-?-?-?-?-?-?-?- Negative 156 -?-?-?-?-?-?-?-?-?-?-?-?- JV- Heart tones only today. c/o constipation. discussed miralax + metamucil + stool softener and use of preparation H for hemorrhoids. JV- Heart tones only today. c/o constipation. discussed miralax + metamucil + stool softener and use of preparation H for hemorrhoids. Low risk male on NIPT 04/07/25 -?-?-?-?-?-?-?-?-?-?-?-?- 17w 1d 149 lb 2 oz (-2 lb 14 oz) 108/70 Negative -?-?-?-?-?-?-?-?-?-?-?-?- Negative 146 -?-?-?-?-?-?-?-?-?-?-?-?- KW- no vb/crampi ng. passed out 2 times on thursday d/t POTS. will contact Cardiology to see about medication to help with this- was on medication prior to . Has MFMUS scheduled. still struggling with constipation. ACOG First Trimester First Trimester: Desire for , Alcohol, Tobacco Cessation, Illicit/Recreational Drug/Substance Use, Intimate Partner Violence, Barriers to care, Unstable Housing, Communication Barriers, Environmental/Work Hazards, Anticipated Course of Care, Toxoplasmosis Precations, Use of Any med ications, Sexual activity, Exercise, Dental Care, Sauna/Hot tub use, Seat Belt use, Childbirth classes/Hospital facilities, Travel, Indications for Ultrasound and Screening for Aneuploidy; Discussed ROS Const Reports system reviewed and no additional complaints, except as documented Eyes Reports system reviewed and no additional complaints, except as documented ENT Reports system reviewed and no additional complaints, except as documented Card Reports system reviewed and no additional complaints, except as documented Resp Reports system reviewed and no additional complaints, except as documented GI Reports system reviewed and no additional complaints, except as documented, Denies nausea and Denies vomiting Reports system reviewed and no additional complaints, except as documented Musc Reports system reviewed and no additional complaints, except as documented Skin/Breast Reports system reviewed and no additional complaints, except as documented Neuro Yes system reviewed and no additional complaints, except as documented Psych Reports system reviewed and no additional complaints, except as documented Endo Reports system reviewed and no additional complaints, except as documented Pérez/Lymph Reports system reviewed and no additional complaints, except as documented Aller/Immun Reports system reviewed and no additional complaints, except as documented Exam Const General: cooperative, healthy appearing and no acute distress Orientation: alert, awake and oriented x3 Neck Neck: normal visual inspection and full ROM Resp Effort & Inspection: normal respiratory effort, able to speak in complete sentences and symmetric chest movement GI Inspection: normal to inspection Palpation: soft and other Other: gravid Skin General: no rashes or lesions noted Neuro General: patient alert, patient awake and patient oriented x3 Cognition: normal cognition Speech: speech normal Gait: normal gait Motor: muscle tone normal throughout Extrem General: normal to inspection and full ROM Psych Appearance: grossly normal Mental Status: mental status grossly normal Mood: congruent mood Affect: normal affect Speech and Movement: speech and movement normal Attitude: cooperative Thought Process: normal Thought Content: normal Judgment: judgment good Results POC Urinalysis 2 Dip (Clinic) Office Urine Glucose Negative Last Edit by Maryjane Yang on 04/07/25 13 :11 Office Urine Protein Negative Last Edit by Maryjane Yang on 04/07/25 13 :11 Coding Level of Care Code OB Routine Diagnoses 17 weeks gestation of Z3A.17 Weeks of gestation: 17 weeks Supervision of high-risk O09.90 History of miscarriage, currently O09.299 History of pre-eclampsia in prior , currently O09.299 POTS (postural orthostatic tachycardia syndrome) G90.A Assessment and Plan Assessment and Plan (1) : Status: Acute Qualifiers: Weeks of gestation: 17 weeks Qualified Code(s): Z3A.17 - 17 weeks gestation of Comment: Discussed genetic/carrier testing - undecided (2) Supervision of high-risk : Status: Acute Comment: ; VICKY 09/14/25; PC: Franki; : Tal (3) History of miscarriage, currently : Status: Acute Comment: chemical - Jul 2024 (4) History of pre-eclampsia in prior , currently : Status: Acute Comment: Pre-e baseline labs ordered w/NOB; Baby ASA @ 12-28weeks (5) POTS (postural orthostatic tachycardia syndrome): Status: Acute Comment: On Cardizem - stopped prior to , pt will talk with cardiology about new med Orders: Orders POC Urinalysis 2 Dip (Clinic) Today Plan Details Additional Comments: ACOG trimester education reviewed and updated. see problem list details for updated plan management information and see below for orders placed atthis visit. GA appropriate handout given. 04/07/25 1325 s CNM> Date _ Olga Manzo CNM Cosigner Signature: Date (if applicable) CC: ~ [facility]06-27-2025 Evaluation note* Diagnosis Onset Date Resolution Status Admit Date History of miscarriage, currently acute March 10 8:52am History of pre-eclampsia in prior , currently acute March 10, 2025 8:52am POTS (postural orthostatic tachycardia syndrome) acute March 10, 2025 8:52am acute March 10 8:52am Supervision of high-risk acute March 10, 2025 8:52am History of miscarriage, currently acute April 07 12:56pm History of pre-eclampsia in prior , currently acute April 07, 2025 12:56pm POTS (postural orthostatic tachycardia syndrome) acute April 07, 2025 12:56pm acute April 07 12:56pm Supervision of high-risk acute April 07, 2025 12:56pm History of miscarriage, currently acute May 03, 2025 12:58pm History of pre-eclampsia in prior , currently acute May 03 12:58pm POTS (postural orthostatic tachycardia syndrome) acute April 12:58pm acute May 03, 025 12:58pm Supervision of high-risk acute May 03 12:58pm History of miscarriage, currently acute May 2:44pm History of pre-eclampsia in prior , currently acute May 29, 2025 2:44pm POTS (postural orthostatic tachycardia syndrome) acute May 29, 2025 2:44pm acute May 2:44pm Supervision of high-risk acute May 29, 2025 2:44pm Decreased movement acute June 19, 2025 3:21pm History of miscarriage, currently acute June 19, 2025 3:21pm History of pre-eclampsia in prior , currently acute June 19 3:21pm POTS (postural orthostatic tachycardia syndrome) acute June 3:21pm acute June 19, 2 025 3:21pm Supervision of high-risk acute June 19 3:21pm [facility] Work Phone: 1(725) 213-124205-30-2025 Evaluation note* Diagnosis Onset Date Resolution Status Admit Date History of miscarriage, currently acute February 10 1:02pm History of pre-eclampsia in prior , currently acute February 10, 2025 1 :02pm POTS (postural orthostatic tachycardia syndrome) acute February 10, 2025 1:02pm acute February 10, 2025 1:02pm Supervision of high-risk acute February 10, 2025 1 :02pm History of miscarriage, currently acute March 10 8:52am History of pre-eclampsia in prior , currently acute March 10, 2025 8:52am POTS (postural orthostatic tachycardia syndrome) acute March 10, 2025 8:52am acute March 10 8:52am Supervision of high-risk acute March 10, 2025 8:52am History of miscarriage, currently acute April 07 12:56pm History of pre-eclampsia in prior , currently acute April 07, 2025 12:56pm POTS (postural orthostatic tachycardia syndrome) acute April 07, 2025 12:56pm acute April 07 12:56pm Supervision of high-risk acute April 07, 2025 12:56pm History of miscarriage, currently acute May 03, 2025 12:58pm History of pre-eclampsia in prior , currently acute May 03 12:58pm POTS (postural orthostatic tachycardia syndrome) acute April 12:58pm acute May 03, 2 025 12:58pm Supervision of high-risk acute May 03 12:58pm History of miscarriage, currently acute May 2:44pm History of pre-eclampsia in prior , currently acute May 29, 2025 2:44pm POTS (postural orthostatic tachycardia syndrome) acute May 29, 2025 2:44pm acute May 2:44pm Supervision of high-risk acute May 29, 2025 2:44pm [facility] Work Phone: 1(556) 614-664205-30-2025 [facility] [address] [place] [address], [address] [place] [address] OFFICE VISIT Date of Service: 02/10/25 MR#: [id number] Acct: [id number] Name: JUSTINO RENDON Rep #: [id number] : 2000 Provider: FAB Jacob Age/Sex: 24/F [place] [facility] [place]: Signed Intake Vital Signs 01/12/25 14:16 01/24/25 11:38 02/10/25 13:04 Height 5 ft 4 in 5 ft 4 in 5 ft 4 in Weight: 152 lb BMI 26.1 BP 120/76 Intake Visit Reasons: NOB LMP 12/08 Spring Fitter Required: No Is patient in pain?: No [...] 1 current occupational status: employed 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 Date Name GA/Weeks Outcome Route Bth Weight Gen Labor Lgth Anesthesia Del Locatn Provider FOB 05/23/23 Doan 39 live - full term vacuum 7lbs 11oz Male epidural [place] Tal 07/15/24 Chemical 5 spontaneous Delivery Date: 05/23/23 Last Updated by: Yeimi Anthony RN Pre-e, lingering pp htn x4mo HPI NOB LMP 12/08 [...] current plan of care details and appropriate ordersplaced. Relevant counseling for the gestational age provided. [...] Pulmonary (e.g.,TB,Asthma), Seasonal allergies, Drug/latex allergies/reactions, Breast, Behavior Analyst surgery, Operations/hospitalizations, Anesthetic complications, History of abnormal [...] information and see below for orders placed atthis visit. GA appropriate handout given. Clinical Quality Measures Falls Risk Screening/Assistive Devices Have you fallen in the past year?: No 02/10/25 1342 ns CNM> Date _ Araseli Jacob CNM Cosigner Signature: Date (if applicable) CC: ~ [facility]05-01-2025 Evaluation note* Diagnosis Onset Date Resolution Status Admit Date Encounter for routine gynecological examination noneactive January 2:05pm [facility] Work Phone: 1(686) 948-209205-01-2025 Evaluation note* Diagnosis Onset Date Resolution Status Admit Date Encounter for routine gynecological examination noneactive January 2:05pm History of miscarriage, currently acute February 10 1:02pm History of pre-eclampsia in prior , currently acute February 10, 2025 1 :02pm POTS (postural orthostatic tachycardia syndrome) acute February 10, 2025 1:02pm acute February 10, 2025 1:02pm Supervision of high-risk acute February 10, 2025 1 :02pm [facility] Work Phone: 1([phone]) 648-916005-01-2025 Evaluation note* Diagnosis Onset Date Resolution Status Admit Date Encounter for routine gynecological examination noneactive January 2:05pm History of miscarriage, currently acute February 10 1:02pm History of pre-eclampsia in prior , currently acute February 10, 2025 1 :02pm POTS (postural orthostatic tachycardia syndrome) acute February 10, 2025 1:02pm acute February 10, 2025 1:02pm Supervision of high-risk acute February 10, 2025 1 :02pm History of miscarriage, currently acute March 10 8:52am History of pre-eclampsia in prior , currently acute March 10, 2025 8:52am POTS (postural orthostatic tachycardia syndrome) acute March 10, 2025 8:52am acute March 10 8:52am Supervision of high-risk acute March 10, 2025 8:52am [facility] Work Phone: 1(194) 557-571805-01-2025 Evaluation note* Diagnosis Onset Date Resolution Status Admit Date Encounter for routine gynecological examination noneactive January 2:05pm History of miscarriage, currently acute February 10 1:02pm History of pre-eclampsia in prior , currently acute February 10, 2025 1 :02pm POTS (postural orthostatic tachycardia syndrome) acute February 10, 2025 1:02pm acute February 10, 2025 1:02pm Supervision of high-risk acute February 10, 2025 1 :02pm History of miscarriage, currently acute March 10 8:52am History of pre-eclampsia in prior , currently acute March 10, 2025 8:52am POTS (postural orthostatic tachycardia syndrome) acute March 10, 2025 8:52am acute March 10 8:52am Supervision of high-risk acute March 10, 2025 8:52am History of miscarriage, currently acute April 07 12:56pm History of pre-eclampsia in prior , currently acute April 07, 2025 12:56pm POTS (postural orthostatic tachycardia syndrome) acute April 07, 2025 12:56pm acute April 07 12:56pm Supervision of high-risk acute April 07, 2025 12:56pm [facility] Work Phone: 1(606) 374-119305-01-2025 Evaluation note* Diagnosis Onset Date Resolution Status Admit Date Encounter for routine gynecological examination noneactive January 2:05pm History of miscarriage, currently acute February 10 1:02pm History of pre-eclampsia in prior , currently acute February 10, 2025 1 :02pm POTS (postural orthostatic tachycardia syndrome) acute February 10, 2025 1:02pm acute February 10, 2025 1:02pm Supervision of high-risk acute February 10, 2025 1 :02pm History of miscarriage, currently acute March 10 8:52am History of pre-eclampsia in prior , currently acute March 10, 2025 8:52am POTS (postural orthostatic tachycardia syndrome) acute March 10, 2025 8:52am acute March 10 8:52am Supervision of high-risk acute March 10, 2025 8:52am History of miscarriage, currently acute April 07 12:56pm History of pre-eclampsia in prior , currently acute April 07, 2025 12:56pm POTS (postural orthostatic tachycardia syndrome) acute April 07, 2025 12:56pm acute April 07 12:56pm Supervision of high-risk acute April 07, 2025 12:56pm History of miscarriage, currently acute May 03, 2025 12:58pm History of pre-eclampsia in prior , currently acute May 03 12:58pm POTS (postural orthostatic tachycardia syndrome) acute April 12:58pm acute May 03, 025 12:58pm Supervision of high-risk acute May 03 12:58pm [facility] Work Phone: 1([phone]) 334-635804-14-2025 History of Present illness Narrative* Dereck Geller, PROJECT LEAD-CLINICAL LAB ASSISTANT - 12/26/2024 2:30 PM EDT Images from the original note were not included. [facility] Cardiology Clinic Visit Note History of present [...] hospital encounter of 10/12/24 [id number], TRANSTHORACIC ECHOCARDIOGRAM REPORT Patient Name: JUSTINO Taylor Physician: [id number] Sam Garcia MD Study Date: 10/12/2024 Ordering Provider: [id number] BENY STEWART MRN/PID: [id number] Fellow: Nurse: Sharmila Thurman RN Date of /Age: 9 2000 Software Release Manager: Roberto Proctor RDCS years Gender Assigned at F Additional Staff: : Height: 160.02 cm Admit Date: Weight: 66.23 kg Admission Status: Outpatient BSA / BMI: 1.69 m2 / 25.86 Department Location: [facility] Echo Lab kg/m2 Blood Pressure: 102 /72 mmHg Study Type: TRANSTHORACIC ECHO (TTE) COMPLETE Diagnosis/ICD: Dizziness and giddiness-R42 CPT Codes: Echo Complete w Full Doppler-69894 Study Detail: The following Echo studies were [...] LA Area A2C: 9.0 cm2 LA Major [place] A4C: 4.4 cm LA Major [place] A2C: 4.4 cm LA Volume Index: 11.4 [...] RV Syst Pressure: 15 mmHg (< 30mmHg) [id number] Sam Garcia MD Electronically signed on 10/13/2024 at 9:07:36 PM Final The ASCVD Risk score (Jay DK, et al., 2019) failed to calculate [...] been made to prevent any error in flanging roll operator, however minor errors may be present Dereck Geller, MSN, CLINICAL LAB ASSISTANT, ACNPC, CCRN Advanced Practice Provider, Nurse Practitioner Division of Cardiovascular Medicine [facility] Work Phone: 1(160) 711-761304-03-2025 Miscellaneous Notes* Post-Procedure Note - Patrick Armenta MD - 12/15/2024 8:00 AM EDT Physician Transition of Care Summary Invasive Cardiovascular Lab Procedure Date: 12/15/2024 Attending: * No surgeons found in log * Resident/Fellow/Other Data Report Analyst: * No surgeons found in log * [...] MD, 12/15/2024 2:52 PM documented in this [facility] Work Phone: 1(255) 629-754804-03-2025 Surgery Postoperative evaluation and management note* Post-Procedure Note - Patrick Armenta MD - 12/15/2024 8:00 AM EDT Physician Transition of Care Summary Invasive Cardiovascular Lab Procedure Date: 12/15/2024 Attending: * No surgeons found in log * Resident/Fellow/Other Data Report Analyst: * No surgeons found in log * [...] by: Patrick Armenta MD, 12/15/2024 2:52 PM [facility] Work Phone: 1([phone]) 189-116603-17-2025 History of Present illness Narrative* Beny Stewart PA-C - 11/28/2024 2:40 PM EDT Subjective [...] Behavior: Behavior normal. Testing Component Latest Ref Rng 10/22/2024 WHITE BLOOD CELL COUNT 3.8 - [...] table Referral to cardio [facility] Work Phone: 1(814) 323-651301-29-2025 Note* Significant Event - Araseli Thurman RN - 10/12/2024 1:08 PM EST 10ml of saline given for bubble study per stage technician instruction [facility]01-29-2025 Miscellaneous Notes* Significant Event - Araseli Thurman RN - 10/12/2024 1:08 PM EST 10ml of saline given for bubble study per stage technician instruction [facility] Work Phone: [phone]) 862-310101-15-2025 History of Present illness Narrative* Beny Stewart PA-C - 09/28/2024 2:00 PM EST Subjective Patient ID: Justino Rendon is a 24 y.o. female who presents for New Patient Visit (NEW PATIENT TO [facility] - MOVED TO THE AREA FROM [place] 1 YEAR AGO. C/O LEFT SHOULDER PAIN [...] (Completed) Transthoracic Echo Complete Holter Or Event Stacker Straightener Chronic left shoulder pain M25.512, G89.29 Relevant Orders XR shoulder left 2+ views Referral to Orthopaedic Surgery Vitamin D deficiency E55.9 Relevant Orders Vitamin D 25-Hydroxy,Total (for eval of Vitamin D levels) Heart palpitations R00.2 Relevant Orders ECG 12 Lead (Completed) Transthoracic Echo Complete Holter Or Event Stacker Straightener History of pre-eclampsia Z87.59 Other Visit Diagnoses Codes Encounter to establish care with new doctor - Primary Z76.89 Dizziness R42 Relevant Orders CBC and Auto Differential Comprehensive Metabolic Panel Lipid Panel Thyroid Stimulating Hormone Thyroxine, Free Iron and TIBC Ferritin Magnesium Vitamin B12 Vitamin D 25-Hydroxy,Total (for eval of Vitamin D levels) ECG 12 Lead (Completed) Transthoracic Echo Complete Holter Or Event Stacker Straightener Fatigue, unspecified type R53.83 Relevant Orders CBC and Auto Differential Comprehensive Metabolic Panel Lipid Panel Thyroid Stimulating Hormone Thyroxine, Free Iron and TIBC Ferritin Magnesium Vitamin B12 Vitamin D 25-Hydroxy,Total (for eval of Vitamin D levels) ECG 12 Lead (Completed) Transthoracic Echo Complete Holter Or Event Stacker Straightener FU in 1-2 mo with labs at [facility] fasting and med check Echo, monitor Ortho referral [facility] Work Phone: 1([phone]) 382-127811-25-2024 Emergency department Note* Brady Yang, - 08/08/2024 9:10 AM EST HPI Chief [...] form of control. History provided by: Patient lang interpreter used: No Patient History History reviewed. No pertinent past medical history. History reviewed. No pertinent surgical history. No family history on file. Social History Tobacco Use Smoking status: Never Smokeless tobacco: Never Substance Use Topics Alcohol use: Never Drug use: Never Physical Exam ED Triage Vitals Temperature Heart Rate Respirations BP 08/08/24 0914 08/08/24 0917 08/08/24 0914 08/08/24916 36.7 C (98 F) (!) 104 18 [...] this time. She will be referred to BOTTLING MACHINE OPERATOR and instructed to return for any other ongoing concerns. Procedure Procedures Brady Yang DO 08/08/24 1131 documented in this [facility] Work Phone: 1([phone]) 106-722511-25-2024 Physician Emergency department Note* Brady Yang DO [...] form of control. History provided by: Patient lang interpreter used: No Patient History History reviewed. No [...] 08/08/24 1127 Vaginal bleeding No data recorded [place] Coma Scale Score: 15 (08/08/24 0915 : [...] this time. She will be referred to BOTTLING MACHINE OPERATOR and instructed to return for any other ongoing concerns. Procedure Procedures Brady Yang DO 08/08/24 1131 [facility] Work Phone: Evaluation note* Diagnosis Vaginal bleeding- Primary Other specified noninflammatory disorder of vagina documented in this encounter [facility] Work Phone: Evaluation note* Diagnosis Encounter to establish care with new doctor- Primary Chronic left shoulder pain Pain in joint, shoulder region Vitamin D deficiency Tachycardia Unspecified tachycardia Dizziness Dizziness and giddiness Fatigue, unspecified type Heart palpitations Palpitations History of pre-eclampsia documented in this encounter [facility] Work Phone: Evaluation note* Diagnosis Tachycardia Unspecified tachycardia Dizziness Dizziness and giddiness Fatigue, unspecified type Heart palpitations Palpitations documented in this encounter [facility] Work Phone: Evaluation note* Diagnosis Tachycardia Unspecified tachycardia Dizziness Dizziness and giddiness Fatigue, unspecified type Heart palpitations Palpitations documented in this encounter [facility] Work Phone: Evaluation note* Diagnosis Vitamin D deficiency- Primary Tachycardia Unspecified tachycardia Heart palpitations Palpitations Dizziness Dizziness and giddiness Low ferritin Other nonspecific findings on examination of blood Chronic left shoulder pain Pain in joint, shoulder region Left shoulder pain, unspecified chronicity documented in this encounter [facility] Work Phone: Evaluation note* Diagnosis Tachycardia Unspecified tachycardia Heart palpitations Palpitations Dizziness Dizziness and giddiness documented in this encounter [facility] Work Phone: Evaluation note* Diagnosis Heart palpitations- Primary Palpitations Tachycardia Unspecified tachycardia Dizziness Dizziness and giddiness POTS (postural orthostatic tachycardia syndrome) Unspecified tachycardia documented in this encounter [facility] Work Phone: Hospital Discharge instructions* Attachments The following attachments cannot be sent through Care Everywhere. * Menstruation (Serbian) [facility] Work Phone: Progress note Author Araseli Jacob [facility] Note Date/Time February 10, 2025 1:42p [facility] [address], [address] [place] [address] OFFICE VISIT Date of Service: 02/10/25 MR#: [id number] Acct: [id number] Name: JUSTINO RENDON Rep #: [id number] : 2000 Provider: FBA Jacob Age/Sex: 24/F [place] [facility] [place]: Signed Intake Vital Signs 01/12/25 14:16 01/24/25 11:38 02/10/25 13:04 Height 5 ft 4 in 5 ft 4 in 5 ft 4 in Weight: 152 lb BMI 26.1 BP 120/76 Intake Visit Reasons: NOB LMP 12/08 Spring Fitter Required: No Is patient in pain?: No [...] 1 current occupational status: employed 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 Date Name GA/Weeks Outcome Route Bth Weight Gen Labor Lgth Anesthesia Del Locatn Provider FOB 05/23/23 Doan 39 live - full term vacuum 7lbs 11oz Male epidural [place] Tal 07/15/24 Chemical 5 spontaneous Delivery Date: 05/23/23 Last Updated by: Yeimi Anthony RN Pre-e, lingering pp htn x4mo HPI NOB LMP 12/08 [...] Pulmonary (e.g.,TB,Asthma), Seasonal allergies, Drug/latex allergies/reactions, Breast, Behavior Analyst surgery, Operations/hospitalizations, Anesthetic complications, History of abnormal [...] fallen in the past year?: No 02/10/25 1342 <Electronically signed by Araseli merino CNM> Date _ Araseli Jacob CNM Cosigner Signature: Date (if applicable) CC: ~ [facility] Work Phone: Progress note Author Olga Manzo [facility] Note Date/Time April 07, 2025 1:25 pm [facility] [address], [address] [place] [address] OFFICE VISIT Date of Service: 04/07/25 MR#: [id number] Acct: [id number] Name: JUSTINO RENDON Rep #: [id number] : 2000 Provider: FAB Manzo Age/Sex: 24/F [place] [facility] [place]: Signed Intake Vital Signs 02/10/25 13:04 03/10/25 08:56 04/07/25 13:04 Height 5 ft 4 in 5 ft 4 in 5 ft 4 in Weight: 149 lb 2 oz BMI 25.6 BP 108/70 Intake Visit Reasons: 17wk ob Chief Complaint: 17 Week OB Spring Fitter Required: No Is patient in pain?: No Allergies No Known Allergies Allergy (Verified 04/07/25 13:05) Medications ?Medication ?Instructions ?Recorded ?Confirmed ?Type docosahexaenoic acid 200 mg mg PO 01/24/25 04/07/25 Hi story capsule ( DHA) magnesium 250 mg tablet 250 mg PO QDAY 04/07/2503/15 History Last Menstrual Period: 12/08/24 Zika: Zika virus screening: Negative : No PFSH PFSH Medical History H/O: hypertension POTS (postural orthostatic tachycardia syndrome) Surgical History S/P wisdom tooth extraction History of shoulder surgery Family History Father Diabetes Mother Age: 56 Breast cancer Grandmother Breast cancer Social History adopted: No household members: spouse and children housing: house number of children: 1 current occupational status: employed 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 Date Name GA/Weeks Outcome Route Bth Weight Gen Labor Lgth Anesthesia Del Locatn Provider FOB 05/23/23 Doan 39 live - full term vacuum 7lbs 11oz Male epidural [place] Tal 07/15/24 Chemical 5 spontaneous Delivery Date: 05/23/23 Last Updated by: Yeimi Anthony RN Pre-e, lingering pp htn x4mo HPI 17wk ob Details: JUSTINO RENDON is a 24 year old who presents for routine OB visit. OB Visit VICKY Calculator Estimated Delivery Date Method Current WG Current Estimate 09/14/25 LMP (Certain) 17w 1d Expected Delivery Route/Plan Labor Preferences- CB/BF classes: [...] genetics. baseline pec labs added for hx. 03/10/25 -?-?-?-?-?-?-?-?-?-?-?-?- 13w 1d 148 lb 2 oz (-3 lb 14 oz) 110/73 Negative -?-?-?-?-?-?-?-?-?-?-?-?- Negative 156 -?-?-?-?-?-?-?-?-?-?-?-?- JV- Heart tones only today. c/o constipation. discussed miralax + metamucil + stool softener and use of preparation H for hemorrhoids. JV- Heart tones only today. c/o constipation. discussed miralax + metamucil + stool softener and use of preparation H for hemorrhoids. Low risk male on NIPT 04/07/25 -?-?-?-?-?-?-?-?-?-?-?-?- 17w 1d 149 lb 2 oz (-2 lb 14 oz) 108/70 Negative -?-?-?-?-?-?-?-?-?-?-?-?- Negative 146 -?-?-?-?-?-?-?-?-?-?-?-?- KW- no vb/crampi ng. passed out 2 times on thursday d/t POTS. will contact Cardiology to see about medication to help with this- was on medication prior to . Has MFM US scheduled. still struggling with constipation. ACOG First Trimester First Trimester: Desire for , Alcohol, Tobacco Cessation, Illicit/Recreational Drug/Substance Use, Intimate Partner Violence, Barriers to care, Unstable Housing, Communication Barriers, Environmental/Work Hazards, Anticipated Course of Care, Toxoplasmosis Precations, Use of Any medications, Sexual activity, Exercise, Dental Care, Sauna/Hot tub use, Seat Belt use, Childbirth classes/Hospital facilities, Travel, Indications for Ultrasound and Screening for Aneuploidy; Discussed ROS Const Reports system reviewed and no additional complaints, except as documented Eyes Reports system reviewed and no additional complaints, except as documented ENT Reports system reviewed and no additional complaints, except as documented Card Reports system reviewed and no additional complaints, except as documented Resp Reports system reviewed and no additional complaints, except as documented GI Reports system reviewed and no additional complaints, except as documented, Denies nausea and Denies vomiting Reports system reviewed and no additional complaints, except as documented Musc Reports system reviewed and no additional complaints, except as documented Skin/Breast Reports system reviewed and no additional complaints, except as documented Neuro Yes system reviewed and no additional complaints, except as documented Psych Reports system reviewed and no additional complaints, except as documented Endo Reports system reviewed and no additional complaints, except as documented Pérez/Lymph Reports system reviewed and no additional complaints, except as documented Aller/Immun Reports system reviewed and no additional complaints, except as documented Exam Const General: cooperative, healthy appearing and no acute distress Orientation: alert, awake and oriented x3 Neck Neck: normal visual inspection and full ROM Resp Effort & Inspection: normal respiratory effort, able to speak in complete sentences and symmetric chest movement GI Inspection: normal to inspection Palpation: soft and other Other: gravid Skin General: no rashes or lesions noted Neuro General: patient alert, patient awake and patient oriented x3 Cognition: normal cognition Speech: speech normal Gait: normal gait Motor: muscle tone normal throughout Extrem General: normal to inspection and full ROM Psych Appearance: grossly normal Mental Status: mental status grossly normal Mood: congruent mood Affect: normal affect Speech and Movement: speech and movement normal Attitude: cooperative Thought Process: normal Thought Content: normal Judgment: judgment good Results POC Urinalysis 2 Dip (Clinic) Office Urine Glucose Negative Last Edit by Maryjane Yang on 04/07/25 13 :11 Office Urine Protein Negative Last Edit by Maryjane Yang on 04/07/25 13 :11 Coding Level of Care Code OB Routine Diagnoses 17 weeks gestation of Z3A.17 Weeks of gestation: 17 weeks Supervision of high-risk O09.90 History of miscarriage, currently O09.299 History of pre-eclampsia in prior , currently O09.299 POTS (postural orthostatic tachycardia syndrome) G90.A Assessment and Plan Assessment and Plan (1) : Status: Acute Qualifiers: Weeks of gestation: 17 weeks Qualified Code(s): Z3A.17 - 17 weeks gestation of Comment: Discussed genetic/carrier testing - undecided (2) Supervision of high-risk : Status: Acute Comment: ; VICKY 09/14/25; PC: Franki; : Tal (3) History of miscarriage, currently : Status: Acute Comment: chemical - Jul 2024 (4) History of pre-eclampsia in prior , currently : Status: Acute Comment: Pre-e baseline labs ordered w/NOB; Baby ASA @ 12-28weeks (5) POTS (postural orthostatic tachycardia syndrome): Status: Acute Comment: On Cardizem - stopped prior to , pt will talk with cardiology about new med Orders: Orders POC Urinalysis 2 Dip (Clinic) Today Plan Details Additional Comments: ACOG trimester education reviewed and updated. see problem list details for updated plan management information and see below for orders placed at this visit. GA appropriate handout given. 04/07/25 1329 <Electronically signed by Olga mcdaniel CNM> Date _ Olga CORDONFabrice Hightowerigner Signature: Date (if applicable) CC: ~ [facility] Work Phone: Progress note Author Alyssia Monzon [facility] Note Date/Time May 03, 2025 1: 27pm [facility] [address] [place] [address], [address] [place] [address] OFFICE VISIT Date of Service: 05/03/25 MR#: [id number] Acct: [id number] Name: JUTSINO RENDON Rep #: [id number] : 2000 Provider: Dr. Radha Moss DO Age/Sex: 24/F [place] [facility] [place]: Signed Intake Vital Signs 02/10/25 13:04 04/07/25 13:04 05/03/25 13:11 05/03/25 13:11 Height 5 ft 4 in 5 ft 4 in 5 ft 4 in 5 ft 4 in Weight: 155 lb 5 oz BMI 26.6 BP 111/71 Intake Visit Reasons: 21wk ob Spring Fitter Required: No Is patient in pain?: No Allergies No Known Allergies Allergy (Verified 05/03/25 13:11) Medications ?Medication ?Instructions ?Recorded ?Confirmed ?Type docosahexaenoic acid 200 mg mg PO 01/24/25 05/03/25 Hi story capsule ( DHA) magnesium 250 mg tablet 250 mg PO QDAY 04/07/2504/15 History Last Menstrual Period: 12/08/24 Zika: Zika virus screening: Negative : No PFSH PFSH Medical History H/O: hypertension POTS (postural orthostatic tachycardia syndrome) Surgical History S/P wisdom tooth extraction History of shoulder surgery Family History Father Diabetes Mother Age: 57 Breast cancer Grandmother Breast cancer Social History adopted: No household members: spouse and children housing: house number of children: 1 current occupational status: employed 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 Date Name GA/Weeks Outcome Route Bth Weight Infant Gen Labor Lgth Anesthesia Del Locatn Provider FOB 05/23/23 Doan 39 live - full term vacuum 7lbs 11oz Male epidural [place] Tal 07/15/24 Chemical 5 spontaneous Delivery Date: 05/23/23 Last Updated by: Yeimi Anthony RN Pre-e, lingering pp htn x4mo HPI 21wk ob Details: JUSTINO RENDON is a 24 year old who presents for routine OB visit. OB Visit VICKY Calculator Estimated Delivery Date Method Current WG Current Estimate 09/14/25 LMP (Certain) 20w 6d Expected Delivery Route/Plan Labor Preferences- CB/BF classes: [...] genetics. baseline pec labs added for hx. 03/10/25 -?-?-?-?-?-?-?-?-?-?-?-?- 13w 1d 148 lb 2 oz (-3 lb 14 oz) 110/73 Negative -?-?-?-?-?-?-?-?-?-?-?-?- Negative 156 -?-?-?-?-?-?-?-?-?-?-?-?- JV- Heart tones only today. c/o constipation. discussed miralax + metamucil + stool softener and use of preparation H for hemorrhoids. JV- Heart tones only today. c/o constipation. discussed miralax + metamucil + stool softener and use of preparation H for hemorrhoids. Low risk male on NIPT 04/07/25 -?-?-?-?-?-?-?-?-?-?-?-?- 17w 1d 149 lb 2 oz (-2 lb 14 oz) 108/70 Negative -?-?-?-?-?-?-?-?-?-?-?-?- Negative 146 -?-?-?-?-?-?-?-?-?-?-?-?- KW- no vb/crampi ng. passed out 2 times on thursday d/t POTS. will contact Cardiology to see about medication to help with this- was on medication prior to . Has M US scheduled. still struggling with constipation. 05/03/25 -?-?-?-?-?-?-?-?-?--?-?-?- 20w 6d 155 lb 5 oz (+3 lb 5 oz) 111/71 -?-?-?-?-?-?-?-?-?-?-?-?- 157 -?-?-?-?-?-?-?-?-?-?-?-?- JV- feeling over all better. still having intermittent constipation. anatomy scan reviewed. ACOG First Trimester First Trimester: Desire for , Alcohol, Tobacco Cessation, Illicit/Recreational Drug/Substance Use, Intimate Partner Violence, Barriers to care, Unstable Housing, Communication Barriers, Environmental/Work Hazards, Anticipated Course of Care, Toxoplasmosis Precations, Use of Any medications, Sexual activity, Exercise, Dental Care, Sauna/Hot tub use, Seat Belt use, Childbirth classes/Hospital facilities, Travel, Indications for Ultrasound and Screening for Aneuploidy; Discussed Coding Level of Care Code OB Routine Diagnoses History of miscarriage, currently O09.299 Supervision of high-risk O09.90 20 weeks gestation of Z3A.20 Weeks of gestation: 20 weeks History of pre-eclampsia in prior , currently O09.299 POTS (postural orthostatic tachycardia syndrome) G90.A Assessment and Plan Assessment and Plan (1) History of miscarriage, currently : Status: Acute Comment: chemical - Jul 2024 (2) Supervision of high-risk : Status: Acute Comment: ; VICKY 09/14/25; PC: Franki; : Tal (3) : Status: Acute Qualifiers: Weeks of gestation: 20 weeks Qualified Code(s): Z3A.20 - 20 weeks gestation of Comment: Discussed genetic/carrier testing - undecided, normal anatomy (4) History of pre-eclampsia in prior , currently : Status: Acute Comment: Pre-e baseline labs ordered w/NOB; Baby ASA @ 12-28weeks (5) POTS (postural orthostatic tachycardia syndrome): Status: Acute Comment: On Cardizem - stopped prior to , pt will talk with cardiology about new med Orders: Orders POC Urinalysis 2 Dip (Clinic) Today 05/03/25 1327 <Electronically signed by Alyssia Diggs DO> Date _ Alyssia Moss DO Cosigner Signature: Date (if applicable) CC: ~ [facility] Work Phone: Progress note Author Marialuisa Marshall [facility] Note Date/Time June 19, 2025 6: 24pm [facility] Medical Records Department [address] [facility] [place] [address] OB Triage Progress Note 06/19/25 1821 MR#: [id number] Acct: [id number] Name: JUSTINO RENDON Rep #:[id number] : 2000 25 From: Marialuisa castillo MD PCP: MITCH Duran Status:REG CLI Y DOS: Location: [place] [id number] Progress Notes Date of Service: 06/19/25 Progress Note: Patient presents for triage evaluation secondary to decreased movement FHT: 140 Moderate variability reactive no decelerations category I tracing [place]: no regular Contractions Assessment and plan: dec movement nl growth US done Reactive NST, reassuring maternal and status patient discharged to home to follow-up asscheduled. See problem list details for additional plan information. Laboratory Studies: Laboratory Tests 06/19/25 Range/Units 15:25 WBC 11.0 (4.4-11.0) K/mm3 RBC 3.57 L (4.2-5.4) M/mm3 Hgb 10.5 L (12.0-15.0) g/dL Hct 31.8 L (37-47) % MCV 89.1 (81-99) fL MCH 29.4 (27.0-32.0) pg MCHC 33.0 (32-36) g/dL RDW Std Deviation 42.0 (35.1-43.9) fl RDW Coeff of Arcenio 12.9 (11.6-14.6) % Plt Count 240 (150-450) K/mm3 MPV 9.8 (6.2-12.0) fl Immature Gran % (Auto) 0.800 (0.0-0.9) % Neut % (Auto) 69.4 (47-70) % Lymph % (Auto) 22.5 (19-41) % Hawkins % (Auto) 5.9 (0-10) % Eos % (Auto) 1.3 (0-5) % Baso % (Auto) 0.1 (0-1) % Absolute Neuts (auto) 7.7 (2.0-7.7) X10^3/uL Absolute Lymphs (auto) 2.48 (0.83-4.51) X10^3/uL Nucleated RBC % 0 (0-5) % Glucose 1 Hr 50 gm 131 (70-140) mg/dL Syphilis Total Ab Nonreactive (Nonreactive) HIV 1&2 Antibody Nonreactive (Nonreactive) Charges/Coding Procedures Urinary/Genital 52xxx-59xxx: 51562-37 non-stress test Interp 06/19/25 8949 <Electronically signed by Marialuisa kumar MD> Date _ Marialuisa Marshall MD Cosigner Signature (if applicable): Date CC: Dr. Marialuisa Marshall MD; MITCH Duran ~ 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 Beny Stewart PA-C [address] [place] [address] Phone: tel: fax: Referral ID Status Reason Start Date Expiration Date V isits Requested Visits Authorized [id number] Authorized 09/28/2024 09/28/2025 1 1 [facility] Work Phone: Reason for visit Narrative* CV Imaging (Routine) - Authorized Specialty Diagnoses / Procedures Referred By Contac t Referred To Contact Cardiology Diagnoses Tachycardia Dizziness Fatigue, unspecified type Heart palpitations Procedures Transthoracic Echo Complete DC ECHO TTHRC R-T 2D W/WOM-MODE COMPL SPEC&COLR D Beny Stewart PA-C [address] [place] [address] Phone: tel: fax: Referral ID Status Reason Start Date Expiration Date Visits Requested Visits Authorized [id number] Authorized Perform Procedure 09/28/2024 09/28/2025 1 1 [facility] Work Phone: Reason for visit Narrative* Cardiovascular (Routine) - Authorized Specialty Diagnoses / Procedures Referred By Contac t Referred To Contact Cardiology Diagnoses Tachycardia Heart palpitations Dizziness Procedures Tilt Table Beny Stewart PA-C Phone: tel: fax: Referral ID Status Reason Start Date Expiration Date V isits Requested Visits Authorized [id number] Authorized 11/28/2024 11/28/2025 1 1 [facility] Work Phone: Summary Purpose Family History No Family History Records Found Relationship Condition Age at Onset Recorded Date/T dotty father Diabetes mellitus Unknown mother Malignant neoplasm of breast Unknown grandmother Malignant neoplasm of breast Unknown Advance Directives No Advanced Directives Records FoundNo Advanced Directives Records FoundNo Advanced Directives Records FoundNo Advanced Directives Records FoundNo Advanced Directives Records Found Chief Complaint and Reason for Visit Chief Complaint 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 Date 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 12, 2025 2:05pm E ORDER January 14, 2025 3:05pm Reason for Visit Admit Date Encounter for routine gynecological exam ination January 12, 2025 2:05pm Chief Complaint Admit Date 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 12, 2025 2:05pm E ORDER January 14, 2025 3:05pm New ob/confirm /vitals January 10:55am Amb Documentation January 24, 2025 11:06 am Chief Complaint Admit Date 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 12, 2025 2:05pm E ORDER January [...] m Supervision of high-risk January 142024 1:02pm Chief Complaint Admit Date 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 12, 2025 2:05pm E ORDER January 14, 2025 3:05pm New ob/confirm /vitals January 10:55am Amb Documentation January 24, 2025 11:06 am NOB LMP 12/08February 10, 2025 1:02p m 13wk OB March 10, 2025 8:52 am Reason for Visit Admit Date Encounter for routine gynecological exam ination January 12, 2025 2:05pm History of miscarriage, currently pregna nt February 10, 2025 1:02pm History of pre-eclampsia in prior , currently February 10, 2025 1:02pm POTS (postural orthostatic tachycardia s yndrome) February 10, 2025 1:02pm February 10, 2025 1:02p m Supervision of high-risk January 142024 1:02pm History of miscarriage, currently pregna nt March 10, 2025 8:52am History of pre-eclampsia in prior , currently March 10, 2025 8:52am POTS (postural orthostatic tachycardia s yndrome) March 10, 2025 8:52am March 10, 2025 8:52 am Supervision of high-risk March 10, 2025 8:52am Chief Complaint Admit Date 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 12, 2025 2:05pm E ORDER January 14, 2025 3:05pm New ob/confirm /vitals January 10:55am Amb Documentation January 24, 2025 11:06 am NOB LMP 12/08February 10, 2025 1:02p m 13wk OB March 10, 2025 8:52 am 17wk ob April 07, 2025 12:5 6pm Reason for Visit Admit Date Encounter for routine gynecological exam ination January 12, 2025 2:05pm History of miscarriage, currently pregna nt February 10, 2025 1:02pm History of pre-eclampsia in prior , currently February 10, 2025 1:02pm POTS (postural orthostatic tachycardia s yndrome) February 10, 2025 1:02pm February 10, 2025 1:02p m Supervision of high-risk January 142024 1:02pm History of miscarriage, currently pregna nt March 10, 2025 8:52am History of pre-eclampsia in prior , currently March 10, 2025 8:52am POTS (postural orthostatic tachycardia s yndrome) March 10, 2025 8:52am March 10, 2025 8:52 am Supervision of high-risk March 10, 2025 8:52am History of miscarriage, currently pregna nt April 07, 2025 12:56pm History of pre-eclampsia in prior , currently April 07, 2025 12:56pm POTS (postural orthostatic tachycardia s yndrome) April 07, 2025 12:56pm April 07, 2025 12:5 6pm Supervision of high-risk April 07, 2025 12:56pm Chief Complaint Admit Date 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 12, 2025 2:05pm E ORDER January 14, 2025 3:05pm New ob/confirm /vitals January 10:55am Amb Documentation January 24, 2025 11:06 am NOB LMP 12/08February 10, 2025 1:02p m 13wk OB March 10, 2025 8:52 am 17wk ob April 07, 2025 12:5 6pm 21wk ob May 03, 2025 12 :58pm Reason for Visit Admit Date Encounter for routine gynecological exam ination January 12, 2025 2:05pm History of miscarriage, currently pregna nt February 10, 2025 1:02pm History of pre-eclampsia in prior , currently February 10, 2025 1:02pm POTS (postural orthostatic tachycardia s yndrome) February 10, 2025 1:02pm February 10, 2025 1:02p m Supervision of high-risk January 142024 1:02pm History of miscarriage, currently pregna nt March 10, 2025 8:52am History of pre-eclampsia in prior , currently March 10, 2025 8:52am POTS (postural orthostatic tachycardia s yndrome) March 10, 2025 8:52am March 10, 2025 8:52 am Supervision of high-risk March 10, 2025 8:52am History of miscarriage, currently pregna nt April 07, 2025 12:56pm History of pre-eclampsia in prior , currently April 07, 2025 12:56pm POTS (postural orthostatic tachycardia s yndrome) April 07, 2025 12:56pm April 07, 2025 12:5 6pm Supervision of high-risk April 07, 2025 12:56pm History of miscarriage, currently pregna nt May 03, 2025 12:58pm History of pre-eclampsia in prior , currently May 03, 2025 12:58pm POTS (postural orthostatic tachycardia s yndrome) May 03, 2025 12:58pm May 03, 2025 12 :58pm Supervision of high-risk Augus t 2024 12:58pm Chief Complaint Admit Date NOB LMP 12/08February 10, 2025 1:02p m 13wk OB March 10, 2025 8:52 am 17wk ob April 07, 2025 12:5 6pm 21wk ob May 03, 2025 12 :58pm 25 WK OB May 29, 2025 2:44pm Reason for Visit Admit Date History of miscarriage, currently pregna nt February 10, 2025 1:02pm History of pre-eclampsia in prior , currently February 10, 2025 1:02pm POTS (postural orthostatic tachycardia s yndrome) February 10, 2025 1:02pm February 10, 2025 1:02p m Supervision of high-risk January 142024 1:02pm History of miscarriage, currently pregna nt March 10, 2025 8:52am History of pre-eclampsia in prior , currently March 10, 2025 8:52am POTS (postural orthostatic tachycardia s yndrome) March 10, 2025 8:52am March 10, 2025 8:52 am Supervision of high-risk March 10, 2025 8:52am History of miscarriage, currently pregna nt April 07, 2025 12:56pm History of pre-eclampsia in prior , currently April 07, 2025 12:56pm POTS (postural orthostatic tachycardia s yndrome) April 07, 2025 12:56pm April 07, 2025 12:5 6pm Supervision of high-risk April 07, 2025 12:56pm History of miscarriage, currently pregna nt May 03, 2025 12:58pm History of pre-eclampsia in prior , currently May 03, 2025 12:58pm POTS (postural orthostatic tachycardia s yndrome) May 03, 2025 12:58pm May 03, 2025 12 :58pm Supervision of high-risk Augus t 2024 12:58pm History of miscarriage, currently pregna nt May 29, 2025 2:44pm History of pre-eclampsia in prior , currently May 29, 2025 2:44pm POTS (postural orthostatic tachycardia s yndrome) May 29, 2025 2:44pm May 29, 2025 2:44pm Supervision of high-risk Austyn melquiades 2024 2:44pm Chief Complaint Admit Date 13wk OB March 10, 2025 8:52 am 17wk ob April 07, 2025 12:5 6pm 21wk ob May 03, 2025 12 :58pm 25 WK OB May 29, 2025 2:44pm 28 WK OB/Glucose June 19, 2025 3: 21pm EXTENDED MONITORING June 19, 2025 3: 24pm EXTENDED MONITORING June 19, 2025 6: 21pm Reason for Visit Admit Date History of miscarriage, currently pregna nt March 10, 2025 8:52am History of pre-eclampsia in prior , currently March 10, 2025 8:52am POTS (postural orthostatic tachycardia s yndrome) March 10, 2025 8:52am March 10, 2025 8:52 am Supervision of high-risk March 10, 2025 8:52am History of miscarriage, currently pregna nt April 07, 2025 12:56pm History of pre-eclampsia in prior , currently April 07, 2025 12:56pm POTS (postural orthostatic tachycardia s yndrome) April 07, 2025 12:56pm April 07, 2025 12:5 6pm Supervision of high-risk April 07, 2025 12:56pm History of miscarriage, currently pregna nt May 03, 2025 12:58pm History of pre-eclampsia in prior , currently May 03, 2025 12:58pm POTS (postural orthostatic tachycardia s yndrome) May 03, 2025 12:58pm May 03, 2025 12 :58pm Supervision of high-risk Augus t 2024 12:58pm History of miscarriage, currently pregna nt May 29, 2025 2:44pm History of pre-eclampsia in prior , currently May 29, 2025 2:44pm POTS (postural orthostatic tachycardia s yndrome) May 29, 2025 2:44pm May 29, 2025 2:44pm Supervision of high-risk Austyn melquiades 2024 2:44pm Decreased movement June 19 3:21pm History of miscarriage, currently pregna nt June 19, 2025 3:21pm History of pre-eclampsia in prior , currently June 19, 2025 3:21pm POTS (postural orthostatic tachycardia s yndrome) June 19, 2025 3:21pm June 19, 2025 3: 21pm Supervision of high-risk Octob 2024 3:21pm Chief Complaint Admit Date 13wk OB March 10, 2025 8:52 am 17wk ob April 07, 2025 12:5 6pm 21wk ob May 03, 2025 12 :58pm 25 WK OB May 29, 2025 2:44pm 28 WK OB/Glucose June 19, 2025 3: 21pm EXTENDED MONITORING June 19, 2025 3: 24pm Chief Complaint Admit Date 17wk ob April 07, 2025 12:5 6pm 21wk ob May 03, 2025 12 :58pm 25 WK OB May 29, 2025 2:44pm 28 WK OB/Glucose June 19, 2025 3: 21pm EXTENDED MONITORING June 19, 2025 3: 24pm EXTENDED MONITORING June 19, 2025 6: 21pm 29 WK 4D OB July 03, 2025 3 :14pm 32wk ob July 20, 2025 3 :21pm Reason for Visit Admit Date History of miscarriage, currently pregna nt April 07, 2025 12:56pm History of pre-eclampsia in prior , currently April 07, 2025 12:56pm POTS (postural orthostatic tachycardia s yndrome) April 07, 2025 12:56pm April 07, 2025 12:5 6pm Supervision of high-risk April 07, 2025 12:56pm History of miscarriage, currently pregna nt May 03, 2025 12:58pm History of pre-eclampsia in prior , currently May 03, 2025 12:58pm POTS (postural orthostatic tachycardia s yndrome) May 03, 2025 12:58pm May 03, 2025 12 :58pm Supervision of high-risk Augus t 2024 12:58pm History of miscarriage, currently pregna nt May 29, 2025 2:44pm History of pre-eclampsia in prior , currently May 29, 2025 2:44pm POTS (postural orthostatic tachycardia s yndrome) May 29, 2025 2:44pm May 29, 2025 2:44pm Supervision of high-risk José Miguelpierre melquiades 2024 2:44pm Decreased movement June 19 3:21pm History of miscarriage, currently pregna nt June 19, 2025 3:21pm History of pre-eclampsia in prior , currently June 19, 2025 3:21pm POTS (postural orthostatic tachycardia s yndrome) June 19, 2025 3:21pm June 19, 2025 3: 21pm Supervision of high-risk Octob er 2024 3:21pm Decreased movement July 03, 025 3:14pm History of miscarriage, currently pregna nt July 03, 2025 3:14pm History of pre-eclampsia in prior , currently July 03, 2025 3:14pm POTS (postural orthostatic tachycardia s yndrome) July 03, 2025 3:14pm July 03, 2025 3 :14pm Supervision of high-risk Octob er 2024 3:14pm Decreased movement July 20, 025 3:21pm History of miscarriage, currently pregna nt July 20, 2025 3:21pm History of pre-eclampsia in prior , currently July 20, 2025 3:21pm POTS (postural orthostatic tachycardia s yndrome) July 20, 2025 3:21pm July 20, 2025 3 :21pm Supervision of high-risk Novem collin 2024 3:21pm Additional Source Comments Reason for Visit (unrecogniz ed section and content) Reason Comments Vaginal Bleeding - Pt found out she was yesterday by at home preg test. This morning patient started having bright red vaginal bleeding with clots. Called OB and they told her to come here. Reason Comments New Patient Visit NEW PATIENT TO [facility] - MOVED TO THE AREA FROM [place] 1 YEAR AGO. C/O LEFT SHOULDER PAIN - HISTORY OF SURGERY X 2. LIMITED ROM. C/O EPISODE X 2 OF RACING HEART WITH HEART RATE IN THE 150'S - EPISODES LAST APPROXIMATELY 20 MINUTES. Specialty Diagnoses / Procedures Referred By Marylu t Referred To Contact Diagnoses Tachycardia Dizziness Fatigue, unspecified type Heart palpitations Procedures ECG 12 Lead Beny Stewart PA-C [address] [place] [address] Phone: tel: fax: Referral ID Status Reason Start Date Expiration Date V isits Requested Visits Authorized [id number] Authorized 09/28/2024 09/28/2025 1 1 Reason Comments Follow-up 2 MONTH F/U WITH LAB S, HOLTER, ECHO. CONTINUES TO HAVE DIZZINESS AND HEART PALPITATIONS. LEFT SHOULDER PAIN REMAINS - NO XRAY DONE YET. Reason Comments Dizziness Palpitations TachycardiaNPV Specialty Diagnoses / Procedures Referred By Contleon t Referred To Contact Cardiology Diagnoses Tachycardia Heart palpitations Dizziness Beny Stewart PA-C Phone: tel: fax: Referral ID Status Reason Start Date Expiration Date Visits Requested Visits Authorized [id number] Authorized Specialty Services Required 11/28/2024 11/28/2025 1 1 Care Teams (unrecognized sec tion and content) Director Of Grants Relationship Specialty Start Date End Date Generic Provider, No Assigned P[place], [place] [address] PCP - General Funeral Director'S Assistant 08/08/24 Director Of Grants Relationship Specialty Start Date End Date Beny Stewart PA-C [address] [place] [address] PCP - General Internal Medicine 09/28/24 Director Of Grants Relationship Specialty Start Date End Date Beny Stewart PA-C [address] [place] [address] PCP - General Internal Medicine 09/28/24 Director Of Grants Relationship Specialty Start Date End Date Beny Stewart PA-C [address] [place] [address] PCP - General Internal Medicine 09/28/24 Director Of Grants Relationship Specialty Start Date End Date Beny Stewart PA-C [address] [place] [address] PCP - General Internal Medicine 09/28/24 Director Of Grants Relationship Specialty Start Date End Date Beny Stewart, PA-C [address] [place] [address] PCP - General Internal Medicine 09/28/24 Director Of Grants Relationship Specialty Start Date End Date Beny Stewart, PA-C [address] [place] [address] PCP - General Internal Medicine 09/28/24 Team [...] February 10, 2025 End: February 10, 2025 Beny Stewart PA, PA Primary Care Provider Active Start: February 10, 2025 End: February 10, 2025 Beny Stewart PA, PA Referring Provider Active Start: February 10, 2025 End: February 10, 2025 Team Status: Inactive Member Role Status Dates Beny Stewart PA, PA Primary Care Provider Active Start: February 10, 2025 End: February 10, 2025 Araseli Jacob CNM Attending Provider Active Start: February 10, 2025 End: February 10, 2025 Araseli Jacob CNM Referring Provider Active Start: February 10, 2025 End: February 10, 2025 Team Status: Inactive Member Role Status Dates Beny Stewart PA, PA Primary Care Provider Active Start: February 20, 2025 End: February 20, 2025 Araseli Jacob CNM Attending Provider Active Start: February 20, 2025 End: February 20, 2025 Araseli Jacbo CNM Referring Provider Active Start: February 20, 2025 End: February 20, 2025 Team Status: Inactive Member Role Status Dates Dr. Alyssia Moss DO Attending Provider Activ e Start: March 10, 2025 End: March 10, 2025 Beny Stewart PA, PA Primary Care Provider Active Start: March 10, 2025 End: March 10, 2025 Beny Stewart PA, PA Referring Provider Active Start: March 10, 2025 End: March 10, 2025 Team Status: Active Member Role/Relationship Status Dates Beny Stewart PA, PA Primary Care Provider Active Team Status: Inactive Member Role/Relationship Status Dates JH Almeida Attending Provider Active Start: January 12, 2025 End: January 12, 2025 Team Status: Inactive Member Role/Relationship Status Dates Olga Manzo CNM Attending Provider Active S tart: January 12, 2025 End: January 12, 2025 Olga Manzo CNM Referring Provider Active S tart: January 12, 2025 End: January 12, 2025 Team Status: Inactive Member Role/Relationship Status Dates Beny Stewart PA, PA Primary Care Provider Active Start: January 14, 2025 End: January 14, 2025 JH Almeida Attending Provider Active Start: January 14, 2025 End: January 14, 2025 JH Almeida Referring Provider Active Start: January 14, 2025 End: January 14, 2025 Team Status: Inactive Member Role/Relationship Status Dates Benyradha Stewart PA, PA Primary Care Provider Active Start: January 24, 2025 End: January 24, 2025 Beny Stewart PA, PA Referring Provider Active Start: January 24, 2025 End: January 24, 2025 Dr. Marialuisa Marshall MD Attending Provider Active Start: January 24, 2025 End: January 24, 2025 Team Status: Active Member Role/Relationship Status Dates Beny Stewart PA, PA Primary Care Provider Active Start: January 24, 2025 Yeimi Anthony RN Attending Provider Active St art: January 24, 2025 Team Status: Inactive Member Role/Relationship Status Dates Araseli Jacob CNM Attending Provider Active Start: February 10, 2025 End: February 10, 2025 Beny Stewart PA, PA Primary Care Provider Active Start: February 10, 2025 End: February 10, 2025 Benyradha Stewart PA, PA Referring Provider Active Start: February 10, 2025 End: February 10, 2025 Team Status: Inactive Member Role/Relationship Status Dates Beny Stewart PA, PA Primary Care Provider Active Start: February 10, 2025 End: February 10, 2025 Araseli Jacob CNM Attending Provider Active Start: February 10, 2025 End: February 10, 2025 Araseli Jacob CNM Referring Provider Active Start: February 10, 2025 End: February 10, 2025 Team Status: Inactive Member Role/Relationship Status Dates Beny Stewart PA, PA Primary Care Provider Active Start: February 20, 2025 End: February 20, 2025 Araseli Jacob CNM Attending Provider Active Start: February 20, 2025 End: February 20, 2025 Araseli Jacob CNM Referring Provider Active Start: February 20, 2025 End: February 20, 2025 Team Status: Inactive Member Role/Relationship Status Dates Dr. Alyssia Moss DO Attending Provider Activ e Start: March 10, 2025 End: March 10, 2025 Beny Stewart PA, PA Primary Care Provider Active Start: March 10, 2025 End: March 10, 2025 Benyradha Stewart PA, PA Referring Provider Active Start: March 10, 2025 End: March 10, 2025 Team Status: Inactive Member Role/Relationship Status Dates Benyradha Stewart PA, PA Primary Care Provider Active Start: April 07, 2025 End: April 07, 2025 Beny Pat PA, PA Referring Provider Active Start: April 07, 2025 End: April 07, 2025 Olga Manzo CNM Attending Provider Active S tart: April 07, 2025 End: April 07, 2025 Team Status: Inactive Member Role/Relationship Status Dates Benyradha Stewart PA, PA Primary Care Provider Active Start: May 03, 2025 End: May 03, 2025 Beny Pat PA, PA Referring Provider Active Start: May 03, 2025 End: May 03, 2025 Dr. Alyssia Moss DO Attending Provider Activ e Start: May 03, 2025 End: May 03, 2025 Team Status: Inactive Member Role/Relationship Status Dates Araseli Jacob CNM Attending Provider Active Start: February 10, 2025 End: February 10, 2025 Benyradha Stewart PA, PA Primary Care Provider Active Start: February 10, 2025 End: February 10, 2025 Benyradha Stewart PA, PA Referring Provider Active Start: February 10, 2025 End: February 10, 2025 Team Status: Inactive Member Role/Relationship Status Dates Benyradha Stewart PA, PA Primary Care Provider Active Start: February 10, 2025 End: February 10, 2025 Araseli Jacob CNM Attending Provider Active Start: February 10, 2025 End: February 10, 2025 Araseli Jacob CNM Referring Provider Active Start: February 10, 2025 End: February 10, 2025 Team Status: Inactive Member Role/Relationship Status Dates Benyradha Stewart PA, PA Primary Care Provider Active Start: February 20, 2025 End: February 20, 2025 Araseli Jacob CNM Attending Provider Active Start: February 20, 2025 End: February 20, 2025 Araseli Jacob CNM Referring Provider Active Start: February 20, 2025 End: February 20, 2025 Team Status: Inactive Member Role/Relationship Status Dates Dr. Alyssia Moss DO Attending Provider Activ e Start: March 10, 2025 End: March 10, 2025 Beny Pat PA, PA Primary Care Provider Active Start: March 10, 2025 End: March 10, 2025 Beny Pat PA, PA Referring Provider Active Start: March 10, 2025 End: March 10, 2025 Team Status: Inactive Member Role/Relationship Status Dates Beny [place] PA, PA Primary Care Provider Active Start: April 07, 2025 End: April 07, 2025 Beny Pat PA, PA Referring Provider Active Start: April 07, 2025 End: April 07, 2025 Olga Manzo CNM Attending Provider Active S tart: April 07, 2025 End: April 07, 2025 Team Status: Inactive Member Role/Relationship Status Dates Beny Pat PA, PA Primary Care Provider Active Start: May 03, 2025 End: May 03, 2025 Beny [place] PA, PA Referring Provider Active Start: May 03, 2025 End: May 03, 2025 Dr. Alyssia Moss DO Attending Provider Activ e Start: May 03, 2025 End: May 03, 2025 Team Status: Inactive Member Role/Relationship Status Dates Beny [place] PA, PA Primary Care Provider Active Start: May 29, 2025 End: May 29, 2025 Beny Pat PA, PA Referring Provider Active Start: May 29, 2025 End: May 29, 2025 Dr. Marialuisa Marshall MD Attending Provider Active Start: May 29, 2025 End: May 29, 2025 Team Status: Active Member Role/Relationship Status Dates Benyradha Stewart PA, PA Primary care physician Active Team Status: Inactive Member Role/Relationship Status Dates Benyradha Stewart PA, PA Primary care physician Active Start: February 20, 2025 End: February 20, 2025 Araseli Jacob CNM Attending physician Active Start: February 20, 2025 End: February 20, 2025 Araseli Jacob CNM Referring Provider Active Start: February 20, 2025 End: February 20, 2025 Team Status: Inactive Member Role/Relationship Status Dates Dr. Alyssia Moss DO Attending physician Acti ve Start: March 10, 2025 End: March 10, 2025 Beny Pat PA, PA Primary care physician Active Start: March 10, 2025 End: March 10, 2025 Beny Pat PA, PA Referring Provider Active Start: March 10, 2025 End: March 10, 2025 Team Status: Inactive Member Role/Relationship Status Dates Beny Pat PA, PA Primary care physician Active Start: April 07, 2025 End: April 07, 2025 Beny Pat PA, PA Referring Provider Active Start: April 07, 2025 End: April 07, 2025 Olga Manzo CNM Attending physician Active Start: April 07, 2025 End: April 07, 2025 Team Status: Inactive Member Role/Relationship Status Dates Beny [place] PA, PA Primary care physician Active Start: May 03, 2025 End: May 03, 2025 Beny Pat PA, PA Referring Provider Active Start: May 03, 2025 End: May 03, 2025 Dr. Alyssia Moss DO Attending physician Acti ve Start: May 03, 2025 End: May 03, 2025 Team Status: Inactive Member Role/Relationship Status Dates Beny Pat PA, PA Primary care physician Active Start: May 29, 2025 End: May 29, 2025 Beny [place] PA, PA Referring Provider Active Start: May 29, 2025 End: May 29, 2025 Dr. Marialuisa Marshall MD Attending physician Active Start: May 29, 2025 End: May 29, 2025 Team Status: Inactive Member Role/Relationship Status Dates Beny Pat PA, PA Primary care physician Active Start: June 19, 2025 End: June 19, 2025 Beny Pat PA, PA Referring Provider Active Start: June 19, 2025 End: June 19, 2025 Shireen Carnes BUSINESS REPRESENTATIVE, BUSINESS REPRESENTATIVE-C Attending physician Active Start: June 19, 2025 End: June 19, 2025 Team Status: Inactive Member Role/Relationship Status Dates Beny Pat PA, PA Primary care physician Active Start: June 19, 2025 End: June 19, 2025 Dr. Marialuisa Marshall MD Referring Provider Active Start: June 19, 2025 End: June 19, 2025 Olga Manzo CNM Attending physician Active Start: June 19, 2025 End: June 19, 2025 Team Status: Active Member Role/Relationship Status Dates Benyradha Stewart PA, PA Primary care physician Active Start: June 19, 2025 Dr. Marialuisa Marshall MD Attending physician Active Start: June 19, 2025 Dr. Marialuisa Marshall MD Referring Provider Active Start: June 19, 2025 Olga Manzo CNM Nurse Practitioner Active S tart: June 19, 2025 Team Status: Active Member Role/Relationship Status Dates Beny Stewart PA, PA Primary care physician Active Start: June 19, 2025 Dr. Marialuisa Marshall MD Referring Provider Active Start: June 19, 2025 Olga Manzo CNM Attending physician Active Start: June 19, 2025 Team Status: Inactive Member Role/Relationship Status Dates Beny [place] PA, PA Primary care physician Active Start: April 07, 2025 End: April 07, 2025 Beny [place] PA, PA Referring Provider Active Start: April 07, 2025 End: April 07, 2025 Olga Manzo CNM Attending physician Active Start: April 07, 2025 End: April 07, 2025 Team Status: Inactive Member Role/Relationship Status Dates Beny Pat PA, PA Primary care physician Active Start: May 03, 2025 End: May 03, 2025 Beny [place] PA, PA Referring Provider Active Start: May 03, 2025 End: May 03, 2025 Dr. Alyssia Moss DO Attending physician Acti ve Start: May 03, 2025 End: May 03, 2025 Team Status: Inactive Member Role/Relationship Status Dates Beny [place] PA, PA Primary care physician Active Start: May 29, 2025 End: May 29, 2025 Beny Pat PA, PA Referring Provider Active Start: May 29, 2025 End: May 29, 2025 Dr. Marialuisa Marshall MD Attending physician Active Start: May 29, 2025 End: May 29, 2025 Team Status: Inactive Member Role/Relationship Status Dates Beny Pat PA, PA Primary care physician Active Start: June 19, 2025 End: June 19, 2025 Beny Pat PA, PA Referring Provider Active Start: June 19, 2025 End: June 19, 2025 Shireen Carnes NP, BUSINESS REPRESENTATIVE-C Attending physician Active Start: June 19, 2025 End: June 19, 2025 Team Status: Inactive Member Role/Relationship Status Dates Beny MEYER PA Primary care physician Active Start: June 19, 2025 End: June 19, 2025 Dr. Marialuisa Marshall MD Referring Provider Active Start: June 19, 2025 End: June 19, 2025 Olga Manzo CNM Attending physician Active Start: June 19, 2025 End: June 19, 2025 Team Status: Active Member Role/Relationship Status Dates Beny MEYER PA Primary care physician Active Start: June 19, 2025 Dr. Marialuisa Marshall MD Attending physician Active Start: June 19, 2025 Dr. Marialuisa Marshall MD Referring Provider Active Start: June 19, 2025 Olga Manzo CNM Nurse Practitioner Active S tart: June 19, 2025 Team Status: Inactive Member Role/Relationship Status Dates Beny MEYER, PA Primary care physician Active Start: July 03, 2025 End: July 03, 2025 Beny MEYER, PA Referring Provider Active Start: July 03, 2025 End: July 03, 2025 Olga Manzo CNM Attending physician Active Start: July 03, 2025 End: July 03, 2025 Team Status: Inactive Member Role/Relationship Status Dates Benyradha Stewart PA, PA Primary care physician Active Start: July 20, 2025 End: July 20, 2025 Beny Stewart PA, PA Referring Provider Active Start: July 20, 2025 End: July 20, 2025 Olga Manzo CNM Attending physician Active Start: July 20, 2025 End: July 20, 2025 Team Status: Active Member Role/Relationship Status Dates Beny MEYER, PA Primary care physician Active Start: July 20, 2025 Olga Manzo CNM Attending physician Active Start: July 20, 2025 INFORMATION SOURCE (unrecogn ized section and content) DATE CREATED AUTHOR 10/25/2024 [facility] DATE CREATED AUTHOR AUTHOR'S ORGANIZ ATION 03/29/2025 [facility] DATE CREATED AUTHOR AUTHOR'S ORGANIZ ATION 04/17/2025 [facility] DATE CREATED AUTHOR AUTHOR'S ORGANIZ ATION 05/13/2025 [facility] DATE CREATED AUTHOR AUTHOR'S ORGANIZ ATION 07/22/2025 [facility] Goals (unrecognized section and content) Type Care Experience Labor Preferences-CB /BF classes: nolabor support person: Chaselabor intervention preferences: []pain management options preferred: epidural when requestedcut cord/dad catch: cordbreastfeeding: noPP control planned: discusseddiscussed possible routes of delivery and associated risks: []special requests: [] FOR RECORDS PERTAINING TO PATIENTS WHO ARE [...] BE BASED ON THE PRIMARY CLINICAL RECORDS. [facility]. provides no warranty or guarantee of the accuracy or completeness of information in this document.
[2025-09-05 19:53] VITALS: BP 113/68; PULSE 117; PULSE 123; RESP 16; TEMP 36.1; O2SAT 97
[2025-09-05 21:36] VITALS: BP 120/68; PULSE 115
[2025-09-05 21:37] VITALS: PULSE 105; RESP 16; TEMP 36.1; O2SAT 97
--- NOTE | 2025-09-05 23:06 | OB.TRI.HP_ITS ---
HPI - General HPI Narrative MARLENA RENDON, is a 25 y/o @ 38 weeks 5 days, presents with contractions. She denied loss of fluid, vaginal bleeding, or decreased movement She was monitored for 2 hours without cervical change. Maternal Data Information VICKY Calculator Estimated Delivery Date Method Current WG Current Estimate 09/14/25 LMP (Certain) 39w 1d PFSH PFSH Medical History (Updated 09/08/25 @ 07:[address] Alyssia Moss, DO) Pre-eclampsia H/O: hypertension POTS (postural orthostatic tachycardia syndrome) Home Medications ?Medication ?Instructions ?Recorded ?Last Taken ?Type docosahexaenoic acid 200 mg mg PO 01/24/25 09/03/25 Hi story capsule ( DHA) aspirin 81 mg capsule 81 mg PO DAILY 06/19/2508/15 History Allergy/AdvReac Type Severity Reaction Status Date / Time No Known Allergies Allergy Verified 09/05/25 19:55 Family History Father Diabetes Mother Age: 57 Breast cancer Grandmother Breast cancer Surgical History (Updated 09/06/25 @ 06:35 by Mercedez Bledsoe) History of surgery S/P wisdom tooth extraction History of shoulder surgery Social History adopted: No household members: spouse and children housing: house number of children: 1 current occupational status: employed 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 current occupational exposures/hazards: No pets and animals: Yes pets and animals: dog(s) history of recent travel: Yes ([place] - December 2024) out of state: Yes out of country: No sexually active: Yes Smoking Status: Never smoker second hand exposure: No alcohol intake: current alcohol intake frequency: holidays/special occasions only details: Not while substance use type: does not use well-balanced diet: daily or most days caffeine: Yes Type: coffee Number of servings: 1 eating out: 1-3 times/week during the past year weight has: remained stable what type of physical activity do you participate in: weight training frequency: 1-2 times per week duration: 15-30 minutes/day deric/uatsdin: Pentecost[employer]ism seatbelt use: always do you feel safe at home: Yes 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 Date Name GA/Weeks Outcome Route Bth Weight Infant Gen Labor Lgth Anesthesia Del Locatn Provider FOB 05/23/23 Franki 39 live - full term vacuum 7lbs 11oz Male epidural [place] Tal 07/15/24 Chemical 5 spontaneous Delivery Date: 05/23/23 Last Updated by: Yeimi Anthony RN Pre-e, lingering pp htn x4mo Visit Details Expected Delivery Route/Plan Labor Preferences- CB/BF classes: no labor support person: Tal labor intervention preferences: [] pain management options preferred: epidural when requested cut cord/dad catch: cord : no PP control planned: discussed discussed possible routes of delivery and associated risks: [] special requests: [] Plans Covid status: [] Flu vaccine: [] Tdap vaccine: [] Rhogam: [] LARC form signed: yes Problem list reviewed and updated with the most current plan of care details and appropriate orders placed. Relevant counseling for the gestational age provided. Continue routine care and follow up unless otherwise noted in visit notes/problem list details OB Flowsheet Initial Weight: 152 lb Date -?-?-?-?-?-?-?-?-?-?-?-?- EGA Weight BP Urine Prot -?-?-?-?-?-?-?-?-?-?-?-?- Glucose FHR FuHt Pres Dilation -?-?-?-?-?-?-?-?-?-?-?-?- Effaced St Visit Note 02/10/25 -?-?-?-?-?-?-?-?-?-?-?-?- 9w 1d 152 lb (+0 oz) 120/76 -?-?-?-?-?-?-?-?-?-?-?-?- 174 -?-?-?-?-?-?-?-?-?-?-?-?- LC 2.24cm crl co n with lmp. accepts genetics. baseline pec labs added for hx. 03/10/25 -?-?-?-?-?-?-?-?-?-?-?-?- 13w 1d 148 lb 2 oz (-3 lb 14 oz) 110/73 Negative -?-?-?-?-?-?-?-?-?-?-?-?- Negative 156 -?-?-?-?-?-?-?-?-?-?-?-?- JV- Heart tones only today. c/o constipation. discussed miralax + metamucil + stool softener and use of preparation H for hemorrhoids. JV- Heart tones only today. c/o constipation. discussed miralax + metamucil + stool softener and use of preparation H for hemorrhoids. Low risk male on NIPT 04/07/25 -?-?-?-?-?-?-?-?-?-?-?-?- 17w 1d 149 lb 2 oz (-2 lb 14 oz) 108/70 Negative -?-?-?-?-?-?-?-?-?-?-?-?- Negative 146 -?-?-?-?-?-?-?-?-?-?-?-?- KW- no vb/crampi ng. passed out 2 times on thursday d/t POTS. will contact Cardiology to see about medication to help with this- was on medication prior to . Has MFM US scheduled. still struggling with constipation. 05/03/25 -?-?-?-?-?-?-?-?-?-?-?-?- 20w 6d 155 lb 5 oz (+3 lb 5 oz) 111/71 Negative -?-?-?-?-?-?-?-?-?-?-?-?- Negative 157 -?-?-?-?-?-?-?-?-?-?-?-?- JV- feeling over all better. still having intermittent constipation. anatomy scan reviewed. 05/29/25 -?-?-?-?-?-?-?-?-?-?-?-?- 24w 4d 165 lb 2 oz (+13 lb 2 oz) 119/72 Negative -?-?-?-?-?-?-?-?-?-?-?-?- Negative 150 24 -?-?-?-?-?-?-?-?-?-?-?-?- SM- no vb lof go od fm no regular ctx discussed birthing experience 06/19/25 -?-?-?-?-?-?-?-?-?-?-?-?- 27w 4d 168 lb 1 oz (+16 lb 1 oz) 126/77 Negative -?-?-?-?-?-?-?-?-?-?-?-?- Negative 145 26 -?-?-?-?-?-?-?-?-?-?-?-?- MH-No vB, LOF. N ot feeling movement today. NST nonreactive, baby difficult to monitor, at least audible decel noted with movement. To WP per SM for growth US and prolonged monitoring. 07/03/25 -?-?-?-?-?-?-?-?-?-?-?-?- 29w 4d 171 lb 7 oz (+19 lb 7 oz) 117/75 Negative -?-?-?-?-?-?-?-?-?-?-?-?- Negative 155 30 -?-?-?-?-?-?-?-?-?-?-?-?- KW- no vb/lof/ct x. good fm. chiropractor for hip pain. Tdap today. 07/20/25 -?-?-?-?-?-?-?-?-?-?-?-?- 32w 0d 172 lb 5 oz (+20 lb 5 oz) 113/78 Negative -?-?-?-?-?-?-?-?-?-?-?-?- Negative 130 32 -?-?-?-?-?-?-?-?-?-?-?-?- KW- no vb/lof/ct x. goodfm. pepcid for acid reflux. spec exam for vaginal irritation- +yeast. will try monistat 7 and if needed will call in for Diflucan 08/01/25 -?-?-?-?-?-?-?-?-?-?-?-?- 33w 5d 176 lb 8 oz (+24 lb 8 oz) 109/74 Negative -?-?-?-?-?-?-?-?-?-?-?-?- Negative 140 -?-?-?-?-?-?-?-?-?-?-?-?- JV- no lof, vagi nal bleeding, or dec fm. Vaginal smear done for irritation and discharge. She tried monistat for days. 08/17/25 -?-?-?-?-?-?-?-?-?-?-?-?- 36w 0d 180 lb 8 oz (+28 lb 8 oz) 114/76 Negative -?-?-?-?-?-?-?-?-?-?-?-?- Negative 154 38 Cephalic 2 .5 -?-?-?-?-?-?-?-?-?-?-?-?- 60 -2 JV- no lof , vaginal bleeding, or dec fm. gbs today 08/23/25 -?-?-?-?-?-?-?-?-?-?-?-?- 36w 6d 182 lb 4 oz (+30 lb 4 oz) 122/81 Negative -?-?-?-?-?-?-?-?-?-?-?-?- Negative 140 37 Cephalic 2 .5 -?-?-?-?-?-?-?-?-?-?-?-?- 70 -2 KW- no vb/ lof/ reg ctx. good fm. doing well 08/29/25 -?-?-?-?-?-?-?-?-?-?-?-?- 37w 5d 183 lb 2 oz (+31 lb 2 oz) 131/84 Negative -?-?-?-?-?-?-?-?-?-?-?-?- Negative 135 37 Cephalic 3 -?-?-?-?-?-?-?-?-?-?-?-?- 80 -2 KW- no vb/ lof/ctx. good fm. denies roberts/dizziness/ BV. head cold this week. 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 no vb/lof/ctx. good fm. NST FHR Rate Baby A Baseline: 140 Variability:: Moderate Accelerations:: 15 x 15 Decelerations:: None NST Reactive:: Yes FHR Category:: Category I Assessment & Plan (1) False labor after 37 completed weeks of gestation: PLAN: reactive nst, no cervical change ok to dc to home with labor precautions Charges/Coding Multi Select Codes Urinary/Genital Urinary/Genital CPT Codes: 81287-53 non-stress test Interp
--- NOTE | 2025-09-05 23:06 | OB.TRI.NOTE ---
HPI - General HPI Narrative MARLENA RENDON, is a 25 y/o @ 38 weeks 5 days, presents with contractions. She denied loss of fluid, vaginal bleeding, or decreased movement She was monitored for 2 hours without cervical change. Maternal Data Information VICKY Calculator Estimated Delivery Date Method Current WG Current Estimate 09/14/25 LMP (Certain) 39w 1d PFSH PFSH Medical History (Updated 09/08/25 @ 07:[address] Alyssia Moss, DO) Pre-eclampsia H/O: hypertension POTS (postural orthostatic tachycardia syndrome) Home Medications ?Medication ?Instructions ?Recorded ?Last Taken ?Type docosahexaenoic acid 200 mg mg PO 01/24/25 09/03/25 History capsule ( DHA) aspirin 81 mg capsule 81 mg PO DAILY 06/19/25 09/03/25 History Allergy/AdvReac Type Severity Reaction Status Date / Time No Known Allergies Allergy Verified 09/05/25 19:55 Family History Father Diabetes Mother Age: 57 Breast cancer Grandmother Breast cancer Surgical History (Updated 09/06/25 @ 06:35 by Mercedez Bledsoe) History of surgery S/P wisdom tooth extraction History of shoulder surgery Social History adopted: No household members: spouse and children housing: house number of children: 1 current occupational status: employed 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 Only current occupational exposures/hazards: No pets and animals: Yes pets and animals: dog(s) history of recent travel: Yes ([place] - December 2024) out of state: Yes out of country: No sexually active: Yes Smoking Status: Never smoker second hand exposure: No alcohol intake: current alcohol intake frequency: holidays/special occasions only details: Not while substance use type: does not use well-balanced diet: daily or most days caffeine: Yes Type: coffee Number of servings: 1 eating out: 1-3 times/week during the past year weight has: remained stable what type of physical activity do you participate in: weight training frequency: 1-2 times per week duration: 15-30 minutes/day deric/episcopalian: Anab[employer]ist seatbelt use: always do you feel safe at home: Yes additional social history: : Tal - [place] History 3 Elective abortions Hx Para 1 Spontaneous abortions 1 Hx # Term Pregnancies Ectopic pregnancies Hx # Pregnancies Multiple births # of living children 1 Past Pregnancies Del. Date Name GA/Weeks Outcome Route Bth Weight Gen Labor Lgth Anesthesia Del Samatn Provider FOB 05/23/23 Franki 39 live - full term vacuum 7lbs 11oz Male epidural [place] Tal 07/15/24 Chemical 5 spontaneous Delivery Date: 05/23/23 Last Updated by: Yeimi Anthony RN Pre-e, lingering pp htn x4mo Visit Details Expected Delivery Route/Plan Labor Preferences- CB/BF classes: no labor support person: Tal labor intervention preferences: [] pain management options preferred: epidural when requested cut cord/dad catch: cord : no PP control planned: discussed discussed possible routes of delivery and associated risks: [] special requests: [] Plans Covid status: [] Flu vaccine: [] Tdap vaccine: [] Rhogam: [] LARC form signed: yes Problem list reviewed and updated with the most current plan of care details and appropriate orders placed. Relevant counseling for the gestational age provided. Continue routine care and follow up unless otherwise noted in visit notes/problem list details OB Flowsheet Initial Weight: 152 lb Date <del>?</del> EGA Weight BP Urine Prot <del>?</del> Glucose FHR FuHt Pres Dilation <del>?</del> Effaced St Visit Note 02/10/25 <del>?</del> 9w 1d 152 lb (+0 oz) 120/76 <del>?</del> 174 <del>?</del> LC 2.24cm crl con with lmp. accepts genetics. baseline pec labs added for hx. 03/10/25 <del>?</del> 13w 1d 148 lb 2 oz (-3 lb 14 oz) 110/73 Negative <del>?</del> Negative 156 <del>?</del> JV- Heart tones only today. c/o constipation. discussed miralax + metamucil + stool softener and use of preparation H for hemorrhoids. JV- Heart tones only today. c/o constipation. discussed miralax + metamucil + stool softener and use of preparation H for hemorrhoids. Low risk male on NIPT 04/07/25 <del>?</del> 17w 1d 149 lb 2 oz (-2 lb 14 oz) 108/70 Negative <del>?</del> Negative 146 <del>?</del> KW- no vb/cramping. passed out 2 times on thursday d/t POTS. will contact Cardiology to see about medication to help with this- was on medication prior to . Has MFM US scheduled. still struggling with constipation. 05/03/25 <del>?</del> 20w 6d 155 lb 5 oz (+3 lb 5 oz) 111/71 Negative <del>?</del> Negative 157 <del>?</del> JV- feeling overall better. still having intermittent constipation. anatomy scan reviewed. 05/29/25 <del>?</del> 24w 4d 165 lb 2 oz (+13 lb 2 oz) 119/72 Negative <del>?</del> Negative 150 24 <del>?</del> SM- no vb lof good fm no regular ctx discussed birthing experience 06/19/25 <del>?</del> 27w 4d 168 lb 1 oz (+16 lb 1 oz) 126/77 Negative <del>?</del> Negative 145 26 <del>?</del> MH-No vB, LOF. Not feeling movement today. NST nonreactive, baby difficult to monitor, at least audible decel noted with movement. To WP per SM for growth US and prolonged monitoring. 07/03/25 <del>?</del> 29w 4d 171 lb 7 oz (+19 lb 7 oz) 117/75 Negative <del>?</del> Negative 155 30 <del>?</del> KW- no vb/lof/ctx. good fm. chiropractor for hip pain. Tdap today. 07/20/25 <del>?</del> 32w 0d 172 lb 5 oz (+20 lb 5 oz) 113/78 Negative <del>?</del> Negative 130 32 <del>?</del> KW- no vb/lof/ctx. goodfm. pepcid for acid reflux. spec exam for vaginal irritation- +yeast. will try monistat 7 and if needed will call in for Diflucan 08/01/25 <del>?</del> 33w 5d 176 lb 8 oz (+24 lb 8 oz) 109/74 Negative <del>?</del> Negative 140 <del>?</del> JV- no lof, vaginal bleeding, or dec fm. Vaginal smear done for irritation and discharge. She tried monistat for days. 08/17/25 <del>?</del> 36w 0d 180 lb 8 oz (+28 lb 8 oz) 114/76 Negative <del>?</del> Negative 154 38 Cephalic 2.5 <del>?</del> 60 -2 JV- no lof, vaginal bleeding, or dec fm. gbs today 08/23/25 <del>?</del> 36w 6d 182 lb 4 oz (+30 lb 4 oz) 122/81 Negative <del>?</del> Negative 140 37 Cephalic 2.5 <del>?</del> 70 -2 KW- no vb/lof/ reg ctx. good fm. doing well 08/29/25 <del>?</del> 37w 5d 183 lb 2 oz (+31 lb 2 oz) 131/84 Negative <del>?</del> Negative 135 37 Cephalic 3 <del>?</del> 80 -2 KW- no vb/lof/ctx. good fm. denies roberts/dizziness/ BV. head cold this week. 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 no vb/lof/ctx. good fm. NST FHR Rate Baby A Baseline: 140 Variability:: Moderate Accelerations:: 15 x 15 Decelerations:: None NST Reactive:: Yes FHR Category:: Category I Assessment & Plan (1) False labor after 37 completed weeks of gestation: PLAN: reactive nst, no cervical change ok to dc to home with labor precautions Charges/Coding Multi Select Codes Urinary/Genital Urinary/Genital CPT Codes: 69411-88 non-stress test Interp
== END 2025-09-05 22:20 | disposition home or self-care (01) ==
LOC: WPOUT 19:43 → WP 19:43
PROVIDERS: PCP Physician Assistant Medical; Visit Provider Obstetrics & Gynecology
DX: O47.1 False labor at or after 37 completed weeks of gestation (principal); Z79.82 Long term (current) use of aspirin; Z3A.38 38 weeks gestation of pregnancy
CPT/HCPCS: 59025; 59050; 99221; G0378

== ENCOUNTER 2025-09-06 06:10 | Inpatient (IN) | payer OTHER, SELFPAY ==
[2025-09-06] VITALS (47 sets, daily range): BP systolic 85–140; BP diastolic 48–86; PULSE 75–190; RESP 16–18; TEMP 36.3–36.9; O2SAT 82–100; BMI 31.6
--- OUTSIDE RECORDS SUMMARY | 2025-09-06 06:12 | XMS RPT_ITS | CCD ---
Author Organization [facility] Care Team Providers Care Ham Passer Name Role Phone Generic Provider MD, No [...] Provider Joanna COVINGTON, Dr. Elam Attending Provider [phone] Yeimi Anthony RN Attending Provider UnavailAraseli Heaton CNM Attending Provider Araseli Jacob CNM Referring Provider Dr. Alyssia Moss DO Attending Provider BENY STEWART Referring Unavailable PAT, BENY B Primary Care Unavailable PAT, BENY B Primary Care Unavailable BRADY YANG Attending Unavailable GENERIC PROVIDER, NO ASSIGNED PCP Primary Care Unavailable BENY STEWART B Referring Unavailable PAT, BENY B Primary Care Unavailable BENY STEWART B Attending Unavailable PAT BENY B Primary Care Unavailable PAT BENY B Attending Unavailable PAT, BENY B Primary Care Unavailable DERECK GELLER Attending Unavailable PAT, BENY B Referring Unavailable PAT, BENY B Primary Care Unavailable PAT, BENY [facility] Primary Care UnavailAGUSTIN Dowling Attending Unavaila ble Pat MEYER, Beny Primary Care Provider Pat MEYER, Beny Referring Provider Olga Manzo CNM Attending Provider [phone] Dr. Marialuisa Marshall MD Attending Provider Pat PA, [place] Primary Care Physician Araseli Jacob CNM Attending Physician [phone] Araseli Jacob CNM Referring Provider [phone] Alyssia Moss DO Attending Physician Pat MEYER Beny Referring Provider Olga Manzo CNM Attending Physician [phone] Marialuisa Marshall MD Attending Physician Shireen Horton Attending Physician [phone] Dr. Marialuisa Marshall MD Referring Provider Olga Manzo CNM Nurse Practitioner [phone] Pat MEYER [place] Primary Care Physician Pat MEYER Beny Referring Provider Olga Manzo CNM Attending Physician [phone] Alyssia Moss DO Attending Physician Dr. Marialuisa Marshall MD Attending Physician Shireen Horton Attending Physician [phone] Dr. Marialuisa Marshall MD Referring Provider Olga Manzo CNM Nurse Practitioner [phone] Pat MEYER, [place] Primary Care Unavailabl Yeimi Blancas Attending Unavailable Pat MEYER, [place] Primary Care Unavailvalentín e Olga Manzo Attending Unavailable Marialuisa Marshall Referring Unavailable [place], [facility] Unavailabl e Pat PA, [place] Referring Unavailabl e Marialuisa Marshall Attending Unavailable [place], [facility] Unavailabl e Pat PA, [place] Referring Unavailabl e Olga Manzo Attending Unavailable [place] PA, [facility] Unavailabl e Pat PA, Beny Referring Unavailabl e Alyssia Moss Attending Unavailabl e Pat PA, [facility] Unavailabl e Pat PA, [place] Referring Unavailabl e Marialuisa Marshall Attending Unavailable [place], [facility] Unavailabl e Trice PACKAGE DELIVERY DRIVER, Shireen Attending Unavailable Pat PA, [place] Referring Unavailabl e [place], [place] Referring Unavailabl e Pat PA, [facility] Unavailabl Olga La Attending Unavailable Sherie Padilla Attending Unavailable Pat PA, [place] Referring Unavailabl e [place], [facility] UnavailOlga Haile Attending Unavailable [place], [facility] Unavailabl e [place], [place] Referring Unavailabl e Alyssia Moss Attending Unavailabl e Pat PA, [facility] Unavailabl e Marialuisa Marshall Referring Unavailable Marialuisa Marshall Attending Unavailable Olga Manzo Consulting Unavailable Araseli Jacob Attending Unavailable [place], [facility] Unavailabl e Pat PA, [place] Referring Unavailabl e [place] PA, [facility] UnavailOlga Haile Attending Unavailable Araseli Jacob Attending Unavailable Pat PA, [facility] UnavailAraseli Heaton Referring Unavailable Araseli Jacob Referring Unavailable Araseli Jacob Attending Unavailable [place], [facility] UnavailOlga Haile Attending Unavailable Olga Manzo Referring Unavailable Pat PA, [facility] UnavailSherie Ceballos Referring Unavailable Sherie Padilla Attending [...] of urinary tract in , second trimester ([facility])] Onset: 03-20-2025 Episodic Other complications of [...] Below infection level. Mixed Gram Positive Organisms [place] Count 1000-10,000 MIXC Mixed contaminants. Submit a new specimen if indicated. CALBP [place] Count <1000 [facility] Comment on above: Performed By: #### M 100.2200 ####[facility] [address] [place], [place], [address] Laboratory - Chemistry and C hemistry - challengeOrdered By: Olga Manzo on 07-20-2025 Bilirubin Ql (U) [facility] Glucose Ql (U) [facility] Ketones Ql (U) [facility] pH (U) 5.0 [pH] [facility] Specific gravity (U) [Rel density] 1.025 [facility] Urobilinogen (U) [Mass/Vol] 0.9972637 mg/dL [facility] Laboratory - Hematology and Cell countsOrdered By: Olga Manzo on 07-20-2025 Hemoglobin Ql (U) Negative [facility] Laboratory - Specimen inform ationOrdered By: Olga Manzo on 07-20-2025 Clarity (U) Clear [facility] Color (U) YELLOW [facility] Laboratory - UrinalysisOrder ed By: Olga Manzo on 07-20-2025 Nitrite Ql (U) Negative [facility] Protein Ql (U) [facility] No Panel InformationOrdered By: Olga Manzo on 07-20-2025 Urine Leukocytes Positive [facility] Urine Non-Hemolyzed Blood Negative [facility] Sample Worker Office Visit Reporton 07-20-2025 Sample Worker Office Visit Report [facility] [address], [address] [place] [address] OFFICE VISIT Date of Service: 07/20/25 MR#: [id number] Acct: [id number] Name: JUSTINO RENDON Rep #: [id number] : 2000 Provider: FAB Lema ams Age/Sex: 25/F Location: [facility] Status: Signed Intake Vital Signs 06/19/25 15:27 07/03/25 15:17 07/20/25 15:31 07/20/25 15:32 Height 5 ft 4 in 5 ft 3 in 5 ft 3 in 5 ft 3 in Weight: 172 lb 5 oz BMI 30.5 BP 113/78 Intake Visit Reasons: 32wk ob Chief Analytics Officer Required: No Is patient in pain?: No [...] 1 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 07/15/24 Chemical 5 spontaneous Delivery [...] for hx. (more content not included)... [facility] Laboratory - Chemistry and C hemistry - challengeOrdered By: Olga Manzo on 07-03-2025 Glucose Ql (U) Negative [facility] Laboratory - UrinalysisOrder ed By: Olga Manzo on 07-03-2025 Protein Ql (U) [facility] Sample Worker Office Visit Reporton 07-03-2025 Sample Worker Office Visit Report [facility] [address], [address] [place] [address] OFFICE VISIT Date of Service: 07/03/25 MR#: [id number] Acct: [id number] Name: JUSTINO RENDON Rep #: [id number] : 2000 Provider: FAB Lema ams Age/Sex: 25/F Location: [facility] Status: Signed Intake Vital Signs 04/07/25 13:04 06/19/25 16:29 07/03/25 15:17 Height 5 ft 4 in 5 ft 3 in 5 ft 3 in Weight: 171 lb 7 oz BMI 30.3 BP 117/75 Intake Visit Reasons: 29 WK 4D OB Chief Complaint: 29wk OB Chief Analytics Officer Required: No Is patient in pain?: No [...] status: employed 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 (more content not included)... [facility] Absolute lymphocyte countOrd ered By: Marialuisa Marshall on 06-19-2025 Lymphocytes Auto (Unsp spec) [#/Vol] 2.48 10*3/uL 0.83-4.51 [facility] Absolute neutrophil countOrd ered By: Marialuisa Marshall on 06-19-2025 Neutrophils (Bld) [#/Vol] 7.7 10*3/uL 2.0-7.7 [facility] Automated lymphocyte count a s percentage of total leukocytesOrdered By: Marialuisa Marshall on 06-19-2025 Lymphocytes/100 WBC Auto (Unsp spec) 22.5 % 19-41 [facility] Basophil percentageOrdered B y: Marialuisa Marshall on 06-19-2025 Basophils/100 WBC (Bld) 0.1 % 0-1 [facility] CBC W/Diff, Automatedon 10-0 6-2025 Absolute Lymph 2.48 X10 3/uL Normal 0.83-4.51 [facility] Comment on above: Performed By: #### L 509.8002, L501.0250, L3890.6006, L100.0100 ####[facility] [address] [place], [address] Absolute Neut 7.7 X10 3/uL Normal 2.0-7.7 [facility] Comment on above: Performed By: #### L 509.8002, L501.0250, L3890.6006, L100.0100 ####[facility] [address] [place], [address] Basophils/100 WBC (Bld) 0.1 % Normal 0-1 [facility] Comment on above: Performed By: #### L 509.8002, L501.0250, L3890.6006, L100.0100 ####[facility] [address] [place], [address] Eosinophils/100 WBC (Bld) 1.3 % Normal 0-5 [facility] Comment on above: Performed By: #### L 509.8002, L501.0250, L3890.6006, L100.0100 ####[facility] [address] [place], [address] Erythrocyte distribution width (RBC) [Ratio] 12.9 % Normal 11.6-14.6 [facility] Comment on above: Performed By: #### L 509.8002, L501.0250, L3890.6006, L100.0100 ####[facility] [address] [place], [address] Hematocrit (Bld) [Volume fraction] 31.8 % Low 37-47 [facility] Comment on above: Performed By: #### L 509.8002, L501.0250, L3890.6006, L100.0100 ####[facility] [address] [place], [address] Hemoglobin (Bld) [Mass/Vol] 10.5 g/dL Low 12.0-15.0 [facility] Comment on above: Performed By: #### L 509.8002, L501.0250, L3890.6006, L100.0100 ####[facility] [address] [place], [address] IG% 0.800 Normal 0.0-0.9 [facility] Comment on above: Result Comment: IG% - Immature Granulocytes (promyelocytes, myelocytes and metamyelocytes) > 1% indicates that a LEFT SHIFT is Present. Performed By: #### L 509.8002, L501.0250, L3890.6006, L100.0100 ####[facility] [address] [place], [address] Lymphocytes/100 WBC (Bld) 22.5 % Normal 19-41 [facility] Comment on above: Performed By: #### L 509.8002, L501.0250, L3890.6006, L100.0100 ####[facility] [address] [place], [address] MCH (RBC) [Entitic mass] 29.4 pg Normal 27.0-32.0 [facility] Comment on above: Performed By: #### L 509.8002, L501.0250, L3890.6006, L100.0100 ####[facility] [address] [place], [address] MCHC (RBC) [Mass/Vol] 33.0 g/dL Normal 32-36 [facility] Comment on above: Performed By: #### L 509.8002, L501.0250, L3890.6006, L100.0100 ####[facility] [address] [place], [address] MCV (RBC) [Entitic vol] 89.1 fL Normal 81-99 [facility] Comment on above: Performed By: #### L 509.8002, L501.0250, L3890.6006, L100.0100 ####[facility] [address] [place], [address] Monocytes/100 WBC (Bld) 5.9 % Normal 0-10 [facility] Comment on above: Performed By: #### L 509.8002, L501.0250, L3890.6006, L100.0100 ####[facility] [address] [place], [address] Neutrophils/100 WBC (Bld) 69.4 % Normal 47-70 [facility] Comment on above: Performed By: #### L 509.8002, L501.0250, L3890.6006, L100.0100 ####[facility] [address] [place], [address] Nucleated RBC (Bld) [#/Vol] 0 10*3/uL Normal 0-5 [facility] Comment on above: Performed By: #### L 509.8002, L501.0250, L3890.6006, L100.0100 ####[facility] [address] [place], [address] Platelet mean volume (Bld) [Entitic vol] 9.8 fL Normal 6.2-12.0 [facility] Comment on above: Performed By: #### L 509.8002, L501.0250, L3890.6006, L100.0100 ####[facility] [address] [place], [address] Platelets (Bld) [#/Vol] 240 10*3/uL Normal 150-450 [facility] Comment on above: Performed By: #### L 509.8002, L501.0250, L3890.6006, L100.0100 ####[facility] [address] [place], [address] RBC (Bld) [#/Vol] 3.57 10*6/uL Low 4.2-5.4 [facility] Comment on above: Performed By: #### L 509.8002, L501.0250, L3890.6006, L100.0100 ####[facility] [address] [place], [address] RDW SD 42.0 fl Normal 35.1-43.9 [facility] Comment on above: Performed By: #### L 509.8002, L501.0250, L3890.6006, L100.0100 ####[facility] [address] [place], [address] WBC (Bld) [#/Vol] 11.0 10*3/uL Normal 4.4-11.0 [facility] Comment on above: Performed By: #### L 509.8002, L501.0250, L3890.6006, L100.0100 ####[facility] [address] [place], [address] Eosinophil percentageOrdered By: Marialuisa Marshall on 06-19-2025 Eosinophils/100 WBC (Bld) 1.3 % 0-5 [facility] Erythrocyte distribution wid th ratioOrdered By: Marialuisa Marshall on 06-19-2025 Erythrocyte distribution width (RBC) [Ratio] 12.9 % 11.6-14.6 [facility] Erythrocyte distribution wid th standard deviationOrdered By: Marialuisa Marshall on 06-19-2025 Erythrocyte distribution width (RBC) [Ratio] 42.0 fl 35.1-43.9 [facility] Glucose Challenge Gest 1H 50 carlota 06-19-2025 GLU GEST 50g 1H 131 mg/dL Normal 70-140 [facility] Comment on above: Performed By: #### L 509.8002, L501.0250, L3890.6006, L100.0100 ####[facility] [address] [place], [place], [address] Glucose measurement at 2 monet rs post-dose gestational glucose tolerance testOrdered By: Marialuisa Marshall on 06-19-2025 Glucose [Mass/Vol] 131 mg/dL 70-140 [facility] HIVon 06-19-2025 HIV Non-Reactive Normal Nonreactive [facility] Comment on above: Result Comment: Non- Reactive Reactive Repeatedly reactive samples must be confirmed according to CDC recommended confirmatory algorithms. The subresults for either HIVAG or AHIV can be used as an aid in the selection of the confirmation algorithm for reactive samples. Send out specimens with Reactive results to [facility] for confirmation. Order the HIV antibody detection and differentiation: lc#[id number] Performed By: #### L 509.8002, L501.0250, L3890.6006, L100.0100 ####[facility] [address] [place], [place], [address] Hematocrit Auto (Bld) [Volum e fraction]Ordered By: Marialuisa Marshall on 06-19-2025 Hematocrit (Bld) [Volume fraction] 31.8 % Low 37-47 [facility] Hemoglobin measurementOrdere d By: Marialuisa Marshall on 06-19-2025 Hemoglobin (Bld) [Mass/Vol] 10.5 g/dL Low 12.0-15.0 [facility] Immature granulocytes/100 WB C Auto (Bld)Ordered By: Marialuisa Marshall on 06-19-2025 Immature granulocytes/100 WBC (Bld) 0.800 % 0.0-0.9 [facility] Comment on above: IG% - Immature Granu locytes (promyelocytes, myelocytes and metamyelocytes) > 1% indicates that a LEFT SHIFT is Present. Laboratory - Chemistry and C hemistry - challengeOrdered By: Shireen Carnes on 06-19-2025 Glucose Ql (U) [facility] Laboratory - UrinalysisOrder ed By: Shireen Carnes on 06-19-2025 Protein Ql (U) [facility] MCV (mean corpuscular volume ) determinationOrdered By: Marialuisa Marshall on 06-19-2025 MCV (RBC) [Entitic vol] 89.1 fL 81-99 [facility] Mean corpuscular hemoglobin (MCH) determinationOrdered By: Marialuisa Marshall on 06-19-2025 MCH (RBC) [Entitic mass] 29.4 pg 27.0-32.0 [facility] Mean corpuscular hemoglobin concentration (MCHC) determinationOrdered By: Marialuisa Marsahll on 06-19-2025 MCHC (RBC) [Mass/Vol] 33.0 g/dL 32-36 [facility] Mean platelet volume determi nationOrdered By: Marialuisa Marshall on 06-19-2025 Platelet mean volume (Bld) [Entitic vol] 9.8 fL 6.2-12.0 [facility] Monocyte percentageOrdered B y: Marialuisa Marshall on 06-19-2025 Monocytes/100 WBC (Bld) 5.9 % 0-10 [facility] Neutrophil percentageOrdered By: Marialuisa Marshall on 06-19-2025 Neutrophils/100 WBC (Bld) 69.4 % 47-70 [facility] No Panel InformationOrdered By: Marialuisa Marshall on 06-19-2025 HIV (1&2) Antibody Non-Reactive Nonreactive [facility] Comment on above: Non-ReactiveReactive Repeatedly reactive samples must be confirmed according to CDC recommended confirmatory algorithms. The subresults for either HIVAG or AHIV can be used as an aid in the selection of the confirmation algorithm for reactive samples.Send out specimens with Reactive results to [facility] for confirmation.Order the HIV antibody detection and differentiation: #[id number] Nucleated red blood cell per centageOrdered By: Marialuisa Marshall on 06-19-2025 Nucleated RBC/100 WBC (Bld) [Ratio] 0 % 0-5 [facility] OB Limited With Biometricson 06-19-2025 OB Limited With Biometrics [facility] Imaging Services [address] [place], [place] [address] OB Limited With Biometrics MR#: [id number] Acct: [id number] Name: JUSTINO RENDON Rep #: [id number] : 2000 F 25 From: Enrique Angelo PCP: MITCH Duran Status: REG CLI Study: OB Limited With Biometrics Date of Exam: 06/19 Exam# [id number] Ordering Dr: Marialuisa Marshall PROCEDURE: OB LIMITED [...] of 09/03/2025. No acute abnormalities. Reading Location: [facility] CC: Dr. Marialuisa Marshall MD; MITCH Duran [employer] Practitioner/Embalmer: Signed [facility] OB Triage Progress Noteon OB Triage Progress Note [facility] Medical Records Department [address] [place] [address] OB Triage Progress Note 06/19/25 1821 MR#: [id number] Acct: [id number] Name: JUSTINO RENDON Rep #: [id number] : 2000 25 From: Marialuisa Marshall MD PCP: MITCH Duran Status:DEP CLI Y DOS: Location: [facility]OUT Progress Notes Date of Service: 06/19/25 Progress Note: Patient presents for triage evaluation secondary to decreased movement FHT: 140 Moderate variability reactive no decelerations category I tracing [place]: no regular Contractions Assessment and plan: dec [...] % Lymph % (Auto) 22.5 (19-41) % [place] % (Auto) 5.9 (0-10) % Eos % (Auto) 1.3 (0-5) % Baso % (Auto) 0.1 (0-1) % Absolute Neuts (auto) 7.7 (2.0-7.7) X10 3/uL Absolute Lymphs (auto) 2.48 (0.83-4.51) X10 3/uL Nucleated RBC % 0 (0-5) % Glucose 1 Hr 50 gm 131 (70-140) mg/dL Syphilis Total Ab Nonreactive (Nonreactive) HIV 1 2 Antibody Nonreactive (Nonreactive) Charges/Coding Procedures Urinary/Genital 52xxx-59xxx: 22979-67 non-stress test Interp 06/19/25 9214 Date Marialuisa Marshall MD Cosigner Signature (if applicable): Date __ CC: Dr. Marialuisa Marshall MD; MITCH Duran Signed ADDENDUM by Dr. Marialuisa Marshall MD on 07/17/25 at 2140 Addendum 28 weeks 07/17/25 2140 Date Marialuisa Marshall MD cc: Dr. Marialuisa Marshall MD; MITCH Duran * Signed [facility] Sample Worker Office Visit Reporton 06-19-2025 Sample Worker Office Visit Report [facility] [address], [address] [place] [address] OFFICE VISIT Date of Service: 06/19/25 MR#: [id number] Acct: [id number] Name: JUSTINO RENDON Rep #: [id number] : 2000 Provider: JH chun Age/Sex: 25/F Location: 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 ?-???-???-??? (more content not included)... [facility] Platelet countOrdered By: Art Marshall on 06-19-2025 Platelets (Bld) [#/Vol] 240 10*3/uL 150-450 [facility] RBC Auto (Bld) [#/Vol]Ordere d By: Marialuisa Marshall on 06-19-2025 RBC (Bld) [#/Vol] 3.57 10*6/uL Low 4.2-5.4 [facility] Syphilis Antibodieson 2024 Syphilis Abs Non-Reactive Normal Nonreactive [facility] Comment on above: Performed By: #### L 509.8002, L501.0250, L3890.6006, L100.0100 ####[facility] [address] [place], [address] White blood cell (WBC) count Ordered By: Marialuisa Marshall on 06-19-2025 WBC (Bld) [#/Vol] 11.0 10*3/uL 4.4-11.0 [facility] Laboratory - Chemistry and C hemistry - challengeOrdered By: Marialuisa Marshall on 05-29-2025 Glucose Ql (U) [facility] Laboratory - UrinalysisOrder ed By: Marialuisa Marshall on 05-29-2025 Protein Ql (U) [facility] Sample Worker Office Visit Reporton 05-29-2025 Sample Worker Office Visit Report [address], [address] [place] [address] OFFICE VISIT Date of Service: 05/29/25 MR#: [id number] Acct: [id number] Name: JUSTINO RENDON Rep #: [id number] : 2000 Provider: Dr. 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 ?-? (more content not included)... [facility] ED Prov Noteon 05-11-2025 ED Prov Note ED PROVIDER NOTE [facility] EMERGENCY DEPARTMENT NAME: Justino Rendon AGE: 24 y.o. : 2000 VISIT DATE: 05/11/2025 CSN: [id number] PCP: No primary care provider on file. [...] BY AGUSTIN GREENBERG, ON 05/11/2025 15:32:45 Normal [facility] Laboratory - Chemistry and C hemistry - challengeOrdered By: Alyssia Monzon on 05-03-2025 Glucose Ql (U) [facility] Laboratory - UrinalysisOrder ed By: Alyssia Monzon on 05-03-2025 Protein Ql (U) [facility] Sample Worker Office Visit Reporton 05-03-2025 Sample Worker Office Visit Report [facility] [address], [address] [place] [address] OFFICE VISIT Date of Service: 05/03/25 MR#: [id number] Acct: [id number] Name: JUSTINO RENDON Rep #: [id number] : 2000 Provider: Dr. 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 [facility] Laboratory - Chemistry and C hemistry - challengeOrdered By: Olga Manzo on 04-07-2025 Glucose Ql (U) Negative [facility] [facility] - UrinalysisOrder ed By: Olga Manzo on 04-07-2025 Protein Ql (U) [facility] Sample Worker Office Visit Reporton 04-07-2025 Sample Worker Office Visit Report [facility] [address], [address] [place] [address] OFFICE VISIT Date of Service: 04/07/25 MR#: [id number] Acct: [id number] Name: JUSTINO RENDON Rep #: [id number] : 2000 Provider: FAB Lema ams Age/Sex: 24/F Location: [facility] Status: Signed Intake Vital Signs 02/10/25 13:04 03/10/25 08:56 04/07/25 13:04 Height 5 ft 4 in 5 ft 4 in 5 ft 4 in Weight: 149 lb 2 oz BMI 25.6 BP 108/70 Intake Visit Reasons: 17wk ob Chief Complaint: 17 Week OB Chief Analytics Officer Required: No Is patient in pain?: No [...] 1 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 [facility] Bacteria identifiedon 2024 Bacteria identified Cx Nom (U) Test: Urine Culture Specimen Source: Clean Catch/Voided Specimen Type: Urine Specimen Date: 03/20/2025 1853 Result Date: 03/21/2025 235 Result Status: Final result Abnormal: Yes Resulting Lab: [facility] [address] [address] CULTURE >=100,000 CFU/mL Streptococcus agalactiae (Group B Streptococcus) (Abnormal) Streptococcus agalactiae (Group B Streptococcus) is universally susceptible to beta-lactam antibiotics and vancomycin. Routine susceptibility testing not performed. For penicillin allergic patients, please contact the laboratory within 5 days of collection at to request susceptibility testing. Abnormal [facility] Comment on above: Performed By: #### 5 8077-9 #### BERTIN FERNÁNDEZ (25606) [facility] ([facility]) [address] [place] [address] 21374 Basic metabolic 2000 panelon 03-20-2025 Anion gap [Moles/Vol] 11 mmol/L Normal 10-20 [facility] Comment on above: Performed By: #### 2 4321-2 #### BERTIN FERNÁNDEZ (24183) [facility] ([facility]) [address] [place] [address] 45560 Calcium [Mass/Vol] 8.5 mg/dL Low 8.6-10.3 [facility] Comment on above: Performed By: #### 2 4321-2 #### BERTIN FERNÁNDEZ (81143) [facility] ([facility]) [address] [place] [address] 27291 Chloride [Moles/Vol] 106 mmol/L Normal 98-107 [facility] Comment on above: Performed By: #### 2 4321-2 #### BERTIN FERNÁNDEZ (98478) [facility] ([facility]) [address] [place] [address] 47053 CO2 [Moles/Vol] 24 mmol/L Normal 21-32 [facility] Comment on above: Performed By: #### 2 4321-2 #### BERTIN FERNÁNDEZ (42288) [facility] ([facility]) [address] [place] [address] 57455 Creatinine [Mass/Vol] 0.61 mg/dL Normal 0.50-1.05 [facility] Comment on above: Performed By: #### 2 4321-2 #### BERTIN FERNÁNDEZ (14840) [facility] ([facility]) [address] [place] [address] 29774 GFR/1.73 sq M.predicted MDRD (S/P/Bld) [Vol rate/Area] mL/min/{1.73_m2} Normal >60 [facility] Comment on above: Result Comment: Calc ulations of estimated GFR are performed using the 2020 CKD-EPI Study Refit equation without the race variable for the IDMS-Traceable creatinine methods. https://jasn.asnjournals.org/content//ASN.132 6676198 Performed By: #### 2 4321-2 #### BERTIN FERNÁNDEZ (52238) [facility] ([facility]) [address] [place] [address] 97472 Glucose [Mass/Vol] 73 mg/dL Low 74-99 [facility] Comment on above: Performed By: #### 2 4321-2 #### BERTIN FERNÁNDEZ (25892) [facility] ([facility]) [address] [place] [address] 80391 Potassium [Moles/Vol] 3.5 mmol/L Normal 3.5-5.3 [facility] Comment on above: Performed By: #### 2 4321-2 #### BERTIN FERNÁNDEZ (39438) [facility] ([facility]) [address] [place] [address] 16217 Sodium [Moles/Vol] 137 mmol/L Normal 136-145 [facility] Comment on above: Performed By: #### 2 4321-2 #### BERTIN FERNÁNDEZ (72296) [facility] ([facility]) [address] [place] [address] 43700 Urea nitrogen [Mass/Vol] 7 mg/dL Normal 6-23 [facility] Comment on above: Performed By: #### 2 4321-2 #### BERTIN FERNÁNDEZ (74080) [facility] ([facility]) [address] [place] [address] 61711 CBC W Auto Differential pane l (Bld)on 03-20-2025 Basophils (Bld) [#/Vol] 0.02 x10*3/uL Normal 0.00-0.10 [facility] Comment on above: Performed By: #### 5 8077-9 #### BERTIN FERNÁNDEZ (90465) [facility] ([facility]) [address] [place] [address] 64722 Basophils/100 WBC (Bld) 0.2 % Normal 0.0-2.0 [facility] Comment on above: Performed By: #### 5 8077-9 #### BERTIN FERNÁNDEZ (49435) [facility] ([facility]) [address] [place] [address] 28242 Eosinophils (Bld) [#/Vol] 0.25 x10*3/uL Normal 0.00-0.70 [facility] Comment on above: Performed By: #### 5 8077-9 #### BERTIN FERNÁNDEZ (49003) [facility]) [address] [place] [address] 22300 Eosinophils/100 WBC (Bld) 2.3 % Normal 0.0-6.0 [facility] Comment on above: Performed By: #### 5 8077-9 #### BERTIN FERNÁNDEZ (67001) [facility]) [address] [place] [address] 10151 Erythrocyte distribution width (RBC) [Ratio] 12.6 % Normal 11.5-14.5 [facility] Comment on above: Performed By: #### 5 8077-9 #### BERTIN FERNÁNDEZ (00028) [facility] ([facility]) [address] [place] [address] 78224 Hematocrit (Bld) [Volume fraction] 32.6 % Low 36.0-46.0 [facility] Comment on above: Performed By: #### 5 8077-9 #### BERTIN FERNÁNDEZ (10412) [facility]) [address] [place] [address] 65741 Hemoglobin (Bld) [Mass/Vol] 11.1 g/dL Low 12.0-16.0 [facility] Comment on above: Performed By: #### 5 8077-9 #### BERTIN FERNÁNDEZ (26204) [facility]) [address] [place] [address] 20962 Immature granulocytes (Bld) [#/Vol] 0.03 x10*3/uL Normal 0.00-0.70 [facility] Comment on above: Performed By: #### 5 8077-9 #### BERTIN FERNÁNDEZ (04834) [facility]) [address] [place] [address] 56789 Immature granulocytes/100 WBC (Bld) 0.3 % Normal 0.0-0.9 [facility] Comment on above: Result Comment: Larissa ture Granulocyte Count (IG) includes promyelocytes, myelocytes and metamyelocytes but does not include bands. Percent differential counts (%) should be interpreted in the context of the absolute cell counts (cells/UL). Performed By: #### 5 8077-9 #### BERTIN FERNÁNDEZ (82474) [facility] ([facility]) [address] [place] [address] Lymphocytes (Bld) [#/Vol] 2.84 x10*3/uL Normal 1.20-4.80 [facility] Comment on above: Performed By: #### 5 8077-9 #### BERTIN FERNÁNDEZ (37593) [facility] ([facility]) [address] [place] [address] 99201 Lymphocytes/100 WBC (Bld) 26.3 % Normal 13.0-44.0 [facility] Comment on above: Performed By: #### 5 8077-9 #### BERTIN FERNÁNDEZ (77278) [facility]) [address] [place] [address] 43756 MCH (RBC) [Entitic mass] 30.2 pg Normal 26.0-34.0 [facility] Comment on above: Performed By: #### 5 8077-9 #### BERTIN FERNÁNDEZ (10461) [facility] ([facility]) [address] [place] [address] 50165 MCHC (RBC) [Mass/Vol] 34.0 g/dL Normal 32.0-36.0 [facility] Comment on above: Performed By: #### 5 8077-9 #### BERTIN FERNÁNDEZ (98974) [facility]) [address] [place] [address] 67064 MCV (RBC) [Entitic vol] 89 fL Normal 80-100 [facility] Comment on above: Performed By: #### 5 8077-9 #### BERTIN FERNÁNDEZ (01101) [facility]) [address] [place] [address] 59888 Monocytes (Bld) [#/Vol] 0.55 x10*3/uL Normal 0.10-1.00 [facility] Comment on above: Performed By: #### 5 8077-9 #### BERTIN FERNÁNDEZ (44705) [facility]) [address] [place] [address] 72597 Monocytes/100 WBC (Bld) 5.1 % Normal 2.0-10.0 [facility] Comment on above: Performed By: #### 5 8077-9 #### BERTIN FERNÁNDEZ (22899) [facility]) [address] [place] [address] 90191 Neutrophils (Bld) [#/Vol] 7.10 x10*3/uL Normal 1.20-7.70 [facility] Comment on above: Result Comment: Perc ent differential counts (%) should be interpreted in the context of the absolute cell counts (cells/uL). Performed By: #### 5 8077-9 #### BERTIN FERNÁNDEZ (15332) [facility]) [address] [place] [address] 58717 Neutrophils/100 WBC (Bld) 65.8 % Normal 40.0-80.0 [facility] Comment on above: Performed By: #### 5 8077-9 #### BERTIN FERNÁNDEZ (85077) [facility]) [address] [place] [address] 75637 Nucleated RBC/100 WBC (Bld) [Ratio] 0.0 /100 WBCs Normal 0.0-0.0 [facility] Comment on above: Performed By: #### 5 8077-9 #### BERTIN FERNÁNDEZ (33720) [facility] ([facility]) [address] [place] [address] 18115 Platelets (Bld) [#/Vol] 187 x10*3/uL Normal 150-450 [facility] Comment on above: Performed By: #### 5 8077-9 #### BERTIN FERNÁNDEZ (87743) [facility] ([facility]) [address] [place] [address] RBC (Bld) [#/Vol] 3.67 x10*6/uL Low 4.00-5.20 [facility] Comment on above: Performed By: #### 5 8077-9 #### BERTIN FERNÁNDEZ (01189) [facility]) [address] [place] [address] WBC (Bld) [#/Vol] 10.8 x10*3/uL Normal 4.4-11.3 [facility] Comment on above: Performed By: #### 5 8077-9 #### BERTIN FERNÁNDEZ (17430) [facility]) [address] [place] [address] Glucose Test strip manual (B ld) [Mass/Vol]on 03-20-2025 Glucose [Mass/Vol] 81 mg/dL Normal 74-99 [facility] Comment on above: Performed By: #### 5 8077-9 #### BERTIN FERNÁNDEZ (82522) [facility]) [address] [place] [address] Urinalysis complete W Reflex Culture panel (U)on 03-20-2025 Appearance (U) Turbid Normal Clear [facility] Comment on above: Performed By: #### 5 8077-9 #### BERTIN FERNÁNDEZ (65544) [facility]) [address] [place] [address] Bilirubin (U) [Mass/Vol] Negative Normal NEGATIVE [facility] Comment on above: Performed By: #### 5 8077-9 #### BERTIN FERNÁNDEZ (97628) [facility]) [address] [place] [address] Color (U) Light-Yellow Normal Light-Yellow, Yellow, Dark-Yellow [facility] Comment on above: Performed By: #### 5 8077-9 #### BERTIN FERNÁNDEZ (39522) [facility]) [address] [place] [address] Glucose Auto test strip (U) [Mass/Vol] Normal Normal Normal [facility] Comment on above: Performed By: #### 5 8077-9 #### BERTIN FERNÁNDEZ (72229) [facility]) [address] [place] [address] Ketones (U) [Mass/Vol] 40 (2+) [facility]normal NEGATIVE [facility]: Performed By: #### 5 8077-9 #### BERTIN FERNÁNDEZ (22696) [facility]) [address] [place] [address] Leukocyte esterase Auto test strip Ql (U) 250 Jomar/uL Abnormal NEGATIVE [facility] Comment on above: Performed By: #### 5 8077-9 #### BERTIN FERNÁNDEZ (43821) [facility]) [address] [place] [address] Nitrite Auto test strip Ql (U) Negative Normal NEGATIVE [facility] Comment on above: Performed By: #### 5 8077-9 #### BERTIN FERNÁNDEZ (91321) [facility] ([facility]) [address] [place] [address] pH (U) 6.0 [pH] Normal 5.0, 5.5, 6.0, 6.5, 7.0, 7.5, 8.0 [facility] Comment on above: Performed By: #### 5 8077-9 #### BERTIN FERNÁNDEZ (71468) [facility]) [address] [place] [address] Protein (U) [Mass/Vol] Negative Normal NEGAT ROMULO, 10 (TRACE), 20 (TRACE) [facility] Comment on above: Performed By: #### 5 8077-9 #### BERTIN FERNÁNDEZ (57269) [facility]) [address] [place] [address] RBC (U) [#/Vol] Negative Normal NEGATIVE [facility] Comment on above: Performed By: #### 5 8077-9 #### BERTIN FERNÁNDEZ (58770) [facility]) [address] [place] [address] Specific gravity (U) [Rel density] 1.019 Normal 1.005-1.035 [facility] Comment on above: Performed By: #### 5 8077-9 #### BERTIN FERNÁNDEZ (94870) [facility]) [address] [place] [address] Urobilinogen (U) [Mass/Vol] Normal Normal Normal [facility] Comment on above: Performed By: #### 5 8077-9 #### BERTIN FERNÁNDEZ (00935) [facility]) [address] [place] [address] Urinalysis microscopic panel Auto Ql (U)on 03-20-2025 Bacteria Auto (Urine sed) [#/Area] 1+ /HPF Abnormal NONE SEEN [facility] Comment on above: Performed By: #### 5 3315-8 #### BERTIN FERNÁNDEZ (95862) [facility]) [address] [place] [address] Epithelial cells.squamous Auto (Urine sed) [#/Area] 10-25 (FEW) Normal Reference range not established. [facility] Comment on above: Performed By: #### 5 3315-8 #### BERTIN FERNÁNDEZ (65839) [facility]) [address] [place] [address] Mucus Auto (Urine sed) [#/Area] FEW Normal Reference range not established. [facility] Comment on above: Performed By: #### 5 3315-8 #### BERTIN FERNÁNDEZ (29937) [facility]) [address] [place] [address] RBC Auto (Urine sed) [#/Area] 1-2 Normal NONE, 1-2, 3-5 [facility] Comment on above: Performed By: #### 5 3315-8 #### BERTIN FERNÁNDEZ (79984) [facility]) [address] [place] [address] WBC Auto (Urine sed) [#/Area] 11-20 Abnormal 1-5, NONE [facility] Comment on above: Performed By: #### 5 3315-8 #### DENTON JOLENE ([id number]) [facility] ([facility]) [address] [place], [place] [id number] Laboratory - Chemistry and C hemistry - challengeOrdered By: Alyssia Monzon on 03-10-2025 Glucose Ql (U) [facility] - UrinalysisOrder ed By: Alyssia Monzon on 03-10-2025 Protein Ql (U) [facility] Sample Worker Office Visit Reporton 03-10-2025 Sample Worker Office Visit Report [facility] [address], [address] [place] [address] OFFICE VISIT Date of Service: 03/10/25 MR#: [id number] Acct: [id number] Name: JUSTINO RENDON Rep #: [id number] : 2000 Provider: Dr. 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 [facility] Absolute lymphocyte countOrd ered By: Araseli Jacob on 02-20-2025 Lymphocytes Auto (Unsp spec) [#/Vol] 2.28 10*3/uL 0.83-4.51 [facility] Absolute neutrophil countOrd ered By: Araseli Jacob on 02-20-2025 Neutrophils (Bld) [#/Vol] 5.9 10*3/uL 2.0-7.7 [facility] Anion gap in Serum or Plasma Ordered By: Shireen Carnes on 02-20-2025 Anion gap [Moles/Vol] 14 mmol/L 5-15 [facility] Automated lymphocyte count a s percentage of total leukocytesOrdered By: Araseli Jcaob on 02-20-2025 Lymphocytes/100 WBC Auto (Unsp spec) 25.4 % 19-41 [facility] BUN/creatinine ratioOrdered By: Shireen Carnes on 02-20-2025 Urea nitrogen/Creatinine [Mass ratio] 13.2 mg/mg 10-20 [facility] Basophil percentageOrdered B y: Araseli Jacob on 02-20-2025 Basophils/100 WBC (Bld) 0.2 % 0-1 [facility] Bilirubin, totalOrdered By: Shireen Carnes on 02-20-2025 Bilirubin [Mass/Vol] mg/dL 0.00-1.30 [facility] CBC W/Diff, Automatedon 5 Absolute Lymph 2.28 X10 3/uL Normal 0.83-4.51 [facility] Comment on above: Performed By: #### L 3890.6102, L3890.6301, BTS, L3890.6006, L509.8002, L100.0100, L509.4006 #### [facility] [address] [place], [address] Absolute Neut 5.9 X10 3/uL Normal 2.0-7.7 [facility] Comment on above: Performed By: #### L 3890.6102, L3890.6301, BTS, L3890.6006, L509.8002, L100.0100, L509.4006 #### [facility] [address] [place], [address] Basophils/100 WBC (Bld) 0.2 % Normal 0-1 [facility] Comment on above: Performed By: #### L 3890.6102, L3890.6301, BTS, L3890.6006, L509.8002, L100.0100, L509.4006 #### [facility] [address] [place], [address] Eosinophils/100 WBC (Bld) 2.3 % Normal 0-5 [facility] Comment on above: Performed By: #### L 3890.6102, L3890.6301, BTS, L3890.6006, L509.8002, L100.0100, L509.4006 #### [facility] [address] [place], [address] Erythrocyte distribution width (RBC) [Ratio] 12.3 % Normal 11.6-14.6 [facility] Comment on above: Performed By: #### L 3890.6102, L3890.6301, BTS, L3890.6006, L509.8002, L100.0100, L509.4006 #### [facility] [address] [place], [address] Hematocrit (Bld) [Volume fraction] 34.0 % Low 37-47 [facility] Comment on above: Performed By: #### L 3890.6102, L3890.6301, BTS, L3890.6006, L509.8002, L100.0100, L509.4006 #### [facility] [address] [place], [address] Hemoglobin (Bld) [Mass/Vol] 11.7 g/dL Low 12.0-15.0 [facility] Comment on above: Performed By: #### L 3890.6102, L3890.6301, BTS, L3890.6006, L509.8002, L100.0100, L509.4006 #### [facility] [address] [place], [address] IG% 0.300 Normal 0.0-0.9 [facility] Comment on above: Result Comment: IG% - Immature Granulocytes (promyelocytes, myelocytes and metamyelocytes) > 1% indicates that a LEFT SHIFT is Present. Performed By: #### L 3890.6102, L3890.6301, BTS, L3890.6006, L509.8002, L100.0100, L509.4006 #### [facility] [address] [place], [address] Lymphocytes/100 WBC (Bld) 25.4 % Normal 19-41 [facility] Comment on above: Performed By: #### L 3890.6102, L3890.6301, BTS, L3890.6006, L509.8002, L100.0100, L509.4006 #### [facility] [address] [place], [address] MCH (RBC) [Entitic mass] 30.5 pg Normal 27.0-32.0 [facility] Comment on above: Performed By: #### L 3890.6102, L3890.6301, BTS, L3890.6006, L509.8002, L100.0100, L509.4006 #### [facility] [address] [place], [address] MCHC (RBC) [Mass/Vol] 34.4 g/dL Normal 32-36 [facility] Comment on above: Performed By: #### L 3890.6102, L3890.6301, BTS, L3890.6006, L509.8002, L100.0100, L509.4006 #### [facility] [address] [place], [address] MCV (RBC) [Entitic vol] 88.5 fL Normal 81-99 [facility] Comment on above: Performed By: #### L 3890.6102, L3890.6301, BTS, L3890.6006, L509.8002, L100.0100, L509.4006 #### [facility] [address] [place], [address] Monocytes/100 WBC (Bld) 5.9 % Normal 0-10 [facility] Comment on above: Performed By: #### L 3890.6102, L3890.6301, BTS, L3890.6006, L509.8002, L100.0100, L509.4006 #### [facility] [address] [place], [address] Neutrophils/100 WBC (Bld) 65.9 % Normal 47-70 [facility] Comment on above: Performed By: #### L 3890.6102, L3890.6301, BTS, L3890.6006, L509.8002, L100.0100, L509.4006 #### [facility] [address] [place], [address] Nucleated RBC (Bld) [#/Vol] 0 10*3/uL Normal 0-5 [facility] Comment on above: Performed By: #### L 3890.6102, L3890.6301, BTS, L3890.6006, L509.8002, L100.0100, L509.4006 #### [facility] [address] [place], [address] Platelet mean volume (Bld) [Entitic vol] 9.3 fL Normal 6.2-12.0 [facility] Comment on above: Performed By: #### L 3890.6102, L3890.6301, BTS, L3890.6006, L509.8002, L100.0100, L509.4006 #### [facility] [address] [place], [address] Platelets (Bld) [#/Vol] 227 10*3/uL Normal 150-450 [facility] Comment on above: Performed By: #### L 3890.6102, L3890.6301, BTS, L3890.6006, L509.8002, L100.0100, L509.4006 #### [facility] [address] [place], [address] RBC (Bld) [#/Vol] 3.84 10*6/uL Low 4.2-5.4 [facility] Comment on above: Performed By: #### L 3890.6102, L3890.6301, BTS, L3890.6006, L509.8002, L100.0100, L509.4006 #### [facility] [address] [place], [address] RDW SD 39.6 fl Normal 35.1-43.9 [facility] Comment on above: Performed By: #### L 3890.6102, L3890.6301, BTS, L3890.6006, L509.8002, L100.0100, L509.4006 #### [facility] [address] [place], [address] WBC (Bld) [#/Vol] 9.0 10*3/uL Normal 4.4-11.0 [facility] Comment on above: Performed By: #### L 3890.6102, L3890.6301, BTS, L3890.6006, L509.8002, L100.0100, L509.4006 #### [facility] [address] [place], [address] Carbon dioxide, total [Moles /volume] in Central venous bloodOrdered By: Shireen Carnes on 02-20-2025 CO2 [Moles/Vol] 21.0 mmol/L 21.0-32.0 [facility] Chloride assayOrdered By: Oscar Carnes on 02-20-2025 Chloride [Moles/Vol] 104 mmol/L 98-108 [facility] Comprehensive Metabolic Prof ilon 02-20-2025 Albumin [Mass/Vol] 3.9 g/dL Normal 3.5-5.0 [facility] Comment on above: Performed By: #### L 500.4050 ####[facility] [address] [place], [address] Albumin/Globulin [Mass ratio] 1.4 {ratio} Normal 0.9-2.4 [facility] Comment on above: Performed By: #### L [id number] ####[facility] [address] [place], [address] ALK PHOS 59 U/L Normal 35-104 [facility] Comment on above: Performed By: #### L [id number] ####[facility] [address] [place], [address] ALT [Catalytic activity/Vol] 16 U/L Normal <=34 [facility] Comment on above: Performed By: #### L 500.4050 ####[facility] [address] [place], [address] AST [Catalytic activity/Vol] 17 U/L Normal <=31 [facility] Comment on above: Performed By: #### L 500.4050 ####[facility] [address] [place], [address] BUN/CRE 13.2 RATIO Normal 10-20 [facility] Comment on above: Performed By: #### L [id number] ####[facility] [address] [place], [address] Calcium [Mass/Vol] 9.0 mg/dL Normal 7.6-11.0 [facility] Comment on above: Performed By: #### L [id number] ####[facility] [address] [place], [address] Chloride [Moles/Vol] 104 mmol/L Normal 98-108 [facility] Comment on above: Performed By: #### L [id number] ####[facility] [address] [place], [address] CO2 [Moles/Vol] 21.0 mmol/L Normal 21.0-32.0 [facility] Comment on above: Performed By: #### L [id number] ####[facility] [address] [place], [address] Creatinine [Mass/Vol] 0.68 mg/dL Low 0.70-1.20 [facility] Comment on above: Performed By: #### L [id number] ####[facility] [address] [place], [address] GAP 14 Normal 5-15 [facility] Comment on above: Performed By: #### L 500.4050 ####[facility] [address] [place], [address] GFR/1.73 sq M.predicted among non-blacks MDRD (S/P/Bld) [Vol rate/Area] 123 mL/min/{1.73_m2} Normal >60 [facility] Comment on above: Result Comment: mL/m in/1.73m2 CKD-EPI Creatinine Equation (2020) Performed By: #### L 500.4050 ####[facility] [address] [place], [address] Globulin (S) [Mass/Vol] 2.8 g/dL Normal 2.2-4.2 [facility] Comment on above: Performed By: #### L 500.4050 ####[facility] [address] [place], [address] Glucose [Mass/Vol] 77 mg/dL Normal 70-99 [facility] Comment on above: Performed By: #### L 500.4050 ####[facility] [address] [place], [address] Potassium [Moles/Vol] 3.9 mmol/L Normal 3.3-5.1 [facility] Comment on above: Performed By: #### L 500.4050 ####[facility] [address] [place], [address] Sodium [Moles/Vol] 139 mmol/L Normal 133-145 [facility] Comment on above: Performed By: #### L 500.4050 ####[facility] [address] [place], [address] T BILI < 0.15 Normal 0.00-1.30 [facility] Comment on above: Performed By: #### L 500.4050 ####[facility] [address] [place], [address] T PROT 6.8 g/dL Normal 5.9-8.4 [facility] Comment on above: Performed By: #### L 500.4050 ####[facility] [address] [place], [address] Urea nitrogen [Mass/Vol] 9 mg/dL Normal 4-19 [facility] Comment on above: Performed By: #### L 500.4050 ####[facility] [address] [place], [address] Eosinophil percentageOrdered By: Araseli Jacob on 02-20-2025 Eosinophils/100 WBC (Bld) 2.3 % 0-5 [facility] Erythrocyte distribution wid th ratioOrdered By: Araselipranay Jacob on 02-20-2025 Erythrocyte distribution width (RBC) [Ratio] 12.3 % 11.6-14.6 [facility] Erythrocyte distribution wid th standard deviationOrdered By: Araselipranay Jacob on 02-20-2025 Erythrocyte distribution width (RBC) [Ratio] 39.6 fl 35.1-43.9 [facility] Glomerular filtration rate ( GFR) estimation/1.73 sq m using serum, plasma, or whole bOrdered By: Shireen Carnes on 02-20-2025 GFR/1.73 sq M.predicted among non-blacks MDRD (S/P/Bld) [Vol rate/Area] 123 mL/min/{1.73_m2} >60 [facility] Comment on above: mL/min/1.73m2 CKD-EP I Creatinine Equation (2020) HIVon 02-20-2025 HIV Non-Reactive Normal Nonreactive [facility] Comment on above: Result Comment: Non- Reactive Reactive Repeatedly reactive samples must be confirmed according to CDC recommended confirmatory algorithms. The subresults for either HIVAG or AHIV can be used as an aid in the selection of the confirmation algorithm for reactive samples. Send out specimens with Reactive results to [facility] for confirmation. Order the HIV antibody detection and differentiation: lc#[id number] Performed By: #### L 3890.6102, L3890.6301, BTS, L3890.6006, L509.8002, L100.0100, L509.4006 #### [facility] [address] [place], [place], [address] Hematocrit Auto (Bld) [Volum e fraction]Ordered By: Araselipranay Jacob on 02-20-2025 Hematocrit (Bld) [Volume fraction] 34.0 % Low 37-47 [facility] Hemoglobin measurementOrdere d By: Araseli Jacob on 02-20-2025 Hemoglobin (Bld) [Mass/Vol] 11.7 g/dL Low 12.0-15.0 [facility] Hepatitis C Antibodyon 02-20 Hepatitis C Ab Non-Reactive Normal Nonreactive [facility] Comment on above: Result Comment: Reac tive: Presumptive evidence of antibodies to HCV. Follow CDC recommendations for supplemental testing. Non-Reactive: Antibodies to HCV were not detected; does not exclude the possibility of exposure to HCV Reactive Results are presumptive evidence of antibodies to HCV. Follow CDC recommendations for supplemental testing. Order confirmation testing: HCV Quant by PCR testing - HCVPCR lc#[id number] Non Reactive: < 0.8 Equivocal: >/= 0.8 to < 1.0 Reactive: >/= 1.0 The [facility] requires that a reactive/equivocal HCV antibody result be sent out for confirmation. HCV Quant by PCR testing. Performed By: #### L 3890.6102, L3890.6301, BTS, L3890.6006, L509.8002, L100.0100, L509.4006 ####[facility] [address] [place], [place], [address] Immature granulocytes/100 WB C Auto (Bld)Ordered By: Araseli Jacob on 02-20-2025 Immature granulocytes/100 WBC (Bld) 0.300 % 0.0-0.9 [facility] Comment on above: IG% - Immature Granu locytes (promyelocytes, myelocytes and metamyelocytes) > 1% indicates that a LEFT SHIFT is Present. L3890.6102on 02-20-2025 HEP B Surf Ag Non-Reactive Normal Nonreactive [facility] Comment on above: Result Comment: Reac tive: Presumptive evidence of HBV. Repeatedly reactive samples must be confirmed using a neutralization test ([employer] HBsAg Confirmatory Test) Non-Reactive: HBsAg not detected; does not exclude the possibility of exposure to HBV Performed By: #### L 3890.6102, L3890.6301, BTS, L3890.6006, L509.8002, L100.0100, L509.4006 #### [facility] [address] [place], [address] L509.4006on 02-20-2025 Rubella IgG REAC Normal Nonreactive [facility] Comment on above: Result Comment: Anti body Result: Interpretation Non-Reactive: Non-Immune Reactive: Immune The following results were obtained with the [employer] Rubella IgG assay. Results from assays of other manufacturers cannot be used interchangeably. Performed By: #### L 3890.6102, L3890.6301, BTS, L3890.6006, L509.8002, L100.0100, L509.4006 #### [facility] [address] [facility]. [place], [place], [address] Laboratory - Chemistry and C hemistry - challengeOrdered By: Shireen Carnes on 02-20-2025 AST [Catalytic activity/Vol] 17 U/L <32 [facility] - Microbiology an d Antimicrobial susceptibilityOrdered By: Araseli Jacob on 02-20-2025 HBV surface Ag Ql (S) Non-Reactive Nonreactive [facility] Comment on above: Reactive: Presumptiv e evidence of HBV. Repeatedly reactive samples must be confirmed using a neutralization test ([employer] HBsAg Confirmatory Test)Non-Reactive: HBsAg not detected; does not exclude the possibility of exposure to HBV MCV (mean corpuscular volume ) determinationOrdered By: Araseli Jacob on 02-20-2025 MCV (RBC) [Entitic vol] 88.5 fL 81-99 [facility] Mean corpuscular hemoglobin (MCH) determinationOrdered By: Araseli Jacob on 02-20-2025 MCH (RBC) [Entitic mass] 30.5 pg 27.0-32.0 [facility] Mean corpuscular hemoglobin concentration (MCHC) determinationOrdered By: Araseli Jacob on 02-20-2025 MCHC (RBC) [Mass/Vol] 34.4 g/dL 32-36 [facility] Mean platelet volume determi nationOrdered By: Araseli Jacob on 02-20-2025 Platelet mean volume (Bld) [Entitic vol] 9.3 fL 6.2-12.0 [facility] Monocyte percentageOrdered B y: Araseli Jacob on 02-20-2025 Monocytes/100 WBC (Bld) 5.9 % 0-10 [facility] NATERAon 02-20-2025 NATURA SEE SCANNED REPORT Normal [facility] Comment on above: Performed By: #### L 900.0098 ####[facility] [address] [place], [address] Neutrophil percentageOrdered By: Araseli Jacob on 02-20-2025 Neutrophils/100 WBC (Bld) 65.9 % 47-70 [facility] No Panel InformationOrdered By: Araseli Jacob on 02-20-2025 HIV (1&2) Antibody Non-Reactive Nonreactive [facility] Comment on above: Non-ReactiveReactive Repeatedly reactive samples must be confirmed according to CDC recommended confirmatory algorithms. The subresults for either HIVAG or AHIV can be used as an aid in the selection of the confirmation algorithm for reactive samples.Send out specimens with Reactive results to [facility] for confirmation.Order the HIV antibody detection and differentiation: #[id number] Nucleated red blood cell per centageOrdered By: Araseli Jacob on 02-20-2025 Nucleated RBC/100 WBC (Bld) [Ratio] 0 % 0-5 [facility] Platelet countOrdered By: Clara Jacob on 02-20-2025 Platelets (Bld) [#/Vol] 227 10*3/uL 150-450 [facility] Potassium measurement (mass/ volume)Ordered By: Shireen Carnes on 02-20-2025 Potassium (Unsp spec) [Mass/Vol] 3.9 mmol/L 3.3-5.1 [facility] RBC Auto (Bld) [#/Vol]Ordere d By: Araseli Jacob on 02-20-2025 RBC (Bld) [#/Vol] 3.84 10*6/uL Low 4.2-5.4 [facility] Serum creatinine measurement (mass/volume)Ordered By: Shireen Carnes on 02-20-2025 Creatinine [Mass/Vol] 0.68 mg/dL Low 0.70-1.20 [facility] Serum globulin measurementOr dered By: Shireen Carnes on 02-20-2025 Globulin (S) [Mass/Vol] 2.8 g/dL 2.2-4.2 [facility] Serum glucose measurement (m ass/volume)Ordered By: Shireen Carnes on 02-20-2025 Glucose [Mass/Vol] 77 mg/dL 70-99 [facility] Serum or plasma alanine du otransferase (ALT) measurementOrdered By: Shireen Carnes on 02-20-2025 ALT [Catalytic activity/Vol] 16 U/L <35 [facility] Serum or plasma albumin liuza urement (mass/volume)Ordered By: Shireen Carnes on 02-20-2025 Albumin [Mass/Vol] 3.9 g/dL 3.5-5.0 [facility] Serum or plasma albumin/glob ulin mass ratioOrdered By: Shireen Carnes on 02-20-2025 Albumin/Globulin [Mass ratio] 1.4 {ratio} 0.9-2.4 [facility] Serum or plasma alkaline neo sphatase measurementOrdered By: Shireen Carnes on 02-20-2025 ALP [Catalytic activity/Vol] 59 U/L 35-104 [facility] Serum or plasma calcium luiza urement (mass/volume)Ordered By: Shireen Carnes on 02-20-2025 Calcium [Mass/Vol] 9.0 mg/dL 7.6-11.0 [facility] Serum or plasma urea nitroge n measurement (mass/volume)Ordered By: Shireen Carnes on 02-20-2025 Urea nitrogen [Mass/Vol] 9 mg/dL 4-19 [facility] Sodium levelOrdered By: Yoni Carnes on 02-20-2025 Sodium [Moles/Vol] 139 mmol/L 133-145 [facility] Syphilis Antibodieson 2024 Syphilis Abs Non-Reactive Normal Nonreactive [facility] Comment on above: Performed By: #### L 3890.6102, L3890.6301, BTS, L3890.6006, L509.8002, L100.0100, L509.4006 #### [facility] [address] [place], [address] Total proteinOrdered By: Nae Carnes on 02-20-2025 Protein [Mass/Vol] 6.8 g/dL 5.9-8.4 [facility] Type AND Screenon 02-20-2025 ABO and Rh group Nom (Bld) Blood group A Rh(D) positive Normal [facility] Comment on above: Order Comment: PN Performed By: #### L 3890.6102, L3890.6301, BTS, L3890.6006, L509.8002, L100.0100, L509.4006 ####[facility] [address] [place], [address] White blood cell (WBC) count Ordered By: Araseli Jacob on 02-20-2025 WBC (Bld) [#/Vol] 9.0 10*3/uL 4.4-11.0 [facility] Chlamydia/GC TINA aptimaon CHLAMY,NUC ACID Negative Normal Negative [facility] Comment on above: Performed By: #### L 7000.1800, M100.2200 #### [facility] [address] [place], [address] GC BY NUC ACID Negative Normal Negative [facility] Comment on above: Result Comment: Perf ormed at: =G - [facility] [address] [id number] Construction Safety Consultant: Nhi Isaac MD, Phone: [phone] Performed By: #### L 7000.1800, M100.2200 #### [facility] [address] [place], [address] Urine Cultureon 02-11-2025 URC Culture exhibits no growth. Normal [facility] Comment on above: Performed By: #### L 7000.1800, M100.2200 #### [facility] [address] [place], [address] Chlamydia trachomatis rRNA d etection by probe and target amplification methodOrdered By: Araseli Jacob on 02-10-2025 C. trachomatis rRNA TINA+probe Ql (Unsp spec) Negative Negative [facility] Neisseria gonorrhoeae nuclei c acid detection by amplified probe techniqueOrdered By: Araseli Jacob on 02-10-2025 N. gonorrhoeae DNA TINA+probe Ql (Unsp spec) Negative Negative [facility] Comment on above: Performed at: =[address] [id number] Director: Nhi Isaac MD, Phone: [phone] Sample Worker Office Visit Reporton 02-10-2025 Sample Worker Office Visit Report [facility] [address], [address] [place] [address] OFFICE VISIT Date of Service: 02/10/25 MR#: [id number] Acct: [id number] Name: JUSTINO RENDON Rep #: [id number] : 2000 Provider: FAB barr Age/Sex: 24/F Location: [facility] Status: Signed Intake Vital Signs 01/12/25 14:16 01/24/25 11:38 02/10/25 13:04 Height 5 ft 4 in 5 ft 4 in 5 ft 4 in Weight: 152 lb BMI 26.1 BP 120/76 Intake Visit Reasons: NOB LMP 12/08 Chief Analytics Officer Required: No Is patient in pain?: No [...] 1 current occupational status: employed 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 Normal [facility] Protein+Creatinine Ratio,Uri neon 02-10-2025 PROT:CRE RATIO 123 mg/g CRE Normal 0-200 [facility] Comment on above: Performed By: #### L 501.0900 ####[facility] [address] [place], [address] Protein (U) [Mass/Vol] 10.0 mg/dL Normal 0.0-12.0 [facility] Comment on above: Performed By: #### L 501.0900 ####[facility] [address] [place], [address] UR CREAT 81.00 mg/dL Normal 28.00-217.00 [facility] Comment on above: Performed By: #### L 501.0900 ####[facility] [address] [place], [address] Random urine creatinine luiza urement (mass/volume)Ordered By: Shireen Carnes on 02-10-2025 Creatinine Unsp time (U) [Mass/Vol] 81.00 mg/dL 28.00-217.00 [facility] Urine cultureOrdered By: Tania Jacob on 02-10-2025 Bacteria identified Cx Nom (U) Culture exhibits no growth. [facility] Urine protein measurement (m ass/volume)Ordered By: Shireen Carnes on 02-10-2025 Protein (U) [Mass/Vol] 10.0 mg/dL 0.0-12.0 [facility] Urine protein/creatinine mas s ratioOrdered By: Shireen Carnes on 02-10-2025 Protein/Creatinine (U) [Mass ratio] 123 mg/g CRE 0-200 [facility] Laboratory - Chemistry and C hemistry - challengeOrdered By: Marialuisa Marshall on 01-24-2025 HCG ( test) Ql (U) Positive [facility] Office Visit Reporton 2024 Office Visit Report [facility] [address] [place] [address] OFFICE VISIT Date of Service: MR#: [id number] Acct: [id number] Patient: JUSTINO RENDON Rep #: [id number] : 2000 Provider: Yeimi Anthony RN Age/Sex: 24/F Location: [facility] Status: Signed Intake Vital Signs 01/24/25 08:05 01/24/25 11:38 Height 5 ft 4 in 5 ft 4 in Weight: 151 lb 4 oz BMI 25.9 BP 110/64 Intake Visit Reasons: Amb Documentation Chief Complaint: PNOB in person Chief Analytics Officer Required: No Is patient in pain?: No [...] trimester Protein+Creatinine Ratio,Urine 01/24/25 Shireen Carnes NP, PACKAGE DELIVERY DRIVER-C O09.299 - Supervision of with other poor reproductive or obstetric history, unspecified trimester, O09.90 - Supervision of high risk , unspecified, unspecified trimester Comprehensive Metabolic Profil 01/24/25 Shireen Carnes NP, PACKAGE DELIVERY DRIVER-C O09.299 - Supervision of with other poor reproductive or obstetric history, unspecified trimester, O09.90 - Supervision of high risk , unspecified, unspecified trimester Clinical Quality Measures Falls Risk Screening/Assistive Devices Have you fallen in the past year?: No 01/27/25 1637 Date Marialuisa Marshall MD [facility] Signature: Date (if applicable) CC: Normal [facility] Serum human chorionic gonado tropin detection for pregnancyOrdered By: Sherie Padilla on 01-14-2025 HCG ( test) Ql [address] mIU/mL High <9 [facility] Comment on above: Gestational Age0.2-1 Week: 5-50 mIU/mL1-2 Weeks: 50-500 mIU/mL2-3 Weeks: 100-5000 mIU/mL3-4 Weeks: 500-10,000 mIU/mL4-5 Weeks:1000-50,000 mIU/mL5-6 Weeks: 10,000-100,000 mIU/mL6-8 Weeks: 15,000-200,000 mIU/mL2-3 Months:10,000-100,000 mIU/mL hCG Titer Quant., Serumon HCG QUANT. 80020 mIU/mL High <9 non-preg [facility] Comment on above: Result Comment: Gest ational Age 0.2-1 Week: 5-50 mIU/mL 1-2 Weeks: 50-500 mIU/mL 2-3 Weeks: 100-5000 mIU/mL 3-4 Weeks: 500-10,000 mIU/mL 4-5 Weeks:1000-50,000 mIU/mL 5-6 Weeks: 10,000-100,000 mIU/mL 6-8 Weeks: 15,000-200,000 mIU/mL 2-3 Months:10,000-100,000 mIU/mL Performed By: #### L 700.8000 ####[facility] [address] [place], [address] Laboratory - Chemistry and C hemistry - challengeOrdered By: Sherie Padilla on 01-12-2025 HCG ( test) Ql (U) Positive [facility] Sample Worker Office Visit Reporton 01-12-2025 Sample Worker Office Visit Report [facility] [address], [address] [place] [address] OFFICE VISIT Date of Service: 01/12/25 MR#: [id number] Acct: [id number] Name: JUSTINO RENDON Rep #: [id number] : 2000 Provider: JH Keating Age/Sex: 24/F Location: [facility] Status: Signed Intake Vital Signs 01/12/25 14:16 Height 5 ft 4 in Weight: 150 lb 4 oz BMI 25.7 BP 129/74 H 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: annual, est care Chief Analytics Officer Required: No Is patient in pain?: No [...] 1 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 occupational status: 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 She reports she has not had a period this month. Her and her are trying. She reports she previously had chemical in July. Since then she has had regular menses until this month. She reports no vaginal bleeding. 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 We do not have records for review. [...] axillary lymphadenopathy (more content not included)... Normal [facility] Serum human chorionic gonado tropin detection for pregnancyOrdered By: Sherie Padilla on 01-12-2025 HCG ( test) Ql 6784 mIU/mL High <9 [facility] Comment on above: Gestational Age0.2-1 Week: 5-50 mIU/mL1-2 Weeks: 50-500 mIU/mL2-3 Weeks: 100-5000 mIU/mL3-4 Weeks: 500-10,000 mIU/mL4-5 Weeks:1000-50,000 mIU/mL5-6 Weeks: 10,000-100,000 mIU/mL6-8 Weeks: 15,000-200,000 mIU/mL2-3 Months:10,000-100,000 mIU/mL hCG Titer Quant., Serumon HCG QUANT. 6784 mIU/mL High <9 non-preg [facility] Comment on above: Result Comment: Gest ational Age 0.2-1 Week: 5-50 mIU/mL 1-2 Weeks: 50-500 mIU/mL 2-3 Weeks: 100-5000 mIU/mL 3-4 Weeks: 500-10,000 mIU/mL 4-5 Weeks:1000-50,000 mIU/mL 5-6 Weeks: 10,000-100,000 mIU/mL 6-8 Weeks: 15,000-200,000 mIU/mL 2-3 Months:10,000-100,000 mIU/mL Performed By: #### L 553.7916 ####[facility] [address] [place], [address] ECG 12 lead (Clinic Performe d)on 12-26-2024 Normal sinus rhythm [facility] Work Phone: CBC (INCLUDES DIFF/PLT)on Basophils (Bld) [#/Vol] 0.042 10*3/uL Normal 0-200 [facility] Comment on above: Performed By: #### 7 573, 51548, 622, 8990, 8472, 899, 927, 84259, 866 #### [facility] [place] [address] [place] Hy[employer]ulic [employer] Operator: Noble Brown MD Basophils/100 WBC (Bld) 0.6 % Normal [facility] Comment on above: Performed By: #### 7 573, 60283, 622, 7600, 6399, 899, 927, 16206, 866 #### [facility] [place] [address] [place] [employer] Operator: Noble Brown MD Eosinophils (Bld) [#/Vol] 0.252 10*3/uL Normal 15-500 [facility] Comment on above: Performed By: #### 7 573, 45349, 622, 7600, 6399, 899, 927, 07757, 866 #### [facility] [place] [address] [place] [employer] Operator: Noble Brown MD Eosinophils/100 WBC (Bld) 3.6 % Normal [facility] Comment on above: Performed By: #### 7 573, 77399, 622, 7600, 6399, 899, 927, 78627, 866 #### [facility] [place] [address] [place] [employer] Operator: Noble Brown MD Erythrocyte distribution width (RBC) [Ratio] 12.6 % Normal 11.0-15.0 [facility] Comment on above: Performed By: #### 7 573, 42305, 622, 7600, 6399, 899, 927, 67719, 866 #### [facility] [place] [address] [place] [employer] Operator: Noble Brown MD Hematocrit (Bld) [Volume fraction] 43.5 % Normal 35.0-45.0 [facility] Comment on above: Performed By: #### 7 573, 67315, 622, 7600, 6399, 899, 927, 80482, 866 #### [facility] [place] [address] [place] [employer] Operator: Noble Brown MD Hemoglobin (Bld) [Mass/Vol] 13.9 g/dL Normal 11.7-15.5 [facility] Comment on above: Performed By: #### 7 573, 50695, 622, 7600, 6399, 899, 927, 80826, 866 #### [facility] [place] [address] [place] [employer] Operator: Noble Brown MD Lymphocytes (Bld) [#/Vol] 2.38 10*3/uL Normal 850-3900 [facility] Comment on above: Performed By: #### 7 573, 95456, 622, 7600, 6399, 899, 927, 35274, 866 #### [facility] [place] [address] [place] [employer] Operator: Noble Brown MD Lymphocytes/100 WBC (Bld) 34.0 % Normal [facility] Comment on above: Performed By: #### 7 573, 85583, 622, 7600, 6399, 899, 927, 93322, 866 #### [facility] [place] [address] [place] [employer] Operator: Noble Brown MD MCH (RBC) [Entitic mass] 30.0 pg Normal 27.0-33.0 [facility] Comment on above: Performed By: #### 7 573, 60854, 622, 7600, 6399, 899, 927, 49754, 866 #### [facility] [place] [address] [place] [employer] Operator: Noble Brown MD MCHC (RBC) [Mass/Vol] 32.0 g/dL Normal 32.0-36.[address] [facility] Comment on above: Result Comment: For adults, a slight decrease in the calculated MCHC value (in the range of 30 to 32 g/dL) is most likely not clinically significant; however, it should be interpreted with caution in correlation with other red cell parameters and the patient's clinical condition. Performed By: #### 7 573, 10586, 622, 7600, 6399, 899, 927, 93510, 866 #### [facility] [place] [address] [place] [employer] Operator: Noble Brown MD MCV (RBC) [Entitic vol] 94.0 fL Normal 80.0-100.0 [facility] Comment on above: Performed By: #### 7 573, 58785, 622, 7600, 6399, 899, 927, 32616, 866 #### [facility] [place] [address] [place] [employer] Operator: Noble Brown MD Monocytes (Bld) [#/Vol] 0.329 10*3/uL Normal 200-950 [facility] Comment on above: Performed By: #### 7 573, 03828, 622, 7600, 6399, 899, 927, 30233, 866 #### [facility] [place] [address] [place] [employer] Operator: Noble Brown MD Monocytes/100 WBC (Bld) 4.7 % Normal [facility] Comment on above: Performed By: #### 7 573, 57769, 622, 7600, 6399, 899, 927, 61487, 866 #### [facility] [place] [address] [place] [employer] Operator: Noble Brown MD Neutrophils (Bld) [#/Vol] 3.997 10*3/uL Normal 7039-6985 [facility] Comment on above: Performed By: #### 7 573, 09533, 622, 7600, 6399, 899, 927, 45858, 866 #### [facility] [place] [address] [place] [employer] Operator: Noble Brown MD Neutrophils/100 WBC (Bld) 57.1 % Normal [facility] Comment on above: Performed By: #### 7 573, 11964, 622, 7600, 6399, 899, 927, 34088, 866 #### [facility] [place] [address] [place] [employer] Operator: Noble Brown MD Platelet mean volume (Bld) [Entitic vol] 10.2 fL Normal 7.5-12.5 [facility] Comment on above: Performed By: #### 7 573, 24491, 622, 7600, 6399, 899, 927, 44579, 866 #### [facility] [place] [address] [place] [employer] Operator: Noble Brown MD Platelets (Bld) [#/Vol] 257 10*3/uL Normal 140-400 [facility] Comment on above: Performed By: #### 7 573, 50078, 622, 7600, 6399, 899, 927, 20745, 866 #### [facility] [place] [address] [employer]: Noble Brown MD RBC (Bld) [#/Vol] 4.63 10*6/uL Normal 3.80-5.10 [facility] Comment on above: Performed By: #### 7 573, 12935, 622, 7600, 6399, 899, 927, 34168, 866 #### [facility] [place] [address] [place] [employer]: Noble Brown MD WBC (Bld) [#/Vol] 7.0 10*3/uL Normal 3.8-10.8 [facility] Comment on above: Performed By: #### 7 573, 43256, 622, 7600, 6399, 899, 927, 01725, 866 #### [facility] [place] [address] [place] [employer]: Noble Brown MD COMPREHENSIVE METABOLIC PANE L W/ANION GAPon 10-25-2024 Albumin [Mass/Vol] 4.7 g/dL Normal 3.6-5.1 [facility] Comment on above: Performed By: #### 7 573, 21562, 622, 7600, 6399, 899, 927, 34006, 866 #### [facility] of [address], [address] [place] [address] [employer]: Noble Brown MD ALP [Catalytic activity/Vol] 71 U/L Normal 31-125 [facility] Comment on above: Performed By: #### 7 573, 10965, 622, 7600, 6399, 899, 927, 27408, 866 #### [facility] [place] [address] [place] [employer]: Noble Brown MD ALT [Catalytic activity/Vol] 11 U/L Normal 6-29 [facility] Comment on above: Performed By: #### 7 573, 49438, 622, 7600, 6399, 899, 927, 02426, 866 #### [facility] [place] [address] [place] [employer]: Noble Brown MD AST [Catalytic activity/Vol] 15 U/L Normal 10-30 [facility] Comment on above: Performed By: #### 7 573, 55640, 622, 7600, 6399, 899, 927, 18524, 866 #### [facility] [place] [address] [place] [employer]: Noble Brown MD Bilirubin [Mass/Vol] 0.3 mg/dL Normal 0.2-1.2 [facility] Comment on above: Performed By: #### 7 573, 20759, 622, 7600, 6399, 899, 927, 56222, 866 #### [facility] [place] [address] [place] [employer]: Noble Brown MD Calcium [Mass/Vol] 9.0 mg/dL Normal 8.6-10.2 [facility] Comment on above: Performed By: #### 7 573, 03565, 622, 7600, 6399, 899, 927, 29229, 866 #### [facility] [place] [address] [employer]: Noble Brown MD Chloride [Moles/Vol] 104 mmol/L Normal 98-110 [facility] Comment on above: Performed By: #### 7 573, 36833, 622, 7600, 6399, 899, 927, 75957, 866 #### [facility] [place] [address] [employer]: Noble Brown MD CO2 [Moles/Vol] 26 mmol/L Normal 20-32 [facility] Comment on above: Performed By: #### 7 573, 84055, 622, 7600, 6399, 899, 927, 07102, 866 #### [facility] [place] [address] [place] [employer]: Noble Brown MD Creatinine [Mass/Vol] 0.85 mg/dL Normal 0.50-0.[address] [facility] [address] [facility] Comment on above: Performed By: #### 7 573, 56064, 622, 7600, 6399, 899, 927, 09721, 866 #### [facility] [place] [address] [place] [employer]: Noble Brown MD ELECTROLYTE BALANCE 9 mmol/L (calc) Normal 7-17 [facility] Comment on above: Performed By: #### 7 573, 43810, 622, 7600, 6399, 899, 927, 08796, 866 #### [facility] [place] [address] [place] [employer]: Noble Brown MD GFR/1.73 sq M.predicted among non-blacks MDRD (S/P/Bld) [Vol rate/Area] 97 mL/min/{1.73_m2} Normal > OR = 60 [facility] Comment on above: Performed By: #### 7 573, 34086, 622, 7600, 6399, 899, 927, 88953, 866 #### [facility] [place] [address] [employer]: Noble Brown MD Glucose [Mass/Vol] 89 mg/dL Normal 65-99 [facility] Comment on above: Result Comment: Fasting reference interval Performed By: #### 7 573, 94781, 622, 7600, 6399, 899, 927, 66951, 866 #### [facility] [place] [address] [place] [employer]: Noble Brown MD Potassium [Moles/Vol] 4.2 mmol/L Normal 3.5-5.[address] [facility] [address] [facility] Comment on above: Performed By: #### 7 573, 63834, 622, 7600, 6399, 899, 927, 72304, 866 #### [facility] [place] [address] [place] [employer]: Noble Brown MD Protein [Mass/Vol] 7.3 g/dL Normal 6.1-8.1 [facility] Comment on above: Performed By: #### 7 573, 56894, 622, 7600, 6399, 899, 927, 46583, 866 #### [facility] [place] [address] [place] [employer]: Noble Brown MD Sodium [Moles/Vol] 139 mmol/L Normal 135-146 [facility] Comment on above: Performed By: #### 7 573, 01089, 622, 7600, 6399, 899, 927, 47515, 866 #### [facility] [place] [address] [place] [employer]: Noble Brown MD Urea nitrogen [Mass/Vol] 13 mg/dL Normal 7-25 [facility] Comment on above: Performed By: #### 7 573, 05439, 622, 7600, 6399, 899, 927, 57112, 866 #### [facility] [place] [address] [place] [employer]: Noble Brown MD FERRITINon 10-25-2024 Ferritin [Mass/Vol] 20 ng/mL Normal 16-154 [facility] Comment on above: Performed By: #### 7 573, 70992, 622, 7600, 6399, 899, 927, 82214, 866 #### [facility] [place] [address] [place] [employer]: Noble Brown MD IRON AND TOTAL IRON BINDING CAPACITYon 10-25-2024 % SATURATION 23 % (calc) Normal 16-45 [facility] Comment on above: Performed By: #### 7 573, 63859, 622, 7600, 6399, 899, 927, 41437, 866 #### [facility] [place] [address] [place] [employer]: Noble Brown MD IRON BINDING CAPACITY 330 mcg/dL (calc) Normal 250-450 [facility] Comment on above: Performed By: #### 7 573, 02270, 622, 7600, 6399, 899, 927, 40324, 866 #### [facility] [place] [address] [place] [employer]: Noble Brown MD IRON, TOTAL 75 mcg/dL Normal 40-190 [facility] Comment on above: Performed By: #### 7 573, 50931, 622, 7600, 6399, 899, 927, 75194, 866 #### [facility] [place] [address] [place] [employer]: Noble Brown MD LIPID PANEL, STANDARDon 10-15 Cholesterol [Mass/Vol] 136 mg/dL Normal <200 [facility] Comment on above: Order Comment: FASTI NG:YES FASTING: YES Performed By: #### 7 573, 54211, 622, 7600, 6399, 899, 927, 52928, 866 #### [facility] [address], [address] [place] [address] [employer]: Noble Brown MD Cholesterol in HDL [Mass/Vol] 55 mg/dL Normal > OR = 50 [facility] Comment on above: Order Comment: FASTI NG:YES FASTING: YES Performed By: #### 7 573, 74843, 622, 7600, 6399, 899, 927, 44190, 866 #### [facility] [address], [address] [place] [address] [employer]: Noble Brown MD Cholesterol in LDL [Mass/Vol] [...] LDL-C. Calin CHANG et al. DINA. 2013;310(19): 5206-1069 (http://education.[employer]/faq/TPA045) Performed By: #### 7 573, 36873, 622, 7600, 6399, 899, 927, 46557, 866 #### [facility] [address], [address] [place] [address] [employer]: Noble Brown MD Cholesterol.total/Choles terol in HDL [Mass ratio] 2.5 {ratio} Normal <5.0 [facility] Comment on above: Order Comment: FASTI NG:YES FASTING: YES Performed By: #### 7 573, 18598, 622, 7600, 6399, 899, 927, 77729, 866 #### [facility] [address], [address] [place] [address] [employer]: Noble Brown MD NON HDL CHOLESTEROL 81 mg/dL (calc) Normal <130 [facility] Comment on above: Order Comment: FASTI NG:YES FASTING: YES Result Comment: For patients with diabetes plus 1 major ASCVD risk factor, treating to a non-HDL-C goal of <100 mg/dL (LDL-C of <70 mg/dL) is considered a therapeutic option. Performed By: #### 7 573, 58399, 622, 7600, 6399, 899, 927, 76439, 866 #### [facility] [address], [address] [place] [address] [employer]: Noble Brown MD Triglyceride [Mass/Vol] 58 mg/dL Normal <150 [facility] Comment on above: Order Comment: FASTI NG:YES FASTING: YES Performed By: #### 7 573, 90260, 622, 7600, 6399, 899, 927, 43951, 866 #### [facility] [address], [address] [place] [address] [employer]: Noble Brown MD MAGNESIUMon 10-25-2024 Magnesium [Mass/Vol] 2.2 mg/dL Normal 1.5-2.5 [facility] Comment on above: Performed By: #### 7 573, 49657, 622, 7600, 6399, 899, 927, 65190, 866 #### [facility] [address], [address] [place] [address] [employer]: Noble Brown MD T4, FREEon 10-25-2024 Free T4 [Mass/Vol] 1.1 ng/dL Normal 0.8-1.8 [facility] Comment on above: Performed By: #### 7 573, 04468, 622, 7600, 6399, 899, 927, 42824, 866 #### [facility] [address], [address] [place] [address] [employer]: Noble Brown MD TSHon 10-25-2024 TSH Qn 0.90 m[IU]/L Normal [facility] Comment on above: Result Comment: Refe rence Range > or = 20 Years 0.40-4.50 Ranges First trimester 0.26-2.66 Second trimester 0.55-2.73 Third trimester 0.43-2.91 Performed By: #### 7 573, 02123, 622, 7600, 6399, 899, 927, 45544, 866 #### [facility] [address], [address] [place], [place] [address] [employer]: Noble Brown MD VITAMIN B12on 10-25-2024 Cobalamin [...] have symptoms. Performed By: #### 7 573, 04062, 622, 7600, 6399, 899, 927, 64603, 866 #### [facility] [address] [place] [employer]: Noble Brown MD VITAMIN D,25-OH,TOTAL,IAon 0 10-25-2024 [...] D, (D2,D3), LC/MS/MS is recommended: order code [id number] (patients >2yrs). See Note 1 Note 1 For additional information, please refer to http://education.[employer]/faq/EKU489 (This link is being provided for informational/ educational purposes only.) Performed By: #### 7 573, 83760, 222, 0850, 3899, 899, 927, 21242, 866 #### [facility] [address] [facility], [address] [place] [address] [employer]: Noble Brown MD TRANSTHORACIC ECHO (TTE) [facility] 10-12-2024 TRANSTHORACIC ECHO ([place]) [place] [address] [phone]-2528, TRANSTHORACIC ECHOCARDIOGRAM REPORT Patient Name: JUSTINO Taylor Physician: [id number] Sam Garcia MD Study Date: 10/12/2024 Ordering Provider: [id number] BENY STEWART MRN/PID: [id number] Fellow: Nurse: Sharmila Thurman RN Date of /Age: 9 2000 Manager Nuclear: Roberto Proctor RDCS years Gender Assigned at F Additional Staff: : Height: 160.02 cm Admit Date: Weight: 66.23 kg Admission Status: Outpatient BSA / BMI: 1.69 m2 / 25.86 Department Location: [facility] Echo Lab kg/m2 Blood Pressure: 102 /72 mmHg Study Type: TRANSTHORACIC ECHO (TTE) COMPLETE Diagnosis/ICD: Dizziness and giddiness-R42 CPT Codes: Echo Complete w Full Doppler-14548 Study Detail: The following Echo studies were [...] [place] Area A2C: 9.0 cm2 LA [place] A4C: 4.4 cm LA [place] A2C: 4.4 cm LA Volume Index: 11.4 [...] RV Syst Pressure: 15 mmHg (< 30mmHg) [id number] Sam Garcia MD Electronically signed on 10/13/2024 at 9:07:36 PM Final Normal [facility] ECG 12 Leadon 09-28-2024 NSR with sinus arrhythmia [facility] Work Phone: [facility] Work Phone: Bacteria identifiedon 2023 Bacteria identified Cx Nom (U) Test: Urine Culture Specimen Source: Clean Catch/Voided Specimen Type: Urine Specimen Date: 08/08/2024 0936 Result Date: 08/09/2024 1413 Result Status: Final result Abnormal: Yes Resulting Lab: [facility] [address] [place] [id number] CULTURE Growth indicates contamination with periurethral corey. Repeat culture if clinically indicated. <=10,000 CFU/mL Streptococcus agalactiae (Group B Streptococcus) (Abnormal) Streptococcus agalactiae (Group B Streptococcus, GBS) may be significant in individuals. Recovery from non- individuals likely represents an insignificant finding. Routine GBS screening should be ordered using test ???Group B Streptococcus (GBS) Screen, Culture??? ([id number]). Streptococcus agalactiae (Group B Streptococcus) is universally susceptible to beta-lactam antibiotics and vancomycin. Routine susceptibility testing not performed. For penicillin allergic patients, please contact the laboratory within 5 days of collection at to request susceptibility testing. Abnormal [facility] Comment on above: Performed By: #### 6 30-4 #### NAVI Delacruz ([id number]) [facility] ([facility]) [address] [place] [address] Blood type and Indirect anti body screen panel (Bld)on 08-08-2024 ABO group Nom (Bld) A Normal [facility] Comment on above: Performed By: #### 3 4532-2 #### BERTIN FERNÁNDEZ ([id number]) [facility] ([facility]) [address] [place] [address] Blood group antibody screen Ql Negative [facility] Comment on above: Performed By: #### 3 4532-2 #### BERTIN FERNÁNDEZ ([id number]) [facility] ([facility]) [address] [place] [address] D Ag Ql (Bld) Positive [facility] Comment on above: Performed By: #### 3 4532-2 #### BERTIN FERNÁNDEZ ([id number]) [facility] ([facility]) [address] [place] [address] [place] Choriogonadotropin.beta subu niton 08-08-2024 HCG.beta subunit Qn 3 m[IU]/mL Normal <[address] [facility] Comment on above: Order Comment: Total HCG measurement is performed using the Lei Gigi Access Immunoassay which detects intact HCG and free beta HCG subunit. This test is not indicated for use as a tumor marker. HCG testing is performed using a different test methodology at [facility] than other [facility]. Direct result comparison should only be made within the same method. Performed By: #### 2 1198-7 #### BERTIN FERNÁNDEZ ([id number]) [facility] ([facility]) [address] [place] [address] HCG ( test) IA.rapi d Ql (U)Ordered By: Amaya Turner on 08-08-2024 HCG ( test) Ql (U) Negative NEGATIVE [facility] Interpretation and review of laboratory results Normal [facility] HCG ( test) IA.rapi d Ql (U)on 08-08-2024 HCG ( test) Ql (U) Negative Normal NEGATIVE [facility] Comment on above: Performed By: #### 8 0384-1 #### BERTIN FERNÁNDEZ ([id number]) [facility] ([facility]) [address] [place] [address] HCG.beta subunit Qnon 2023 Interpretation and review of laboratory results Normal [facility] Total HCG measurement is performed using the Lei Gigi Access Immunoassay which detects intact HCG and free beta HCG subunit. This test is not indicated for use as a tumor marker. HCG testing is performed using a different test methodology at [facility] than other [facility]. Direct result comparison should only be made within the same method. [facility] No Panel Informationon 08-08 Interpretation and review of laboratory results Abnormal [facility] Urinalysis complete W Reflex Culture panel (U)on 08-08-2024 Appearance (U) Ex.Turbid Abnormal Clear [facility] Bilirubin (U) [Mass/Vol] Negative NEGATIVE [facility] Color (U) Dark-Brown Abnormal Light-Yellow, Yellow, Dark-Yellow [facility] Glucose Auto test strip (U) [Mass/Vol] Normal Normal mg/dL [facility] Ketones (U) [Mass/Vol] Negative NEGATIVE mg/d L [facility] Leukocyte esterase Auto test strip Ql (U) 250 Jomar/ L Abnormal NEGATIVE [facility] Nitrite Auto test strip Ql (U) Negative NEGATIVE [facility] pH (U) 6 [pH] 5.0, 5.5, 6.0, 6.5, 7.0, 7.5, 8.0 [facility] Protein (U) [Mass/Vol] 70 (1+) Abnormal NEGAT ROMULO, 10 (TRACE), 20 (TRACE) mg/dL [facility] RBC (U) [#/Vol] OVER (3+) Abnormal NEGATIVE [facility] Specific gravity (U) [Rel density] 1.020 1.005 - 1.035 [facility] Urobilinogen (U) [Mass/Vol] Normal Normal mg/dL [facility] OVER is reported when the result is greater than the clinically reportable range. [facility] Appearance (U) Ex.Turbid Normal Clear [facility] Comment on above: Order Comment: OVER is reported when the result is greater than the clinically reportable range. Performed By: #### 5 8077-9 #### BERTIN FERNÁNDEZ ([id number]) [facility] ([facility]) [address] [place] [address] Bilirubin (U) [Mass/Vol] Negative Normal NEGATIVE [facility] Comment on above: Order Comment: OVER is reported when the result is greater than the clinically reportable range. Performed By: #### 5 8077-9 #### BERTIN FERNÁNDEZ ([id number]) [facility] ([facility]) [address] [place] [address] Color (U) Dark-Brown Normal Light-Yellow, Yellow, Dark-Yellow [facility] Comment on above: Order Comment: OVER is reported when the result is greater than the clinically reportable range. Performed By: #### 5 8077-9 #### BERTIN FERNÁNDEZ ([id number]) [facility] ([facility]) [address] [place], [place] [address] Glucose Auto test strip (U) [Mass/Vol] Normal Normal Normal [facility] Comment on above: Order Comment: OVER is reported when the result is greater than the clinically reportable range. Performed By: #### 5 8077-9 #### BERTIN FERNÁNDEZ ([id number]) [facility] ([facility]) [address] [place], [place] [address] Ketones (U) [Mass/Vol] Negative [facility] Comment on above: Order Comment: OVER is reported when the result is greater than the clinically reportable range. Performed By: #### 5 8077-9 #### BERTIN FERNÁNDEZ ([id number]) [facility] ([facility]) [address] [place], [place] [address] Leukocyte esterase Auto test strip Ql (U) 250 Jomar/???L Abnormal NEGATIVE [facility] Comment on above: Order Comment: OVER is reported when the result is greater than the clinically reportable range. Performed By: #### 5 8077-9 #### BERTIN FERNÁNDEZ ([id number]) [facility] ([facility]) [address] [place], [place] [address] Nitrite Auto test strip Ql (U) Negative Normal NEGATIVE [facility] Comment on above: Order Comment: OVER is reported when the result is greater than the clinically reportable range. Performed By: #### 5 8077-9 #### BERTIN FERNÁNDEZ ([id number]) [facility] ([facility]) [address] [place], [place] [address] pH (U) 6.0 [pH] Normal 5.0, 5.5, 6.0, 6.5, 7.0, 7.5, 8.0 [facility] Comment on above: Order Comment: OVER is reported when the result is greater than the clinically reportable range. Performed By: #### 5 8077-9 #### BERTIN FERNÁNDEZ ([id number]) [facility] ([facility]) [address] [place] [address] Protein (U) [Mass/Vol] 70 (1+) Abnormal NEGAT ROMULO, 10 (TRACE), 20 (TRACE) [facility] Comment on above: Order Comment: OVER is reported when the result is greater than the clinically reportable range. Performed By: #### 5 8077-9 #### BERTIN FERNÁNDEZ ([id number]) [facility] ([facility]) [address] [place] [address] RBC (U) [#/Vol] OVER (3+) Abnormal NEGATIVE [facility] Comment on above: Order Comment: OVER is reported when the result is greater than the clinically reportable range. Performed By: #### 5 8077-9 #### BERTIN FERNÁNDEZ ([id number]) [facility] ([facility]) [address] [place], [place] [address] Specific gravity (U) [Rel density] 1.020 Normal 1.005-1.035 [facility] Comment on above: Order Comment: OVER is reported when the result is greater than the clinically reportable range. Performed By: #### 5 8077-9 #### BERTIN FERNÁNDEZ ([id number]) [facility] ([facility]) [address] [place] [address] Urobilinogen (U) [Mass/Vol] Normal Normal Normal [facility] Comment on above: Order Comment: OVER is reported when the result is greater than the clinically reportable range. Performed By: #### 5 8077-9 #### BERTIN FERNÁNDEZ ([id number]) [facility] ([facility]) [address] [place] [address] Urinalysis microscopic panel Auto Ql (U)on 08-08-2024 Epithelial cells.squamous Auto (Urine sed) [#/Area] 10-25 (FEW) Reference range not established. /HPF [facility] Mucus Auto (Urine sed) [#/Area] 1+ Reference range not established. /LPF [facility] RBC Auto (Urine sed) [#/Area] >20 Abnormal NONE, 1-2, 3-5 /HPF [facility] WBC Auto (Urine sed) [#/Area] >50 Abnormal 1-5, NONE /HPF [facility] Epithelial cells.squamous Auto (Urine sed) [#/Area] 10-25 (FEW) Normal Reference range not established. [facility] Comment on above: Performed By: #### 5 3315-8 #### BERTIN FERNÁNDEZ ([id number]) [facility] ([facility]) [address] [place], [place] [address] Mucus Auto (Urine sed) [#/Area] 1+ /LPF Normal Reference range not established. [facility] Comment on above: Performed By: #### 5 3315-8 #### BERTIN FERNÁNDEZ ([id number]) [facility] ([facility]) [address] [place] [address] RBC Auto (Urine sed) [#/Area] >20 Abnormal NONE, 1-2, 3-5 [facility] Comment on above: Performed By: #### 5 3315-8 #### BERTIN FERNÁNDEZ ([id number]) [facility] ([facility]) [address] [place] [address] WBC Auto (Urine sed) [#/Area] >50 Abnormal 1-5, NONE [facility] Comment on above: Performed By: #### 5 3315-8 #### BERTIN FERNÁNDEZ ([id number]) [facility] ([facility]) [address] [place] [address] hCG, quantitative, on 08-08-2024 HCG.beta subunit Qn 3 m[IU]/mL [facility] Vital Signs Date Time Vital Sign Value Performing Clinician Facility 07-20-2025 15:32-0500 Body height 160.02 cm Beny MEYER Work Phone: [facility] 07-20-2025 15:31-0500 Body mass index (BMI) [Ratio] 30.5 kg/m2 Beny MEYER Work Phone: [facility] 07-20-2025 15:31-0500 Body weight 78.15 kg Beny MEYER Work Phone: [facility] 07-20-2025 15:31-0500 Diastolic blood pressure 78 mm[Hg] Beny MEYER Work Phone: [facility] 07-20-2025 15:31-0500 Systolic blood pressure 113 mm[Hg] Beny Pat PA Work Phone: [facility] 07-03-2025 15:17-0400 Body mass index (BMI) [Ratio] 30.3 kg/m2 Beny Pat PA Work Phone: [facility] 07-03-2025 15:17-0400 Body weight 77.76 kg Beny [place] PA Work Phone: [facility] 07-03-2025 15:17-0400 Diastolic blood pressure 75 mm[Hg] Beny Pat PA Work Phone: [facility] 07-03-2025 15:17-0400 Systolic blood pressure 117 mm[Hg] Bney Pat PA Work Phone: [facility] 06-19-2025 16:29-0400 Body height 160.02 cm Beny Pat PA Work Phone: [facility] 06-19-2025 16:29-0400 Body mass index (BMI) [Ratio] 29.5 kg/m2 Beny [place] PA Work Phone: [facility] 06-19-2025 16:29-0400 Body weight 75.47 kg Beny [place] PA Work Phone: [facility] 06-19-2025 16:23-0400 Body temperature 98.1 [degF] Beny Pat PA Work Phone: [facility] 06-19-2025 16:23-0400 Diastolic blood pressure 64 mm[Hg] Beny Pat PA Work Phone: [facility] 06-19-2025 16:23-0400 Heart rate 93 /min Beny Circleville PA Work Phone: [facility] 06-19-2025 16:23-0400 Respiratory rate 16 /min Beny Circleville PA Work Phone: [facility] 06-19-2025 16:23-0400 SaO2% (BldA) [Mass fraction] 98 % Beny Pat PA Work Phone: [facility] 06-19-2025 16:23-0400 Systolic blood pressure 113 mm[Hg] Beny Circleville PA Work Phone: [facility] 06-19-2025 15:27-0400 Body mass index (BMI) [Ratio] 28.8 kg/m2 Beny Pat PA Work Phone: [facility] 06-19-2025 15:27-0400 Body weight 76.23 kg Beny Circleville PA Work Phone: [facility] 06-19-2025 15:27-0400 Diastolic blood pressure 77 mm[Hg] Beny Pat PA Work Phone: [facility] 06-19-2025 15:27-0400 Systolic blood pressure 126 mm[Hg] Beny Pat PA Work Phone: [facility] 05-29-2025 14:54-0400 Body height 162.56 cm Beny Pat PA Work Phone: [facility] 05-29-2025 14:54-0400 Body mass index (BMI) [Ratio] 28.3 kg/m2 Beny Circleville PA Work Phone: [facility] 05-29-2025 14:54-0400 Body weight 74.89 kg Beny Pat PA Work Phone: [facility] 05-29-2025 14:54-0400 Diastolic blood pressure 72 mm[Hg] Beny Pat PA Work Phone: [facility] 05-29-2025 14:54-0400 Systolic blood pressure 119 mm[Hg] Beny Pat PA Work Phone: [facility] 05-03-2025 13:11-0400 Body height 162.56 cm Olga Manzo CNM Work Phone: [facility] 05-03-2025 13:11-0400 Body mass index (BMI) [Ratio] 26.6 kg/m2 Olga Manzo CNM Work Phone: [facility] 05-03-2025 13:11-0400 Body weight 70.44 kg Olga Manzo CNM Work Phone: [facility] 05-03-2025 13:11-0400 Diastolic blood pressure 71 mm[Hg] Olga Manzo CNM Work Phone: [facility] 05-03-2025 13:11-0400 Systolic blood pressure 111 mm[Hg] Olga Manzo CNM Work Phone: [facility] 04-07-2025 13:04-0400 Body height 162.56 cm Olga Manzo CNM Work Phone: [facility] 04-07-2025 13:04-0400 Body mass index (BMI) [Ratio] 25.6 kg/m2 Olga Manzo CNM Work Phone: [facility] 04-07-2025 13:04-0400 Body weight 67.64 kg Olga Manzo CNM Work Phone: [facility] 04-07-2025 13:04-0400 Diastolic blood pressure 70 mm[Hg] Olga Manzo CNM Work Phone: [facility] 04-07-2025 13:04-0400 Systolic blood pressure 108 mm[Hg] Olga Manzo CNM Work Phone: [facility] 03-10-2025 08:56-0400 Body height 162.56 cm Olga Manzo CNM Work Phone: [facility] 03-10-2025 08:56-0400 Body mass index (BMI) [Ratio] 25.4 kg/m2 Olga CORDONM Work Phone: [facility] 03-10-2025 08:56-0400 Body weight 67.18 kg Olga Manzo CNM Work Phone: [facility] 03-10-2025 08:56-0400 Diastolic blood pressure 73 mm[Hg] Olga Manzo CNM Work Phone: [facility] 03-10-2025 08:56-0400 Systolic blood pressure 110 mm[Hg] Olga Manzo CNM Work Phone: [facility] 02-10-2025 13:04-0400 Body height 162.56 cm Olga Manzo CNM Work Phone: [facility] 02-10-2025 13:04-0400 Body mass index (BMI) [Ratio] 26.1 kg/m2 Olga Manzo CNM Work Phone: [facility] 02-10-2025 13:04-0400 Body weight 68.94 kg Olga Manzo CNM Work Phone: [facility] 02-10-2025 13:04-0400 Diastolic blood pressure 76 mm[Hg] Olga Manzo CNM Work Phone: [facility] 02-10-2025 13:04-0400 Systolic blood pressure 120 mm[Hg] Olga Manzo CNM Work Phone: [facility] 01-24-2025 11:38-0400 Body mass index (BMI) [Ratio] 25.9 kg/m2 Olga Manzo CNM Work Phone: [facility] 01-24-2025 11:38-0400 Body weight 68.6 kg Olga Manzo CNM Work Phone: [facility] 01-24-2025 11:38-0400 Diastolic blood pressure 64 mm[Hg] Olga Manzo CNM Work Phone: [facility] 01-24-2025 11:38-0400 Systolic blood pressure 110 mm[Hg] Olga Manzo CNM Work Phone: [facility] 01-24-2025 08:05-0400 Body height 162.56 cm Olga Manzo CNM Work Phone: [facility] 01-12-2025 14:16-0400 Body height 162.56 cm Olga Manzo CNM Work Phone: [facility] 01-12-2025 14:16-0400 Body mass index (BMI) [Ratio] 25.7 kg/m2 Olga Manzo CNM Work Phone: [facility] 01-12-2025 14:16-0400 Body weight 68.15 kg Olga Manzo CNM Work Phone: [facility] 01-12-2025 14:16-0400 Diastolic blood pressure 74 mm[Hg] Olga Manzo CNM Work Phone: [facility] 01-12-2025 14:16-0400 Systolic blood pressure 129 mm[Hg] Olga Manzo CNM Work Phone: [facility] 12-26-2024 14:33-0400 Body height 162.6 cm Dereck Geller APRN-[employer] Work Phone: [facility] 12-26-2024 14:33-0400 Body mass index (BMI) [Ratio] 25.52 kg/m2 Dereck Geller [employer] Work Phone: [facility] 12-26-2024 14:33-0400 Body weight 67.45 kg Dereck Geller RESIDENTIAL LIFE DIRECTOR-[employer] Work Phone: [facility] 12-26-2024 14:33-0400 Diastolic blood pressure 78 mm[Hg] Dereck Geller [employer] Work Phone: [facility] 12-26-2024 14:33-0400 Heart rate 93 /min Dereck Geller [employer] Work Phone: [facility] 12-26-2024 14:33-0400 SaO2% (BldA) [Mass fraction] 99 % Dereck Geller RESIDENTIAL LIFE DIRECTOR[employer] Work Phone: [facility] 12-26-2024 14:33-0400 Systolic blood pressure 110 mm[Hg] Dereck Geller APRN[employer] Work Phone: [facility] 12-15-2024 08:43-0400 Diastolic blood pressure 66 mm[Hg] [facility] 1 [facility] 12-15-2024 08:43-0400 Heart rate 109 /min [facility] 1 [facility] 12-15-2024 08:43-0400 SaO2% (BldA) [Mass fraction] 98 % Enrrique 1 [facility] 12-15-2024 08:43-0400 Systolic blood pressure 118 mm[Hg] Enrrique 1 [facility] 11-28-2024 14:20-0400 Body height 160 cm Beny Pat PA-C Work Phone: [facility] 11-28-2024 14:20-0400 Body mass index (BMI) [Ratio] 25.69 kg/m2 Beny Circleville PA-C Work Phone: [facility] 11-28-2024 14:20-0400 Body weight 65.77 kg Beny Circleville PA-C Work Phone: [facility] 11-28-2024 14:20-0400 Diastolic blood pressure 68 mm[Hg] Beny Pat PA-C Work Phone: [facility] 11-28-2024 14:20-0400 Heart rate 92 /min Beny Pat PA-C Work Phone: [facility] 11-28-2024 14:20-0400 Systolic blood pressure 100 mm[Hg] Beny Circleville PA-C Work Phone: [facility] 09-28-2024 13:52-0500 Body height 160 cm Beny Circleville PA-C Work Phone: [facility] 09-28-2024 13:52-0500 Body mass index (BMI) [Ratio] 25.86 kg/m2 Beny Pat PA-C Work Phone: [facility] 09-28-2024 13:52-0500 Body weight 66.22 kg Beny Circleville PA-C Work Phone: [facility] 09-28-2024 13:52-0500 Diastolic blood pressure 80 mm[Hg] Beny Pat PA-C Work Phone: [facility] 09-28-2024 13:52-0500 Heart rate 90 /min Beny Stewart PA-C Work Phone: [facility] 09-28-2024 13:52-0500 Systolic blood pressure 133 mm[Hg] Beny Stewart PA-C Work Phone: [facility] 08-08-2024 11:34-0500 Diastolic blood pressure 72 mm[Hg] Brady Yang DO Work Phone: [facility] 08-08-2024 11:34-0500 Heart rate 94 /min Brady Yang DO Work Phone: [facility] 08-08-2024 11:34-0500 Respiratory rate 18 /min Brady Yang DO Work Phone: [facility] 08-08-2024 11:34-0500 SaO2% (BldA) [Mass fraction] 99 % Brady Yang DO Work Phone: [facility] 08-08-2024 11:34-0500 Systolic blood pressure 119 mm[Hg] Brady Yang DO Work Phone: [facility] 08-08-2024 09:17-0500 Body height 160 cm Brady Yang DO Work Phone: [facility] 08-08-2024 09:17-0500 Body mass index (BMI) [Ratio] 25.69 kg/m2 Brady Yang DO Work Phone: [facility] 08-08-2024 09:17-0500 Body temperature 98.01 [degF] Brady Yang DO Work Phone: [facility] 08-08-2024 09:17-0500 Body weight 65.77 kg Brady Yang DO Work Phone: [facility] Encounters Encounter Date Encounter Type Care Provider Facility Start: 07-20-2025 End: 07-20-2025 ambulatory Beny MEYER Facility[facility] Start: 07-03-2025 End: 07-03-2025 Patient encounter procedure Olga Manzo CNM -[facility] Work Phone: Start: 07-03-2025 End: 07-03-2025 ambulatory Beny Stewart PA Work Phone: -[facility] Start: 06-19-2025 ambulatory Benyradha Stewart PA Fa cility:[facility] Start: 06-19-2025 Non-patient / Non-visit Dr. Art Marshall MD -[facility] Start: 06-19-2025 End: 06-19-2025 Patient encounter procedure [facility] Work Phone: Start: 06-19-2025 End: 06-19-2025 ambulatory Beny Stewart PA Work Phone: -[facility] Start: 05-29-2025 End: 05-29-[address] Marialuisa Marshall MD -[facility] Work Phone: Start: 05-29-2025 End: 05-29-2025 ambulatory Beny Stewart PA Work Phone: -[facility] Start: 05-11-2025 End: 05-11-2025 Emergency department patient visit [facility] Start: 05-03-2025 End: 05-03-[address] Alyssia Moss DO -[facility] Work Phone: Start: 05-03-2025 End: 05-03-2025 ambulatory Olga Manzo CNM Work Phone: -[facility] Start: 04-07-2025 End: 04-07-2025 Patient encounter procedure Olga Manzo CNM -[facility] Work Phone: Start: 04-07-2025 End: 04-07-2025 ambulatory Olga Manzo CNM Work Phone: -[facility] Start: 03-20-2025 End: 03-20-2025 Emergency department patient visit BENY Marck [facility] Start: 03-10-2025 End: 03-10-[address] Alyssia Moss DO -[facility] Work Phone: Start: 03-10-2025 End: 03-10-2025 ambulatory Olga Manzo CNM Work Phone: [facility] Work Phone: Start: 02-20-2025 End: 02-20-2025 ambulatory Olga Manzo CNM Work Phone: [facility] Work Phone: Start: 02-20-2025 End: 02-20-2025 Patient encounter procedure Araseli Jacob BRAVOM -Lab [facility] Start: 02-20-2025 End: 02-20-2025 ambulatory [facility] Facility[facility] Start: 02-10-2025 End: 02-10-2025 ambulatory Olga Manzo CNM Work Phone: [facility] Work Phone: Start: 02-10-2025 End: 02-10-2025 Patient encounter procedure Araseli Jacob CNM -Laboratory Specimen Work Phone: Start: 02-10-2025 End: 02-10-2025 Patient encounter procedure Araseli Jacob BRAVOM -[facility] Work Phone: Start: 02-10-2025 End: 02-10-2025 ambulatory Olga Manzo CNM Work Phone: [facility] Work Phone: Start: 02-10-2025 End: 02-10-2025 ambulatory Araseli Lapaz Facility:[facility] Start: 01-24-2025 Non-patient / Non-visit Yeimi cruz RN -[facility] Work Phone: Start: 01-24-2025 End: 01-24-[address] Marialuisa Marshall MD -[facility] Work Phone: Start: 01-24-2025 End: 01-24-2025 ambulatory Olga Jovany CNM Work Phone: [facility] Work Phone: Start: 01-14-2025 End: 01-14-2025 ambulatory Olga Manzo CNM Work Phone: [facility] Work Phone: Start: 01-14-2025 End: 01-14-2025 Patient encounter procedure Sherie PEÑALOZA -Laboratory Work Phone: Start: 01-14-2025 End: 01-14-2025 ambulatory Beny MEYER Facility:[facility] Start: 01-12-2025 End: 01-12-2025 Patient encounter procedure Sherie PEÑALOZA -[facility] Work Phone: Start: 01-12-2025 End: 01-12-2025 Patient encounter status Sherie PEÑALOZA [facility] Start: 01-12-2025 End: 01-12-2025 ambulatory Sherie Padilla Facility:[facility] Start: 01-12-2025 End: 01-12-2025 ambulatory Olga Manzo Facility:[facility] Start: 12-26-2024 End: 12-26-2024 Office outpatient new 45 minutes Dereck Geller RESIDENTIAL LIFE DIRECTOR[employer] Work Phone: [facility] Office Building Comment on above: Heart palpitations ( Primary Dx); Tachycardia; Dizziness; POTS (postural orthostatic tachycardia syndrome) Start: 12-26-2024 End: 12-26-2024 ambulatory [facility] Start: 12-15-2024 End: 12-15-2024 ambulatory BENY ORONAENHALL [facility] Start: 12-15-2024 End: 12-15-2024 Subsequent hospital visit by physician Enrrique Exam 1 [facility] Comment on above: Tachycardia; Heart palpitations; Dizziness Start: 11-28-2024 End: 11-28-2024 Office outpatient visit 25 minutes Beny Stewart PA-C Work Phone: [facility] Comment on above: Vitamin D deficiency (Primary Dx); Tachycardia; Heart palpitations; Dizziness; Low ferritin; Chronic left shoulder pain Start: 11-28-2024 End: 11-28-2024 ambulatory [facility] Start: 10-12-2024 End: 10-12-2024 Subsequent hospital visit by physician [facility] Comment on above: Tachycardia; Dizziness; Fatigue, unspecified type; Heart palpitations Start: 10-12-2024 End: 10-12-2024 ambulatory [facility] Start: 09-28-2024 End: 09-28-2024 Office outpatient new 45 minutes Beny Stewart PA-C Work Phone: [facility] Comment on above: Encounter to [facility] with new doctor (Primary Dx); Chronic left shoulder pain; Vitamin D deficiency; Tachycardia; Dizziness; Fatigue, unspecified type; Heart palpitations; History of pre-eclampsia Start: 09-28-2024 End: 09-28-2024 ambulatory [facility] Start: 08-08-2024 End: 08-08-2024 Emergency department patient visit Brady Yang DO Work Phone: [facility] Comment on above: Vaginal [...] HCV Quant by PCR testing - HCVPCR #[id number] Non Reactive: < 0.8 Equivocal: >/= 0.8 to < 1.0 Reactive: >/= 1.0The CDC requires that a reactive/equivocal HCV antibody result be sent out for confirmation. HCV Quant by PCR testing. Start: 02-20-2025 Procedure Olga lyman [facility] Work Phone: Start: 02-20-2025 Rubella IgG measurement Olga Manzo [facility] Work Phone: Comment on above: Antibody Result: Int erpretationNon-Reactive: Non- ImmuneReactive: ImmuneThe following results were obtained with the [employer] Rubella IgG assay. Results from assays of other manufacturers cannot be used interchangeably. Start: 02-20-2025 Serologic test for syphilis Olga Manzo [facility] Work Phone: Start: 02-10-2025 Urine culture Olga diego [facility] Work Phone: Start: 12-26-2024 Ecg routine ecg w/le ast 12 lds w/i&r Dereck Geller [employer] Work Phone: Start: 10-22-2024 Lipid 1996 panel - S mallorie or Plasma Beny Stewart PA-C Work Phone: Start: 09-28-2024 Ecg routine ecg w/le ast 12 lds w/i&r Beny Stewart PA-C Work Phone: Start: 08-08-2024 Gonadotropin chorion ic quantitative Brady aYng DO Work Phone: Start: 08-08-2024 Urinalysis microscop [...] or Population) (1 - 1-dose 75+ series) [facility] Start: 2048 Zoster Vaccines (1 of 2) Zoster Vaccines (1 of 2) [facility] Start: 10-22-2029 Lipid panel Lipid Panel [facility] Start: 07-20-2025 End: 07-20-2025 Patient encounter procedure -Laboratory Specimen Work Phone: Start: 07-20-2025 Bacteria identified in Urine by Culture [facility] Start: 07-20-2025 [facility] Start: 06-27-2025 End: 06-27-2025 Patient encounter procedure 06/27/2025 2:30 PM EDT Office Visit [facility] [address] [place] [address] Dereck Geller, RESIDENTIAL LIFE DIRECTOR[employer] [address] [facility] [place] [address] [facility] Start: 06-19-2025 Nonstress test [facility] Start: 06-19-2025 Obstetric monitoring [facility] Start: 06-19-2025 Ultrasound scan for growth [facility] Start: 06-19-2025 Vital signs measurements [facility] Start: 06-19-2025 [facility] Start: 06-19-2025 Patient discharge [facility] Start: 05-15-2025 Influenza vaccination Influenza Vaccine (Season Ended) [facility] Start: 05-01-2025 End: 05-01-2025 Patient encounter procedure 05/01/2025 2:00 PM EDT Office Visit [facility] [address] [facility] [place] [phone] Beny Stewart, PAGuillerminaC [address] [place], [place] [id number] [facility] Start: 02-28-2025 End: 11-28-2025 25-hydroxyvitamin D3 [Mass/volume] in Serum or Plasma Vitamin D 25-Hydroxy,Total (for eval of Vitamin D levels) Lab Routine Vitamin D deficiency Expected: 02/28/2025 (Approximate), Expires: 11/28/2025 [facility] Work Phone: Comment on above: Expected: 02/28/2025 (Approximate), Expi res: 11/28/2025 Start: 02-28-2025 End: 11-28-2025 CBC W Auto Differential panel - Blood CBC and Auto Differential Lab Routine Heart palpitations Dizziness Low ferritin Expected: 02/28/2025 (Approximate), Expires: 11/28/2025 [facility] Work Phone: Comment on above: Expected: 02/28/2025 (Approximate), Expi res: 11/28/2025 Start: 02-28-2025 End: 11-28-2025 Ferritin [Mass/volume] in Serum or Plasma Ferritin Lab Routine Heart palpitations Dizziness Low ferritin Expected: 02/28/2025 (Approximate), Expires: 11/28/2025 [facility] Work Phone: Comment on above: Expected: 02/28/2025 (Approximate), Expi res: 11/28/2025 Start: 02-28-2025 End: 11-28-2025 Iron and Iron binding capacity panel - Serum or Plasma Iron and TIBC Lab Routine Heart palpitations Dizziness Low ferritin Expected: 02/28/2025 (Approximate), Expires: 11/28/2025 [facility] Work Phone: Comment on above: Expected: 02/28/2025 (Approximate), Expi res: 11/28/2025 Start: 12-26-2024 End: 12-26-2024 Patient encounter procedure 12/26/2024 2:30 PM EDT Office Visit [facility] [address] [place] [phone] Dereck Geller, RESIDENTIAL LIFE DIRECTOR[employer] [address] [place] [address] [facility] Start: 12-15-2024 End: 12-15-2024 Patient encounter procedure 12/15/2024 8:00 AM EDT Appointment [facility] [address] [place] [address] [facility] Start: 12-13-2024 End: 12-13-2024 Patient encounter procedure 12/13/2024 4:00 PM EDT Office Visit [facility] [address] [place] [phone] Dave Bryant MD [address] [place] [address] [facility] Start: 12-06-2024 End: 12-06-2024 Patient encounter procedure 12/06/2024 1:30 PM EDT Office Visit [facility] Building [address] [place] [phone] Dereck Geller, RESIDENTIAL LIFE DIRECTOR[employer] [address] [place] [address] [facility] Start: 11-28-2024 End: 11-28-2024 Patient encounter procedure 11/28/2024 2:40 PM EDT Office Visit [facility] [address] [place] [phone] Beny Stewart, PA-C [address] [place] [address] [facility] Start: 11-28-2024 End: 11-28-2026 Tilt table study Tilt Table Cardiac Services Routine Tachycardia Heart palpitations Dizziness Expected: 11/28/2024 (Approximate), Expires: 11/28/2026 [facility] Service Area Work Phone: Comment on above: Expected: 11/28/2024 (Approximate), Expi res: 11/28/2026 Start: 10-12-2024 End: 10-12-2024 Patient encounter procedure [facility] Start: 09-28-2024 End: 09-28-2025 25-hydroxyvitamin D3 [Mass/volume] in Serum or Plasma Vitamin D 25-Hydroxy,Total (for eval of Vitamin D levels) Lab Routine Vitamin D deficiency Tachycardia Dizziness Fatigue, unspecified type Expected: 09/28/2024 (Approximate), Expires: 09/28/2025 [facility] Work Phone: Comment on above: Expected: 09/28/2024 (Approximate), Expi res: 09/28/2025 Start: 09-28-2024 End: 09-28-2025 CBC W Auto Differential panel - Blood CBC and Auto Differential Lab Routine Tachycardia Dizziness Fatigue, unspecified type Expected: 09/28/2024 (Approximate), Expires: 09/28/2025 [facility] Work Phone: Comment on above: Expected: 09/28/2024 (Approximate), Expi res: 09/28/2025 Start: 09-28-2024 End: 09-28-2025 Cobalamin (Vitamin B12) [Mass/volume] in Serum or Plasma Vitamin B12 Lab Routine Tachycardia Dizziness Fatigue, unspecified type Expected: 09/28/2024 (Approximate), Expires: 09/28/2025 [facility] Work Phone: Comment on above: Expected: 09/28/2024 (Approximate), Expi res: 09/28/2025 Start: 09-28-2024 End: 09-28-2025 Comprehensive metabolic 2000 panel - Serum or Plasma Comprehensive Metabolic Panel Lab Routine Tachycardia Dizziness Fatigue, unspecified type Expected: 09/28/2024 (Approximate), Expires: 09/28/2025 [facility] Work Phone: Comment on above: Expected: 09/28/2024 (Approximate), Expi res: 09/28/2025 Start: 09-28-2024 End: 09-28-2025 Ferritin [Mass/volume] in Serum or Plasma Ferritin Lab Routine Tachycardia Dizziness Fatigue, unspecified type Expected: 09/28/2024 (Approximate), Expires: 09/28/2025 [facility] Work Phone: Comment on above: Expected: 09/28/2024 (Approximate), Expi res: 09/28/2025 Start: 09-28-2024 End: 09-28-2026 Holter monitor study Holter Or Event [employer] Tester Cardiac Services Routine Tachycardia Dizziness Fatigue, unspecified type Heart palpitations Expected: 09/28/2024 (Approximate), Expires: 09/28/2026 [facility] Work Phone: Comment on above: Expected: 09/28/2024 (Approximate), Expi res: 09/28/2026 Start: 09-28-2024 End: 09-28-2025 Iron and Iron binding capacity panel - Serum or Plasma Iron and TIBC Lab Routine Tachycardia Dizziness Fatigue, unspecified type Expected: 09/28/2024 (Approximate), Expires: 09/28/2025 [facility] Work Phone: Comment on above: Expected: 09/28/2024 (Approximate), Expi res: 09/28/2025 Start: 09-28-2024 End: 09-28-2025 Lipid 1996 panel - Serum or Plasma Lipid Panel Lab Routine Tachycardia Dizziness Fatigue, unspecified type Expected: 09/28/2024 (Approximate), Expires: 09/28/2025 [facility] Work Phone: Comment on above: Expected: 09/28/2024 (Approximate), Expi res: 09/28/2025 Start: 09-28-2024 End: 09-28-2025 Magnesium [Mass/volume] in Serum or Plasma Magnesium Lab Routine Tachycardia Dizziness Fatigue, unspecified type Expected: 09/28/2024 (Approximate), Expires: 09/28/2025 [facility] Work Phone: Comment on above: Expected: 09/28/2024 (Approximate), Expi res: 09/28/2025 Start: 09-28-2024 End: 09-28-2025 Thyrotropin [Units/volume] in Serum or Plasma Thyroid Stimulating Hormone Lab Routine Tachycardia Dizziness Fatigue, unspecified type Expected: 09/28/2024 (Approximate), Expires: 09/28/2025 [facility] Work Phone: Comment on above: Expected: 09/28/2024 (Approximate), Expi res: 09/28/2025 Start: 09-28-2024 End: 09-28-2025 Thyroxine (T4) free [Mass/volume] in Serum or Plasma Thyroxine, Free Lab Routine Tachycardia Dizziness Fatigue, unspecified type Expected: 09/28/2024 (Approximate), Expires: 09/28/2025 [facility] Work Phone: Comment on above: Expected: 09/28/2024 (Approximate), Expi res: 09/28/2025 Start: 09-28-2024 End: 09-28-2026 US Heart Transthoracic Transthoracic Echo Complete Echocardiography Routine Tachycardia Dizziness Fatigue, unspecified type Heart palpitations Expected: 09/28/2024 (Approximate), Expires: 09/28/2026 [facility] Work Phone: Comment on above: Expected: 09/28/2024 (Approximate), Expi res: 09/28/2026 Start: 09-28-2024 End: 09-28-2025 XR Shoulder - left 2 Views XR shoulder left 2+ views Imaging Routine Chronic left shoulder pain Expected: 09/28/2024, Expires: 09/28/2025 [facility] Service Area Work Phone: Comment on above: Expected: 09/28/2024, Expires: Start: 05-15-2024 COVID-19 Vaccine ( season) COVID-19 Vaccine ( season) [facility] Start: 05-15-2024 Influenza vaccination Influenza Vaccine (#1) [facility] Start: 2020 DTaP/Tdap/Td Vaccines (1 - Tdap) DTaP/Tdap/Td Vaccines (1 - Tdap) [facility] Start: 2019 Screening for malignant neoplasm of cervix [facility] Start: 2017 Hepatitis B Vaccines (1 of 3 - 19+ 3-dose series) Hepatitis B Vaccines (1 of 3 - 19+ 3-dose series) [facility] Start: 2016 Diabetes mellitus screening Diabetes Screening [facility] Start: 2016 Hepatitis C screening Hepatitis C Screening [facility] Start: 2013 HPV Vaccines (1 - 3-dose series) HPV Vaccines (1 - 3-dose series) [facility] Start: 2011 Varicella vaccination Varicella Vaccines (1 of 2 - 13+ 2-dose series) [facility] Start: 1999 MMR Vaccines (1 of 1 - Standard series) MMR Vaccines (1 of 1 - Standard series) [facility] Start: 1998 HIV screening HIV Screening [facility] Start: 1998 Lipid panel Lipid Panel [facility] Start: 1998 Yearly Adult Physical Yearly Adult Physical [facility] End: 08-08-2024 Bacteria identified in Urine by Culture [facility] Work Phone: Comment on above: Once (Lab) for 1 Occurrences starting until 08/08/2024 End: 08-08-2024 Blood type and Indirect antibody screen panel - Blood [facility] Work Phone: Comment on above: Once (Lab) for 1 Occurrences starting until 08/08/2024 CBC W Auto Different ial panel - Blood [facility] CBC W Auto Different ial panel - Blood [facility] Chlamydia deoxyribonucleic acid detection [facility] Comprehensive metabo lic 2000 panel - Serum or Plasma [facility] End: 08-08-2024 Extra Urine Isabel Tube [facility] Work Phone: Comment on above: Once for 1 Occurrences starting 08/08/20 until 08/08/2024 Hepatitis C antibody measurement [facility] End: 10-12-2024 Holter monitor study [facility] Service Area Work Phone: Comment on above: Once for 1 Occurrences starting 10/12/19 until 10/12/2024 Liquid based cervica l cytology screening [facility] Measurement of gluco se 2 hours after glucose challenge for glucose tolerance test [facility] Patient Education Kick Counts ED False Labor OB Triage: Return to Hospital or Notify Physician if you Experience: [facility] Work Phone: Protein/Creatinine [Ratio] in Urine [facility] Rubella IgG measurement [facility] Serologic test for syphilis [facility] Serologic test for syphilis [facility] End: 12-15-2024 Tilt table study [facility] Service Area Work Phone: Comment on above: Once for 1 Occurrences starting 12/16/19 until 12/15/2024 End: 08-08-2024 Urinalysis complete W Reflex Culture panel - Urine [facility] Area Work Phone: Comment on above: Once (Lab) for 1 Occurrences starting until 08/08/2024 Urine culture [facility] End: 10-12-2024 US Heart Transthoracic [facility] Service Area Work Phone: Comment on above: Once for 1 Occurrences starting 10/12/19 until 10/12/2024 [facility] Immunizations Immunization Date Immunization Notes Care Provider Fa cility 07-03-2025 tetanus toxoid, reduced diphtheria toxoid, and acellular pertussis vaccine, adsorbed Beny MYEER Work Phone: [facility] Payers Date Payer Category Payer Self-pay 2023 Managed Care (Private) 1.2.8 [id number] 2023 Private Health Insurance [id number] 1998 Unknown [id number] 2.16.8 40.1.716750.3.579.2.1242 1998 Unknown [id number] 2.16.8 40.1.344226.3.579.2.1242 1998 Unknown [id number] 2.16.8 40.1.990648.3.579.2.1242 1998 Unknown [id number] 2.16.8 40.1.865029.3.579.2.1243 1998 Unknown [id number] 2.16.8 40.1.059872.3.579.2.1243 1998 Unknown [id number] 2.16. 840.1.781065.3.579.2.1244 1998 Unknown [id number] 2.16. 840.1.305858.3.579.2.124 1998 Unknown [id number] 2.16. 840.1.642184.3.579.2.1244 1998 Unknown [id number] 2.16. 840.1.294889.3.579.2.902 Unknown [id number] 2.16.8 40.1.301429.3.579.2.462 Unknown [id number] 2.16.8 40.1.204625.3.579.2.462 Unknown [id number] 2.16.8 40.1.071132.3.579.2.462 Unknown [id number] 2.16.8 40.1.510026.3.579.2.462 Unknown [id number] 2.16.8 40.1.374980.3.579.2.462 Unknown [id number] 2.16.8 40.1.442893.3.579.2.462 Unknown [id number] 2.16.8 40.1.042380.3.579.2.462 Unknown [id number] 2.16.8 40.1.336572.3.579.2.462 Unknown [id number] 2.16.8 40.1.953530.3.579.2.462 Unknown [id number] 2.16.8 40.1.968641.3.579.2.462 Unknown [id number] 2.16.8 40.1.675229.3.579.2.462 Unknown [id number] 2.16.8 40.1.305049.3.579.2.462 Unknown [id number] 2.16.8 40.1.867892.3.579.2.462 Unknown [id number] 2.16.8 40.1.222230.3.579.2.462 Unknown [id number] 2.16.8 40.1.862224.3.579.2.462 Unknown [id number] 2.16.8 40.1.039281.3.579.2.462 Unknown [id number] 2.16.8 40.1.230639.3.579.2.462 Unknown [id number] 2.16.8 40.1.308838.3.579.2.462 Social History Date Type Detail Facility Start: 08-08-2024 End: 01-24-2025 Tobacco smoking status NHIS Never smoked tobacco [facility] Work Phone: Start: 08-08-2024 Tobacco use and exposure Smokeless tobacco non-user [facility] Work Phone: Start: 08-08-2024 End: 11-28-2024 Alcoholic beverage intake Lifetime non-drinker (finding) [facility] Work Phone: Start: 2000 Sex assigned at Not on file [facility] Work Phone: Start: 09-28-2024 End: 11-28-2024 Gender identity Not on file [facility] Work Phone: Start: 07-29-2024 End: 12-26-2024 Exposure to SARS-CoV-2 (event) Not sure [facility] Work Phone: Start: 09-28-2024 End: 11-28-2024 History of Social function [facility] Work Phone: Start: 12-26-2024 Alcoholic beverage intake Current drinker of alcohol (finding) [facility] Work Phone: Start: 2000 Sex Assigned At Female [facility] Clinical Notes 08-08-2024 to 07-03-2025 Note Date & Type Note Facility 07-03-2025 Progress note [facility] 07-03-2025 Progress note Note Date/Time July 03, 2025 4:34pm [facility] [address] [place] [address] OFFICE VISIT Date of Service: 07/03/25 MR#: [id number] Acct: [id number] Name: JUSTINO RENDON Rep #: [id number] : 2000 Provider: FAB Manzo Age/Sex: 25/F Location: [facility] Status: Signed Intake Vital Signs 04/07/25 13:04 06/19/25 16:29 07/03/25 15:17 Height 5 ft 4 in 5 ft 3 in 5 ft 3 in Weight: 171 lb 7 oz BMI 30.3 BP 117/75 Intake Visit Reasons: 29 WK 4D OB Chief Complaint: 29wk OB Chief Analytics Officer Required: No Is patient in pain?: No [...] 1 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 pets and animals: [...] 1-2 times per week duration: 15-30 minutes/day deric/advent: Latter-Day seatbelt use: always do you feel safe [...] full term vacuum 7lbs 11oz Male epidural [place] 07/15/24 Chemical 5 spontaneous Delivery Date: [...] Performing Provider: Olga Manzo CNM Performing Location: [facility] Administered by: Mickie Valles on 07/03/25 15:33 Dose Route Admin Location Dispensed Lot Number Expiration Date Pack age NDC NDC Media Relations Director 0.5 mL IM Right Deltoid 0.5 mL [id number] 05/13/27 [id number] SANOFI- PASTEUR VIS Given Date VIS Provided [...] fallen in the past year?: No 07/07/25 6292 <Electronically signed by Olga mcdaniel CNM> Date _ Olga Manzo CNM Cosigner Signature: Date (if applicable) CC: ~ [facility] Work Phone: 1(706) 200-632810-06-2025 Radiology Diagnostic study note [facility] Imaging Services [address] [place] [address] [id number] OB Limited With Biometrics MR#: [id number] Acct: [id number] Name: JUSTINO RENDON Rep #: [id number] : 2000 F 25 From: Rosalva Tiwari MD PCP: MITCH Duran Status: REG CLI Study:OB Limited With Biometrics Date of Exam : 06/19/25 Exam# [id number] Ordering Dr: Marialuisa Gunderson MD PROCEDURE: OB [...] of 09/03/2025. No acute abnormalities. Reading Location: [facility] CC: Dr. Marialuisa Marshall MD; MITCH Duran ~ Funeral Service Practitioner/Embalmer: Signed [facility]10-06-2025 Progress note [facility] Medical Records Department [address] [place] [address] OB Triage Progress Note 06/19/25 1821 MR#: [id number] Acct: [id number] Name: JUSTINO RENDON Rep #:[id number] : 2000 25 From: Marialuisa castillo MD PCP: MITCH Duran Status:REG CLI Y DOS: Location: [place] [address] Progress Notes Date of Service: 06/19/25 Progress Note: Patient presents for triage evaluation secondary to decreased movement FHT: 140 Moderate variability reactive no decelerations category I tracing [place]: no regular Contractions Assessment and plan: dec [...] % Lymph % (Auto) 22.5 (19-41) % Adams % (Auto) 5.9 (0-10) % Eos % (Auto) 1.3 (0-5) % Baso % (Auto) 0.1 (0-1) % Absolute Neuts (auto) 7.7 (2.0-7.7) X10^3/uL Absolute Lymphs (auto) 2.48 (0.83-4.51) X10^3/uL Nucleated RBC % 0 (0-5) % Glucose 1 Hr 50 gm 131 (70-140) mg/dL Syphilis Total Ab Nonreactive (Nonreactive) HIV 1&2 Antibody Nonreactive (Nonreactive) Charges/Coding Procedures Urinary/Genital 52xxx-59xxx: 31284-96 non-stress test Interp 06/19/25 1824 stacy [place]> Date _ Marialuisa Marshall MD Cosign Signature (if applicable): Date CC: Dr. Marialuisa Marshall MD; MITCH Duran ~ Signed [facility]10-06-2025 Progress [facility] [address], [address] [place] [address] OFFICE VISIT Date of Service: 06/19/25 MR#: [id number] Acct: [id number] Name: JUSTINO RENDON Rep #: [id number] : 2000 Provider: JH Carnes Age/Sex: 25/F Location: [facility] Status: Signed Intake Vital Signs 04/07/25 13:04 05/29/25 14:54 06/19/25 15:27 Height 5 ft 4 in 5 ft 4 in 5 ft 4 in Weight: 168 lb 1 oz BMI 28.8 BP 126/77 H Intake Visit Reasons: 28 WK OB/Glucose Chief Analytics Officer Required: No Is patient in pain?: No [...] 1 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 06/19/25 1605 s PACKAGE DELIVERY DRIVER PACKAGE DELIVERY DRIVER-C> Date _ Shireen Carnes PACKAGE DELIVERY DRIVER PACKAGE DELIVERY DRIVER-C Cosigner Signature: Date (if applicable) CC: ~ [facility]10-06-2025 Progress note Author Shireen Phoenix [facility] Note Date/Time June 19, 2025 4: 00pm [facility] [address], [address] [place] [address] OFFICE VISIT Date of Service: 06/19/25 MR#: [id number] Acct: [id number] Name: JUSTINO RENDON Rep #: [id number] : 2000 Provider: JH Carnes Age/Sex: 25/F Location: 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 pets and animals: Yes pets and animals: dog(s) history of recent travel: Yes ([place] - December 2024) out of state: Yes [...] 1-2 times per week duration: 15-30 minutes/day deric/advent: Latter-Day seatbelt use: always do you feel safe [...] full term vacuum 7lbs 11oz Male epidural [place] 07/15/24 Chemical 5 spontaneous Delivery Date: 05/23/23 [...] Huitron Signature: Date (if applicable) CC: ~ [facility] Work Phone: 1(227) 115-737409-15-2025 Progress [facility] [address] [place] [address], [address] [place] [address] OFFICE VISIT Date of Service: 05/29/25 MR#: [id number] Acct: [id number] Name: JUSTINO RENDON Rep #: [id number] : 2000 Provider: Dr. 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/hazards: No pets and animals: Yes pets and animals: dog(s) history of recent travel: Yes ([place] - December 2024) out of state: Yes [...] 1-2 times per week duration: 15-30 minutes/day deric/advent: Latter-Day seatbelt use: always do you feel safe [...] full term vacuum 7lbs 11oz Male epidural [place] 07/15/24 Chemical 5 spontaneous Delivery Date: 05/23/23 Last Updated by: Yeimi nAthony RN Pre-e, lingering pp htn x4mo HPI [...] Cosigner Signature: Date (if applicable) CC: ~ [facility]09-15-2025 Progress note Author Marialuisa Marshall [facility] Note Date/Time May 29, 2025 3:24pm [facility] [address], [address] [place] [address] OFFICE VISIT Date of Service: 05/29/25 MR#: [id number] Acct: [id number] Name: JUSTINO RENDON Rep #: [id number] : 2000 Provider: Dr. 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 pets and animals: Yes pets and animals: dog(s) history of recent travel: Yes ([place] - December 2024) out of state: Yes [...] 1-2 times per week duration: 15-30 minutes/day deric/advent: Latter-Day seatbelt use: always do you feel safe [...] full term vacuum 7lbs 11oz Male epidural [place] 07/15/24 Chemical 5 spontaneous Delivery Date: [...] Huitron Signature: Date (if applicable) CC: ~ [facility] Work Phone: 1(174) 293-464408-20-2025 [facility] [address] [place] [address], [address] [place] [address] OFFICE VISIT Date of Service: 05/03/25 MR#: [id number] Acct: [id number] Name: JUSTINO RENDON Rep #: [id number] : 2000 Provider: Dr. 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 pets and animals: Yes pets and animals: dog(s) history of recent travel: Yes ([place] - December 2024) out of state: Yes [...] 1-2 times per week duration: 15-30 minutes/day deric/advent: Latter-Day seatbelt use: always do you feel safe [...] full term vacuum 7lbs 11oz Male epidural [place] 07/15/24 Chemical 5 spontaneous Delivery Date: [...] Wrightignannika Signature: Date (if applicable) CC: ~ [facility]07-25-2025 Evaluation note* Diagnosis Onset Date Resolution Status [...] Supervision of high-risk acute July 20 3:21pm [facility] Work Phone: 1(777) 781-748307-25-2025 [facility] [address] [place] [address], [address] [place] [address] OFFICE VISIT Date of Service: 04/07/25 MR#: [id number] Acct: [id number] Name: JUSTINO RENDON Suzan Rep #: [id number] : 2000 Provider: FAB Manzo Age/Sex: 24/F Location: [facility] Status: Signed Intake Vital Signs 02/10/25 13:04 03/10/25 08:56 04/07/25 13:04 Height 5 ft 4 in 5 ft 4 in 5 ft 4 in Weight: 149 lb 2 oz BMI 25.6 BP 108/70 Intake Visit Reasons: 17wk ob Chief Complaint: 17 Week OB Chief Analytics Officer Required: No Is patient in pain?: No [...] 1 current occupational status: employed 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 Date Name GA/Weeks Outcome Route Bth Weight [facility] Doan [facility] live - [...] Cosigner Signature: Date (if applicable) CC: ~ [facility]06-27-2025 Evaluation note* Diagnosis Onset Date Resolution Status [...] Supervision of high-risk acute June 19 3:21pm [facility] Work Phone: 1(732) 623-513805-30-2025 Evaluation note* Diagnosis Onset Date Resolution Status [...] of high-risk acute May 29, 2025 2:44pm [facility] Work Phone: 1(684) 427-802505-30-2025 [facility] [address] [place] [address], [address] [place] [address] OFFICE VISIT Date of Service: 02/10/25 MR#: [id number] Acct: [id number] Name: JUSTINO RENDON Rep #: [id number] : 2000 Provider: FAB Jacob Age/Sex: 24/F Location: [facility] Status: Signed Intake Vital Signs 01/12/25 14:16 01/24/25 11:38 02/10/25 13:04 Height 5 ft 4 in 5 ft 4 in 5 ft 4 in Weight: 152 lb BMI 26.1 BP 120/76 Intake Visit Reasons: NOB LMP 12/08 Chief Analytics Officer Required: No Is patient in pain?: No [...] 1 current occupational status: employed 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: No pets and animals: [...] 1-2 times per week duration: 15-30 minutes/day deric/advent: Latter-Day seatbelt use: always do you feel safe [...] full term vacuum 7lbs 11oz Male epidural [place] 07/15/24 Chemical 5 spontaneous Delivery Date: [...] Pulmonary (e.g.,TB,Asthma), Seasonal allergies, Drug/latex allergies/reactions, Breast, Edge Cutter surgery, Operations/hospitalizations, Anesthetic complications, History of abnormal [...] Cosigner Signature: Date (if applicable) CC: ~ [facility]05-01-2025 Evaluation note* Diagnosis Onset Date Resolution Status Admit Date Encounter for routine gynecological examination noneactive January 2:05pm [facility] Work Phone: 1(522) 884-888505-01-2025 Evaluation note* Diagnosis Onset Date Resolution Status Admit Date Encounter for routine gynecological examination noneactive January 2:05pm History of miscarriage, currently acute February 10 1:02pm History of pre-eclampsia in prior , currently acute February 10, 2025 1 :02pm POTS (postural orthostatic tachycardia syndrome) acute February 10, 2025 1:02pm acute February 10, 2025 1:02pm Supervision of high-risk acute February 10, 2025 1 :02pm [facility] Work Phone: 1(262) 290-658505-01-2025 Evaluation note* Diagnosis Onset Date Resolution Status [...] of high-risk acute March 10, 2025 8:52am [facility] Work Phone: 1(773) 387-129105-01-2025 Evaluation note* Diagnosis Onset Date Resolution Status [...] of high-risk acute April 07, 2025 12:56pm [facility] Work Phone: 1(140) 116-472605-01-2025 Evaluation note* Diagnosis Onset Date Resolution Status [...] Supervision of high-risk acute May 03 12:58pm [facility] Work Phone: 1(142) 716-791604-14-2025 History of Present illness Narrative* Dereck Geller, RESIDENTIAL LIFE DIRECTOR-[employer] - 12/26/2024 2:30 PM EDT Images from the original note were not included. [facility] Clinic Visit Note History of [...] hospital encounter of 10/12/24 Tr[place] [address] ext-[phone], TRANSTHORACIC ECHOCARDIOGRAM REPORT Patient Name: JUSTINO Taylor Physician: [id number] Sam Garcia MD Study Date: 10/12/2024 Ordering Provider: [id number] BENY STEWART MRN/PID: [id number] Fellow: Nurse: Sharmila Thurman RN Date of /Age: 9 2000 Manager Nuclear: Roberto Proctor RDCS years Gender Assigned at F Additional Staff: : Height: 160.02 cm Admit Date: Weight: 66.23 kg Admission Status: Outpatient BSA / BMI: 1.69 m2 / 25.86 Department Location: [facility] Echo Lab kg/m2 Blood Pressure: 102 /72 mmHg Study Type: TRANSTHORACIC ECHO (TTE) COMPLETE Diagnosis/ICD: Dizziness and giddiness-R42 CPT Codes: Echo Complete w Full Doppler-30622 Study Detail: The following Echo studies were [...] LA Area A2C: 9.0 cm2 LA Major [place] A4C: 4.4 cm LA Major [place] A2C: 4.4 cm LA Volume Index: 11.4 [...] RV Syst Pressure: 15 mmHg (< 30mmHg) [id number] Sam Garcia MD Electronically signed on 10/13/2024 at 9:07:36 PM Final The ASCVD Risk score (Kerkhoven DK, et al., 2019) failed to calculate [...] been made to prevent any error in automotive parts interpreter, however minor errors may be present Dereck Geller, MSN, COMMERCIAL AIRPLANE PILOT, ACNPC, CCRN Advanced Practice Provider, Nurse Practitioner Division of Cardiovascular Medicine [facility] Electronically signed by Dereck Geller RESIDENTIAL LIFE DIRECTOR-COMMERCIAL AIRPLANE PILOT at 12/26/2024 3:17 PM EDT [facility] Phone: 1(367) 494-578204-03-2025 Miscellaneous Notes* Post-Procedure Note - Patrick Armenta MD - 12/15/2024 8:00 AM EDT Physician Transition of Care Summary Invasive Cardiovascular Lab Procedure Date: 12/15/2024 Attending: * No surgeons found in log * Resident/Fellow/Other Cna Caregiver: * No surgeons found in log * [...] MD, 12/15/2024 2:[address] [facility] Work Phone: 1(383) 478-221204-03-2025 Surgery Postoperative evaluation and management note* Post-Procedure Note - Patrick Armenta MD - 12/15/2024 8:00 AM EDT Physician Transition of Care Summary Invasive Cardiovascular Lab Procedure Date: 12/15/2024 Attending: * No surgeons found in log * Resident/Fellow/Other Cna Caregiver: * No surgeons found in log * [...] by: Patrick Armenta MD, 12/15/2024 2:52 PM [facility] Work Phone: 1(687) 929-179203-17-2025 History of Present illness Narrative* Beny Stewart [...] table Referral to cardio documented [facility] Phone: 1([phone]) 726-556101-29-2025 Note* Significant Event - Araseli Thurman RN - 10/12/2024 1:08 PM EST 10ml of saline given for bubble study per senior engineering technician instruction [facility]-29-2025 Miscellaneous Notes* Significant Event - Araseli Thurman RN - 10/12/2024 1:08 PM EST 10ml of saline given for bubble study per senior engineering technician instruction documented in [facility] Phone: 1([phone] 389-902601-15-2025 History of Present illness Narrative* Beny Stewart PA-C - 09/28/2024 2:00 PM EST Subjective Patient ID: Justino Rendon is a 24 y.o. female who presents for New Patient Visit ([facility] - [place] FROM [place] 1 YEAR AGO. C/O LEFT SHOULDER PAIN [...] (Completed) Transthoracic Echo Complete Holter Or Event Air And Water Tester Chronic left shoulder pain M25.512, G89.29 Relevant Orders XR shoulder left 2+ views Referral to Orthopaedic Surgery Vitamin D deficiency E55.9 Relevant Orders Vitamin D 25-Hydroxy,Total (for eval of Vitamin D levels) Heart palpitations R00.2 Relevant Orders ECG 12 Lead (Completed) Transthoracic Echo Complete Holter Or Event Air And Water Tester History of pre-eclampsia Z87.59 Other Visit Diagnoses Codes Encounter to establish care with new doctor - Primary Z76.89 Dizziness R42 Relevant Orders CBC and Auto Differential Comprehensive Metabolic Panel Lipid Panel Thyroid Stimulating Hormone Thyroxine, Free Iron and TIBC Ferritin Magnesium Vitamin B12 Vitamin D 25-Hydroxy,Total (for eval of Vitamin D levels) ECG 12 Lead (Completed) Transthoracic Echo Complete Holter Or Event Air And Water Tester Fatigue, unspecified type R53.83 Relevant Orders CBC and Auto Differential Comprehensive Metabolic Panel Lipid Panel Thyroid Stimulating Hormone Thyroxine, Free Iron and TIBC Ferritin Magnesium Vitamin B12 Vitamin D 25-Hydroxy,Total (for eval of Vitamin D levels) ECG 12 Lead (Completed) Transthoracic Echo Complete Holter Or Event Air And Water Tester FU in 1-2 mo with labs at [facility] fasting and med check Echo, monitor Ortho referral documented in this [facility] Work Phone: 1(278) 318-432211-25-2024 Emergency department Note* Brady Yang, - 08/08/2024 [...] form of control. History provided by: Patient toolmaker helper used: No Patient History History reviewed. No [...] this time. She will be referred to CUSTOMER SALES ADVISOR and instructed to return for any other ongoing concerns. Procedure Procedures Brady Yang DO 08/08/[address] [facility] Work Phone: 1(338) 551-970711-25-2024 Physician Emergency department Note* Brady Yang DO [...] form of control. History provided by: Patient toolmaker helper used: No Patient History History reviewed. No [...] 08/08/24 1127 Vaginal bleeding No data recorded [place] Coma Scale Score: 15 (08/08/24 0915 : [...] this time. She will be referred to CUSTOMER SALES ADVISOR and instructed to return for any other ongoing concerns. Procedure Procedures Brady Yang DO 08/08/24 1131 [facility] Work Phone: Evaluation note* Diagnosis Vaginal bleeding- Primary Other specified noninflammatory disorder of vagina documented in this encounter [facility] Work Phone: Evaluation note* Diagnosis Encounter to establish care with new doctor- Primary Chronic left shoulder pain Pain in joint, shoulder region Vitamin D deficiency Tachycardia Unspecified tachycardia Dizziness Dizziness and giddiness Fatigue, unspecified type Heart palpitations Palpitations History of pre-eclampsia documented in this encounter [facility] Work Phone: Evaluation note* Diagnosis Tachycardia Unspecified tachycardia Dizziness Dizziness and giddiness Fatigue, unspecified type Heart palpitations Palpitations documented in this encounter [facility] Work Phone: Evaluation note* Diagnosis Tachycardia Unspecified tachycardia Dizziness Dizziness and giddiness Fatigue, unspecified type Heart palpitations Palpitations documented in this encounter [facility] Work Phone: Evaluation note* Diagnosis Vitamin D deficiency- Primary Tachycardia Unspecified tachycardia Heart palpitations Palpitations Dizziness Dizziness and giddiness Low ferritin Other nonspecific findings on examination of blood Chronic left shoulder pain Pain in joint, shoulder region Left shoulder pain, unspecified chronicity documented in this encounter [facility] Work Phone: Evaluation note* Diagnosis Tachycardia Unspecified tachycardia Heart palpitations Palpitations Dizziness Dizziness and giddiness documented in this encounter [facility] Work Phone: Evaluation note* Diagnosis Heart palpitations- Primary Palpitations Tachycardia Unspecified tachycardia Dizziness Dizziness and giddiness POTS (postural orthostatic tachycardia syndrome) Unspecified tachycardia documented in this encounter [facility] Work Phone: Hospital Discharge instructions* Attachments The following attachments cannot be sent through Care Everywhere. * Menstruation (Spanish) documented in this [facility] Work Phone: Progress note Author Araseli Jacob [facility] Note Date/Time February 10, 2025 1:42p [facility] [address], [address] [place] [address] OFFICE VISIT Date of Service: 02/10/25 MR#: [id number] Acct: [id number] Name: JUSTINO RENDON Rep #: [id number] : 2000 Provider: FAB Jacob Age/Sex: 24/F Location: [facility] Status: Signed Intake Vital Signs 01/12/25 14:16 01/24/25 11:38 02/10/25 13:04 Height 5 ft 4 in 5 ft 4 in 5 ft 4 in Weight: 152 lb BMI 26.1 BP 120/76 Intake Visit Reasons: NOB LMP 12/08 Chief Analytics Officer Required: No Is patient in pain?: No [...] 1 current occupational status: employed 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: No pets and animals: Yes pets and animals: dog(s) history of recent travel: Yes ([place] - December 2024) out of state: Yes [...] 1-2 times per week duration: 15-30 minutes/day deric/advent: Latter-Day seatbelt use: always do you feel safe [...] full term vacuum 7lbs 11oz Male epidural [place] 07/15/24 Chemical 5 spontaneous Delivery Date: [...] Pulmonary (e.g.,TB,Asthma), Seasonal allergies, Drug/latex allergies/reactions, Breast, Edge Cutter surgery, Operations/hospitalizations, Anesthetic complications, History of abnormal [...] Cosigner Signature: Date (if applicable) CC: ~ [facility] Work Phone: Progress note Author lOga Manzo [facility] Note Date/Time April 07, 2025 1:25 pm [facility] [address], [address] [place] [address] OFFICE VISIT Date of Service: 04/07/25 MR#: [id number] Acct: [id number] Name: JUSTINO RENDON Rep #: [id number] : 2000 Provider: FAB Manzo Age/Sex: 24/F Location: [facility] Status: Signed Intake Vital Signs 02/10/25 13:04 03/10/25 08:56 04/07/25 13:04 Height 5 ft 4 in 5 ft 4 in 5 ft 4 in Weight: 149 lb 2 oz BMI 25.6 BP 108/70 Intake Visit Reasons: 17wk ob Chief Complaint: 17 Week OB Chief Analytics Officer Required: No Is patient in pain?: No [...] 1 current occupational status: employed 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 GA appropriate handout given. 04/07/25 132 <Electronically signed by Olga mcdaniel CNM> Date _ Olga CORDONFabrice Hightowerigner Signature: Date (if applicable) CC: ~ [facility] Work Phone: Progress note Author Alyssia Monzon [facility] Note Date/Time May 03, 2025 1: 27pm [facility] [address] [place] [address], [address] [place] [address] OFFICE VISIT Date of Service: 05/03/25 MR#: [id number] Acct: [id number] Name: JUSTINO RENDON Rep #: [id number] : 2000 Provider: Dr. 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 pets and animals: Yes pets and animals: dog(s) history of recent travel: Yes ([place] - December 2024) out of state: Yes [...] 1-2 times per week duration: 15-30 minutes/day deric/advent: Latter-Day seatbelt use: always do you feel safe [...] full term vacuum 7lbs 11oz Male epidural [place] 07/15/24 Chemical 5 spontaneous Delivery Date: [...] Cosigner Signature: Date (if applicable) CC: ~ [facility] Work Phone: Progress note Author Marialuisa [facility] Note Date/Time June 19, 2025 6: 24pm [facility] Medical Records Department [address] [facility] [place] [place] [address] OB Triage Progress Note 06/19/25 1821 MR#: [id number] Acct: [id number] Name: JUSTINO RENDON Rep #:[id number] : 2000 25 From: Marialuisa castillo MD PCP: MITCH Duran Status:REG CLI Y DOS: Location: [place] [id number] Progress Notes Date of Service: 06/19/25 Progress Note: Patient presents for triage evaluation secondary to decreased movement FHT: 140 Moderate variability reactive no decelerations category I tracing [place]: no regular Contractions Assessment and plan: dec [...] % Lymph % (Auto) 22.5 (19-41) % Adams % (Auto) 5.9 (0-10) % Eos % (Auto) 1.3 (0-5) % Baso % (Auto) 0.1 (0-1) % Absolute Neuts (auto) 7.7 (2.0-7.7) X10^3/uL Absolute Lymphs (auto) 2.48 (0.83-4.51) X10^3/uL Nucleated RBC % 0 (0-5) % Glucose 1 Hr 50 gm 131 (70-140) mg/dL Syphilis Total Ab Nonreactive (Nonreactive) HIV 1&2 Antibody Nonreactive (Nonreactive) Charges/Coding Procedures Urinary/Genital 52xxx-59xxx: 11505-00 non-stress test Interp 06/19/25 5502 <Electronically signed by Marialuisa kumar MD> Date _ Marialuisa Marshall MD Cosigner Signature (if applicable): Date CC: Dr. Marialuisa Marshall MD; MITCH Duran ~ [facility] Work Phone: Reason for referral (narrative)No reason for referral information availableWParkview Health [facility] Work Phone: Reason for visit Narrative* Cardiovascular (Routine) - Authorized Specialty Diagnoses / Procedures Referred By Contac t Referred To Contact Cardiology Diagnoses Tachycardia Dizziness Fatigue, unspecified type Heart palpitations Procedures Holter Or Event Air And Water Tester Beny Stewart PA-C [address] [place] [address] Phone: tel: fax: Referral ID Status Reason Start Date Expiration Date V isits Requested Visits Authorized [id number] Authorized 09/28/2024 09/28/2025 1 1 [facility] Work Phone: Reason for visit Narrative* CV Imaging (Routine) - Authorized Specialty Diagnoses / Procedures Referred By Contac t Referred To Contact Cardiology Diagnoses Tachycardia Dizziness Fatigue, unspecified type Heart palpitations Procedures Transthoracic Echo Complete [place] ECHO TTHRC R-T 2D W/WOM-MODE COMPL SPEC&COLR D Beny Stewart PA-C [address] [place] [address] Phone: tel: fax: Referral ID Status Reason Start Date Expiration Date Visits Requested Visits Authorized [id number] Authorized Perform Procedure 09/28/2024 09/28/2025 1 1 [facility] Work Phone: Reason for visit Narrative* Cardiovascular (Routine) - Authorized Specialty Diagnoses / Procedures Referred By Contac t Referred To Contact Cardiology Diagnoses Tachycardia Heart palpitations Dizziness Procedures Tilt Table Beny Stewart PA-C Phone: tel: fax: Referral ID Status Reason Start Date Expiration Date V isits Requested Visits Authorized [id number] Authorized 11/28/2024 11/28/2025 1 1 [facility] Work Phone: Summary Purpose Family History No [...] for Visit Chief Complaint Admit Date Annual (CUSTOMER SALES ADVISOR) January 12, 2025 2:05pm E ORDER January 14, 2025 3:05pm Reason for Visit Admit Date Encounter for routine gynecological exam ination January 12, 2025 2:05pm Chief Complaint Admit Date Annual (CUSTOMER SALES ADVISOR) January 12, 2025 2:05pm E ORDER January 14, 2025 3:05pm New ob/confirm /vitals January 10:55am Amb Documentation January 24, 2025 11:06 am Chief Complaint Admit Date Annual (CUSTOMER SALES ADVISOR) January 12, 2025 2:05pm E ORDER January [...] 142024 1:02pm Chief Complaint Admit Date Annual (CUSTOMER SALES ADVISOR) January 12, 2025 2:05pm E ORDER January [...] 2025 8:52am Chief Complaint Admit Date Annual (CUSTOMER SALES ADVISOR) January 12, 2025 2:05pm E ORDER January [...] 2025 12:56pm Chief Complaint Admit Date Annual (CUSTOMER SALES ADVISOR) January 12, 2025 2:05pm E ORDER January [...] Comments New Patient Visit NEW PATIENT TO [facility] - [place] FROM [place] 1 YEAR AGO. C/O LEFT SHOULDER PAIN - HISTORY OF SURGERY X 2. LIMITED ROM. C/O EPISODE X 2 OF RACING HEART WITH HEART RATE IN THE 150'S - EPISODES LAST APPROXIMATELY 20 MINUTES. Specialty Diagnoses / Procedures Referred By Marylu t Referred To Contact Diagnoses Tachycardia Dizziness Fatigue, unspecified type Heart palpitations Procedures ECG 12 Lead Beny Stewart PA-C [address] [place] [address] Phone: tel: fax: Referral ID Status Reason Start Date Expiration Date V isits Requested Visits Authorized [id number] Authorized 09/28/2024 09/28/2025 1 1 Reason Comments [...] Date Expiration Date Visits Requested Visits Authorized [id number] Authorized Specialty Services Required 11/28/2024 11/28/2025 1 1 Care Teams (unrecognized sec tion and content) Ham Passer Relationship Specialty Start Date End Date Generic Provider, No Assigned Pcp, [place] [address] PCP - General Pipe Wrapping Machine Operator 08/08/24 Ham Passer Relationship Specialty Start Date End Date Beny Stewart PA-C [address] [place] [address] PCP - General Internal Medicine 09/28/24 Ham Passer Relationship Specialty Start Date End Date Beny Stewart PA-C [address] [place] [address] PCP - General Internal Medicine 09/28/24 Ham Passer Relationship Specialty Start Date End Date Beny Stewart PA-C [address] [place] [address] PCP - General Internal Medicine 09/28/24 Ham Passer Relationship Specialty Start Date End Date Beny Stewart PA-C [address] [place] [address] PCP - General Internal Medicine 09/28/24 Ham Passer Relationship Specialty Start Date End Date Beny Stewrat, PA-C [address] [place] [place] [address] PCP - General Internal Medicine 09/28/24 Ham Passer Relationship Specialty Start Date End Date Beny Stewart, PA-C [address] [place] [address] PCP - General Internal Medicine 09/28/24 Team Status: Active Member Role Status Dates MITCH Claudio Primary Care Provider Active Team Status: Inactive Member Role Status Dates HJ Almeida Attending Provider Active Start: January 12, [...] Status: Inactive Member Role/Relationship Status Dates Beny [place] PA, PA Primary Care Provider Active Start: [...] 03, 2025 End: May 03, 2025 Beny [place] PA, PA Referring Provider Active Start: May 03, 2025 End: May 03, 2025 Dr. Alyssia Moss DO Attending Provider Activ e Start: May 03, 2025 End: May 03, 2025 Team Status: Inactive Member Role/Relationship Status Dates Beny [place] PA, PA Primary Care Provider Active Start: [...] Status: Inactive Member Role/Relationship Status Dates Beny [place] PA, PA Primary care physician Active Start: [...] 29, 2025 End: May 29, 2025 Beny [place] PA, PA Referring Provider Active Start: May [...] 2025 End: June 19, 2025 Shireen Carnes PACKAGE DELIVERY DRIVER, PACKAGE DELIVERY DRIVER-C Attending physician Active Start: June 19, 2025 [...] Status: Inactive Member Role/Relationship Status Dates Beny [place] PA, PA Primary care physician Active Start: April 07, 2025 End: April 07, 2025 Beny [place] PA, PA Referring Provider Active Start: April 07, 2025 End: April 07, 2025 Olga Manzo CNM Attending physician Active Start: April 07, 2025 End: April 07, 2025 Team Status: Inactive Member Role/Relationship Status Dates Beny Pat PA, PA Primary care physician Active Start: May 03, 2025 End: May 03, 2025 Beny [place] PA, PA Referring Provider Active Start: May 03, 2025 End: May 03, 2025 Dr. Alyssia Moss DO Attending physician Acti ve Start: May 03, 2025 End: May 03, 2025 Team Status: Inactive Member Role/Relationship Status Dates Beny [place] PA, PA Primary care physician Active Start: [...] End: June 19, 2025 Shireen Carnes NP, PACKAGE DELIVERY DRIVER-C Attending physician Active Start: June 19, 2025 [...] DATE CREATED AUTHOR AUTHOR'S ORGANIZ ATION 03/29/2025 [facility] DATE CREATED AUTHOR AUTHOR'S ORGANIZ ATION 04/17/2025 [facility] DATE CREATED AUTHOR AUTHOR'S ORGANIZ ATION [...] BE BASED ON THE PRIMARY CLINICAL RECORDS. [employer] [facility]. provides no warranty or guarantee of the accuracy or completeness of information in this document.
--- OUTSIDE RECORDS SUMMARY | 2025-09-06 06:14 | XMS RPT_ITS | CCD ---
Author Organization [facility] CliniSyut Care Team Providers Care Dietitian Research Name Role Phone Generic Provider MD, No [...] BENY B Primary Care Unavailable PAT, BENY [facility] Primary Care UnavailAGUSTIN Dowling Attending Unavaila ble Pat MEYER, Beny Primary Care Provider Pat MEYER, Beny Referring Provider Olga Manzo CNM Attending Provider [phone] Dr. Marialuisa Marshall MD Attending Provider [phone] Pat PA, [place] Primary Care Physician Araseli Jacob CNM Attending Physician [phone] Araseli Jacob CNM Referring Provider [phone] Alyssia Moss DO Attending Physician Pat MEYER Beny Referring Provider Olga Manzo CNM Attending Physician [phone] Marialuisa Marshall MD Attending Physician Shireen Horton Attending Physician [phone] Dr. Marialuisa Marshall MD Referring Provider [phone] Olga Manzo CNM Nurse Practitioner [phone] Pat MEYER [place] Primary Care Physician Pat MEYER Beny Referring Provider Olga Manzo CNM Attending Physician [phone] Alsysia Moss DO Attending Physician Dr. Marialuisa Marshall MD Attending Physician Shireen Horton Attending Physician [phone] Dr. Marialuisa Marshall MD Referring Provider Olga Manzo CNM Nurse Practitioner [phone] Pat MEYER, [place] Primary Care Unavailabl Yeimi Blancas Attending Unavailable Pat MEYER, [place] Primary Care Unavailvalentín e Olga Manzo Attending Unavailable Marialuisa Marshall Referring Unavailable Jackson PA, [facility] Unavailabl e Pat PA, [place] Referring Unavailabl e Marialuisa Marshall Attending Unavailable Jackson PA, [facility] Care Unavailabl e Pat PA, [place] Referring Unavailabl e Olga Manzo Attending Unavailable Jackson PA, [facility] Care Unavailabl e Pat PA, [place] Referring Unavailabl e Alyssia Moss Attending Unavailabl e Pat PA, [facility] Unavailabl e Pat PA, [place] Referring Unavailabl e Marialuisa Marshall Attending Unavailable Jackson PA, [facility] Unavailabl e Trice MAITRE D', Shireen Attending Unavailable Pat PA, [place] Referring Unavailabl e Jackson PA, [place] Referring Unavailabl e Pat PA, [facility] Unavailabl Olga La Attending Unavailable Sherie Padilla Attending Unavailable Pat PA, [place] Referring Unavailabl e Jackson PA, [facility] UnavailOlga Haile Attending Unavailable Jackson PA, [facility] Unavailabl e Jackson PA, [place] Referring Unavailabl e Alyssia Moss Attending Unavailabl e Pat PA, [facility] Unavailabl e Marialuisa Marshall Referring Unavailable Marialuisa Marshall Attending Unavailable Olga Manzo Consulting Unavailable Araseli Jacob Attending Unavailable Jackson PA, [facility] Unavailabl e Pat PA, [place] Referring Unavailabl e Jackson PA, [facility] UnavailOlga Haile Attending Unavailable Araseli Jacob Attending Unavailable Pat PA, [facility] UnavailAraseli Heaton Referring Unavailable Araseli Jacob Referring Unavailable Araseli Jacob Attending Unavailable Jackson PA, [facility] UnavailOlga Haile Attending Unavailable Olga Manzo Referring Unavailable Pat PA, [facility] UnavailSherie Ceballos Referring Unavailable Sherie Padilla Attending [...] of urinary tract in , second trimester ([facility])] Onset: 03-20-2025 Episodic Other complications of (8 [...] Below infection level. Mixed Gram Positive Organisms [place] Count 1000-10,000 MIXC Mixed contaminants. Submit a new specimen if indicated. CALBP [place] Count <1000 Normal [facility] Comment on above: Performed By: #### M 100.2200 ####[facility] [address] [place], [place], [address] Laboratory - Chemistry and C hemistry - challengeOrdered By: Olga Manzo on 07-20-2025 Bilirubin Ql (U) Negative [facility] Glucose Ql (U) Negative [facility] Ketones Ql (U) Negative [facility] pH (U) 5.0 [pH] [facility] Specific gravity (U) [Rel density] 1.025 [facility] Urobilinogen (U) [Mass/Vol] 0.7464079 mg/dL [facility] Laboratory - Hematology and Cell countsOrdered By: Olga Manzo on 07-20-2025 Hemoglobin Ql (U) Negative [facility] Laboratory - Specimen inform ationOrdered By: Olga Manzo on 07-20-2025 Clarity (U) Clear [facility] Color (U) YELLOW [facility] Laboratory - UrinalysisOrder ed By: Olga Manzo on 07-20-2025 Nitrite Ql (U) Negative [facility] Protein Ql (U) Negative [facility] No Panel InformationOrdered By: Olga Manzo on 07-20-2025 Urine Leukocytes Positive [facility] Urine Non-Hemolyzed Blood Negative [facility] Painting Machine Operator Office Visit Reporton 07-20-2025 Painting Machine Operator Office Visit Report [facility] [address], [address] [place] [address] OFFICE VISIT Date of Service: 07/20/25 MR#: [id number] Acct: [id number] Name: JUSTINO RENDON Rep #: [id number] : 2000 Provider: FAB Lema ams Age/Sex: 25/F [place] [facility] [place]: Signed Intake Vital Signs 06/19/25 15:27 07/03/25 15:17 07/20/25 15:31 07/20/25 15:32 Height 5 ft 4 in 5 ft 3 in 5 ft 3 in 5 ft 3 in Weight: 172 lb 5 oz BMI 30.5 BP 113/78 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 (more content not included)... Normal [facility] Laboratory - Chemistry and C hemistry - challengeOrdered By: Olga Manzo on 07-03-2025 Glucose Ql (U) Negative [facility] Laboratory - UrinalysisOrder ed By: Olga Manzo on 07-03-2025 Protein Ql (U) Negative [facility] Painting Machine Operator Office Visit Reporton 07-03-2025 Painting Machine Operator Office Visit Report [facility] [address] [facility], [address] [place] [address] OFFICE VISIT Date of Service: 07/03/25 MR#: [id number] Acct: [id number] Name: JUSTINO RENDON Rep #: [id number] : 2000 Provider: FAB Lema ams Age/Sex: 25/F [place] [facility] [place]: Signed Intake Vital Signs 04/07/25 13:04 06/19/25 16:29 07/03/25 15:17 Height 5 ft 4 in 5 ft 3 in 5 ft 3 in Weight: 171 lb 7 oz BMI 30.3 BP 117/75 Intake Visit Reasons: 29 WK 4D OB 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 (more content not included)... Normal [facility] Absolute lymphocyte countOrd ered By: Marialuisa Marshall on 06-19-2025 Lymphocytes Auto (Unsp spec) [#/Vol] 2.48 10*3/uL 0.83-4.51 [facility] Absolute neutrophil countOrd ered By: Marialuisa Marshall on 06-19-2025 Neutrophils (Bld) [#/Vol] 7.7 10*3/uL 2.0-7.7 [facility] Automated lymphocyte count a s percentage of total leukocytesOrdered By: Marialuisa Marshall on 06-19-2025 Lymphocytes/100 WBC Auto (Unsp spec) 22.5 % 19-41 [facility] Basophil percentageOrdered B y: Marialuisa Marshall on 06-19-2025 Basophils/100 WBC (Bld) 0.1 % 0-1 [facility] CBC W/Diff, Automatedon 10-0 6-2025 Absolute Lymph 2.48 X10 3/uL Normal 0.83-4.51 [facility] Comment on above: Performed By: #### L 509.8002, L501.0250, L3890.6006, L100.0100 ####[facility] [address] [place], [address] Absolute Neut 7.7 X10 3/uL Normal 2.0-7.7 [facility] Comment on above: Performed By: #### L 509.8002, L501.0250, L3890.6006, L100.0100 ####[facility] [address] [place], [address] Basophils/100 WBC (Bld) 0.1 % Normal 0-1 [facility] Comment on above: Performed By: #### L 509.8002, L501.0250, L3890.6006, L100.0100 ####[facility] [address] [place], [address] Eosinophils/100 WBC (Bld) 1.3 % Normal 0-5 [facility] Comment on above: Performed By: #### L 509.8002, L501.0250, L3890.6006, L100.0100 ####[facility] [address] [place], [address] Erythrocyte distribution width (RBC) [Ratio] 12.9 % Normal 11.6-14.6 [facility] Comment on above: Performed By: #### L 509.8002, L501.0250, L3890.6006, L100.0100 ####[facility] [address] [place], [address] Hematocrit (Bld) [Volume fraction] 31.8 % Low 37-47 [facility] Comment on above: Performed By: #### L 509.8002, L501.0250, L3890.6006, L100.0100 ####[facility] [address] [place], [address] Hemoglobin (Bld) [Mass/Vol] 10.5 g/dL Low 12.0-15.0 [facility] Comment on above: Performed By: #### L 509.8002, L501.0250, L3890.6006, L100.0100 ####[facility] [address] [place], [address] IG% 0.800 Normal 0.0-0.9 [facility] Comment on above: Result Comment: IG% - Immature Granulocytes (promyelocytes, myelocytes and metamyelocytes) > 1% indicates that a LEFT SHIFT is Present. Performed By: #### L 509.8002, L501.0250, L3890.6006, L100.0100 ####[facility] [address] [place], [address] Lymphocytes/100 WBC (Bld) 22.5 % Normal 19-41 [facility] Comment on above: Performed By: #### L 509.8002, L501.0250, L3890.6006, L100.0100 ####[facility] [address] [place], [address] MCH (RBC) [Entitic mass] 29.4 pg Normal 27.0-32.0 [facility] Comment on above: Performed By: #### L 509.8002, L501.0250, L3890.6006, L100.0100 ####[facility] [address] [place], [address] MCHC (RBC) [Mass/Vol] 33.0 g/dL Normal 32-36 [facility] Comment on above: Performed By: #### L 509.8002, L501.0250, L3890.6006, L100.0100 ####[facility] [address] [place], [address] MCV (RBC) [Entitic vol] 89.1 fL Normal 81-99 [facility] Comment on above: Performed By: #### L 509.8002, L501.0250, L3890.6006, L100.0100 ####[facility] [address] [place], [address] Monocytes/100 WBC (Bld) 5.9 % Normal 0-10 [facility] Comment on above: Performed By: #### L 509.8002, L501.0250, L3890.6006, L100.0100 ####[facility] [address] [place], [address] Neutrophils/100 WBC (Bld) 69.4 % Normal 47-70 [facility] Comment on above: Performed By: #### L 509.8002, L501.0250, L3890.6006, L100.0100 ####[facility] [address] [place], [address] Nucleated RBC (Bld) [#/Vol] 0 10*3/uL Normal 0-5 [facility] Comment on above: Performed By: #### L 509.8002, L501.0250, L3890.6006, L100.0100 ####[facility] [address] [place], [address] Platelet mean volume (Bld) [Entitic vol] 9.8 fL Normal 6.2-12.0 [facility] Comment on above: Performed By: #### L 509.8002, L501.0250, L3890.6006, L100.0100 ####[facility] [address] [place], [address] Platelets (Bld) [#/Vol] 240 10*3/uL Normal 150-450 [facility] Comment on above: Performed By: #### L 509.8002, L501.0250, L3890.6006, L100.0100 ####[facility] [address] [place], [address] RBC (Bld) [#/Vol] 3.57 10*6/uL Low 4.2-5.4 [facility] Comment on above: Performed By: #### L 509.8002, L501.0250, L3890.6006, L100.0100 ####[facility] [address] [place], [address] RDW SD 42.0 fl Normal 35.1-43.9 [facility] Comment on above: Performed By: #### L 509.8002, L501.0250, L3890.6006, L100.0100 ####[facility] [address] [place], [address] WBC (Bld) [#/Vol] 11.0 10*3/uL Normal 4.4-11.0 [facility] Comment on above: Performed By: #### L 509.8002, L501.0250, L3890.6006, L100.0100 ####[facility] [address] [place], [address] Eosinophil percentageOrdered By: Marialuisa Marshall on 06-19-2025 Eosinophils/100 WBC (Bld) 1.3 % 0-5 [facility] Erythrocyte distribution wid th ratioOrdered By: Marialuisa Marshall on 06-19-2025 Erythrocyte distribution width (RBC) [Ratio] 12.9 % 11.6-14.6 [facility] Erythrocyte distribution wid th standard deviationOrdered By: Marialuisa Marshall on 06-19-2025 Erythrocyte distribution width (RBC) [Ratio] 42.0 fl 35.1-43.9 [facility] Glucose Challenge Gest 1H 50 carlota 06-19-2025 GLU GEST 50g 1H 131 mg/dL Normal 70-140 [facility] Comment on above: Performed By: #### L 509.8002, L501.0250, L3890.6006, L100.0100 ####[facility] [address] [place], [place], [address] Glucose measurement at 2 monet rs post-dose gestational glucose tolerance testOrdered By: Marialuisa Marshall on 06-19-2025 Glucose [Mass/Vol] 131 mg/dL 70-[address] [facility] HIVon 06-19-2025 HIV Non-Reactive Normal Nonreactive [facility] Comment on above: Result Comment: Non- Reactive Reactive Repeatedly reactive samples must be confirmed according to CDC recommended confirmatory algorithms. The subresults for either HIVAG or AHIV can be used as an aid in the selection of the confirmation algorithm for reactive samples. Send out specimens with Reactive results to [facility] for confirmation. Order the HIV antibody detection and differentiation: lc#[id number] Performed By: #### L 509.8002, L501.0250, L3890.6006, L100.0100 ####[facility] [address] [place], [place], [address] Hematocrit Auto (Bld) [Volum e fraction]Ordered By: Marialuisa Marshall on 06-19-2025 Hematocrit (Bld) [Volume fraction] 31.8 % Low 37-47 [facility] Hemoglobin measurementOrdere d By: Marialuisa Marshall on 06-19-2025 Hemoglobin (Bld) [Mass/Vol] 10.5 g/dL Low 12.0-15.0 [facility] Immature granulocytes/100 WB C Auto (Bld)Ordered By: Marialuisa Marshall on 06-19-2025 Immature granulocytes/100 WBC (Bld) 0.800 % 0.0-0.9 [facility] Comment on above: IG% - Immature Granu locytes (promyelocytes, myelocytes and metamyelocytes) > 1% indicates that a LEFT SHIFT is Present. Laboratory - Chemistry and C hemistry - challengeOrdered By: Shireen Carnes on 06-19-2025 Glucose Ql (U) Negative [facility] Laboratory - UrinalysisOrder ed By: Shireen Carnes on 06-19-2025 Protein Ql (U) Negative [facility] MCV (mean corpuscular volume ) determinationOrdered By: Marialuisa Marshall on 06-19-2025 MCV (RBC) [Entitic vol] 89.1 fL 81-99 [facility] Mean corpuscular hemoglobin (MCH) determinationOrdered By: Marialuisa Marshall on 06-19-2025 MCH (RBC) [Entitic mass] 29.4 pg 27.0-32.0 [facility] Mean corpuscular hemoglobin concentration (MCHC) determinationOrdered By: Marialuisa Marshall on 06-19-2025 MCHC (RBC) [Mass/Vol] 33.0 g/dL 32-36 [facility] Mean platelet volume determi nationOrdered By: Marialuisa Marshall on 06-19-2025 Platelet mean volume (Bld) [Entitic vol] 9.8 fL 6.2-12.0 [facility] Monocyte percentageOrdered B y: Marialuisa Marshall on 06-19-2025 Monocytes/100 WBC (Bld) 5.9 % 0-10 [facility] Neutrophil percentageOrdered By: Marialuisa Marshall on 06-19-2025 Neutrophils/100 WBC (Bld) 69.4 % 47-70 [facility] No Panel InformationOrdered By: Marialuisa Marshall on 06-19-2025 HIV (1&2) Antibody Non-Reactive Nonreactive [facility] Comment on above: Non-ReactiveReactive Repeatedly reactive samples must be confirmed according to CDC recommended confirmatory algorithms. The subresults for either HIVAG or AHIV can be used as an aid in the selection of the confirmation algorithm for reactive samples.Send out specimens with Reactive results to [facility] for confirmation.Order the HIV antibody detection and differentiation: #[id number] Nucleated red blood cell per centageOrdered By: Marialuisa Marshall on 06-19-2025 Nucleated RBC/100 WBC (Bld) [Ratio] 0 % 0-5 [facility] OB Limited With Biometricson 06-19-2025 OB Limited With Biometrics [facility] Imaging Services [address] [place], [place] [address] OB Limited With Biometrics MR#: [id number] Acct: [id number] Name: JUSTINO RENDON Rep #: [id number] : 2000 F 25 From: Enrique Angelo PCP: MITCH Duran Status: REG CLI Study: OB Limited With Biometrics Date of Exam: 06/19 Exam# [id number] Ordering Dr: Marialuisa Marshall PROCEDURE: OB LIMITED [...] of 09/03/2025. No acute abnormalities. Reading Location: [facility] CC: Dr. Marialuisa Marshall MD; MITCH Duran Bread Jockey: Signed Normal [facility] OB Triage Progress Noteon OB Triage Progress Note [facility] Medical Records Department [address] [place] [address] OB Triage Progress Note 06/19/25 1821 MR#: [id number] Acct: [id number] Name: JUSTINO RENDON Rep #: [id number] : 2000 25 From: Marialuisa Marshall MD PCP: MITCH Duran Status:DEP CLI Y DOS: Location: [facility] Progress Notes Date of Service: 06/19/25 Progress Note: Patient presents for triage evaluation secondary to decreased movement FHT: 140 Moderate variability reactive no decelerations category I tracing Merrill: no regular Contractions Assessment and plan: dec [...] % Lymph % (Auto) 22.5 (19-41) % [place] % (Auto) 5.9 (0-10) % Eos % (Auto) 1.3 (0-5) % Baso % (Auto) 0.1 (0-1) % Absolute Neuts (auto) 7.7 (2.0-7.7) X10 3/uL Absolute Lymphs (auto) 2.48 (0.83-4.51) X10 3/uL Nucleated RBC % 0 (0-5) % Glucose 1 Hr 50 gm 131 (70-140) mg/dL Syphilis Total Ab Nonreactive (Nonreactive) HIV 1 2 Antibody Nonreactive (Nonreactive) Charges/Coding Procedures Urinary/Genital 52xxx-59xxx: 77067-66 non-stress test Interp 06/19/25 4084 Date Marialuisa Marshall MD Cosigner Signature (if applicable): Date __ CC: Dr. Marialuisa Marshall MD; MITCH Duran Signed ADDENDUM by Dr. Marialuisa Marshall MD on 07/17/25 at 2140 Addendum 28 weeks 07/17/25 2140 Date Marialuisa Marshall MD cc: Dr. Marialuisa Marshall MD; MITCH Duran * Signed Normal [facility] Painting Machine Operator Office Visit Reporton 06-19-2025 Painting Machine Operator Office Visit Report [facility] [address], [address] [place] [address] OFFICE VISIT Date of Service: 06/19/25 MR#: [id number] Acct: [id number] Name: JUSTINO RENDON Rep #: [id number] : 2000 Provider: JH chun Age/Sex: 25/F [place] [facility] [place] Status: Signed Intake Vital Signs 04/07/25 13:04 05/29/25 14:54 06/19/25 15:27 Height 5 ft 4 in 5 ft 4 in 5 ft 4 in Weight: 168 lb 1 oz BMI 28.8 BP 126/77 H Intake Visit Reasons: 28 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 ?-???-???-??? (more content not included)... Normal [facility] Platelet countOrdered By: Art Marshall on 06-19-2025 Platelets (Bld) [#/Vol] 240 10*3/uL 150-450 [facility] RBC Auto (Bld) [#/Vol]Ordere d By: Marialuisa Marshall on 06-19-2025 RBC (Bld) [#/Vol] 3.57 10*6/uL Low 4.2-5.4 [facility] Syphilis Antibodieson 2024 Syphilis Abs Non-Reactive Normal Nonreactive [facility] Comment on above: Performed By: #### L 509.8002, L501.0250, L3890.6006, L100.0100 ####[facility] [address] [place], [address] White blood cell (WBC) count Ordered By: Marialuisa Marshall on 06-19-2025 WBC (Bld) [#/Vol] 11.0 10*3/uL 4.4-11.0 [facility] Laboratory - Chemistry and C hemistry - challengeOrdered By: Mraialuisa Marshall on 05-29-2025 Glucose Ql (U) Negative [facility] Laboratory - UrinalysisOrder ed By: Marialuisa Marshall on 05-29-2025 Protein Ql (U) Negative [facility] Painting Machine Operator Office Visit Reporton 05-29-2025 Painting Machine Operator Office Visit Report [address], [address] [place] [address] OFFICE VISIT Date of Service: 05/29/25 MR#: [id number] Acct: [id number] Name: JUSTINO RENDON Rep #: [id number] : 2000 Provider: Dr. 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 ?-? (more content not included)... Normal [facility] ED Prov Noteon 05-11-2025 ED Prov Note ED PROVIDER NOTE [facility] NAME: Justino Rendon AGE: 24 y.o. : 2000 VISIT DATE: 05/11/2025 CSN: [id number] PCP: No primary care provider on file. [...] BY AGUSTIN GREENBERG, ON 05/11/2025 15:32:45 Normal [facility] Laboratory - Chemistry and C hemistry - challengeOrdered By: Alyssia Monzon on 05-03-2025 Glucose Ql (U) Negative [facility] Laboratory - UrinalysisOrder ed By: Alyssia Monzon on 05-03-2025 Protein Ql (U) Negative [facility] Painting Machine Operator Office Visit Reporton 05-03-2025 Painting Machine Operator Office Visit Report [facility] [address], [address] [place] [address] OFFICE VISIT Date of Service: 05/03/25 MR#: [id number] Acct: [id number] Name: JUSTINO RENDON Rep #: [id number] : 2000 Provider: Dr. 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 Normal [facility] Laboratory - Chemistry and C hemistry - challengeOrdered By: Olga Manzo on 04-07-2025 Glucose Ql (U) Negative [facility] Laboratory - UrinalysisOrder ed By: Ogla Manzo on 04-07-2025 Protein Ql (U) Negative [facility] Painting Machine Operator Office Visit Reporton 04-07-2025 Painting Machine Operator Office Visit Report [facility] [address], [address] [place] [address] OFFICE VISIT Date of Service: 04/07/25 MR#: [id number] Acct: [id number] Name: JUSTINO RENDON Rep #: [id number] : 2000 Provider: FAB Lema ams Age/Sex: 24/F [place] [facility] Status: Signed Intake Vital Signs 02/10/25 13:04 03/10/25 08:56 04/07/25 13:04 Height 5 ft 4 in 5 ft 4 in 5 ft 4 in Weight: 149 lb 2 oz BMI 25.6 BP 108/70 Intake Visit Reasons: 17wk ob Chief Complaint: 17 Week OB Manager Competitive Intelligence Required: No Is patient in pain?: No [...] 1 current occupational status: employed current occupation: [employer]- [employer] current occupational exposures/hazards: No pets and animals: [...] 1-2 times per week duration: 15-30 minutes/day deric/yarsani: Mu-Ism seatbelt use: always do you feel safe [...] ??-???-???- Negat (more content not included)... Normal [facility] Bacteria identifiedon 2024 Bacteria identified Cx Nom (U) Test: Urine Culture Specimen Source: Clean Catch/Voided Specimen Type: Urine Specimen Date: 03/20/2025 1853 Result Date: 03/21/2025 235 Result Status: Final result Abnormal: Yes Resulting Lab: [facility] [facility] [address] [address] CULTURE >=100,000 CFU/mL Streptococcus agalactiae (Group B Streptococcus) (Abnormal) Streptococcus agalactiae (Group B Streptococcus) is universally susceptible to beta-lactam antibiotics and vancomycin. Routine susceptibility testing not performed. For penicillin allergic patients, please contact the laboratory within 5 days of collection at to request susceptibility testing. Abnormal [facility] Comment on above: Performed By: #### 5 8077-9 #### BERTIN FERNÁNDEZ ([id number]) [facility] ([facility]) [address] [place] [address] 34310 Basic metabolic 2000 panelon 03-20-2025 Anion gap [Moles/Vol] 11 mmol/L Normal 10-20 [facility] Comment on above: Performed By: #### 2 4321-2 #### BERTIN FERNÁNDEZ ([id number]) [facility] ([facility]) [address] [place] [address] 67360 Calcium [Mass/Vol] 8.5 mg/dL Low 8.6-10.3 [facility] Comment on above: Performed By: #### 2 4321-2 #### BERTIN FERNÁNDEZ (59851) [facility] ([facility]) [address] [place] [address] 35141 Chloride [Moles/Vol] 106 mmol/L Normal 98-107 [facility] Comment on above: Performed By: #### 2 4321-2 #### BERTIN FERNÁNDEZ (29938) [facility] ([facility]) [address] [place] [address] 79985 CO2 [Moles/Vol] 24 mmol/L Normal 21-32 [facility] Comment on above: Performed By: #### 2 4321-2 #### BERTIN FERNÁNDEZ (05410) [facility] ([facility]) [address] [place] [address] 51955 Creatinine [Mass/Vol] 0.61 mg/dL Normal 0.50-1.05 [facility] Comment on above: Performed By: #### 2 4321-2 #### BERTIN FERNÁNDEZ (03259) [facility] ([facility]) [address] [place] [address] 63710 GFR/1.73 sq M.predicted MDRD (S/P/Bld) [Vol rate/Area] mL/min/{1.73_m2} Normal >60 [facility] Comment on above: Result Comment: Calc ulations of estimated GFR are performed using the 2020 CKD-EPI Study Refit equation without the race variable for the IDMS-Traceable creatinine methods. https://jasn.asnjournals.org/content//ASN.254 4952795 Performed By: #### 2 4321-2 #### BERTIN FERNÁNDEZ ([id number]) [facility] ([facility]) [address] [place] [address] 10480 Glucose [Mass/Vol] 73 mg/dL Low 74-99 [facility] Comment on above: Performed By: #### 2 4321-2 #### BERTIN FERNÁNDEZ ([id number]) [facility] ([facility]) [address] [place] [address] 53421 Potassium [Moles/Vol] 3.5 mmol/L Normal 3.5-5.3 [facility] Comment on above: Performed By: #### 2 4321-2 #### BERTIN FERNÁNDEZ (88126) [facility] ([facility]) [address] [place] [address] 72530 Sodium [Moles/Vol] 137 mmol/L Normal 136-145 [facility] Comment on above: Performed By: #### 2 4321-2 #### BERTIN FERNÁNDEZ (33891) [facility] ([facility]) [address] [place] [address] 24800 Urea nitrogen [Mass/Vol] 7 mg/dL Normal 6-23 [facility] Comment on above: Performed By: #### 2 4321-2 #### BERTIN FERNÁNDEZ ([id number]) [facility] ([facility]) [address] [place] [address] 96672 CBC W Auto Differential pane l (Bld)on 03-20-2025 Basophils (Bld) [#/Vol] 0.02 x10*3/uL Normal 0.00-0.10 [facility] Comment on above: Performed By: #### 5 8077-9 #### BERTIN FERNÁNDEZ (66679) [facility] ([facility]) [address] [place] [address] 70402 Basophils/100 WBC (Bld) 0.2 % Normal 0.0-2.0 [facility] Comment on above: Performed By: #### 5 8077-9 #### BERTIN FERNÁNDEZ (92067) [facility] ([facility]) [address] [place] [address] 41215 Eosinophils (Bld) [#/Vol] 0.25 x10*3/uL Normal 0.00-0.70 [facility] Comment on above: Performed By: #### 5 8077-9 #### BERTIN FERNÁNDEZ ([id number]) [facility] ([facility]) [address] [place] [address] 08390 Eosinophils/100 WBC (Bld) 2.3 % Normal 0.0-6.0 [facility] Comment on above: Performed By: #### 5 8077-9 #### BERTIN FERNÁNDEZ (97272) [facility] ([facility]) [address] [place] [address] 48439 Erythrocyte distribution width (RBC) [Ratio] 12.6 % Normal 11.5-14.5 [facility] Comment on above: Performed By: #### 5 8077-9 #### BERTIN FERNÁNDEZ (70359) [facility] ([facility]) [address] [place] [address] 31963 Hematocrit (Bld) [Volume fraction] 32.6 % Low 36.0-46.0 [facility] Comment on above: Performed By: #### 5 8077-9 #### BERTIN FERNÁNDEZ (47114) [facility] ([facility]) [address] [place] [address] 63087 Hemoglobin (Bld) [Mass/Vol] 11.1 g/dL Low 12.0-16.0 [facility] Comment on above: Performed By: #### 5 8077-9 #### BERTIN FERNÁNDEZ (55847) [facility] ([facility]) [address] [place] [address] 12637 Immature granulocytes (Bld) [#/Vol] 0.03 x10*3/uL Normal 0.00-0.70 [facility] Comment on above: Performed By: #### 5 8077-9 #### BERTIN FERNÁNDEZ (72219) [facility] ([facility]) [address] [place] [address] 30735 Immature granulocytes/100 WBC (Bld) 0.3 % Normal 0.0-0.9 [facility] Comment on above: Result Comment: Larissa ture Granulocyte Count (IG) includes promyelocytes, myelocytes and metamyelocytes but does not include bands. Percent differential counts (%) should be interpreted in the context of the absolute cell counts (cells/UL). Performed By: #### 5 8077-9 #### BERTIN FERNÁNDEZ (98020) [facility] ([facility]) [address] [place] [address] Lymphocytes (Bld) [#/Vol] 2.84 x10*3/uL Normal 1.20-4.80 [facility] Comment on above: Performed By: #### 5 8077-9 #### BERTIN FERNÁNDEZ (02041) [facility] ([facility]) [address] [place] [address] 81439 Lymphocytes/100 WBC (Bld) 26.3 % Normal 13.0-44.0 [facility] Comment on above: Performed By: #### 5 8077-9 #### BERTIN FERNÁNDEZ (59125) [facility] ([facility]) [address] [place] [address] 93351 MCH (RBC) [Entitic mass] 30.2 pg Normal 26.0-34.0 [facility] Comment on above: Performed By: #### 5 8077-9 #### BERTIN FERNÁNDEZ (15139) [facility] ([facility]) [address] [place] [address] 67726 MCHC (RBC) [Mass/Vol] 34.0 g/dL Normal 32.0-36.0 [facility] Comment on above: Performed By: #### 5 8077-9 #### BERTIN FERNÁNDEZ (87786) [facility] ([facility]) [address] [place] [address] 42746 MCV (RBC) [Entitic vol] 89 fL Normal 80-100 [facility] Comment on above: Performed By: #### 5 8077-9 #### BERTIN FERNÁNDEZ (45401) [facility] ([facility]) [address] [place] [address] 79019 Monocytes (Bld) [#/Vol] 0.55 x10*3/uL Normal 0.10-1.00 [facility] Comment on above: Performed By: #### 5 8077-9 #### BERTIN FERNÁNDEZ (80785) [facility] ([facility]) [address] [place] [address] 42064 Monocytes/100 WBC (Bld) 5.1 % Normal 2.0-10.0 [facility] Comment on above: Performed By: #### 5 8077-9 #### BERTIN FERNÁNDEZ (53519) [facility] ([facility]) [address] [place] [address] 61358 Neutrophils (Bld) [#/Vol] 7.10 x10*3/uL Normal 1.20-7.70 [facility] Comment on above: Result Comment: Perc ent differential counts (%) should be interpreted in the context of the absolute cell counts (cells/uL). Performed By: #### 5 8077-9 #### BERTIN FERNÁNDEZ (93310) [facility] ([facility]) [address] [place] [address] 82305 Neutrophils/100 WBC (Bld) 65.8 % Normal 40.0-80.0 [facility] Comment on above: Performed By: #### 5 8077-9 #### BERTIN FERNÁNDEZ (13115) [facility] ([facility]) [address] [place] [address] 22264 Nucleated RBC/100 WBC (Bld) [Ratio] 0.0 /100 WBCs Normal 0.0-0.0 [facility] Comment on above: Performed By: #### 5 8077-9 #### BERTIN FERNÁNDEZ (45961) [facility] ([facility]) [address] [place] [address] 11043 Platelets (Bld) [#/Vol] 187 x10*3/uL Normal 150-450 [facility] Comment on above: Performed By: #### 5 8077-9 #### BERTIN FERNÁNDEZ (60233) [facility] ([facility]) [address] [place] [address] RBC (Bld) [#/Vol] 3.67 x10*6/uL Low 4.00-5.20 [facility] Comment on above: Performed By: #### 5 8077-9 #### BERTIN FERNÁNDEZ (78119) [facility] ([facility]) [address] [place] [address] WBC (Bld) [#/Vol] 10.8 x10*3/uL Normal 4.4-11.3 [facility] Comment on above: Performed By: #### 5 8077-9 #### BERTIN FERNÁNDEZ (87226) [facility] ([facility]) [address] [place] [address] Glucose Test strip manual (B ld) [Mass/Vol]on 03-20-2025 Glucose [Mass/Vol] 81 mg/dL Normal 74-99 [facility] Comment on above: Performed By: #### 5 8077-9 #### BERTIN FERNÁNDEZ ([id number]) [facility] ([facility]) [address] [place] [address] Urinalysis complete W Reflex Culture panel (U)on 03-20-2025 Appearance (U) Turbid Normal Clear [facility] Comment on above: Performed By: #### 5 8077-9 #### BERTIN FERNÁNDEZ (63132) [facility] ([facility]) [address] [place] [address] Bilirubin (U) [Mass/Vol] Negative Normal NEGATIVE [facility] Comment on above: Performed By: #### 5 8077-9 #### BERTIN FERNÁNDEZ (79089) [facility] ([facility]) [address] [place] [address] Color (U) Light-Yellow Normal Light-Yellow, Yellow, Dark-Yellow [facility] Comment on above: Performed By: #### 5 8077-9 #### BERTIN FERNÁNDEZ (06007) [facility] ([facility]) [address] [place] [address] Glucose Auto test strip (U) [Mass/Vol] Normal Normal Normal [facility] Comment on above: Performed By: #### 5 8077-9 #### BERTIN FERNÁNDEZ (00894) [facility] ([facility]) [address] [place] [address] Ketones (U) [Mass/Vol] 40 (2+) Abnormal NEGATIVE [facility] on above: Performed By: #### 5 8077-9 #### BERTIN FERNÁNDEZ ([id number]) [facility] ([facility]) [address] [place] [address] Leukocyte esterase Auto test strip Ql (U) 250 Jomar/uL Abnormal NEGATIVE [facility] Comment on above: Performed By: #### 5 8077-9 #### BERTIN FERNÁNDEZ (47918) [facility] ([facility]) [address] [place] [address] Nitrite Auto test strip Ql (U) Negative Normal NEGATIVE [facility] Comment on above: Performed By: #### 5 8077-9 #### BERTIN FERNÁNDEZ (76686) [facility] ([facility]) [address] [place] [address] pH (U) 6.0 [pH] Normal 5.0, 5.5, 6.0, 6.5, 7.0, 7.5, 8.0 [facility] Comment on above: Performed By: #### 5 8077-9 #### BERTIN FERNÁNDEZ (60448) [facility] ([facility]) [address] [place] [address] Protein (U) [Mass/Vol] Negative Normal NEGAT ROMULO, 10 (TRACE), 20 (TRACE) [facility] Comment on above: Performed By: #### 5 8077-9 #### BERTIN FERNÁNDEZ ([id number]) [facility] ([facility]) [address] [place] [address] RBC (U) [#/Vol] Negative Normal NEGATIVE [facility] Comment on above: Performed By: #### 5 8077-9 #### BERTIN FERNÁNDEZ (53599) [facility] ([facility]) [address] [place] [address] Specific gravity (U) [Rel density] 1.019 Normal 1.005-1.035 [facility] Comment on above: Performed By: #### 5 8077-9 #### BERTIN FERNÁNDEZ (39561) [facility] ([facility]) [address] [place] [address] Urobilinogen (U) [Mass/Vol] Normal Normal Normal [facility] Comment on above: Performed By: #### 5 8077-9 #### BERTIN FERNÁNDEZ (77890) [facility] ([facility]) [address] [place] [address] Urinalysis microscopic panel Auto Ql (U)on 03-20-2025 Bacteria Auto (Urine sed) [#/Area] 1+ /HPF Abnormal NONE SEEN [facility] Comment on above: Performed By: #### 5 3315-8 #### BERTIN FERNÁNDEZ (70415) [facility] ([facility]) [address] [place] [address] Epithelial cells.squamous Auto (Urine sed) [#/Area] 10-25 (FEW) Normal Reference range not established. [facility] Comment on above: Performed By: #### 5 3315-8 #### BERTIN FERNÁNDEZ (77030) [facility] ([facility]) [address] [place] [address] Mucus Auto (Urine sed) [#/Area] FEW Normal Reference range not established. [facility] Comment on above: Performed By: #### 5 3315-8 #### BERTIN FERNÁNDEZ (90661) [facility] ([facility]) [address] [place] [address] RBC Auto (Urine sed) [#/Area] 1-2 Normal NONE, 1-2, 3-5 [facility] Comment on above: Performed By: #### 5 3315-8 #### BERTIN FERNÁNDEZ (85582) [facility] ([facility]) [address] [place] [address] WBC Auto (Urine sed) [#/Area] 11-20 Abnormal 1-5, NONE [facility] Comment on above: Performed By: #### 5 3315-8 #### DENTON JOLENE ([id number]) [facility] ([facility]) [address] [place], [place] [id number] Laboratory - Chemistry and C hemistry - challengeOrdered By: Alyssia Monzon on 03-10-2025 Glucose Ql (U) Negative [facility] - UrinalysisOrder ed By: Alyssia Monzon on 03-10-2025 Protein Ql (U) Negative [facility] 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 Normal [facility] Absolute lymphocyte countOrd ered By: Araseli Jacob on 02-20-2025 Lymphocytes Auto (Unsp spec) [#/Vol] 2.28 10*3/uL 0.83-4.51 [facility] Absolute neutrophil countOrd ered By: Araseli Jacob on 02-20-2025 Neutrophils (Bld) [#/Vol] 5.9 10*3/uL 2.0-7.7 [facility] Anion gap in Serum or Plasma Ordered By: Shireen Carnes on 02-20-2025 Anion gap [Moles/Vol] 14 mmol/L 5-15 [facility] Automated lymphocyte count a s percentage of total leukocytesOrdered By: Araseli Jacob on 02-20-2025 Lymphocytes/100 WBC Auto (Unsp spec) 25.4 % 19-41 [facility] BUN/creatinine ratioOrdered By: Shireen Carnes on 02-20-2025 Urea nitrogen/Creatinine [Mass ratio] 13.2 mg/mg 10-20 [facility] Basophil percentageOrdered B y: Araseli Jacob on 02-20-2025 Basophils/100 WBC (Bld) 0.2 % 0-1 [facility] Bilirubin, totalOrdered By: Shireen Carnes on 02-20-2025 Bilirubin [Mass/Vol] mg/dL 0.00-1.30 [facility] CBC W/Diff, Automatedon 5 Absolute Lymph 2.28 X10 3/uL Normal 0.83-4.51 [facility] Comment on above: Performed By: #### L 3890.6102, L3890.6301, BTS, L3890.6006, L509.8002, L100.0100, L509.4006 #### [facility] [address] [place], [address] Absolute Neut 5.9 X10 3/uL Normal 2.0-7.7 [facility] Comment on above: Performed By: #### L 3890.6102, L3890.6301, BTS, L3890.6006, L509.8002, L100.0100, L509.4006 #### [facility] [address] [place], [address] Basophils/100 WBC (Bld) 0.2 % Normal 0-1 [facility] Comment on above: Performed By: #### L 3890.6102, L3890.6301, BTS, L3890.6006, L509.8002, L100.0100, L509.4006 #### [facility] [address] [place], [address] Eosinophils/100 WBC (Bld) 2.3 % Normal 0-5 [facility] Comment on above: Performed By: #### L 3890.6102, L3890.6301, BTS, L3890.6006, L509.8002, L100.0100, L509.4006 #### [facility] [address] [place], [address] Erythrocyte distribution width (RBC) [Ratio] 12.3 % Normal 11.6-14.6 [facility] Comment on above: Performed By: #### L 3890.6102, L3890.6301, BTS, L3890.6006, L509.8002, L100.0100, L509.4006 #### [facility] [address] [place], [address] Hematocrit (Bld) [Volume fraction] 34.0 % Low 37-47 [facility] Comment on above: Performed By: #### L 3890.6102, L3890.6301, BTS, L3890.6006, L509.8002, L100.0100, L509.4006 #### [facility] [address] [place], [address] Hemoglobin (Bld) [Mass/Vol] 11.7 g/dL Low 12.0-15.0 [facility] Comment on above: Performed By: #### L 3890.6102, L3890.6301, BTS, L3890.6006, L509.8002, L100.0100, L509.4006 #### [facility] [address] [place], [address] IG% 0.300 Normal 0.0-0.9 [facility] Comment on above: Result Comment: IG% - Immature Granulocytes (promyelocytes, myelocytes and metamyelocytes) > 1% indicates that a LEFT SHIFT is Present. Performed By: #### L 3890.6102, L3890.6301, BTS, L3890.6006, L509.8002, L100.0100, L509.4006 #### [facility] [address] [place], [address] Lymphocytes/100 WBC (Bld) 25.4 % Normal 19-41 [facility] Comment on above: Performed By: #### L 3890.6102, L3890.6301, BTS, L3890.6006, L509.8002, L100.0100, L509.4006 #### [facility] [address] [place], [address] MCH (RBC) [Entitic mass] 30.5 pg Normal 27.0-32.0 [facility] Comment on above: Performed By: #### L 3890.6102, L3890.6301, BTS, L3890.6006, L509.8002, L100.0100, L509.4006 #### [facility] [address] [place], [address] MCHC (RBC) [Mass/Vol] 34.4 g/dL Normal 32-36 [facility] Comment on above: Performed By: #### L 3890.6102, L3890.6301, BTS, L3890.6006, L509.8002, L100.0100, L509.4006 #### [facility] [address] [place], [address] MCV (RBC) [Entitic vol] 88.5 fL Normal 81-99 [facility] Comment on above: Performed By: #### L 3890.6102, L3890.6301, BTS, L3890.6006, L509.8002, L100.0100, L509.4006 #### [facility] [address] [place], [address] Monocytes/100 WBC (Bld) 5.9 % Normal 0-10 [facility] Comment on above: Performed By: #### L 3890.6102, L3890.6301, BTS, L3890.6006, L509.8002, L100.0100, L509.4006 #### [facility] [address] [place], [address] Neutrophils/100 WBC (Bld) 65.9 % Normal 47-70 [facility] Comment on above: Performed By: #### L 3890.6102, L3890.6301, BTS, L3890.6006, L509.8002, L100.0100, L509.4006 #### [facility] [address] [place], [address] Nucleated RBC (Bld) [#/Vol] 0 10*3/uL Normal 0-5 [facility] Comment on above: Performed By: #### L 3890.6102, L3890.6301, BTS, L3890.6006, L509.8002, L100.0100, L509.4006 #### [facility] [address] [place], [address] Platelet mean volume (Bld) [Entitic vol] 9.3 fL Normal 6.2-12.0 [facility] Comment on above: Performed By: #### L 3890.6102, L3890.6301, BTS, L3890.6006, L509.8002, L100.0100, L509.4006 #### [facility] [address] [place], [address] Platelets (Bld) [#/Vol] 227 10*3/uL Normal 150-450 [facility] Comment on above: Performed By: #### L 3890.6102, L3890.6301, BTS, L3890.6006, L509.8002, L100.0100, L509.4006 #### [facility] [address] [place], [address] RBC (Bld) [#/Vol] 3.84 10*6/uL Low 4.2-5.4 [facility] Comment on above: Performed By: #### L 3890.6102, L3890.6301, BTS, L3890.6006, L509.8002, L100.0100, L509.4006 #### [facility] [address] [place], [address] RDW SD 39.6 fl Normal 35.1-43.9 [facility] Comment on above: Performed By: #### L 3890.6102, L3890.6301, BTS, L3890.6006, L509.8002, L100.0100, L509.4006 #### [facility] [address] [place], [address] WBC (Bld) [#/Vol] 9.0 10*3/uL Normal 4.4-11.[address] [facility] Comment on above: Performed By: #### L 3890.6102, L3890.6301, BTS, L3890.6006, L509.8002, L100.0100, L509.4006 #### [facility] [address] [place], [address] Carbon dioxide, total [Moles /volume] in Central venous bloodOrdered By: Shireen Carnes on 02-20-2025 CO2 [Moles/Vol] 21.0 mmol/L 21.0-32.0 [facility] Chloride assayOrdered By: Oscar Carnes on 02-20-2025 Chloride [Moles/Vol] 104 mmol/L 98-108 [facility] Comprehensive Metabolic Prof ilon 02-20-2025 Albumin [Mass/Vol] 3.9 g/dL Normal 3.5-5.[address] [facility] Comment on above: Performed By: #### L 500.4050 ####[facility] [address] [place], [address] Albumin/Globulin [Mass ratio] 1.4 {ratio} Normal 0.9-2.4 [facility] Comment on above: Performed By: #### L 500.4050 ####[facility] [address] [place], [address] ALK PHOS 59 U/L Normal 35-104 [facility] Comment on above: Performed By: #### L 500.4050 ####[facility] [address] [place], [address] ALT [Catalytic activity/Vol] 16 U/L Normal <=34 [facility] Comment on above: Performed By: #### L 500.4050 ####[facility] [address] [place], [address] AST [Catalytic activity/Vol] 17 U/L Normal <=31 [facility] Comment on above: Performed By: #### L [id number] ####[facility] [address] [place], [address] BUN/CRE 13.2 RATIO Normal 10-20 [facility] Comment on above: Performed By: #### L 500.4050 ####[facility] [address] [place], [address] Calcium [Mass/Vol] 9.0 mg/dL Normal 7.6-11.[address] [facility] Comment on above: Performed By: #### L [id number] ####[facility] [address] [place], [address] Chloride [Moles/Vol] 104 mmol/L Normal 98-108 [facility] Comment on above: Performed By: #### L [id number] ####[facility] [address] [place], [address] CO2 [Moles/Vol] 21.0 mmol/L Normal 21.0-32.0 [facility] Comment on above: Performed By: #### L 500.4050 ####[facility] [address] [place], [address] Creatinine [Mass/Vol] 0.68 mg/dL Low 0.70-1.20 [facility] Comment on above: Performed By: #### L 500.4050 ####[facility] [address] [place], [address] GAP 14 Normal 5-15 [facility] Comment on above: Performed By: #### L 500.4050 ####[facility] [address] [place], [address] GFR/1.73 sq M.predicted among non-blacks MDRD (S/P/Bld) [Vol rate/Area] 123 mL/min/{1.73_m2} Normal >60 [facility] Comment on above: Result Comment: mL/m in/1.73m2 CKD-EPI Creatinine Equation (2020) Performed By: #### L 500.4050 ####[facility] [address] [place], [address] Globulin (S) [Mass/Vol] 2.8 g/dL Normal 2.2-4.2 [facility] Comment on above: Performed By: #### L 500.4050 ####[facility] [address] [place], [address] Glucose [Mass/Vol] 77 mg/dL Normal 70-[address] [facility] Comment on above: Performed By: #### L 500.4050 ####[facility] [address] [place], [address] Potassium [Moles/Vol] 3.9 mmol/L Normal 3.3-5.1 [facility] Comment on above: Performed By: #### L 500.4050 ####[facility] [address] [place], [address] Sodium [Moles/Vol] 139 mmol/L Normal 133-[address] [facility] Comment on above: Performed By: #### L 500.4050 ####[facility] [address] [place], [address] T BILI < 0.15 Normal 0.00-1.30 [facility] Comment on above: Performed By: #### L 500.4050 ####[facility] [address] [place], [address] T PROT 6.8 g/dL Normal 5.9-8.4 [facility] Comment on above: Performed By: #### L 500.4050 ####[facility] [address] [place], [address] Urea nitrogen [Mass/Vol] 9 mg/dL Normal 4-19 [facility] Comment on above: Performed By: #### L 500.4050 ####[facility] [address] [place], [address] Eosinophil percentageOrdered By: Araseli Jacob on 02-20-2025 Eosinophils/100 WBC (Bld) 2.3 % 0-5 [facility] Erythrocyte distribution wid th ratioOrdered By: Araselipranay Jacob on 02-20-2025 Erythrocyte distribution width (RBC) [Ratio] 12.3 % 11.6-14.6 [facility] Erythrocyte distribution wid th standard deviationOrdered By: Araselipranay Jacob on 02-20-2025 Erythrocyte distribution width (RBC) [Ratio] 39.6 fl 35.1-43.9 [facility] Glomerular filtration rate ( GFR) estimation/1.73 sq m using serum, plasma, or whole bOrdered By: Shireen Carnes on 02-20-2025 GFR/1.73 sq M.predicted among non-blacks MDRD (S/P/Bld) [Vol rate/Area] 123 mL/min/{1.73_m2} >60 [facility] Comment on above: mL/min/1.73m2 CKD-EP I Creatinine Equation (2020) HIVon 02-20-2025 HIV Non-Reactive Normal Nonreactive [facility] Comment on above: Result Comment: Non- Reactive Reactive Repeatedly reactive samples must be confirmed according to CDC recommended confirmatory algorithms. The subresults for either HIVAG or AHIV can be used as an aid in the selection of the confirmation algorithm for reactive samples. Send out specimens with Reactive results to [facility] for confirmation. Order the HIV antibody detection and differentiation: lc#[id number] Performed By: #### L 3890.6102, L3890.6301, BTS, L3890.6006, L509.8002, L100.0100, L509.4006 #### [facility] [address] [place], [place], [id number] Hematocrit Auto (Bld) [Volum e fraction]Ordered By: Araselipranay Jacob on 02-20-2025 Hematocrit (Bld) [Volume fraction] 34.0 % Low 37-47 [facility] Hemoglobin measurementOrdere d By: Araseli Jacob on 02-20-2025 Hemoglobin (Bld) [Mass/Vol] 11.7 g/dL Low 12.0-15.0 [facility] Hepatitis C Antibodyon 02-20 Hepatitis C Ab Non-Reactive Normal Nonreactive [facility] Comment on above: Result Comment: Reac tive: Presumptive evidence of antibodies to HCV. Follow CDC recommendations for supplemental testing. Non-Reactive: Antibodies to HCV were not detected; does not exclude the possibility of exposure to HCV Reactive Results are presumptive evidence of antibodies to HCV. Follow CDC recommendations for supplemental testing. Order confirmation testing: HCV Quant by PCR testing - HCVPCR lc#[id number] Non Reactive: < 0.8 Equivocal: >/= 0.8 to < 1.0 Reactive: >/= 1.0 The [facility] requires that a reactive/equivocal HCV antibody result be sent out for confirmation. HCV Quant by PCR testing. Performed By: #### L 3890.6102, L3890.6301, BTS, L3890.6006, L509.8002, L100.0100, L509.4006 ####[facility] [address] [place], [place], [address] Immature granulocytes/100 WB C Auto (Bld)Ordered By: Araseli Jacob on 02-20-2025 Immature granulocytes/100 WBC (Bld) 0.300 % 0.0-0.9 [facility] Comment on above: IG% - Immature Granu locytes (promyelocytes, myelocytes and metamyelocytes) > 1% indicates that a LEFT SHIFT is Present. L3890.6102on 02-20-2025 HEP B Surf Ag Non-Reactive Normal Nonreactive [facility] Comment on above: Result Comment: Reac tive: Presumptive evidence of HBV. Repeatedly reactive samples must be confirmed using a neutralization test ([employer] HBsAg Confirmatory Test) Non-Reactive: HBsAg not detected; does not exclude the possibility of exposure to HBV Performed By: #### L 3890.6102, L3890.6301, BTS, L3890.6006, L509.8002, L100.0100, L509.4006 #### [facility] [address] [place], [address] L509.4006on 02-20-2025 Rubella IgG REAC Normal Nonreactive [facility] Comment on above: Result Comment: Anti body Result: Interpretation Non-Reactive: Non-Immune Reactive: Immune The following results were obtained with the [employer] Rubella IgG assay. Results from assays of other manufacturers cannot be used interchangeably. Performed By: #### L 3890.6102, L3890.6301, BTS, L3890.6006, L509.8002, L100.0100, L509.4006 #### [facility] [address] [facility]. [place], [place], [id number] Laboratory - Chemistry and C hemistry - challengeOrdered By: Shireen Carnes on 02-20-2025 AST [Catalytic activity/Vol] 17 U/L <32 [facility] - Microbiology an d Antimicrobial susceptibilityOrdered By: Araseli Jacob on 02-20-2025 HBV surface Ag Ql (S) Non-Reactive Nonreactive [facility] Comment on above: Reactive: Presumptiv e evidence of HBV. Repeatedly reactive samples must be confirmed using a neutralization test ([employer] HBsAg Confirmatory Test)Non-Reactive: HBsAg not detected; does not exclude the possibility of exposure to HBV MCV (mean corpuscular volume ) determinationOrdered By: Araseli Jcaob on 02-20-2025 MCV (RBC) [Entitic vol] 88.5 fL 81-99 [facility] Mean corpuscular hemoglobin (MCH) determinationOrdered By: Araseli Jacob on 02-20-2025 MCH (RBC) [Entitic mass] 30.5 pg 27.0-32.0 [facility] Mean corpuscular hemoglobin concentration (MCHC) determinationOrdered By: Araseli Jacob on 02-20-2025 MCHC (RBC) [Mass/Vol] 34.4 g/dL 32-36 [facility] Mean platelet volume determi nationOrdered By: Araseli Jacob on 02-20-2025 Platelet mean volume (Bld) [Entitic vol] 9.3 fL 6.2-12.0 [facility] Monocyte percentageOrdered B y: Araseli Jacob on 02-20-2025 Monocytes/100 WBC (Bld) 5.9 % 0-10 [facility] NATERAon 02-20-2025 NATURA SEE SCANNED REPORT Normal [facility] Comment on above: Performed By: #### L 900.0098 ####[facility] [address] [place], [address] Neutrophil percentageOrdered By: Araseli Jacob on 02-20-2025 Neutrophils/100 WBC (Bld) 65.9 % 47-70 [facility] No Panel InformationOrdered By: Araseli Jacob on 02-20-2025 HIV (1&2) Antibody Non-Reactive Nonreactive [facility] Comment on above: Non-ReactiveReactive Repeatedly reactive samples must be confirmed according to CDC recommended confirmatory algorithms. The subresults for either HIVAG or AHIV can be used as an aid in the selection of the confirmation algorithm for reactive samples.Send out specimens with Reactive results to [facility] for confirmation.Order the HIV antibody detection and differentiation: #[id number] Nucleated red blood cell per centageOrdered By: Araseli Jacob on 02-20-2025 Nucleated RBC/100 WBC (Bld) [Ratio] 0 % 0-5 [facility] Platelet countOrdered By: Clara Jacob on 02-20-2025 Platelets (Bld) [#/Vol] 227 10*3/uL 150-450 [facility] Potassium measurement (mass/ volume)Ordered By: Shireen Carnes on 02-20-2025 Potassium (Unsp spec) [Mass/Vol] 3.9 mmol/L 3.3-5.1 [facility] RBC Auto (Bld) [#/Vol]Ordere d By: Araseli Jacob on 02-20-2025 RBC (Bld) [#/Vol] 3.84 10*6/uL Low 4.2-5.4 [facility] Serum creatinine measurement (mass/volume)Ordered By: Shireen Carnes on 02-20-2025 Creatinine [Mass/Vol] 0.68 mg/dL Low 0.70-1.20 [facility] Serum globulin measurementOr dered By: Shireen Carnes on 02-20-2025 Globulin (S) [Mass/Vol] 2.8 g/dL 2.2-4.2 [facility] Serum glucose measurement (m ass/volume)Ordered By: Shireen Carnes on 02-20-2025 Glucose [Mass/Vol] 77 mg/dL 70-[address] [facility] Serum or plasma alanine du otransferase (ALT) measurementOrdered By: Shireen Carnes on 02-20-2025 ALT [Catalytic activity/Vol] 16 U/L <35 [facility] Serum or plasma albumin luiza urement (mass/volume)Ordered By: Shireen Carnes on 02-20-2025 Albumin [Mass/Vol] 3.9 g/dL 3.5-5.[address] [facility] Serum or plasma albumin/glob ulin mass ratioOrdered By: Shireen Carnes on 02-20-2025 Albumin/Globulin [Mass ratio] 1.4 {ratio} 0.9-2.4 [facility] Serum or plasma alkaline neo sphatase measurementOrdered By: Shireen Carnes on 02-20-2025 ALP [Catalytic activity/Vol] 59 U/L 35-104 [facility] Serum or plasma calcium luiza urement (mass/volume)Ordered By: Shireen Carnes on 02-20-2025 Calcium [Mass/Vol] 9.0 mg/dL 7.6-11.[address] [facility] Serum or plasma urea nitroge n measurement (mass/volume)Ordered By: Shireen Carnes on 02-20-2025 Urea nitrogen [Mass/Vol] 9 mg/dL 4-19 [facility] Sodium levelOrdered By: Yoni Carnes on 02-20-2025 Sodium [Moles/Vol] 139 mmol/L 133-[address] [facility] Syphilis Antibodieson 2024 Syphilis Abs Non-Reactive Normal Nonreactive [facility] Comment on above: Performed By: #### L 3890.6102, L3890.6301, BTS, L3890.6006, L509.8002, L100.0100, L509.4006 #### [facility] [address] [place], [address] Total proteinOrdered By: Nae Carnes on 02-20-2025 Protein [Mass/Vol] 6.8 g/dL 5.9-8.[address] [facility] Type AND Screenon 02-20-2025 ABO and Rh group Nom (Bld) Blood group A Rh(D) positive Normal [facility] Comment on above: Order Comment: PN Performed By: #### L 3890.6102, L3890.6301, BTS, L3890.6006, L509.8002, L100.0100, L509.4006 ####[facility] [address] [place], [address] White blood cell (WBC) count Ordered By: Araseli Jacob on 02-20-2025 WBC (Bld) [#/Vol] 9.0 10*3/uL 4.4-11.[address] [facility] Chlamydia/GC TINA aptimaon CHLAMY,NUC ACID Negative Normal Negative [facility] Comment on above: Performed By: #### L 7000.1800, M100.2200 #### [facility] [address] [place], [address] GC BY NUC ACID Negative Normal Negative [facility] Comment on above: Result Comment: Perf ormed at: =G - [facility] [address] [id number] Gas Meter Reader: Nhi Isaac MD, Phone: [phone] Performed By: #### L 7000.1800, M100.2200 #### [facility] [address] [place], [address] Urine Cultureon 02-11-2025 URC Culture exhibits no growth. Normal [facility] Comment on above: Performed By: #### L 7000.1800, M100.2200 #### [facility] [address] [place], [address] Chlamydia trachomatis rRNA d etection by probe and target amplification methodOrdered By: Araseli Jacob on 02-10-2025 C. trachomatis rRNA TINA+probe Ql (Unsp spec) Negative Negative [facility] Neisseria gonorrhoeae nuclei c acid detection by amplified probe techniqueOrdered By: Araseli Jacob on 02-10-2025 N. 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 Normal [facility] Protein+Creatinine Ratio,Uri neon 02-10-2025 PROT:CRE RATIO 123 mg/g CRE Normal 0-200 [facility] Comment on above: Performed By: #### L 501.0900 ####[facility] [address] [place], [address] Protein (U) [Mass/Vol] 10.0 mg/dL Normal 0.0-12.0 [facility] Comment on above: Performed By: #### L 501.0900 ####[facility] [address] [place], [address] UR CREAT 81.00 mg/dL Normal 28.00-217.00 [facility] Comment on above: Performed By: #### L 501.0900 ####[facility] [address] [place], [address] Random urine creatinine luiza urement (mass/volume)Ordered By: Shireen Carnes on 02-10-2025 Creatinine Unsp time (U) [Mass/Vol] 81.00 mg/dL 28.00-217.00 [facility] Urine cultureOrdered By: Tnaia Jacob on 02-10-2025 Bacteria identified Cx Nom (U) Culture exhibits no growth. [facility] Urine protein measurement (m ass/volume)Ordered By: Shireen Carnes on 02-10-2025 Protein (U) [Mass/Vol] 10.0 mg/dL 0.0-12.0 [facility] Urine protein/creatinine mas s ratioOrdered By: Shireen Carnes on 02-10-2025 Protein/Creatinine (U) [Mass ratio] 123 mg/g CRE 0-200 [facility] - Chemistry and C hemistry - challengeOrdered By: Marialuisa Marshall on 01-24-2025 HCG ( test) Ql (U) Positive [facility] Office Visit Reporton 2024 Office Visit Report [facility] [address] [place] [address] OFFICE VISIT Date of Service: MR#: [id number] Acct: [id number] Patient: JUSTINO RENDON Rep #: [id number] : 2000 Provider: Yeimi Anthony RN Age/Sex: 24/F [place] [facility] [place]: Signed Intake Vital Signs 01/24/25 08:05 01/24/25 11:38 Height 5 ft 4 in 5 ft 4 in Weight: 151 lb 4 oz BMI 25.9 BP 110/64 Intake Visit Reasons: Amb Documentation Chief Complaint: PNOB in person 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 Competitive Intelligence Required: No Is patient in pain?: No [...] unspecified, unspecified trimester Protein+Creatinine Ratio,Urine 01/24/25 Shireen Cranes NP, MAITRE D'-C O09.299 - Supervision of with other poor reproductive or obstetric history, unspecified trimester, O09.90 - Supervision of high risk , unspecified, unspecified trimester Comprehensive Metabolic Profil 01/24/25 Shireen Carnes NP, MAITRE D'-C O09.299 - Supervision of with other poor reproductive or obstetric history, unspecified trimester, O09.90 - Supervision of high risk , unspecified, unspecified trimester Clinical Quality Measures Falls Risk Screening/Assistive Devices Have you fallen in the past year?: No 01/27/25 1637 Date Marialuisa Marshall MD [facility] Signature: Date (if applicable) CC: Normal [facility] Serum human chorionic gonado tropin detection for pregnancyOrdered By: Sherie Padilla on 01-14-2025 HCG ( [place]) [place]l [address] mIU/mL High <9 [facility] Comment on above: Gestational Age0.2-1 Week: 5-50 mIU/mL1-2 Weeks: 50-500 mIU/mL2-3 Weeks: 100-5000 mIU/mL3-4 Weeks: 500-10,000 mIU/mL4-5 Weeks:1000-50,000 mIU/mL5-6 Weeks: 10,000-100,000 mIU/mL6-8 Weeks: 15,000-200,000 mIU/mL2-3 Months:10,000-100,000 mIU/mL hCG Titer Quant., Serumon HCG QUANT. 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 Office Visit Reporton 01-12-2025 Painting Machine Operator Office Visit Report [facility] [address], [address] [place] [address] OFFICE VISIT Date of Service: 01/12/25 MR#: [id number] Acct: [id number] Name: JUSTINO RENDON Rep #: [id number] : 2000 Provider: JH Keating Age/Sex: 24/F [place] [facility] [place] Status: Signed Intake Vital Signs 01/12/25 14:16 Height 5 ft 4 in Weight: 150 lb 4 oz BMI 25.7 BP 129/74 H 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, 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 Intelligence Required: No Is patient in pain?: No [...] 1 current occupational status: employed current occupation: [employer] sexually active: Yes Smoking Status: Never smoker alcohol intake: current alcohol intake frequency: holidays/special occasions only substance use type: does not use what type of physical activity do you participate in: weight training frequency: 1-2 times per week deric/yarsani: Mu-Ism seatbelt use: always do you feel safe [...] term 7lbs 11oz Male epidural Logan Parada [facility] Encounter for routine gynecological examination Details: JUSTINO RENDON is a 24 year old who presents for annual exam. She reports she has not had a period this month. Her and her are trying. She reports she previously had chemical in July. Since then she has had regular menses until this month. She reports no vaginal bleeding. 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 We do not have records for review. [...] axillary lymphadenopathy (more content not included)... Normal [facility] Serum human chorionic gonado tropin detection for pregnancyOrdered By: Sherie Padilla on 01-12-2025 HCG ( test) Ql 6784 mIU/mL High <9 [facility] Comment on above: Gestational Age0.2-1 Week: 5-50 mIU/mL1-2 Weeks: 50-500 mIU/mL2-3 Weeks: 100-5000 mIU/mL3-4 Weeks: 500-10,000 mIU/mL4-5 Weeks:1000-50,000 mIU/mL5-6 Weeks: 10,000-100,000 mIU/mL6-8 Weeks: 15,000-200,000 mIU/mL2-3 Months:10,000-100,000 mIU/mL hCG Titer Quant., Serumon HCG QUANT. 6784 mIU/mL High <9 non-preg [facility] Comment on above: Result Comment: Gest ational Age 0.2-1 Week: 5-50 mIU/mL 1-2 Weeks: 50-500 mIU/mL 2-3 Weeks: 100-5000 mIU/mL 3-4 Weeks: 500-10,000 mIU/mL 4-5 Weeks:1000-50,000 mIU/mL 5-6 Weeks: 10,000-100,000 mIU/mL 6-8 Weeks: 15,000-200,000 mIU/mL 2-3 Months:10,000-100,000 mIU/mL Performed By: #### L 681.6569 ####[facility] [address] [facility] [place], [address] ECG 12 lead (Clinic Performe d)on 12-26-2024 Normal sinus rhythm [facility] Work Phone: CBC (INCLUDES DIFF/PLT)on Basophils (Bld) [#/Vol] 0.042 10*3/uL Normal 0-200 [facility] Comment on above: Performed By: #### 7 573, 02093, 622, 1870, 4698, 899, 927, 85402, 866 #### [facility] [place] [address] Wreath Inspector: Noble Brown MD Basophils/100 WBC (Bld) 0.6 % Normal [facility] Comment on above: Performed By: #### 7 573, 45553, 622, 7600, 6399, 899, 927, 50142, 866 #### [facility] [place] [address] Wreath Inspector: Noble Brown MD Eosinophils (Bld) [#/Vol] 0.252 10*3/uL Normal 15-500 [facility] Comment on above: Performed By: #### 7 573, 02934, 622, 7600, 6399, 899, 927, 30288, 866 #### [facility] [place] [address] Wreath Inspector: Noble Brown MD Eosinophils/100 WBC (Bld) 3.6 % Normal [facility] Comment on above: Performed By: #### 7 573, 81800, 622, 7600, 6399, 899, 927, 06068, 866 #### [facility] [place] [address] Wreath Inspector: Noble Brown MD Erythrocyte distribution width (RBC) [Ratio] 12.6 % Normal 11.0-15.0 [facility] Comment on above: Performed By: #### 7 573, 62111, 622, 7600, 6399, 899, 927, 02491, 866 #### [facility] [place] [address] Wreath Inspector: Noble Brown MD Hematocrit (Bld) [Volume fraction] 43.5 % Normal 35.0-45.0 [facility] Comment on above: Performed By: #### 7 573, 13522, 622, 7600, 6399, 899, 927, 05464, 866 #### [facility] [place] [address] Wreath Inspector: Noble Brown MD Hemoglobin (Bld) [Mass/Vol] 13.9 g/dL Normal 11.7-15.5 [facility] Comment on above: Performed By: #### 7 573, 76348, 622, 7600, 6399, 899, 927, 79019, 866 #### [facility] [place] [address] Wreath Inspector: Noble Brown MD Lymphocytes (Bld) [#/Vol] 2.38 10*3/uL Normal 850-3900 [facility] Comment on above: Performed By: #### 7 573, 73459, 622, 7600, 6399, 899, 927, 23664, 866 #### [facility] [place] [address] Wreath Inspector: Noble Brown MD Lymphocytes/100 WBC (Bld) 34.0 % Normal [facility] Comment on above: Performed By: #### 7 573, 44212, 622, 7600, 6399, 899, 927, 58108, 866 #### [facility] [place] [address] Wreath Inspector: Noble Brown MD MCH (RBC) [Entitic mass] 30.0 pg Normal 27.0-33.0 [facility] Comment on above: Performed By: #### 7 573, 65649, 622, 7600, 6399, 899, 927, 63729, 866 #### [facility] [place] [address] Wreath Inspector: Noble Brown MD MCHC (RBC) [Mass/Vol] 32.0 g/dL Normal 32.0-36.[address] [facility] Comment on above: Result Comment: For adults, a slight decrease in the calculated MCHC value (in the range of 30 to 32 g/dL) is most likely not clinically significant; however, it should be interpreted with caution in correlation with other red cell parameters and the patient's clinical condition. Performed By: #### 7 573, 37293, 622, 7600, 6399, 899, 927, 35194, 866 #### [facility] [place] [address] Wreath Inspector: Noble Brown MD MCV (RBC) [Entitic vol] 94.0 fL Normal 80.0-100.0 [facility] Comment on above: Performed By: #### 7 573, 05007, 622, 7600, 6399, 899, 927, 90705, 866 #### [facility] [place] [address] Wreath Inspector: Noble Brown MD Monocytes (Bld) [#/Vol] 0.329 10*3/uL Normal 200-950 [facility] Comment on above: Performed By: #### 7 573, 33754, 622, 7600, 6399, 899, 927, 69066, 866 #### [facility] [place] [address] Wreath Inspector: Noble Brown MD Monocytes/100 WBC (Bld) 4.7 % Normal [facility] Comment on above: Performed By: #### 7 573, 66338, 622, 7600, 6399, 899, 927, 53621, 866 #### [facility] [place] [address] Wreath Inspector: Noble Brown MD Neutrophils (Bld) [#/Vol] 3.997 10*3/uL Normal 6776-6307 [facility] Comment on above: Performed By: #### 7 573, 98994, 622, 7600, 6399, 899, 927, 22265, 866 #### [facility] [place] [address] Wreath Inspector: Noble Brown MD Neutrophils/100 WBC (Bld) 57.1 % Normal [facility] Comment on above: Performed By: #### 7 573, 92827, 622, 7600, 6399, 899, 927, 51048, 866 #### [facility] [place] [address] Wreath Inspector: Noble Brown MD Platelet mean volume (Bld) [Entitic vol] 10.2 fL Normal 7.5-12.5 [facility] Comment on above: Performed By: #### 7 573, 74609, 622, 7600, 6399, 899, 927, 83219, 866 #### [facility] [place] [address] Wreath Inspector: Noble Brown MD Platelets (Bld) [#/Vol] 257 10*3/uL Normal 140-400 [facility] Comment on above: Performed By: #### 7 573, 93727, 622, 7600, 6399, 899, 927, 68726, 866 #### [facility] [place] [address] Wreath Inspector: Noble Brown MD RBC (Bld) [#/Vol] 4.63 10*6/uL Normal 3.80-5.10 [facility] Comment on above: Performed By: #### 7 573, 17104, 622, 7600, 6399, 899, 927, 53768, 866 #### [facility] [place] [address] Wreath Inspector: Noble Brown MD WBC (Bld) [#/Vol] 7.0 10*3/uL Normal 3.8-10.8 [facility] Comment on above: Performed By: #### 7 573, 61710, 622, 7600, 6399, 899, 927, 69876, 866 #### [facility] [place] [address] Wreath Inspector: Noble Brown MD COMPREHENSIVE METABOLIC PANE L W/ANION GAPon 10-25-2024 Albumin [Mass/Vol] 4.7 g/dL Normal 3.6-5.1 [facility] Comment on above: Performed By: #### 7 573, 89359, 622, 7600, 6399, 899, 927, 81468, 866 #### [facility] of [address], [address] [place] [address] Wreath Inspector: Noble Brown MD ALP [Catalytic activity/Vol] 71 U/L Normal 31-125 [facility] Comment on above: Performed By: #### 7 573, 61292, 622, 7600, 6399, 899, 927, 80768, 866 #### [facility] of [place] [address] Wreath Inspector: Noble Brown MD ALT [Catalytic activity/Vol] 11 U/L Normal 6-29 [facility] Comment on above: Performed By: #### 7 573, 29001, 622, 7600, 6399, 899, 927, 24427, 866 #### [facility] of [place] [address] Wreath Inspector: Noble Brown MD AST [Catalytic activity/Vol] 15 U/L Normal 10-30 [facility] Comment on above: Performed By: #### 7 573, 25422, 622, 7600, 6399, 899, 927, 97333, 866 #### [facility] of [place] [address] Wreath Inspector: Noble Brown MD Bilirubin [Mass/Vol] 0.3 mg/dL Normal 0.2-1.2 [facility] Comment on above: Performed By: #### 7 573, 20960, 622, 7600, 6399, 899, 927, 19803, 866 #### [facility] of [place] [address] Wreath Inspector: Noble Bronw MD Calcium [Mass/Vol] 9.0 mg/dL Normal 8.6-10.2 [facility] Comment on above: Performed By: #### 7 573, 89302, 622, 7600, 6399, 899, 927, 43852, 866 #### [facility] [place] [address] Wreath Inspector: Noble Brown MD Chloride [Moles/Vol] 104 mmol/L Normal 98-110 [facility] Comment on above: Performed By: #### 7 573, 01457, 622, 7600, 6399, 899, 927, 01468, 866 #### [facility] [place] [address] Wreath Inspector: Noble Brown MD CO2 [Moles/Vol] 26 mmol/L Normal 20-32 [facility] Comment on above: Performed By: #### 7 573, 98641, 622, 7600, 6399, 899, 927, 27702, 866 #### [facility] [place] [address] Wreath Inspector: Noble Brown MD Creatinine [Mass/Vol] 0.85 mg/dL Normal 0.50-0.[address] [facility] Comment on above: Performed By: #### 7 573, 94349, 622, 7600, 6399, 899, 927, 82714, 866 #### [facility] [place] [address] Wreath Inspector: Noble Brown MD ELECTROLYTE BALANCE 9 mmol/L (calc) Normal 7-17 [facility] Comment on above: Performed By: #### 7 573, 17146, 622, 7600, 6399, 899, 927, 17434, 866 #### [facility] [place] [address] Wreath Inspector: Noble Brown MD GFR/1.73 sq M.predicted among non-blacks MDRD (S/P/Bld) [Vol rate/Area] 97 mL/min/{1.73_m2} Normal > OR = 60 [facility] Comment on above: Performed By: #### 7 573, 38247, 622, 7600, 6399, 899, 927, 59264, 866 #### [facility] [place] [address] Wreath Inspector: Noble Brown MD Glucose [Mass/Vol] 89 mg/dL Normal 65-99 [facility] Comment on above: Result Comment: Fasting reference interval Performed By: #### 7 573, 17612, 622, 7600, 6399, 899, 927, 58141, 866 #### [facility] [place] [address] Wreath Inspector: Noble Brown MD Potassium [Moles/Vol] 4.2 mmol/L Normal 3.5-5.[address] [facility] [address] [facility] Comment on above: Performed By: #### 7 573, 51593, 622, 7600, 6399, 899, 927, 26402, 866 #### [facility] [place] [address] Wreath Inspector: Noble Brown MD Protein [Mass/Vol] 7.3 g/dL Normal 6.1-8.1 [facility] Comment on above: Performed By: #### 7 573, 18685, 622, 7600, 6399, 899, 927, 43014, 866 #### [facility] [place] [address] Wreath Inspector: Noble Brown MD Sodium [Moles/Vol] 139 mmol/L Normal 135-146 [facility] Comment on above: Performed By: #### 7 573, 80773, 622, 7600, 6399, 899, 927, 28365, 866 #### [facility] [place] [address] Wreath Inspector: Noble Brown MD Urea nitrogen [Mass/Vol] 13 mg/dL Normal 7-25 [facility] Comment on above: Performed By: #### 7 573, 55112, 622, 7600, 6399, 899, 927, 53689, 866 #### [facility] of [place] [address] Wreath Inspector: Noble Brown MD FERRITINon 10-25-2024 Ferritin [Mass/Vol] 20 ng/mL Normal 16-154 [facility] Comment on above: Performed By: #### 7 573, 03728, 622, 7600, 6399, 899, 927, 68855, 866 #### [facility] of [place] [address] Wreath Inspector: Noble Brown MD IRON AND TOTAL IRON BINDING CAPACITYon 10-25-2024 % SATURATION 23 % (calc) Normal 16-45 [facility] Comment on above: Performed By: #### 7 573, 34363, 622, 7600, 6399, 899, 927, 11829, 866 #### [facility] of [place] [address] Wreath Inspector: Noble Brown MD IRON BINDING CAPACITY 330 mcg/dL (calc) Normal 250-450 [facility] Comment on above: Performed By: #### 7 573, 51023, 622, 7600, 6399, 899, 927, 83024, 866 #### [facility] of [place] [address] Wreath Inspector: Noble Brown MD IRON, TOTAL 75 mcg/dL Normal 40-190 [facility] Comment on above: Performed By: #### 7 573, 04208, 622, 7600, 6399, 899, 927, 00049, 866 #### [facility] of [place] [address] Wreath Inspector: Noble Brown MD LIPID PANEL, STANDARDon 10-15 Cholesterol [Mass/Vol] 136 mg/dL Normal <200 [facility] Comment on above: Order Comment: FASTI NG:YES FASTING: YES Performed By: #### 7 573, 06982, 622, 7600, 6399, 899, 927, 25238, 866 #### [facility] [address], [address] [place] [address] Wreath Inspector: Noble Brown MD Cholesterol in HDL [Mass/Vol] 55 mg/dL Normal > OR = 50 [facility] Comment on above: Order Comment: FASTI NG:YES FASTING: YES Performed By: #### 7 573, 43758, 622, 7600, 6399, 899, 927, 60729, 866 #### [facility] [address], [address] [place] [address] Wreath Inspector: Noble Brown MD Cholesterol in LDL [Mass/Vol] [...] LDL-C. Calin CHANG et al. DINA. 2013;310(19): 7583-2707 (http://education.[employer]/faq/GUK815) Performed By: #### 7 573, 39114, 622, 7600, 6399, 899, 927, 28693, 866 #### [facility] [address], [address] [place] [address] Wreath Inspector: Noble Brown MD Cholesterol.total/Choles terol in HDL [Mass ratio] 2.5 {ratio} Normal <5.0 [facility] Comment on above: Order Comment: FASTI NG:YES FASTING: YES Performed By: #### 7 573, 37662, 622, 7600, 6399, 899, 927, 16269, 866 #### [facility] [address], [address] [place] [address] Wreath Inspector: Noble Brown MD NON HDL CHOLESTEROL 81 mg/dL (calc) Normal <130 [facility] Comment on above: Order Comment: FASTI NG:YES FASTING: YES Result Comment: For patients with diabetes plus 1 major ASCVD risk factor, treating to a non-HDL-C goal of <100 mg/dL (LDL-C of <70 mg/dL) is considered a therapeutic option. Performed By: #### 7 573, 56693, 622, 7600, 6399, 899, 927, 69439, 866 #### [facility] [address], [address] [place] [address] Wreath Inspector: Noble Brown MD Triglyceride [Mass/Vol] 58 mg/dL Normal <150 [facility] Comment on above: Order Comment: FASTI NG:YES FASTING: YES Performed By: #### 7 573, 79034, 622, 7600, 6399, 899, 927, 27771, 866 #### [facility] [address], [address] [place] [address] Wreath Inspector: Noble Brown MD MAGNESIUMon 10-25-2024 Magnesium [Mass/Vol] 2.2 mg/dL Normal 1.5-2.5 [facility] Comment on above: Performed By: #### 7 573, 65982, 622, 7600, 6399, 899, 927, 68635, 866 #### [facility] [address], [address] [place] [address] Wreath Inspector: Noble Brown MD T4, FREEon 10-25-2024 Free T4 [Mass/Vol] 1.1 ng/dL Normal 0.8-1.8 [facility] Comment on above: Performed By: #### 7 573, 75341, 622, 7600, 6399, 899, 927, 85750, 866 #### [facility] [address], [address] [place] [address] Wreath Inspector: Noble Brown MD TSHon 10-25-2024 TSH Qn 0.90 m[IU]/L Normal [facility] Comment on above: Result Comment: Refe rence Range > or = 20 Years 0.40-4.50 Ranges First trimester 0.26-2.66 Second trimester 0.55-2.73 Third trimester 0.43-2.91 Performed By: #### 7 573, 79628, 622, 7600, 6399, 899, 927, 26409, 866 #### [facility] [address], [address] [place], [place] [address] Wreath Inspector: Noble Brown MD VITAMIN B12on 10-25-2024 Cobalamin [...] have symptoms. Performed By: #### 7 573, 86493, 622, 7600, 6399, 899, 927, 33739, 866 #### [facility] [address] Wreath Inspector: Noble Brown MD VITAMIN D,25-OH,TOTAL,IAon 0 10-25-2024 [...] D, (D2,D3), LC/MS/MS is recommended: order code 77262 (patients >2yrs). See Note 1 Note 1 For additional information, please refer to http://education.[employer]/faq/GKS074 (This link is being provided for informational/ educational purposes only.) Performed By: #### 7 573, 48956, 572, 7510, 5699, 899, 927, 57767, 866 #### [facility] [address] [facility], [address] [place] [address] Wreath Inspector: Noble Brown MD TRANSTHORACIC ECHO (TTE) [facility] 10-12-2024 TRANSTHORACIC ECHO (TTE) [place] [address] [phone], TRANSTHORACIC ECHOCARDIOGRAM REPORT Patient Name: JUSTINO Taylor Physician: [id number] Sam Garcia MD Study Date: 10/12/2024 Ordering Provider: [id number] BENY STEWART MRN/PID: [id number] Fellow: Nurse: Sharmila Thurman RN Date of /Age: 9 2000 [employer] Take Out Worker: Roberto Proctor RDCS years Gender Assigned at F Additional Staff: : Height: 160.02 cm Admit Date: Weight: 66.23 kg Admission Status: Outpatient BSA / BMI: 1.69 m2 / 25.86 Department Location: [facility] Echo Lab kg/m2 Blood Pressure: 102 /72 mmHg Study Type: TRANSTHORACIC ECHO (TTE) COMPLETE Diagnosis/ICD: Dizziness and giddiness-R42 CPT Codes: Echo Complete w Full Doppler-98345 Study Detail: The following Echo studies were [...] LA Area A2C: 9.0 cm2 LA Major [place] A4C: 4.4 cm LA [place] A2C: 4.4 cm LA Volume Index: 11.4 [...] RV Syst Pressure: 15 mmHg (< 30mmHg) [id number] Sam Garcia MD Electronically signed on 10/13/2024 at 9:07:36 PM Final Normal [facility] ECG 12 Leadon 09-28-2024 NSR with sinus arrhythmia [place] Work Phone: [place] Work Phone: Bacteria identifiedon 2023 Bacteria identified Cx Nom (U) Test: Urine Culture Specimen Source: Clean Catch/Voided Specimen Type: Urine Specimen Date: 08/08/2024 0936 Result Date: 08/09/2024 1413 Result Status: Final result Abnormal: Yes Resulting Lab: [facility] [address] [place] [id number] CULTURE Growth indicates contamination with periurethral corey. Repeat culture if clinically indicated. <=10,000 CFU/mL Streptococcus agalactiae (Group B Streptococcus) (Abnormal) Streptococcus agalactiae (Group B Streptococcus, GBS) may be significant in individuals. Recovery from non- individuals likely represents an insignificant finding. Routine GBS screening should be ordered using test ???Group B Streptococcus (GBS) Screen, Culture??? ([id number]). Streptococcus agalactiae (Group B Streptococcus) is universally susceptible to beta-lactam antibiotics and vancomycin. Routine susceptibility testing not performed. For penicillin allergic patients, please contact the laboratory within 5 days of collection at to request susceptibility testing. Abnormal [facility] Comment on above: Performed By: #### 6 30-4 #### NAVI Delacruz ([id number]) [facility] ([facility]) [address] [place] [address] Blood type and Indirect anti body screen panel (Bld)on 08-08-2024 ABO group Nom (Bld) A Normal [facility] Comment on above: Performed By: #### 3 4532-2 #### BERTIN FERNÁNDEZ ([id number]) [facility] ([facility]) [address] [place] [address] Blood group antibody screen Ql Negative [facility] Comment on above: Performed By: #### 3 4532-2 #### BERTIN FERNÁNDEZ ([id number]) [facility] ([facility]) [address] [place] [address] D Ag Ql (Bld) Positive [facility] Comment on above: Performed By: #### 3 4532-2 #### BERTIN FERNÁNDEZ ([id number]) [facility] ([facility]) [address] [place] [address] [place] Choriogonadotropin.beta subu niton 08-08-2024 HCG.beta subunit Qn 3 m[IU]/mL Normal <5 [facility] Comment on above: Order Comment: Total HCG measurement is performed using the Lei Gigi Access Immunoassay which detects intact HCG and free beta HCG subunit. This test is not indicated for use as a tumor marker. HCG testing is performed using a different test methodology at [facility] than other [facility]. Direct result comparison should only be made within the same method. Performed By: #### 2 1198-7 #### BERTIN FERNÁNDEZ ([id number]) [facility] ([facility]) [address] [place] [address] HCG ( test) IA.rapi d Ql (U)Ordered By: Amaya Turner on 08-08-2024 HCG ( test) Ql (U) Negative NEGATIVE [place] Interpretation and review of laboratory results Normal [facility] HCG ( test) IA.rapi d Ql (U)on 08-08-2024 HCG ( test) Ql (U) Negative Normal NEGATIVE [facility] Comment on above: Performed By: #### 8 0384-1 #### BERTIN FERNÁNDEZ ([id number]) [facility] ([facility]) [address] [place] [address] HCG.beta subunit Qnon 2023 Interpretation and review of laboratory results Normal [facility] Total HCG measurement is performed using the Lei Gigi Access Immunoassay which detects intact HCG and free beta HCG subunit. This test is not indicated for use as a tumor marker. HCG testing is performed using a different test methodology at [facility] than other [facility]. Direct result comparison should only be made within the same method. [facility] No Panel Informationon 08-08 Interpretation and review of laboratory results Abnormal [facility] Urinalysis complete W Reflex Culture panel (U)on 08-08-2024 Appearance (U) Ex.Turbid Abnormal Clear [facility] Bilirubin (U) [Mass/Vol] Negative NEGATIVE [place] Color (U) Dark-Brown Abnormal Light-Yellow, Yellow, Dark-Yellow [facility] Glucose Auto test strip (U) [Mass/Vol] Normal Normal mg/dL [facility] Ketones (U) [Mass/Vol] Negative NEGATIVE mg/d L [facility] Leukocyte esterase Auto test strip Ql (U) 250 Jomar/ L Abnormal NEGATIVE [facility] Nitrite Auto test strip Ql (U) Negative NEGATIVE [facility] pH (U) 6 [pH] 5.0, 5.5, 6.0, 6.5, 7.0, 7.5, 8.0 [facility] Protein (U) [Mass/Vol] 70 (1+) Abnormal NEGAT ROMULO, 10 (TRACE), 20 (TRACE) mg/dL [facility] RBC (U) [#/Vol] OVER (3+) Abnormal NEGATIVE [facility] Specific gravity (U) [Rel density] 1.020 1.005 - 1.035 [facility] Urobilinogen (U) [Mass/Vol] Normal Normal mg/dL [place] OVER is reported when the result is greater than the clinically reportable range. [facility] Appearance (U) Ex.Turbid Normal Clear [facility] Comment on above: Order Comment: OVER is reported when the result is greater than the clinically reportable range. Performed By: #### 5 8077-9 #### BERTIN FERNÁNDEZ ([id number]) [facility] ([facility]) [address] [place] [address] Bilirubin (U) [Mass/Vol] Negative Normal NEGATIVE [facility] Comment on above: Order Comment: OVER is reported when the result is greater than the clinically reportable range. Performed By: #### 5 8077-9 #### BERTIN FERNÁNDEZ ([id number]) [facility] ([facility]) [address] [place] [address] Color (U) Dark-Brown Normal Light-Yellow, Yellow, Dark-Yellow [facility] Comment on above: Order Comment: OVER is reported when the result is greater than the clinically reportable range. Performed By: #### 5 8077-9 #### BERTIN FERNÁNDEZ ([id number]) [facility] ([facility]) [address] [place], [place] [address] Glucose Auto test strip (U) [Mass/Vol] Normal Normal Normal [facility] Comment on above: Order Comment: OVER is reported when the result is greater than the clinically reportable range. Performed By: #### 5 8077-9 #### BERTIN FERNÁNDEZ ([id number]) [facility] ([facility]) [address] [place], [place] [address] Ketones (U) [Mass/Vol] Negative Normal NEGATIVE [facility] Comment on above: Order Comment: OVER is reported when the result is greater than the clinically reportable range. Performed By: #### 5 8077-9 #### BERTIN FERNÁNDEZ ([id number]) [facility] ([facility]) [address] [place], [place] [address] Leukocyte esterase Auto test strip Ql (U) 250 Jomar/???L Abnormal NEGATIVE [facility] Comment on above: Order Comment: OVER is reported when the result is greater than the clinically reportable range. Performed By: #### 5 8077-9 #### BERTIN FERNÁNDEZ ([id number]) [facility] ([facility]) [address] [place], [place] [address] Nitrite Auto test strip Ql (U) Negative Normal NEGATIVE [facility] Comment on above: Order Comment: OVER is reported when the result is greater than the clinically reportable range. Performed By: #### 5 8077-9 #### BERTIN FERNÁNDEZ ([id number]) [facility] ([facility]) [address] [place], [place] [address] pH (U) 6.0 [pH] Normal 5.0, 5.5, 6.0, 6.5, 7.0, 7.5, 8.0 [facility] Comment on above: Order Comment: OVER is reported when the result is greater than the clinically reportable range. Performed By: #### 5 8077-9 #### BERTIN FERNÁNDEZ ([id number]) [facility] ([facility]) [address] [place] [address] Protein (U) [Mass/Vol] 70 (1+) Abnormal NEGAT ROMULO, 10 (TRACE), 20 (TRACE) [facility] Comment on above: Order Comment: OVER is reported when the result is greater than the clinically reportable range. Performed By: #### 5 8077-9 #### BERTIN FERNÁNDEZ ([id number]) [facility] ([facility]) [address] [place] [address] RBC (U) [#/Vol] OVER (3+) Abnormal NEGATIVE [facility] Comment on above: Order Comment: OVER is reported when the result is greater than the clinically reportable range. Performed By: #### 5 8077-9 #### BERTIN FERNÁNDEZ ([id number]) [facility] ([facility]) [address] [place], [place] [address] Specific gravity (U) [Rel density] 1.020 Normal 1.005-1.035 [facility] Comment on above: Order Comment: OVER is reported when the result is greater than the clinically reportable range. Performed By: #### 5 8077-9 #### BERTIN FERNÁNDEZ ([id number]) [facility] ([facility]) [address] [place] [address] Urobilinogen (U) [Mass/Vol] Normal Normal Normal [facility] Comment on above: Order Comment: OVER is reported when the result is greater than the clinically reportable range. Performed By: #### 5 8077-9 #### BERTIN FERNÁNDEZ ([id number]) [facility] ([facility]) [address] [place] [address] Urinalysis microscopic panel Auto Ql (U)on 08-08-2024 Epithelial cells.squamous Auto (Urine sed) [#/Area] 10-25 (FEW) Reference range not established. /HPF [place] Mucus Auto (Urine sed) [#/Area] 1+ Reference range not established. /LPF [facility] RBC Auto (Urine sed) [#/Area] >20 Abnormal NONE, 1-2, 3-5 /HPF [facility] WBC Auto (Urine sed) [#/Area] >50 Abnormal 1-5, NONE /HPF [place] Epithelial cells.squamous Auto (Urine sed) [#/Area] 10-25 (FEW) Normal Reference range not established. [facility] Comment on above: Performed By: #### 5 3315-8 #### BERTIN FERNÁNDEZ ([id number]) [facility] ([facility]) [address] [place], [place] [address] Mucus Auto (Urine sed) [#/Area] 1+ /LPF Normal Reference range not established. [facility] Comment on above: Performed By: #### 5 3315-8 #### BERTIN FERNÁNDEZ ([id number]) [facility] ([facility]) [address] [place] [address] RBC Auto (Urine sed) [#/Area] >20 Abnormal NONE, 1-2, 3-5 [facility] Comment on above: Performed By: #### 5 3315-8 #### BERTIN FERNÁNDEZ ([id number]) [facility] ([facility]) [address] [place] [address] WBC Auto (Urine sed) [#/Area] >50 Abnormal 1-5, NONE [facility] Comment on above: Performed By: #### 5 3315-8 #### BERTIN FERNÁNDEZ ([id number]) [facility] ([facility]) [address] [place] [address] hCG, quantitative, on 08-08-2024 HCG.beta subunit Qn 3 m[IU]/mL [facility] Vital Signs Date Time Vital Sign Value Performing Clinician Facility 07-20-2025 15:32-0500 Body height 160.02 cm Beny MEYER Work Phone: [facility] 07-20-2025 15:31-0500 Body mass index (BMI) [Ratio] 30.5 kg/m2 Beny MEYER Work Phone: [facility] 07-20-2025 15:31-0500 Body weight 78.15 kg Beny MEYER Work Phone: [facility] 07-20-2025 15:31-0500 Diastolic blood pressure 78 mm[Hg] Beny MEYER Work Phone: [facility] 07-20-2025 15:31-0500 Systolic blood pressure 113 mm[Hg] Beny Pat PA Work Phone: [facility] 07-03-2025 15:17-0400 Body mass index (BMI) [Ratio] 30.3 kg/m2 Beny Pat PA Work Phone: [facility] 07-03-2025 15:17-0400 Body weight 77.76 kg Beny Jackson PA Work Phone: [facility] 07-03-2025 15:17-0400 Diastolic blood pressure 75 mm[Hg] Beny Pat PA Work Phone: [facility] 07-03-2025 15:17-0400 Systolic blood pressure 117 mm[Hg] Beny Pat PA Work Phone: [facility] 06-19-2025 16:29-0400 Body height 160.02 cm Beny Pat PA Work Phone: [facility] 06-19-2025 16:29-0400 Body mass index (BMI) [Ratio] 29.5 kg/m2 Beny Jackson PA Work Phone: [facility] 06-19-2025 16:29-0400 Body weight 75.47 kg Beny Jackson PA Work Phone: [facility] 06-19-2025 16:23-0400 Body temperature 98.1 [degF] Beny Pat PA Work Phone: [facility] 06-19-2025 16:23-0400 Diastolic blood pressure 64 mm[Hg] Beny Pat PA Work Phone: [facility] 06-19-2025 16:23-0400 Heart rate 93 /min Beny Jackson PA Work Phone: [facility] 06-19-2025 16:23-0400 Respiratory rate 16 /min Beny Jackson PA Work Phone: [facility] 06-19-2025 16:23-0400 SaO2% (BldA) [Mass fraction] 98 % Beny Pat PA Work Phone: [facility] 06-19-2025 16:23-0400 Systolic blood pressure 113 mm[Hg] Beny Jackson PA Work Phone: [facility] 06-19-2025 15:27-0400 Body mass index (BMI) [Ratio] 28.8 kg/m2 Beny Pat PA Work Phone: [facility] 06-19-2025 15:27-0400 Body weight 76.23 kg Beny Jackson PA Work Phone: [facility] 06-19-2025 15:27-0400 Diastolic blood pressure 77 mm[Hg] Beny Pat PA Work Phone: [facility] 06-19-2025 15:27-0400 Systolic blood pressure 126 mm[Hg] Beny Pat PA Work Phone: [facility] 05-29-2025 14:54-0400 Body height 162.56 cm Beny Pat PA Work Phone: [facility] 05-29-2025 14:54-0400 Body mass index (BMI) [Ratio] 28.3 kg/m2 Beny Jackson PA Work Phone: [facility] 05-29-2025 14:54-0400 Body weight 74.89 kg Beny Pat PA Work Phone: [facility] 05-29-2025 14:54-0400 Diastolic blood pressure 72 mm[Hg] Beny Pat PA Work Phone: [facility] 05-29-2025 14:54-0400 Systolic blood pressure 119 mm[Hg] Beny Pat PA Work Phone: [facility] 05-03-2025 13:11-0400 Body height 162.56 cm Olga Manzo CNM Work Phone: [facility] 05-03-2025 13:11-0400 Body mass index (BMI) [Ratio] 26.6 kg/m2 Olga Manzo CNM Work Phone: [facility] 05-03-2025 13:11-0400 Body weight 70.44 kg Olga Manzo CNM Work Phone: [facility] 05-03-2025 13:11-0400 Diastolic blood pressure 71 mm[Hg] Olga Manzo CNM Work Phone: [facility] 05-03-2025 13:11-0400 Systolic blood pressure 111 mm[Hg] Olga Manzo CNM Work Phone: [facility] 04-07-2025 13:04-0400 Body height 162.56 cm Olga Manzo CNM Work Phone: [facility] 04-07-2025 13:04-0400 Body mass index (BMI) [Ratio] 25.6 kg/m2 Olga Manzo CNM Work Phone: [facility] 04-07-2025 13:04-0400 Body weight 67.64 kg Olga Manzo CNM Work Phone: [facility] 04-07-2025 13:04-0400 Diastolic blood pressure 70 mm[Hg] Olga Manzo CNM Work Phone: [facility] 04-07-2025 13:04-0400 Systolic blood pressure 108 mm[Hg] Olga Manzo CNM Work Phone: [facility] 03-10-2025 08:56-0400 Body height 162.56 cm Olga Manzo CNM Work Phone: [facility] 03-10-2025 08:56-0400 Body mass index (BMI) [Ratio] 25.4 kg/m2 Olga CORDONM Work Phone: [facility] 03-10-2025 08:56-0400 Body weight 67.18 kg Olga Manzo CNM Work Phone: [facility] 03-10-2025 08:56-0400 Diastolic blood pressure 73 mm[Hg] Olga Manzo CNM Work Phone: [facility] 03-10-2025 08:56-0400 Systolic blood pressure 110 mm[Hg] Olga Manzo CNM Work Phone: [facility] 02-10-2025 13:04-0400 Body height 162.56 cm Olga Manzo CNM Work Phone: [facility] 02-10-2025 13:04-0400 Body mass index (BMI) [Ratio] 26.1 kg/m2 Olga Manzo CNM Work Phone: [facility] 02-10-2025 13:04-0400 Body weight 68.94 kg Olga Manzo CNM Work Phone: [facility] 02-10-2025 13:04-0400 Diastolic blood pressure 76 mm[Hg] Olga Manzo CNM Work Phone: [facility] 02-10-2025 13:04-0400 Systolic blood pressure 120 mm[Hg] Olga Manzo CNM Work Phone: [facility] 01-24-2025 11:38-0400 Body mass index (BMI) [Ratio] 25.9 kg/m2 Olga Manzo CNM Work Phone: [facility] 01-24-2025 11:38-0400 Body weight 68.6 kg Olga Manzo CNM Work Phone: [facility] 01-24-2025 11:38-0400 Diastolic blood pressure 64 mm[Hg] Olga Manzo CNM Work Phone: [facility] 01-24-2025 11:38-0400 Systolic blood pressure 110 mm[Hg] Olga Manzo CNM Work Phone: [facility] 01-24-2025 08:05-0400 Body height 162.56 cm Olga Manzo CNM Work Phone: [facility] 01-12-2025 14:16-0400 Body height 162.56 cm Olga Manzo CNM Work Phone: [facility] 01-12-2025 14:16-0400 Body mass index (BMI) [Ratio] 25.7 kg/m2 Olga Manzo CNM Work Phone: [facility] 01-12-2025 14:16-0400 Body weight 68.15 kg Olga Manzo CNM Work Phone: [facility] 01-12-2025 14:16-0400 Diastolic blood pressure 74 mm[Hg] Olga Manzo CNM Work Phone: [facility] 01-12-2025 14:16-0400 Systolic blood pressure 129 mm[Hg] Olga Manzo CNM Work Phone: [facility] 12-26-2024 14:33-0400 Body height 162.6 cm Dereck Geller APRN-REST ROOM [employer] Work Phone: [place] 12-26-2024 14:33-0400 Body mass index (BMI) [Ratio] 25.52 kg/m2 Dereck Geller APRN-[employer] Work Phone: [place] 12-26-2024 14:33-0400 Body weight 67.45 kg Dereck Geller [employer]ITAN EDITOR-[employer] Work Phone: [place] 12-26-2024 14:33-0400 Diastolic blood pressure 78 mm[Hg] Dereck Geller APRN-[employer] RO[employer] Work Phone: [place] 12-26-2024 14:33-0400 Heart rate 93 /min Dereck Geller APRN-[employer] RO[employer] Work Phone: [place] 12-26-2024 14:33-0400 SaO2% (BldA) [Mass fraction] 99 % Dereck Geller [employer]IT[employer] EDITOR-[employer] Work Phone: [place] 12-26-2024 14:33-0400 Systolic blood pressure 110 mm[Hg] Dereck Geller APRN-[employer] ROOM [employer] Work Phone: [place] 12-15-2024 08:43-0400 Diastolic blood pressure 66 mm[Hg] [facility] 1 [place] 12-15-2024 08:43-0400 Heart rate 109 /min [facility] 1 [place] 12-15-2024 08:43-0400 SaO2% (BldA) [Mass fraction] 98 % [facility] 1 [place] 12-15-2024 08:43-0400 Systolic blood pressure 118 mm[Hg] [facility] 1 [place] 11-28-2024 14:20-0400 Body height 160 cm Beny Pat PA-C Work Phone: [place] 11-28-2024 14:20-0400 Body mass index (BMI) [Ratio] 25.69 kg/m2 Beny Jackson PA-C Work Phone: [place] 11-28-2024 14:20-0400 Body weight 65.77 kg Beny Jackson PA-C Work Phone: [place] 11-28-2024 14:20-0400 Diastolic blood pressure 68 mm[Hg] Beny Pat PA-C Work Phone: [place] 11-28-2024 14:20-0400 Heart rate 92 /min Beny Pat PA-C Work Phone: [place] 11-28-2024 14:20-0400 Systolic blood pressure 100 mm[Hg] Beny Jackson PA-C Work Phone: [place] 09-28-2024 13:52-0500 Body height 160 cm Beny Jackson PA-C Work Phone: [place] 09-28-2024 13:52-0500 Body mass index (BMI) [Ratio] 25.86 kg/m2 Beny Pat PA-C Work Phone: [place] 09-28-2024 13:52-0500 Body weight 66.22 kg Beny Jackson PA-C Work Phone: [place] 09-28-2024 13:52-0500 Diastolic blood pressure 80 mm[Hg] Beny Pat PA-C Work Phone: [place] 09-28-2024 13:52-0500 Heart rate 90 /min Beny Stewart PA-C Work Phone: [place] 09-28-2024 13:52-0500 Systolic blood pressure 133 mm[Hg] Beny Stewart PA-C Work Phone: [place] 08-08-2024 11:34-0500 Diastolic blood pressure 72 mm[Hg] Brady Yang DO Work Phone: [place] 08-08-2024 11:34-0500 Heart rate 94 /min Brady Yang DO Work Phone: [place] 08-08-2024 11:34-0500 Respiratory rate 18 /min Brday Yang DO Work Phone: [place] 08-08-2024 11:34-0500 SaO2% (BldA) [Mass fraction] 99 % Brady Yang DO Work Phone: [place] 08-08-2024 11:34-0500 Systolic blood pressure 119 mm[Hg] Brady Yang DO Work Phone: [place] 08-08-2024 09:17-0500 Body height 160 cm Brady Yang DO Work Phone: [place] 08-08-2024 09:17-0500 Body mass index (BMI) [Ratio] 25.69 kg/m2 Brady Yang DO Work Phone: [place] 08-08-2024 09:17-0500 Body temperature 98.01 [degF] Brady Yang DO Work Phone: [place] 08-08-2024 09:17-0500 Body weight 65.77 kg Brady Yang DO Work Phone: [place] Encounters Encounter Date Encounter Type Care Provider Facility Start: 07-20-2025 End: 07-20-2025 ambulatory Beny MEYER Facility:[facility] Start: 07-03-2025 End: 07-03-2025 Patient encounter procedure Olga Manzo CNM -[facility] Work Phone: Start: 07-03-2025 End: 07-03-2025 ambulatory Beny Stewart PA Work Phone: -[facility] Start: 06-19-2025 ambulatory Benyradha Stewart PA Fa cility:[facility] Start: 06-19-2025 Non-patient / Non-visit Dr. Art Marshall MD -[facility] Start: 06-19-2025 End: 06-19-2025 Patient encounter procedure [facility]M [facility] Work Phone: Start: 06-19-2025 End: 06-19-2025 ambulatory Beny Stewart PA Work Phone: -[facility] Start: 05-29-2025 End: 05-29-[address] Marialuisa Marshall MD -[facility] Work Phone: Start: 05-29-2025 End: 05-29-2025 ambulatory Beny Stewart PA Work Phone: -[facility] Start: 05-11-2025 End: 05-11-2025 Emergency department patient visit [facility] Start: 05-03-2025 End: 05-03-[address] Alyssia Moss DO -[facility] Work Phone: Start: 05-03-2025 End: 05-03-2025 ambulatory Olga Manzo CNM Work Phone: -[facility] Start: 04-07-2025 End: 04-07-2025 Patient encounter procedure Olga Manzo CNM -[facility] Work Phone: Start: 04-07-2025 End: 04-07-2025 ambulatory Olga Manzo CNM Work Phone: -[facility] Start: 03-20-2025 End: 03-20-2025 Emergency department patient visit BENY Marck [facility] Start: 03-10-2025 End: 03-10-[address] Alyssia Moss DO -[facility] Work Phone: Start: 03-10-2025 End: 03-10-2025 ambulatory Olga Manzo CNM Work Phone: [facility] Work Phone: Start: 02-20-2025 End: 02-20-2025 ambulatory Olga Manzo CNM Work Phone: [facility] Work Phone: Start: 02-20-2025 End: 02-20-2025 Patient encounter procedure Araseli Jacob BRAVOM -Lab [facility] Start: 02-20-2025 End: 02-20-2025 ambulatory [facility] Facility:[facility] Start: 02-10-2025 End: 02-10-2025 ambulatory Olga Manzo CNM Work Phone: [facility] Work Phone: Start: 02-10-2025 End: 02-10-2025 Patient encounter procedure Araseli Jacob CNM -Laboratory Specimen Work Phone: Start: 02-10-2025 End: 02-10-2025 Patient encounter procedure Araseli Jacob BRAVOM -[facility] Work Phone: Start: 02-10-2025 End: 02-10-2025 ambulatory Olga Manzo CNM Work Phone: [facility] Work Phone: Start: 02-10-2025 End: 02-10-2025 ambulatory Araseli [place] Facility:[facility] Start: 01-24-2025 Non-patient / Non-visit Yeimi cruz RN -[facility] Work Phone: Start: 01-24-2025 End: 01-24-[address] Marialuisa Marshall MD -[facility] Work Phone: Start: 01-24-2025 End: 01-24-2025 ambulatory Olga Jovany CNM Work Phone: [facility] Work Phone: Start: 01-14-2025 End: 01-14-2025 ambulatory Olga Manzo CNM Work Phone: [facility] Work Phone: Start: 01-14-2025 End: 01-14-2025 Patient encounter procedure Sherie PEÑALOZA -Laboratory Work Phone: Start: 01-14-2025 End: 01-14-2025 ambulatory Beny MEYER Facility:[facility] Start: 01-12-2025 End: 01-12-2025 Patient encounter procedure Sherie PEÑALOZA -[facility] Work Phone: Start: 01-12-2025 End: 01-12-2025 Patient encounter status Sherie PEÑALOZA [facility] Start: 01-12-2025 End: 01-12-2025 ambulatory Sherie Padilla Facility:[facility] Start: 01-12-2025 End: 01-12-2025 ambulatory Olga Manzo Facility:[facility] Start: 12-26-2024 End: 12-26-2024 Office outpatient new 45 minutes Dereck Geller [employer]OR[employer] Work Phone: [facility] Building Comment on above: Heart palpitations ( Primary Dx); Tachycardia; Dizziness; POTS (postural orthostatic tachycardia syndrome) Start: 12-26-2024 End: 12-26-2024 ambulatory [facility] Start: 12-15-2024 End: 12-15-2024 ambulatory BENY ORONAENHALL [facility] Start: 12-15-2024 End: 12-15-2024 Subsequent hospital visit by physician Enrrique Exam 1 [facility] Comment on above: Tachycardia; Heart palpitations; Dizziness Start: 11-28-2024 End: 11-28-2024 Office outpatient visit 25 minutes Beny Stewart PA-C Work Phone: [facility] Comment on above: Vitamin D deficiency (Primary Dx); Tachycardia; Heart palpitations; Dizziness; Low ferritin; Chronic left shoulder pain Start: 11-28-2024 End: 11-28-2024 ambulatory [facility] Start: 10-12-2024 End: 10-12-2024 Subsequent hospital visit by physician [facility] Cardiac Room [facility] Comment on above: Tachycardia; Dizziness; Fatigue, unspecified type; Heart palpitations Start: 10-12-2024 End: 10-12-2024 ambulatory [facility] Start: 09-28-2024 End: 09-28-2024 Office outpatient new 45 minutes Beny Stewart PA-C Work Phone: [facility] Comment on above: Encounter to [facility] with new doctor (Primary Dx); Chronic left shoulder pain; Vitamin D deficiency; Tachycardia; Dizziness; Fatigue, unspecified type; Heart palpitations; History of pre-eclampsia Start: 09-28-2024 End: 09-28-2024 ambulatory [facility] Start: 08-08-2024 End: 08-08-2024 Emergency department patient visit Brady Yang DO Work Phone: [facility] Comment on above: Vaginal [...] HCV Quant by PCR testing - HCVPCR #[id number] Non Reactive: < 0.8 Equivocal: >/= 0.8 to < 1.0 Reactive: >/= 1.0The CDC requires that a reactive/equivocal HCV antibody result be sent out for confirmation. HCV Quant by PCR testing. Start: 02-20-2025 Procedure Olga lyman [facility] Work Phone: Start: 02-20-2025 Rubella IgG measurement Olga Manzo [facility] Work Phone: Comment on above: Antibody Result: Int erpretationNon-Reactive: Non- ImmuneReactive: ImmuneThe following results were obtained with the [employer] Rubella IgG assay. Results from assays of other manufacturers cannot be used interchangeably. Start: 02-20-2025 Serologic test for syphilis Olga Manzo [facility] Work Phone: Start: 02-10-2025 Urine culture Olga diego [facility] Work Phone: Start: 12-26-2024 Ecg routine ecg w/le ast 12 lds w/i&r Dereck Geller APRN-REST ROOM [employer] Work Phone: Start: 10-22-2024 Lipid 1996 panel [...] or Population) (1 - 1-dose 75+ series) [place] Start: 2048 Zoster Vaccines (1 of 2) Zoster Vaccines (1 of 2) [place] Start: 10-22-2029 Lipid panel Lipid Panel [place] Start: 07-20-2025 End: 07-20-2025 Patient encounter procedure -Laboratory Specimen Work Phone: Start: 07-20-2025 Bacteria identified in Urine by Culture Urine Culture [facility] Start: 07-20-2025 [facility] Start: 06-27-2025 End: 06-27-2025 Patient encounter procedure 06/27/2025 2:30 PM EDT Office Visit [facility] [address] [place] [address] Dereck Geller, METROPOLITAN EDITOR-REST ROOM [employer] [address] [facility] [place] [address] [facility] Start: 06-19-2025 Nonstress test [facility] Start: 06-19-2025 Obstetric monitoring [facility] Start: 06-19-2025 Ultrasound scan for growth [facility] Start: 06-19-2025 Vital signs measurements [facility] Start: 06-19-2025 [facility] Start: 06-19-2025 Patient discharge [facility] Start: 05-15-2025 Influenza vaccination Influenza Vaccine (Season Ended) [place] Start: 05-01-2025 End: 05-01-2025 Patient encounter procedure 05/01/2025 2:00 PM EDT Office Visit [facility] [address] [facility] [place] [phone] Beny Stewart, PAGuillerminaC [address] [place], [place] [id number] [facility] Start: 02-28-2025 End: 11-28-2025 25-hydroxyvitamin D3 [Mass/volume] in Serum or Plasma Vitamin D 25-Hydroxy,Total (for eval of Vitamin D levels) Lab Routine Vitamin D deficiency Expected: 02/28/2025 (Approximate), Expires: 11/28/2025 [place] Work Phone: Comment on above: Expected: 02/28/2025 (Approximate), Expi res: 11/28/2025 Start: 02-28-2025 End: 11-28-2025 CBC W Auto Differential panel - Blood CBC and Auto Differential Lab Routine Heart palpitations Dizziness Low ferritin Expected: 02/28/2025 (Approximate), Expires: 11/28/2025 [place] Work Phone: Comment on above: Expected: 02/28/2025 (Approximate), Expi res: 11/28/2025 Start: 02-28-2025 End: 11-28-2025 Ferritin [Mass/volume] in Serum or Plasma Ferritin Lab Routine Heart palpitations Dizziness Low ferritin Expected: 02/28/2025 (Approximate), Expires: 11/28/2025 [place] Work Phone: Comment on above: Expected: 02/28/2025 (Approximate), Expi res: 11/28/2025 Start: 02-28-2025 End: 11-28-2025 Iron and Iron binding capacity panel - Serum or Plasma Iron and TIBC Lab Routine Heart palpitations Dizziness Low ferritin Expected: 02/28/2025 (Approximate), Expires: 11/28/2025 [place] Work Phone: Comment on above: Expected: 02/28/2025 (Approximate), Expi res: 11/28/2025 Start: 12-26-2024 End: 12-26-2024 Patient encounter procedure 12/26/2024 2:30 PM EDT Office Visit [facility] [address] [place] [phone] Dereck Geller, METROPOLITAN EDITOR-REST ROOM [employer] [address] [place] [address] [facility] Start: 12-15-2024 End: 12-15-2024 Patient encounter procedure 12/15/2024 8:[address] [facility] [address] [place] [address] [facility] Start: 12-13-2024 End: 12-13-2024 Patient encounter procedure 12/13/2024 4:00 PM EDT Office Visit [facility] [address] [place] [phone] Dave Bryant MD [address] [place] [address] [facility] Start: 12-06-2024 End: 12-06-2024 Patient encounter procedure 12/06/2024 1:30 PM EDT Office Visit [facility] [address] [place] [phone] Dereck Geller, METROPOLITAN EDITOR-[employer] ROOM [employer] [address] [place] [address] [facility] Start: 11-28-2024 End: 11-28-2024 Patient encounter procedure 11/28/2024 2:40 PM EDT Office Visit [facility] [address] [place] [phone] Beny Stewart, PA-C [address] [place] [place] [address] [facility] Start: 11-28-2024 End: 11-28-2026 Tilt table study Tilt Table Cardiac Services Routine Tachycardia Heart palpitations Dizziness Expected: 11/28/2024 (Approximate), Expires: 11/28/2026 [facility] Service Area Work Phone: Comment on above: Expected: 11/28/2024 (Approximate), Expi res: 11/28/2026 Start: 10-12-2024 End: 10-12-[address] [facility] Start: 09-28-2024 End: 09-28-2025 25-hydroxyvitamin D3 [Mass/volume] in Serum or Plasma Vitamin D 25-Hydroxy,Total (for eval of Vitamin D levels) Lab Routine Vitamin D deficiency Tachycardia Dizziness Fatigue, unspecified type Expected: 09/28/2024 (Approximate), Expires: 09/28/2025 [place] Work Phone: Comment on above: Expected: 09/28/2024 (Approximate), Expi res: 09/28/2025 Start: 09-28-2024 End: 09-28-2025 CBC W Auto Differential panel - Blood CBC and Auto Differential Lab Routine Tachycardia Dizziness Fatigue, unspecified type Expected: 09/28/2024 (Approximate), Expires: 09/28/2025 [place] Work Phone: Comment on above: Expected: 09/28/2024 (Approximate), Expi res: 09/28/2025 Start: 09-28-2024 End: 09-28-2025 Cobalamin (Vitamin B12) [Mass/volume] in Serum or Plasma Vitamin B12 Lab Routine Tachycardia Dizziness Fatigue, unspecified type Expected: 09/28/2024 (Approximate), Expires: 09/28/2025 [place] Work Phone: Comment on above: Expected: 09/28/2024 (Approximate), Expi res: 09/28/2025 Start: 09-28-2024 End: 09-28-2025 Comprehensive metabolic 2000 panel - Serum or Plasma Comprehensive Metabolic Panel Lab Routine Tachycardia Dizziness Fatigue, unspecified type Expected: 09/28/2024 (Approximate), Expires: 09/28/2025 [place] Work Phone: Comment on above: Expected: 09/28/2024 (Approximate), Expi res: 09/28/2025 Start: 09-28-2024 End: 09-28-2025 Ferritin [Mass/volume] in Serum or Plasma Ferritin Lab Routine Tachycardia Dizziness Fatigue, unspecified type Expected: 09/28/2024 (Approximate), Expires: 09/28/2025 [place] Work Phone: Comment on above: Expected: 09/28/2024 (Approximate), Expi res: 09/28/2025 Start: 09-28-2024 End: 09-28-2026 Holter monitor study Holter Or Event [employer] Coordinator Cardiac Services Routine Tachycardia Dizziness Fatigue, unspecified type Heart palpitations Expected: 09/28/2024 (Approximate), Expires: 09/28/2026 [place] Work Phone: Comment on above: Expected: 09/28/2024 (Approximate), Expi res: 09/28/2026 Start: 09-28-2024 End: 09-28-2025 Iron and Iron binding capacity panel - Serum or Plasma Iron and TIBC Lab Routine Tachycardia Dizziness Fatigue, unspecified type Expected: 09/28/2024 (Approximate), Expires: 09/28/2025 [place] Work Phone: Comment on above: Expected: 09/28/2024 (Approximate), Expi res: 09/28/2025 Start: 09-28-2024 End: 09-28-2025 Lipid 1996 panel - Serum or Plasma Lipid Panel Lab Routine Tachycardia Dizziness Fatigue, unspecified type Expected: 09/28/2024 (Approximate), Expires: 09/28/2025 [place] Work Phone: Comment on above: Expected: 09/28/2024 (Approximate), Expi res: 09/28/2025 Start: 09-28-2024 End: 09-28-2025 Magnesium [Mass/volume] in Serum or Plasma Magnesium Lab Routine Tachycardia Dizziness Fatigue, unspecified type Expected: 09/28/2024 (Approximate), Expires: 09/28/2025 [place] Work Phone: Comment on above: Expected: 09/28/2024 (Approximate), Expi res: 09/28/2025 Start: 09-28-2024 End: 09-28-2025 Thyrotropin [Units/volume] in Serum or Plasma Thyroid Stimulating Hormone Lab Routine Tachycardia Dizziness Fatigue, unspecified type Expected: 09/28/2024 (Approximate), Expires: 09/28/2025 [place] Work Phone: Comment on above: Expected: 09/28/2024 (Approximate), Expi res: 09/28/2025 Start: 09-28-2024 End: 09-28-2025 Thyroxine (T4) free [Mass/volume] in Serum or Plasma Thyroxine, Free Lab Routine Tachycardia Dizziness Fatigue, unspecified type Expected: 09/28/2024 (Approximate), Expires: 09/28/2025 [place] Work Phone: Comment on above: Expected: 09/28/2024 (Approximate), Expi res: 09/28/2025 Start: 09-28-2024 End: 09-28-2026 US Heart Transthoracic Transthoracic Echo Complete Echocardiography Routine Tachycardia Dizziness Fatigue, unspecified type Heart palpitations Expected: 09/28/2024 (Approximate), Expires: 09/28/2026 [place] Work Phone: Comment on above: Expected: 09/28/2024 (Approximate), Expi res: 09/28/2026 Start: 09-28-2024 End: 09-28-2025 XR Shoulder - left 2 Views XR shoulder left 2+ views Imaging Routine Chronic left shoulder pain Expected: 09/28/2024, Expires: 09/28/2025 [facility] Service Area Work Phone: Comment on above: Expected: 09/28/2024, Expires: Start: 05-15-2024 COVID-19 Vaccine ( season) COVID-19 Vaccine ( season) [place] Start: 05-15-2024 Influenza vaccination Influenza Vaccine (#1) [place] Start: 2020 DTaP/Tdap/Td Vaccines (1 - Tdap) DTaP/Tdap/Td Vaccines (1 - Tdap) [place] Start: 2019 Screening for malignant neoplasm of cervix [place] Start: 2017 Hepatitis B Vaccines (1 of 3 - 19+ 3-dose series) Hepatitis B Vaccines (1 of 3 - 19+ 3-dose series) [place] Start: 2016 Diabetes mellitus screening Diabetes Screening [place] Start: 2016 Hepatitis C screening Hepatitis C Screening [place] Start: 2013 HPV Vaccines (1 - 3-dose series) HPV Vaccines (1 - 3-dose series) [place] Start: 2011 Varicella vaccination Varicella Vaccines (1 of 2 - 13+ 2-dose series) [place] Start: 1999 MMR Vaccines (1 of 1 - Standard series) MMR Vaccines (1 of 1 - Standard series) [place] Start: 1998 HIV screening HIV Screening [place] Start: 1998 Lipid panel Lipid Panel [place] Start: 1998 Yearly Adult Physical Yearly Adult Physical [place] End: 08-08-2024 Bacteria identified in Urine by Culture [place] Work Phone: Comment on above: Once (Lab) for 1 Occurrences starting until 08/08/2024 End: 08-08-2024 Blood type and Indirect antibody screen panel - Blood [place] Work Phone: Comment on above: Once (Lab) for 1 Occurrences starting until 08/08/2024 CBC W Auto Different ial panel - Blood [facility] CBC W Auto Different ial panel - Blood [facility] Chlamydia deoxyribonucleic acid detection [facility] Comprehensive metabo lic 2000 panel - Serum or Plasma [facility] End: 08-08-2024 Extra Urine Isabel Tube [place] Work Phone: Comment on above: Once for 1 Occurrences starting 08/08/20 until 08/08/2024 Hepatitis C antibody measurement [facility] End: 10-12-2024 Holter monitor study [facility] Service Area Work Phone: Comment on above: Once for 1 Occurrences starting 10/12/19 until 10/12/2024 Liquid based cervica l cytology screening [facility] Measurement of gluco se 2 hours after glucose challenge for glucose tolerance test [facility] Patient Education Kick Counts ED False Labor OB Triage: Return to Hospital or Notify Physician if you Experience: [facility] Work Phone: Protein/Creatinine [Ratio] in Urine [facility] Rubella IgG measurement [facility] Serologic test for syphilis [facility] Serologic test for syphilis [facility] End: 12-15-2024 Tilt table study [facility] Service Area Work Phone: Comment on above: Once for 1 Occurrences starting 12/16/19 until 12/15/2024 End: 08-08-2024 Urinalysis complete W Reflex Culture panel - Urine [facility] Work Phone: Comment on above: Once (Lab) for 1 Occurrences starting until 08/08/2024 Urine culture [facility] End: 10-12-2024 US Heart Transthoracic [facility] Service Area Work Phone: Comment on above: Once for 1 Occurrences starting 10/12/19 until 10/12/2024 [facility] [place] Immunization Date Immunization Notes Care Provider Fa cility 07-03-2025 tetanus toxoid, reduced diphtheria toxoid, and acellular pertussis vaccine, adsorbed Beny MEYER Work Phone: [facility] Payers Date Payer Category Payer Self-pay 2023 Managed Care (Private) 1.2.8 [id number] 2023 Private Health Insurance [id number] 1998 Unknown [id number] 2.16.8 40.1.161170.3.579.2.1242 1998 Unknown [id number] 2.16.8 40.1.870341.3.579.2.1242 1998 Unknown [id number] 2.16.8 40.1.909929.3.579.2.1242 1998 Unknown [id number] 2.16.8 40.1.468168.3.579.2.1243 1998 Unknown [id number] 2.16.8 40.1.071238.3.579.2.1243 1998 Unknown [id number] 2.16. 840.1.217305.3.579.2.1244 1998 Unknown [id number] 2.16. 840.1.017092.3.579.2.124 1998 Unknown [id number] 2.16. 840.1.218010.3.579.2.1244 1998 Unknown [id number] 2.16. 840.1.873493.3.579.2.902 Unknown [id number] 2.16.8 40.1.961305.3.579.2.462 Unknown [id number] 2.16.8 40.1.052604.3.579.2.462 Unknown [id number] 2.16.8 40.1.137779.3.579.2.462 Unknown [id number] 2.16.8 40.1.094260.3.579.2.462 Unknown [id number] 2.16.8 40.1.830772.3.579.2.462 Unknown [id number] 2.16.8 40.1.048290.3.579.2.462 Unknown [id number] 2.16.8 40.1.076388.3.579.2.462 Unknown [id number] 2.16.8 40.1.036080.3.579.2.462 Unknown [id number] 2.16.8 40.1.662836.3.579.2.462 Unknown [id number] 2.16.8 40.1.000799.3.579.2.462 Unknown [id number] 2.16.8 40.1.036917.3.579.2.462 Unknown [id number] 2.16.8 40.1.513020.3.579.2.462 Unknown [id number] 2.16.8 40.1.269946.3.579.2.462 Unknown [id number] 2.16.8 40.1.909210.3.579.2.462 Unknown [id number] 2.16.8 40.1.401015.3.579.2.462 Unknown [id number] 2.16.8 40.1.434012.3.579.2.462 Unknown [id number] 2.16.8 40.1.914015.3.579.2.462 Unknown [id number] 2.16.8 40.1.344721.3.579.2.462 Social History Date Type Detail Facility Start: 08-08-2024 End: 01-24-2025 Tobacco smoking status NHIS Never smoked tobacco [facility] Work Phone: Start: 08-08-2024 Tobacco use and exposure Smokeless tobacco non-user [facility] Work Phone: Start: 08-08-2024 End: 11-28-2024 Alcoholic beverage intake Lifetime non-drinker (finding) [facility] Work Phone: Start: 2000 Sex assigned at Not on file [facility] Work Phone: Start: 09-28-2024 End: 11-28-2024 Gender identity Not on file [facility] Work Phone: Start: 07-29-2024 End: 12-26-2024 Exposure to SARS-CoV-2 (event) Not sure [facility] Work Phone: Start: 09-28-2024 End: 11-28-2024 History of Social function [facility] Work Phone: Start: 12-26-2024 Alcoholic beverage intake Current drinker of alcohol (finding) [facility] Work Phone: Start: 2000 Sex Assigned At Female [facility] Clinical Notes 08-08-2024 to 07-03-2025 Note Date & Type Note Facility 07-03-2025 Progress note [facility] 07-03-2025 Progress note Note Date/Time July 03, 2025 4:34pm [facility] [address], [address] [place] [address] OFFICE VISIT Date of Service: 07/03/25 MR#: [id number] Acct: [id number] Name: JUSTINO RENDON Rep #: [id number] : 2000 Provider: FAB Manzo Age/Sex: 25/F [place] [facility] Status: Signed Intake Vital Signs 04/07/25 13:04 06/19/25 16:29 07/03/25 15:17 Height 5 ft 4 in 5 ft 3 in 5 ft 3 in Weight: 171 lb 7 oz BMI 30.3 BP 117/75 Intake Visit Reasons: 29 WK 4D OB 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 Administered by: Mickie Valles on 07/03/25 15:33 Dose Route Admin Location Dispensed Lot Number Expiration Date Pack age NDC NDC Balloon Pilot 0.5 mL IM Right Deltoid 0.5 mL [id number] 05/13/27 98959-805-01 [id number] SANOFI- PASTEUR VIS Given Date VIS Provided [...] fallen in the past year?: No 07/07/25 8918 <Electronically signed by Olga mcdaniel CNM> Date _ Olga Manzo CNM Cosigner Signature: Date (if applicable) CC: ~ [facility] Work Phone: 1(560) 355-502710-06-2025 Radiology Diagnostic study note [facility] Imaging Services [address] [place] [address] [id number] OB Limited With Biometrics MR#: [id number] Acct: [id number] Name: JUSTINO RENDON Rep #: [id number] : 2000 F 25 From: Rosalva Tiwari MD PCP: MITCH Duran Status: REG CLI Study:OB Limited With Biometrics Date of Exam : 06/19/25 Exam# [id number] Ordering Dr: Marialuisa Gunderson MD PROCEDURE: OB [...] of 09/03/2025. No acute abnormalities. Reading Location: [facility] CC: Dr. Marialuisa Marshall MD; MITCH Duran ~ Bread Jockey: Signed [facility]10-06-2025 Progress note [facility] Medical Records Department [address] [place] [address] OB Triage Progress Note 06/19/25 1821 MR#: [id number] Acct: [id number] Name: JUSTINO RENDON Rep #:[id number] : 2000 25 From: Marialuisa castillo MD PCP: MITCH Duran Status:REG CLI Y DOS: Location: [place] [address] Progress Notes Date of Service: 06/19/25 Progress Note: Patient presents for triage evaluation secondary to decreased movement FHT: 140 Moderate variability reactive no decelerations category I tracing Merrill: no regular Contractions Assessment and plan: dec [...] % Lymph % (Auto) 22.5 (19-41) % [place] % (Auto) 5.9 (0-10) % Eos % (Auto) 1.3 (0-5) % Baso % (Auto) 0.1 (0-1) % Absolute Neuts (auto) 7.7 (2.0-7.7) X10^3/uL Absolute Lymphs (auto) 2.48 (0.83-4.51) X10^3/uL Nucleated RBC % 0 (0-5) % Glucose 1 Hr 50 gm 131 (70-140) mg/dL Syphilis Total Ab Nonreactive (Nonreactive) HIV 1&2 Antibody Nonreactive (Nonreactive) Charges/Coding Procedures Urinary/Genital 52xxx-59xxx: 86770-06 non-stress test Interp 06/19/25 1824 stacy COVINGTON> Date _ Marialuisa Marshall MD Cosign Signature (if applicable): Date CC: Dr. 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 06/19/25 1605 s MAITRE D' MAITRE D'-C> Date _ Shireen Carnes MAITRE D' MAITRE D'-C Cosigner Signature: Date (if applicable) CC: ~ [facility]10-06-2025 Progress note Author Shireen Corbin 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 Competitive Intelligence Required: No Is patient in pain?: No [...] 1 current occupational status: employed current occupation: [employer] current occupational exposures/hazards: No pets and animals: [...] 1-2 times per week duration: 15-30 minutes/day deric/yarsani: Mu-Ism seatbelt use: always do you feel safe [...] full term vacuum 7lbs 11oz Male epidural [place] 07/15/24 Chemical 5 spontaneous Delivery Date: [...] Huitron Signature: Date (if applicable) CC: ~ [facility] Work Phone: 1(138) 386-673109-15-2025 Progress [facility] [address] [place] [address], [address] [place] [address] OFFICE VISIT Date of Service: 05/29/25 MR#: [id number] Acct: [id number] Name: JUSTINO RENDON Rep #: [id number] : 2000 Provider: Dr. Victor M Marshall MD Age/Sex: 25/F [place] [facility] Status: Signed Intake Vital Signs 04/07/25 13:04 05/03/25 13:11 05/29/25 14:54 Height 5 ft 4 in 5 ft 4 in 5 ft 4 in Weight: 165 lb 2 oz BMI 28.3 BP 119/72 Intake Visit Reasons: 25 WK OB Manager Competitive Intelligence Required: No Is patient in pain?: No [...] 1 current occupational status: employed current occupation: [employer] current occupational exposures/hazards: No pets and animals: [...] 1-2 times per week duration: 15-30 minutes/day deric/yarsani: Mu-Ism seatbelt use: always do you feel safe [...] full term vacuum 7lbs 11oz Male epidural [place] 07/15/24 Chemical 5 spontaneous Delivery Date: [...] high-risk : Status: Acute Comment: PRR ; VIKCY 09/14/25;boy tony PC: Franki; : Tal (3) [...] Cosigner Signature: Date (if applicable) CC: ~ [facility]09-15-2025 Progress note Author Marialuisa Marshall [facility] Note Date/Time May 29, 2025 3:24pm [facility] [address], [address] [place] [address] OFFICE VISIT Date of Service: 05/29/25 MR#: [id number] Acct: [id number] Name: JUSTINO RENDON Rep #: [id number] : 2000 Provider: Dr. Victor M Marshall MD Age/Sex: 25/F [place] [facility] Status: Signed Intake Vital Signs 04/07/25 13:04 05/03/25 13:11 05/29/25 14:54 Height 5 ft 4 in 5 ft 4 in 5 ft 4 in Weight: 165 lb 2 oz BMI 28.3 BP 119/72 Intake Visit Reasons: 25 WK OB Manager Competitive Intelligence Required: No Is patient in pain?: No [...] 1 current occupational status: employed current occupation: [employer]- [employer] current occupational exposures/hazards: No pets and animals: [...] 1-2 times per week duration: 15-30 minutes/day deric/yarsani: Mu-Ism seatbelt use: always do you feel safe [...] full term vacuum 7lbs 11oz Male epidural [place] 07/15/24 Chemical 5 spontaneous Delivery Date: [...] Huitron Signature: Date (if applicable) CC: ~ [facility] Work Phone: 1(568) 663-768408-20-2025 Progress [facility] [address] [place] [address], [address] [place] [address] OFFICE VISIT Date of Service: 05/03/25 MR#: [id number] Acct: [id number] Name: JUSTINO RENDON Rep #: [id number] : 2000 Provider: Dr. Radha Moss DO Age/Sex: 24/F Location[place] [facility] Status: Signed Intake Vital Signs 02/10/25 13:04 04/07/25 13:04 05/03/25 13:11 05/03/25 13:11 Height 5 ft 4 in 5 ft 4 in 5 ft 4 in 5 ft 4 in Weight: 155 lb 5 oz BMI 26.6 BP 111/71 Intake Visit Reasons: 21wk ob Manager Competitive Intelligence Required: No Is patient in pain?: No [...] 1 current occupational status: employed current occupation: [employer]- [employer] current occupational exposures/hazards: No pets and animals: [...] 1-2 times per week duration: 15-30 minutes/day deric/yarsani: Mu-Ism seatbelt use: always do you feel safe [...] full term vacuum 7lbs 11oz Male epidural [place] 07/15/24 Chemical 5 spontaneous Delivery Date: [...] Wrightignannika Signature: Date (if applicable) CC: ~ [facility]07-25-2025 Evaluation note* Diagnosis Onset Date [...] Supervision of high-risk acute July 20 3:21pm [facility] Work Phone: 1(202) 128-243007-25-2025 Progress [facility] [address] [place] [address], [address] [place] [address] OFFICE VISIT Date of Service: 04/07/25 MR#: [id number] Acct: [id number] Name: JUSTINO RENDON Suzan Rep #: [id number] : 2000 Provider: FAB Manzo Age/Sex: 24/F [place] [facility] Status: Signed Intake Vital Signs 02/10/25 13:04 03/10/25 08:56 04/07/25 13:04 Height 5 ft 4 in 5 ft 4 in 5 ft 4 in Weight: 149 lb 2 oz BMI 25.6 BP 108/70 Intake Visit Reasons: 17wk ob Chief Complaint: 17 Week OB Manager Competitive Intelligence Required: No Is patient in pain?: No [...] 1 current occupational status: employed current occupation: [employer] current occupational exposures/hazards: No pets and animals: [...] 1-2 times per week duration: 15-30 minutes/day deric/yarsani: Mu-Ism seatbelt use: always do you feel safe at home: Yes 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 Date Name GA/Weeks Outcome Route Bth Weight [facility] Doan 39 [...] 04/07/25 1325 s CNM> Date _ Olga aMnzo CNM Cosigner Signature: Date (if applicable) CC: ~ [facility]06-27-2025 Evaluation note* Diagnosis Onset Date [...] Supervision of high-risk acute June 19 3:21pm [facility] Work Phone: 1(211) 430-688405-30-2025 Evaluation note* Diagnosis Onset Date Resolution Status [...] of high-risk acute May 29, 2025 2:44pm [facility] Work Phone: 1(345) 934-626505-30-2025 Progress [facility] [address] [place] [address], [address] [place] [address] OFFICE VISIT Date of Service: 02/10/25 MR#: [id number] Acct: [id number] Name: JUSTINO RENDON Rep #: [id number] : 2000 Provider: FAB Jacob Age/Sex: 24/F [place] [facility] Status: Signed Intake Vital Signs 01/12/25 14:16 01/24/25 11:38 02/10/25 13:04 Height 5 ft 4 in 5 ft 4 in 5 ft 4 in Weight: 152 lb BMI 26.1 BP 120/76 Intake Visit Reasons: NOB LMP 12/08 Manager Competitive Intelligence Required: No Is patient in pain?: No [...] 1 current occupational status: employed current occupation: [employer]- [employer] current occupational exposures/hazards: No pets and animals: [...] 1-2 times per week duration: 15-30 minutes/day deric/yarsani: Mu-Ism seatbelt use: always do you feel safe [...] full term vacuum 7lbs 11oz Male epidural [place] 07/15/24 Chemical 5 spontaneous Delivery Date: [...] Pulmonary (e.g.,TB,Asthma), Seasonal allergies, Drug/latex allergies/reactions, Breast, Orthopedic Shoe Maker surgery, Operations/hospitalizations, Anesthetic complications, History of abnormal [...] Cosigner Signature: Date (if applicable) CC: ~ [facility]05-01-2025 Evaluation note* Diagnosis Onset Date Resolution Status Admit Date Encounter for routine gynecological examination noneactive January 2:05pm [facility] Work Phone: 1(107) 407-155805-01-2025 Evaluation note* Diagnosis Onset Date Resolution Status Admit Date Encounter for routine gynecological examination noneactive January 2:05pm History of miscarriage, currently acute February 10 1:02pm History of pre-eclampsia in prior , currently acute February 10, 2025 1 :02pm POTS (postural orthostatic tachycardia syndrome) acute February 10, 2025 1:02pm acute February 10, 2025 1:02pm Supervision of high-risk acute February 10, 2025 1 :02pm [facility] Work Phone: 1(802) 274-430105-01-2025 Evaluation note* Diagnosis Onset Date Resolution Status [...] of high-risk acute March 10, 2025 8:52am [facility] Work Phone: [phone]) [phone] Evaluation note* Diagnosis Onset Date Resolution Status [...] of high-risk acute April 07, 2025 12:56pm [facility] Work Phone: [phone]) [phone] Evaluation note* Diagnosis Onset Date Resolution Status [...] Supervision of high-risk acute May 03 12:58pm [facility] Work Phone: 1(803) 335-363504-14-2025 History of Present illness Narrative* Dereck Geller, METROPOLITAN EDITOR-REST ROOM MATRON - 12/26/2024 2:30 PM EDT Images from the original note were not included. [facility] Cardiology Clinic Visit Note History of [...] hospital encounter of 10/12/24 [place] [address] ext-2528, TRANSTHORACIC ECHOCARDIOGRAM REPORT Patient Name: JUSTINO Taylor Physician: [id number] Sam Garcia MD Study Date: 10/12/2024 Ordering Provider: [id number] BENY STEWART MRN/PID: [id number] Fellow: Nurse: Sharmila Thurman RN Date of /Age: 9 2000 Plate Take Out Worker: Roberto Proctor RDCS years Gender Assigned at F Additional Staff: : Height: 160.02 cm Admit Date: Weight: 66.23 kg Admission Status: Outpatient BSA / BMI: 1.69 m2 / 25.86 Department Location: [facility] Echo Lab kg/m2 Blood Pressure: 102 /72 mmHg Study Type: TRANSTHORACIC ECHO (TTE) COMPLETE Diagnosis/ICD: Dizziness and giddiness-R42 CPT Codes: Echo Complete w Full Doppler-81696 Study Detail: The following Echo studies were [...] LA Area A2C: 9.0 cm2 LA Major [place] A4C: 4.4 cm LA [place] A2C: 4.4 cm LA Volume Index: 11.4 [...] RV Syst Pressure: 15 mmHg (< 30mmHg) [id number] Sam Garcia MD Electronically signed on 10/13/2024 at 9:07:36 PM Final The ASCVD Risk score (Pike DK, et al., 2019) failed to calculate [...] been made to prevent any error in endoscopy support specialist, however minor errors may be present Dereck Geller, MSN, REST ROOM MATRON, ACNPC, CCRN Advanced Practice Provider, Nurse Practitioner Division of Cardiovascular Medicine [facility] Work Phone: 1([phone]) 194-346204-03-2025 Miscellaneous Notes* Post-Procedure Note - Patrick Armenta MD - 12/15/2024 8:00 AM EDT Physician Transition of Care Summary Invasive Cardiovascular Lab Procedure Date: 12/15/2024 Attending: * No surgeons found in log * Resident/Fellow/Other Clinical Research Assistant: * No surgeons found in log * [...] MD, 12/15/2024 2:52 PM documented in this [facility] Work Phone: 1(331) 354-595904-03-2025 Surgery Postoperative evaluation and management note* Post-Procedure Note - Patrick Armenta MD - 12/15/2024 8:00 AM EDT Physician Transition of Care Summary Invasive Cardiovascular Lab Procedure Date: 12/15/2024 Attending: * No surgeons found in log * Resident/Fellow/Other Clinical Research Assistant: * No surgeons found in log * [...] by: Patrick Armenta MD, 12/15/2024 2:52 PM [facility] Work Phone: 1([phone]) 899-727203-17-2025 History of Present illness Narrative* Beny Stewart [...] table Referral to cardio [facility] in [facility] Work Phone: 1([phone]) 138-307201-29-2025 Note* Significant Event - Araseli Thurman RN - 10/12/2024 1:08 PM EST 10ml of saline given for bubble study per pyrotechnist instruction [facility]01-29-2025 Miscellaneous Notes* Significant Event - Araseli Thurman RN - 10/12/2024 1:08 PM EST 10ml of saline given for bubble study per pyrotechnist instruction [facility] in this [facility] Work Phone: 1(407) 489-345201-15-2025 History of Present illness Narrative* Beny Stewart PA-C - 09/28/2024 2:00 PM EST Subjective Patient ID: Justino Rendon is a 24 y.o. female who presents for New Patient Visit (NEW PATIENT TO [facility] - MOVED TO THE AREA FROM [place] 1 YEAR AGO. C/O LEFT SHOULDER PAIN [...] (Completed) Transthoracic Echo Complete Holter Or Event Ocean Export Coordinator Chronic left shoulder pain M25.512, G89.29 Relevant Orders XR shoulder left 2+ views Referral to Orthopaedic Surgery Vitamin D deficiency E55.9 Relevant Orders Vitamin D 25-Hydroxy,Total (for eval of Vitamin D levels) Heart palpitations R00.2 Relevant Orders ECG 12 Lead (Completed) Transthoracic Echo Complete Holter Or Event Ocean Export Coordinator History of pre-eclampsia Z87.59 Other Visit Diagnoses Codes Encounter to establish care with new doctor - Primary Z76.89 Dizziness R42 Relevant Orders CBC and Auto Differential Comprehensive Metabolic Panel Lipid Panel Thyroid Stimulating Hormone Thyroxine, Free Iron and TIBC Ferritin Magnesium Vitamin B12 Vitamin D 25-Hydroxy,Total (for eval of Vitamin D levels) ECG 12 Lead (Completed) Transthoracic Echo Complete Holter Or Event Ocean Export Coordinator Fatigue, unspecified type R53.83 Relevant Orders CBC and Auto Differential Comprehensive Metabolic Panel Lipid Panel Thyroid Stimulating Hormone Thyroxine, Free Iron and TIBC Ferritin Magnesium Vitamin B12 Vitamin D 25-Hydroxy,Total (for eval of Vitamin D levels) ECG 12 Lead (Completed) Transthoracic Echo Complete Holter Or Event Ocean Export Coordinator FU in 1-2 mo with labs at [facility] fasting and med check Echo, monitor Ortho referral documented [facility] Work Phone: 1(864) 751-598011-25-2024 Emergency department Note* Brady Yang, - 08/08/2024 [...] form of control. History provided by: Patient jig operator used: No Patient History History reviewed. No [...] this time. She will be referred to PIT LABORER and instructed to return for any other ongoing concerns. Procedure Procedures Brady Yang DO 08/08/24 1131 documented in this [facility] Work Phone: 1(292) 202-885811-25-2024 Physician Emergency department Note* Brady Yang DO [...] form of control. History provided by: Patient jig operator used: No Patient History History reviewed. No [...] 08/08/24 1127 Vaginal bleeding No data recorded [place] Coma Scale Score: 15 (08/08/24 0915 : [...] this time. She will be referred to PIT LABORER and instructed to return for any other ongoing concerns. Procedure Procedures Brady Yang DO 08/08/24 1131 [facility] Work Phone: Evaluation note* Diagnosis Vaginal bleeding- Primary Other specified noninflammatory disorder of vagina documented in this encounter [facility] Work Phone: Evaluation note* Diagnosis Encounter to establish care with new doctor- Primary Chronic left shoulder pain Pain in joint, shoulder region Vitamin D deficiency Tachycardia Unspecified tachycardia Dizziness Dizziness and giddiness Fatigue, unspecified type Heart palpitations Palpitations History of pre-eclampsia documented in this encounter [facility] Work Phone: Evaluation note* Diagnosis Tachycardia Unspecified tachycardia Dizziness Dizziness and giddiness Fatigue, unspecified type Heart palpitations Palpitations documented in this encounter [facility] Work Phone: Evaluation note* Diagnosis Tachycardia Unspecified tachycardia Dizziness Dizziness and giddiness Fatigue, unspecified type Heart palpitations Palpitations documented in this encounter [facility] Work Phone: Evaluation note* Diagnosis Vitamin D deficiency- Primary Tachycardia Unspecified tachycardia Heart palpitations Palpitations Dizziness Dizziness and giddiness Low ferritin Other nonspecific findings on examination of blood Chronic left shoulder pain Pain in joint, shoulder region Left shoulder pain, unspecified chronicity documented in this encounter [facility] Work Phone: Evaluation note* Diagnosis Tachycardia Unspecified tachycardia Heart palpitations Palpitations Dizziness Dizziness and giddiness documented in this encounter [facility] Work Phone: Evaluation note* Diagnosis Heart palpitations- Primary Palpitations Tachycardia Unspecified tachycardia Dizziness Dizziness and giddiness POTS (postural orthostatic tachycardia syndrome) Unspecified tachycardia documented in this encounter [facility] Work Phone: Hospital Discharge instructions* Attachments The following attachments cannot be sent through Care Everywhere. * Menstruation (Czech) [place] [facility] Work Phone: Progress note Author Araseli Jacob [facility] Note Date/Time February 10, 2025 1:42p [facility] [address], [address] [place] [address] OFFICE VISIT Date of Service: 02/10/25 MR#: [id number] Acct: [id number] Name: JUSTINO RENDON Rep #: [id number] : 2000 Provider: FAB Jacob Age/Sex: 24/F [place] [facility] [place]: Signed Intake Vital Signs 01/12/25 14:16 01/24/25 11:38 02/10/25 13:04 Height 5 ft 4 in 5 ft 4 in 5 ft 4 in Weight: 152 lb BMI 26.1 BP 120/76 Intake Visit Reasons: NOB LMP 12/08 Manager Competitive Intelligence Required: No Is patient in pain?: No [...] 1 current occupational status: employed current occupation: [employer]- [employer] current occupational exposures/hazards: No pets and animals: [...] 1-2 times per week duration: 15-30 minutes/day deric/yarsani: Mu-Ism seatbelt use: always do you feel safe [...] full term vacuum 7lbs 11oz Male epidural [place] 07/15/24 Chemical 5 spontaneous Delivery Date: [...] Pulmonary (e.g.,TB,Asthma), Seasonal allergies, Drug/latex allergies/reactions, Breast, Orthopedic Shoe Maker surgery, Operations/hospitalizations, Anesthetic complications, History of abnormal [...] Cosigner Signature: Date (if applicable) CC: ~ [facility] Work Phone: Progress note Author Olga Manzo [facility] Note Date/Time April 07, 2025 1:25 pm [facility] [address], [address] [place] [address] OFFICE VISIT Date of Service: 04/07/25 MR#: [id number] Acct: [id number] Name: JUSTINO RENDON Rep #: [id number] : 2000 Provider: FAB Manzo Age/Sex: 24/F [place] [facility] [place] Status: Signed Intake Vital Signs 02/10/25 13:04 03/10/25 08:56 04/07/25 13:04 Height 5 ft 4 in 5 ft 4 in 5 ft 4 in Weight: 149 lb 2 oz BMI 25.6 BP 108/70 Intake Visit Reasons: 17wk ob Chief Complaint: 17 Week OB Manager Competitive Intelligence Required: No Is patient in pain?: No [...] 1 current occupational status: employed current occupation: [employer]- [employer] current occupational exposures/hazards: No pets and animals: [...] 1-2 times per week duration: 15-30 minutes/day deric/yarsani: Mu-Ism seatbelt use: always do you feel safe [...] full term vacuum 7lbs 11oz Male epidural [place] 07/15/24 Chemical 5 spontaneous Delivery Date: [...] this visit. GA appropriate handout given. 04/07/25 1322 <Electronically signed by Olga mcdaniel CNM> Date _ Olga CORDONFabrice Hightowerigner Signature: Date (if applicable) CC: ~ [facility] Work Phone: Progress note Author Alyssia Monzon [facility] Note Date/Time May 03, 2025 1: 27pm [facility] [address] [place] [address], [address] [place] [address] OFFICE VISIT Date of Service: 05/03/25 MR#: [id number] Acct: [id number] Name: JUSTINO RENDON Rep #: [id number] : 2000 Provider: Dr. Radha Moss DO Age/Sex: 24/F [place] [facility] [place] Status: Signed Intake Vital Signs 02/10/25 13:04 04/07/25 13:04 05/03/25 13:11 05/03/25 13:11 Height 5 ft 4 in 5 ft 4 in 5 ft 4 in 5 ft 4 in Weight: 155 lb 5 oz BMI 26.6 BP 111/71 Intake Visit Reasons: 21wk ob Manager Competitive Intelligence Required: No Is patient in pain?: No [...] 1 current occupational status: employed current occupation: [employer]- [employer] current occupational exposures/hazards: No pets and animals: [...] 1-2 times per week duration: 15-30 minutes/day deric/yarsani: Mu-Ism seatbelt use: always do you feel safe [...] full term vacuum 7lbs 11oz Male epidural [place] 07/15/24 Chemical 5 spontaneous Delivery Date: [...] Cosigner Signature: Date (if applicable) CC: ~ [facility] Work Phone: Progress note Author Marialuisa aMrshall [facility] Note Date/Time June 19, 2025 6: 24pm [facility] Medical Records Department [address] [facility] [place] [address] OB Triage Progress Note 06/19/25 1821 MR#: [id number] Acct: [id number] Name: JUSTINO RENDON Rep #:[id number] : 2000 25 From: Marialuisa castillo MD PCP: MITCH Duran Status:REG CLI Y DOS: Location: [place] [id number] Progress Notes Date of Service: 06/19/25 Progress Note: Patient presents for triage evaluation secondary to decreased movement FHT: 140 Moderate variability reactive no decelerations category I tracing Merrill: no regular Contractions Assessment and plan: dec [...] % Lymph % (Auto) 22.5 (19-41) % [place] % (Auto) 5.9 (0-10) % Eos % (Auto) 1.3 (0-5) % Baso % (Auto) 0.1 (0-1) % Absolute Neuts (auto) 7.7 (2.0-7.7) X10^3/uL Absolute Lymphs (auto) 2.48 (0.83-4.51) X10^3/uL Nucleated RBC % 0 (0-5) % Glucose 1 Hr 50 gm 131 (70-140) mg/dL Syphilis Total Ab Nonreactive (Nonreactive) HIV 1&2 Antibody Nonreactive (Nonreactive) Charges/Coding Procedures Urinary/Genital 52xxx-59xxx: 72365-21 non-stress test Interp 06/19/25 6108 <Electronically signed by Marialuisa kumar MD> Date _ Marialuisa Marshall MD Cosigner Signature (if applicable): Date CC: Dr. Marialuisa Marshall MD; MITCH Duran ~ [facility] Work Phone: Reason for referral (narrative)No reason for referral information availableWCincinnati [facility] Work Phone: Reason for visit Narrative* Cardiovascular (Routine) - Authorized Specialty Diagnoses / Procedures Referred By Contac t Referred To Contact Cardiology Diagnoses Tachycardia Dizziness Fatigue, unspecified type Heart palpitations Procedures Holter Or Event Ocean Export Coordinator Beny Stewart PA-C [address] [place] [address] Phone: tel: fax: Referral ID Status Reason Start Date Expiration Date V isits Requested Visits Authorized [id number] Authorized 09/28/2024 09/28/2025 1 1 [place] Work Phone: Reason for visit Narrative* CV Imaging (Routine) - Authorized Specialty Diagnoses / Procedures Referred By Contac t Referred To Contact Cardiology Diagnoses Tachycardia Dizziness Fatigue, unspecified type Heart palpitations Procedures Transthoracic Echo Complete VT ECHO TTHRC R-T 2D W/WOM-MODE COMPL SPEC&COLR D Beny Stewart PA-C [address] [place] [address] Phone: tel: fax: Referral ID Status Reason Start Date Expiration Date Visits Requested Visits Authorized [id number] Authorized Perform Procedure 09/28/2024 09/28/2025 1 1 [place] Work Phone: Reason for visit Narrative* Cardiovascular (Routine) - Authorized Specialty Diagnoses / Procedures Referred By Contac t Referred To Contact Cardiology Diagnoses Tachycardia Heart palpitations Dizziness Procedures Tilt Table Beny Stewart PA-C Phone: tel: fax: Referral ID Status Reason Start Date Expiration Date V isits Requested Visits Authorized [id number] Authorized 11/28/2024 11/28/2025 1 1 [place] Work Phone: Summary Purpose Family History No [...] for Visit Chief Complaint Admit Date Annual (PIT LABORER) January 12, 2025 2:05pm E ORDER January 14, 2025 3:05pm Reason for Visit Admit Date Encounter for routine gynecological exam ination January 12, 2025 2:05pm Chief Complaint Admit Date Annual (PIT LABORER) January 12, 2025 2:05pm E ORDER January 14, 2025 3:05pm New ob/confirm /vitals January 10:55am Amb Documentation January 24, 2025 11:06 am Chief Complaint Admit Date Annual (PIT LABORER) January 12, 2025 2:05pm E ORDER January [...] 142024 1:02pm Chief Complaint Admit Date Annual (PIT LABORER) January 12, 2025 2:05pm E ORDER January [...] 2025 8:52am Chief Complaint Admit Date Annual (PIT LABORER) January 12, 2025 2:05pm E ORDER January [...] 2025 12:56pm Chief Complaint Admit Date Annual (PIT LABORER) January 12, 2025 2:05pm E ORDER January [...] Comments New Patient Visit NEW PATIENT TO [facility] - MOVED TO THE AREA FROM [place] 1 YEAR AGO. C/O LEFT SHOULDER PAIN - HISTORY OF SURGERY X 2. LIMITED ROM. C/O EPISODE X 2 OF RACING HEART WITH HEART RATE IN THE 150'S - EPISODES LAST APPROXIMATELY 20 MINUTES. Specialty Diagnoses / Procedures Referred By Marylu t Referred To Contact Diagnoses Tachycardia Dizziness Fatigue, unspecified type Heart palpitations Procedures ECG 12 Lead Beny Stewart PA-C [address] [place] [address] Phone: tel: fax: Referral ID Status Reason Start Date Expiration Date V isits Requested Visits Authorized [id number] Authorized 09/28/2024 09/28/2025 1 1 Reason Comments [...] Date Expiration Date Visits Requested Visits Authorized [id number] Authorized Specialty Services Required 11/28/2024 11/28/2025 1 1 Care Teams (unrecognized sec tion and content) Dietitian Research Relationship Specialty Start Date End Date Generic Provider, No Assigned Pcp, [place] [address] PCP - General Day Haul Youth Supervisor 08/08/24 Dietitian Research Relationship Specialty Start Date End Date Beny Stewart PA-C [address] [place] [address] PCP - General Internal Medicine 09/28/24 Dietitian Research Relationship Specialty Start Date End Date Beny Stewart PA-C [address] [place] [address] PCP - General Internal Medicine 09/28/24 Dietitian Research Relationship Specialty Start Date End Date Beny Stewart PA-C [address] [place] [address] PCP - General Internal Medicine 09/28/24 Dietitian Research Relationship Specialty Start Date End Date Beny Stewart PA-C [address] [place] [address] PCP - General Internal Medicine 09/28/24 Dietitian Research Relationship Specialty Start Date End Date Beny Stewart, PA-C [address] [place] [address] PCP - General Internal Medicine 09/28/24 Dietitian Research Relationship Specialty Start Date End Date Beny Stewart, PA-C [address] [place] [address] PCP - General Internal Medicine 09/28/24 Team Status: Active Member Role Status Dates MITCH Claudio Primary Care Provider Active Team Status: Inactive Member Role Status Dates JH Almeida Attending Provider Active Start: January 12, 2025 End: January 12, 2025 Team Status: Inactive Member Role Status Dates lOga Manzo CNM Attending Provider Active S tart: [...] Status: Inactive Member Role/Relationship Status Dates Beny Jackson PA, PA Primary Care Provider Active Start: [...] 03, 2025 End: May 03, 2025 Beny Jackson PA, PA Referring Provider Active Start: May 03, 2025 End: May 03, 2025 Dr. Alyssia Moss DO Attending Provider Activ e Start: May 03, 2025 End: May 03, 2025 Team Status: Inactive Member Role/Relationship Status Dates Beny Jackson PA, PA Primary Care Provider Active Start: [...] Status: Inactive Member Role/Relationship Status Dates Beny Jackson PA, PA Primary care physician Active Start: [...] 29, 2025 End: May 29, 2025 Beny Jackson PA, PA Referring Provider Active Start: May [...] 2025 End: June 19, 2025 Shireen Carnes MAITRE D', MAITRE D'-C Attending physician Active Start: June 19, 2025 [...] Status: Inactive Member Role/Relationship Status Dates Beny Jackson PA, PA Primary care physician Active Start: April 07, 2025 End: April 07, 2025 Beny Jackson PA, PA Referring Provider Active Start: April 07, 2025 End: April 07, 2025 Olga Manzo CNM Attending physician Active Start: April 07, 2025 End: April 07, 2025 Team Status: Inactive Member Role/Relationship Status Dates Beny Pat PA, PA Primary care physician Active Start: May 03, 2025 End: May 03, 2025 Beny Jackson PA, PA Referring Provider Active Start: May 03, 2025 End: May 03, 2025 Dr. Alyssia Moss DO Attending physician Acti ve Start: May 03, 2025 End: May 03, 2025 Team Status: Inactive Member Role/Relationship Status Dates Beny Jackson PA, PA Primary care physician Active Start: [...] End: June 19, 2025 Shireen Carnes NP, MAITRE D'-C Attending physician Active Start: June 19, 2025 [...] DATE CREATED AUTHOR AUTHOR'S ORGANIZ ATION 03/29/2025 [facility] DATE CREATED AUTHOR AUTHOR'S ORGANIZ ATION 04/17/2025 [facility] DATE CREATED AUTHOR AUTHOR'S [...] BE BASED ON THE PRIMARY CLINICAL RECORDS. [employer] [facility]. provides no warranty or guarantee of the accuracy or completeness of information in this document.
[2025-09-06] MEDS: Lactated Ringers 1,000 ML 999 ML IV (06:20)
[2025-09-06] MEDS: Penicillin G Pot 5,000,000 UNITS in 0.9% Normal Saline (100mL MB+) 100 ML 150 UNITS IV (06:25)
[2025-09-06 06:46] LABS: Hematocrit 34.1 % (37-47); Hemoglobin 10.8 g/dL (12.0-15.0); Immature Granulocytes Count 0.080 X10^3/uL (0.0-0.0); Mean Corp Hgb Conc 31.7 g/dL (32-36); Mean Corpuscular Volume 83.0 fL (81-99); Mean Platelet Vol. 9.7 fl (6.2-12.0); NRBC Flagged by Analyzer 0 % (0-5); Platelet Count 224 K/mm3 (150-450); RBC Distribution Width CV 14.9 % (11.6-14.6); RBC Distribution Width SD 43.9 fl (35.1-43.9); Red Blood Count 4.11 M/mm3 (4.2-5.4); White Blood Count 10.8 K/mm3 (4.4-11.0)
--- NOTE | 2025-09-06 07:20 | HP.PCM.OB_ITS ---
HPI - General General Date of Admission: 09/06/25 Date of Service: 09/06/25 HPI Narrative MARLENA RENDON, is a 25 F 38.6 weeks who presents to unit in active labor. on admission. GBS positive desires epidural Maternal Data Information VICKY Calculator Estimated Delivery Date Method Current WG Current Estimate 09/14/25 LMP (Certain) 38w 6d Final VICKY: 09/14/25 Final VICKY Source: US >20 weeks Gestational age: 38.6 PFSH PFSH Medical History (Updated 09/06/25 @ 07:22 by Olga Manzo CNM) Pre-eclampsia H/O: hypertension POTS (postural orthostatic tachycardia syndrome) Home Medications ?Medication ?Instructions ?Recorded ?Last Taken ?Type docosahexaenoic acid 200 mg mg PO 01/24/25 09/03/25 Hi story capsule ( DHA) aspirin 81 mg capsule 81 mg PO DAILY 06/19/2508/15 History Allergy/AdvReac Type Severity Reaction Status Date / Time No Known Allergies Allergy Verified 09/05/25 19:55 Family History Father Diabetes Mother Age: 57 Breast cancer Grandmother Breast cancer Surgical History (Updated 09/06/25 @ 06:35 by Mercedez Bledsoe) History of surgery S/P wisdom tooth extraction History of shoulder surgery Social History adopted: No household members: spouse and children housing: house number of children: 1 current occupational status: employed 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 current occupational exposures/hazards: No pets and animals: Yes pets and animals: dog(s) history of recent travel: Yes ([place] - December 2024) out of state: Yes out of country: No sexually active: Yes Smoking Status: Never smoker second hand exposure: No alcohol intake: current alcohol intake frequency: holidays/special occasions only details: Not while substance use type: does not use well-balanced diet: daily or most days caffeine: Yes Type: coffee Number of servings: 1 eating out: 1-3 times/week during the past year weight has: remained stable what type of physical activity do you participate in: weight training frequency: 1-2 times per week duration: 15-30 minutes/day deric/judaism: Oriental Orthodox seatbelt use: always do you feel safe at home: Yes 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 Date Name GA/Weeks Outcome Route Bth Weight Gen Labor Lgth Anesthesia Del Locatn Provider FOB 05/23/23 Doan 39 live - full term vacuum 7lbs 11oz Male epidural [place] [facility] 07/15/24 Chemical 5 spontaneous Delivery Date: 05/23/23 Last Updated by: Yeimi Anthony RN Pre-e, lingering pp htn x4mo Visit Details Expected Delivery Route/Plan Labor Preferences- CB/BF classes: no labor support person: Tal labor intervention preferences: [] pain management options preferred: epidural when requested cut cord/dad catch: cord : no PP control planned: discussed discussed possible routes of delivery and associated risks: [] special requests: [] Plans Covid status: [] Flu vaccine: [] Tdap vaccine: [] Rhogam: [] LARC form signed: yes Problem list reviewed and updated with the most current plan of care details and appropriate orders placed. Relevant counseling for the gestational age provided. Continue routine care and follow up unless otherwise noted in visit notes/problem list details OB Flowsheet Initial Weight: 152 lb Date -?-?-?-?-?-?-?-?-?-?-?-?- EGA Weight BP Urine Prot -?-?-?-?-?-?-?-?-?-?-?-?- Glucose FHR FuHt Pres Dilation -?-?-?-?-?-?-?-?-?-?-?-?- Effaced St Visit Note 02/10/25 -?-?-?--?-?-?-?-?-?-?-?-?- 9w 1d 152 lb (+0 oz) 120/76 -?-?-?-?-?-?-?-?-?-?-?-?- 174 -?-?-?-?-?-?-?-?-?-?-?-?- LC 2.24cm crl co n with lmp. accepts genetics. baseline pec labs added for hx. 03/10/25 -?-?-?-?-?-?-?-?-?-?-?-?- 13w 1d 148 lb 2 oz (-3 lb 14 oz) 110/73 Negative -?-?-?-?-?-?-?-?-?-?-?-?- Negative 156 -?-?-?-?-?-?-?-?-?-?-?-?- JV- Heart tones only today. c/o constipation. discussed miralax + metamucil + stool softener and use of preparation H for hemorrhoids. JV- Heart tones only today. c/o constipation. discussed miralax + metamucil + stool softener and use of preparation H for hemorrhoids. Low risk male on NIPT 04/07/25 -?-?-?-?-?-?-?-?-?-?-?-?- 17w 1d 149 lb 2 oz (-2 lb 14 oz) 108/70 Negative -?-?-?-?-?-?-?-?-?-?-?-?- Negative 146 -?-?-?-?-?-?-?-?-?-?-?-?- KW- no vb/crampi ng. passed out 2 times on thursday d/t POTS. will contact Cardiology to see about medication to help with this- was on medication prior to . Has MFM US scheduled. still struggling with constipation. 05/03/25 -?-?-?-?-?-?-?-?-?-?-?-?- 20w 6d 155 lb 5 oz (+3 lb 5 oz) 111/71 Negative -?-?-?-?-?-?-?-?-?-?-?-?- Negative 157 -?-?-?-?-?-?-?-?-?-?-?-?- JV- feeling over all better. still having intermittent constipation. anatomy scan reviewed. 05/29/25 -?-?-?-?-?-?-?-?-?-?-?-?- 24w 4d 165 lb 2 oz (+13 lb 2 oz) 119/72 Negative -?-?-?-?-?-?-?-?-?-?-?-?- Negative 150 24 -?-?-?-?-?-?-?-?-?-?-?-?- SM- no vb lof go od fm no regular ctx discussed birthing experience 06/19/25 -?-?-?-?-?-?-?-?-?-?-?-?- 27w 4d 168 lb 1 oz (+16 lb 1 oz) 126/77 Negative -?-?-?-?-?-?-?-?-?-?-?-?- Negative 145 26 -?-?-?-?-?-?-?-?-?-?-?-?- MH-No vB, LOF. N ot feeling movement today. NST nonreactive, baby difficult to monitor, at least audible decel noted with movement. To WP per for growth US and prolonged monitoring. 07/03/25 -?-?-?-?-?-?-?-?-?-?-?-?- 29w 4d 171 lb 7 oz (+19 lb 7 oz) 117/75 Negative -?-?-?-?-?-?-?-?-?-?-?-?- Negative 155 30 -?--?-?-?-?-?-?-?-?-?-?-?- KW- no vb/lof/ct x. good fm. chiropractor for hip pain. Tdap today. 07/20/25 -?-?-?-?-?-?-?-?-?-?-?-?- 32w 0d 172 lb 5 oz (+20 lb 5 oz) 113/78 Negative -?-?-?-?-?-?-?-?-?-?-?-?- Negative 130 32 -?-?-?-?-?-?-?-?-?-?-?-?- KW- no vb/lof/ct x. goodfm. pepcid for acid reflux. spec exam for vaginal irritation- +yeast. will try monistat 7 and if needed will call in for Diflucan 08/01/25 -?-?-?-?-?-?-?-?-?-?-?-?- 33w 5d 176 lb 8 oz (+24 lb 8 oz) 109/74 Negative -?-?-?-?-?-?-?-?-?-?-?-?- Negative 140 -?-?-?-?-?-?-?-?-?-?-?-?- JV- no lof, vagi nal bleeding, or dec fm. Vaginal smear done for irritation and discharge. She tried monistat for days. 08/17/25 -?-?-?-?-?-?-?-?-?-?-?-?- 36w 0d 180 lb 8 oz (+28 lb 8 oz) 114/76 Negative -?-?-?-?-?-?-?-?-?-?-?-?- Negative 154 38 Cephalic 2 .5 -?-?-?-?-?-?-?-?-?-?-?-?- 60 -2 JV- no lof , vaginal bleeding, or dec fm. gbs today 08/23/25 -?-?-?-?-?-?-?-?-?-?-?-?- 36w 6d 182 lb 4 oz (+30 lb 4 oz) 122/81 Negative -?-?-?-?-?-?-?-?-?-?-?-?- Negative 140 37 Cephalic 2 .5 -?-?-?-?-?-?-?-?-?-?-?-?- 70 -2 KW- no vb/ lof/ reg ctx. good fm. doing well 08/29/25 -?-?-?-?-?-?-?-?-?-?-?-?- 37w 5d 183 lb 2 oz (+31 lb 2 oz) 131/84 Negative -?-?-?-?-?-?-?-?-?-?-?-?- Negative 135 37 Cephalic 3 -?-?-?-?-?-?-?-?-?-?-?-?- 80 -2 KW- no vb/ lof/ctx. good fm. denies roberts/dizziness/ BV. head cold this week. 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 no vb/lof/ctx. good fm. NST FHR Rate Baby A Baseline: 130 Variability:: Moderate Accelerations:: 15 x 15 Decelerations:: None NST Reactive:: Yes FHR Category:: Category I Uterine Activity:: 3-4 ROS Constitutional Constitutional: Denies change in weight, fatigue, fever(s), headache(s), poor appetite or weakness Eyes Eyes: Denies blurry vision, change in vision, floaters, seeing flashes or spots in vision ENT HEENT: Denies dizziness, headache(s), loss taste/smell or sore throat Cardiovascular Cardiovascular: Denies chest pain, dizziness, dyspnea, irregular heart rhythm, lightheadedness, palpitations or rapid heart rate Respiratory/Chest Respiratory/Chest: Denies change in mental status, chest tightness, cough, dyspnea or breast pain Gastrointestinal Gastrointestinal: Denies anorexia, chewing difficulty, constipation, diarrhea or weight changes Genitourinary Genitourinary: Denies difficulty urinating, dysuria, flank pain, genital pain, urinary frequency or urinary urgency Musculoskeletal Musculoskeletal: Denies back pain, difficulty walking, extremity pain, joint pain, muscle cramps or muscle weakness Integumentary Integumentary: Denies lesions or unusual bruising Neurologic Neurologic: Denies abnormal movements, abnormal speech, dizziness, numbness, seizure-like activity, syncope or weakness Psychiatric Psychiatric: Denies behavioral changes, change in appetite, confusion, depression, homicidal ideation, suicidal ideation or suicidal thoughts Endocrine Endocrinology: Denies excessive sweating, polydipsia or polyuria Hematologic/Lymphatic Hematologic/Lymphatic: Denies anemia Allergic/Immunologic Allergic/Immunologic: Denies itchy eyes, lip swelling, throat swelling, tongue swelling or wheezing Vital Signs Vital Signs Vital Signs: 12/24/25 06:12 09/06/25 06:12 09/06/25 06:12 Temperature Temperature Source Temporal Pulse Rate 92 Respiratory Rate Blood Pressure 131/77 H BP Systolic 131 BP Diastolic 77 Pulse Ox 09/06/25 06:12 09/06/25 06:12 09/06/25 06:12 Temperature 97.7 F L Temperature Source Pulse Rate Respiratory Rate 18 Blood Pressure BP Systolic BP Diastolic Pulse Ox 98 09/06/25 07:05 09/06/25 07:05 09/06/25 07:10 Temperature Temperature Source Pulse Rate 87 Respiratory Rate Blood Pressure 132/82 H BP Systolic 132 BP Diastolic 82 Pulse Ox 100 09/06/25 07:10 09/06/25 07:10 09/06/25 07:10 Temperature Temperature Source Pulse Rate 80 88 Respiratory Rate Blood Pressure BP Systolic BP Diastolic Pulse Ox 100 09/06/25 07:14 09/06/25 07:14 09/06/25 07:15 Temperature Temperature Source Pulse Rate 89 82 Respiratory Rate Blood Pressure 140/86 H BP Systolic 140 BP Diastolic 86 Pulse Ox 09/06/25 07:15 09/06/25 07:16 09/06/25 07:16 Temperature Temperature Source Pulse Rate 82 Respiratory Rate Blood Pressure BP Systolic BP Diastolic Pulse Ox 96 85 Weight Weight: 179 lb Body Mass Index (BMI) 31.6 PRE- weight 140 lb PRE- Body Mass Index 24.7 (BMI) Physical Exam Const alert, oriented x3 and no apparent distress General Appearance: cooperative Orientation / Consciousness: awake HEENT normocephalic Neck full ROM Lymph Lymphatic: no lymphadenopathy noted Chest inspection of chest normal Resp normal respiratory effort and normal air movement Effort and Inspection: able to speak in complete sentences and symmetric chest movement GI soft to palpation and non-tender Inspection: gravid Palpation: soft; Negative for tender external exam normal Back/Spine normal to inspection Extremity normal to inspection and full ROM Skin no rashes or lesions noted Psych mental status grossly normal Appearance: grossly normal Speech: normal speech Labs Labs Labs: Blood Type A POSITIVE Antibody Screen NEGATIVE Hct, (37-47) 34.1 % L Hgb, (12.0-15.0) 10.8 g/dL L Obstetrics Ultrasound Syphilis Total Ab, (Nonreactive) Nonreactive Rubella IgG Antibody, (Nonreactive) REAC Hep Bs Antigen, (Nonreactive) Nonreactive Hepatitis C Antibody, (Nonreactive) Nonreactive Chlamydia DNA (TINA), (Negative) Negative N.gonorrhoeae DNA (TINA), (Negative) Negative HIV 1&2 Antibody, (Nonreactive) Nonreactive Glucose 1 Hr 50 gm, (70-140) 131 mg/dL Assessment & Plan (1) Active labor: PLAN: Patient presents IAL, plan expectant management for , pitocin/AROM PRN if needed. Pain management: plans epidural. GBS positive plan IV PCN. Management of any complications: none I have reviewed the [facility] and made any clinically relevant updates. Dr Briceno aware of assessment plan and admission. agrees with above (2) Positive GBS test: (3) Decreased movement: QUALIFIERS: Fetus number: single or unspecified fetus Trimester: second trimester Qualified Code(s): O36.8120 - Decreased movements, second trimester, not applicable or unspecified COMMENT: To WP to monitor, growth US (4) History of miscarriage, currently : COMMENT: chemical - Jul 2024 (5) Supervision of high-risk : QUALIFIERS: Trimester: second trimester Qualified Code(s): O09.92 - Supervision of high risk , unspecified, second trimester COMMENT: PRR ; VICKY 09/14/25;boy tony PC: Franki; : Tal (6) : QUALIFIERS: Weeks of gestation: 38 weeks Qualified Code(s): Z3A.38 - 38 weeks gestation of COMMENT: Discussed genetic/carrier testing - undecided, normal anatomy (7) History of pre-eclampsia in prior , currently : COMMENT: Pre-e baseline labs ordered w/NOB; Baby ASA @ 12-28weeks (8) POTS (postural orthostatic tachycardia syndrome): COMMENT: On Cardizem - stopped prior to , pt will talk with cardiology about new med Charges/Coding Multi Select Codes Urinary/Genital Urinary/Genital CPT Codes: No Charge
[2025-09-06 07:24] LABS: Syphilis Antibodies Nonreactive (Nonreactive)
[2025-09-06] MEDS: Lactated Ringers 1,000 ML 200 ML IV (07:29)
[2025-09-06] MEDS: fentaNYL-bupivacaine (epidural) 100 ML BAG EPIDURAL (07:30)
[2025-09-06] MEDS: LACTATED RINGERS 500 ML 999 ML IV (10:20)
[2025-09-06] MEDS: Oxytocin 15 Units/NS 250ml 15 UNITS/250 ML IV.SOLN 334 UNITS IV (10:52)
[2025-09-06] MEDS: Oxytocin 15 Units/NS 250ml 15 UNITS/250 ML IV.SOLN 83 UNITS IV (11:37)
--- NOTE | 2025-09-06 11:43 | EX.PCM.OBVAG ---
Assessment & Plan (1) Vaginal delivery: COMMENT: KW IAL 38.6 boy (2) Active labor: (3) Positive GBS test: (4) Decreased movement: QUALIFIERS: Fetus number: single or unspecified fetus Trimester: second trimester Qualified Code(s): O36.8120 - Decreased movements, second trimester, not applicable or unspecified COMMENT: To WP to monitor, growth US (5) History of miscarriage, currently : COMMENT: chemical - Jul 2024 (6) Supervision of high-risk : QUALIFIERS: Trimester: second trimester Qualified Code(s): O09.92 - Supervision of high risk , unspecified, second trimester COMMENT: PRR ; VICKY 09/14/25;michael jimenez PC: Franki; : Tal (7) : QUALIFIERS: Weeks of gestation: 38 weeks Qualified Code(s): Z3A.38 - 38 weeks gestation of COMMENT: Discussed genetic/carrier testing - undecided, normal anatomy (8) History of pre-eclampsia in prior , currently : COMMENT: Pre-e baseline labs ordered w/NOB; Baby ASA @ 12-28weeks (9) POTS (postural orthostatic tachycardia syndrome): COMMENT: On Cardizem - stopped prior to , pt will talk with cardiology about new med Maternal Data Information VICKY Calculator Estimated Delivery Date Method Current WG Current Estimate 09/14/25 LMP (Certain) 38w 6d Final VICKY: 09/14/25 Final VICKY Source: US >20 weeks Gestational age: 38.6 Vaginal Delivery Maternal Presentation Maternal Presentation: Active Labor Maternal Presentation: Presented to unit for active labor at 7 cm dilation. Vaginal Delivery Information Procedure Performed: Spontaneous Vaginal Delivery Surgeon/Practitioner: Olga Manzo Date of Procedure: 09/06/25 Pre-Procedure Diagnosis: see problem list Post-Procedure Diagnosis: same Type of anesthesia: Epidural Estimated Blood Loss: 300 Time of Delivery: 10:48 Findings Description of procedure: Progressed well to 10cm dilated and made steady progress with effective maternal pushing. Delivered the head in direct OP presentation. The head was delivered atraumatically and no nuchal cord was identified. The anterior and posterior shoulders delivered without complication followed by the rest of the and the was placed on the maternal abdomen. Delayed cord clamping was employed for approximately 3 minutes. Cord was clamped and cut and gentle traction was applied to the cord and the placenta delivered spontaneously. Immediately following, it was noted to be intact with a 3 vessel cord. Uterine bleeding stable. The perineum and vagina were inspected and noted to have a first degree laceration which was repaired with 3-0 Vicryl in the usual fashion. EBL was 300cc. The bladder was drained for 300cc of clear yellow urine. Patient and infant tolerated delivery well. Apgars 8/9. Dr Bee notified of vaginal delivery and orders reviewed. Physician agrees with current plan of care. Presentation: Vertex Amniotic Membrane Rupture Type: Artificial Amniotic Fluid Description: Clear Placental Delivery Description: Spontaneous Placenta Disposition: [facility] Specimen collected: No Cord Vessel Description: 3 Vessels Cord Entanglement: None Infant A Gender: Male (1 minute): 8 (5 minute): 9 Delayed Cord Clamping: Yes Medical Record Retrieval Specialist boom stick man: No Post Vaginal Deli Medications given after delivery: IV Pitocin Episiotomy Description: None Laceration: 1st degree Complication Complications: No Multi Select Codes Urinary/Genital Urinary/Genital CPT Codes: 40132 Vaginal Delivery [facility]
--- NOTE | 2025-09-06 11:47 | DCINST_ITS ---
Discharge Instructions DC O2, CPAP, BIPAP needs Home O2 Discharge instructions: No Dressing / Incision Discharge Activity: Return to Normal Activity May resume sexual activity in: 6-8 weeks Dressing / Incision Call your doctor if you observe: Fever of 101 or Higher, Coldness, Increased Pain, Numbness or Tingling, Change in Color, Inability to urinate, Inability to have a bowel movement, Using more than 1 pad per hour, Shortness of breath, Dizziness, Fainting spells, Swelling in the ankles, Chest pain, Increased palpitations (irregular heartbeat), Calf discomfort and Uncontrolled pain Follow Up Care Please Follow Up With: Olga Manzo CNM When: Please call the office to schedule your follow up appointment in 6 weeks. If you had high blood pressure please call to schedule an appointment in 2 weeks. Test Results: Test results from this visit will be discussed in further detail at your follow- up appointment, if applicable. Discharge Plan Admission Admit Date/Time: 09/06/25 06:10 Attending Provider: Olga Manzo Primary Care Provider: Mercedez Avalos Discharge Orders/Prescriptions Prescriptions: No Action DHA 200 mg capsule PO aspirin 81 mg capsule 81 mg PO DAILY Referrals / Follow Up: Mercedez Avalos PA [Primary Care Provider, Medical]
[2025-09-07] VITALS: BP 121/74; PULSE 94; RESP 16; TEMP 36.6; O2SAT 98
[2025-09-07 00:11] VITALS: BP 121/74; PULSE 90
[2025-09-07 04:01] VITALS: BP 129/75; PULSE 89; RESP 16; TEMP 36.1; O2SAT 98
[2025-09-07 09:19] VITALS: BP 138/66; PULSE 106
[2025-09-07 09:24] VITALS: RESP 16; TEMP 36.5
--- NOTE | 2025-09-07 10:33 | PCM.PN.BLA ---
Progress Note Patient doing well without complaints. Tolerating PO. Ambulating and voiding without difficulty. Feeding well. Denies chest pain, shortness of breath, calf pain/swelling, fevers, chills, lightheadedness. Baby just got his circumcision. Physical Exam Const alert, oriented x3 and no apparent distress HEENT Head and Scalp: normocephalic and atraumatic Resp normal respiratory effort Effort and Inspection: able to speak in complete sentences and symmetric chest movement Cardio regular rate and regular rhythm GI soft to palpation and non-tender Bimanual Exam - Vag & Uterus: uterus non-tender Uterus Palpation: uterus fundus firm (below Umbilicus) Assessment & Plan Assessment/Plan (1) Vaginal delivery: PLAN: s/p PPD # 1 1. routine post delivery care 2. breast feeding- support given 3. rh positive 4. rubella immune d/c today
--- NOTE | 2025-09-07 10:36 | PCM.DC.SUM ---
Providers Date of Admission: 09/06/25 Primary Care Physician: MITCH Duran Reason For Visit: VAGINAL Diagnosis Discharge Diagnosis (1) Vaginal delivery: Status: Acute Code(s): O80 - Encounter for full-term uncomplicated delivery Plan: s/p PPD # 1 1. routine post delivery care 2. breast feeding- support given 3. rh positive 4. rubella immune d/c today Medications at Discharge Home Medications docosahexaenoic acid 200 mg capsule ( DHA) mg PO 01/24/25 aspirin 81 mg capsule 81 mg PO DAILY 06/19/25 Hospital Course Summary of Care Provided Hospital Course: MARLENA RENDON, is a 25 F, now , who presented at 38w6d in active labor. She received an epidural and penicillin during labor. She had an uncomplicated spontaneous vaginal delivery of a baby boy. She met all milestones and was discharged in stable condition on PPD#1. Weight / BMI Weight Weight: 179 lb Body Mass Index (BMI) 31.6 PRE- weight 140 lb PRE- Body Mass Index 24.7 (BMI) ABG / Lab / Microbiology Data 09/06/25 06:15 D/C Instructions May resume sexual activity in: 6-8 weeks Call your doctor if you observe: Fever of 101 or Higher, Coldness, Increased Pain, Numbness or Tingling, Change in Color, Inability to urinate, Inability to have a bowel movement, Using more than 1 pad per hour, Shortness of breath, Dizziness, Fainting spells, Swelling in the ankles, Chest pain, Increased palpitations (irregular heartbeat), Calf discomfort and Uncontrolled pain DC O2, CPAP, BIPAP Needs Home O2 Discharge instructions: No Please Follow Up With: Olga Manzo CNM When: Please call the office to schedule your follow up appointment in 6 weeks. If you had high blood pressure please call to schedule an appointment in 2 weeks. Meaningful Use Info Meaningful Use Meaningful Use Diagnoses (Choose all that apply): None applicable Discharge Plan Admission Admit Date/Time: 09/06/25 06:10 Primary Reason for Your Visit: labor and delivery Attending Provider: Olga Manzo Primary Care Provider: Mercedez Avalos Discharge Orders/Prescriptions Prescriptions: No Action DHA 200 mg capsule PO aspirin 81 mg capsule 81 mg PO DAILY Referrals / Follow Up: Mercedez Avalos PA [Primary Care Provider, Medical] Disposition Disposition (needs filled in before D/C Order can be placed): Home, Self Care
--- NOTE | 2025-09-11 10:48 | NURSING ---
Follow up phone call made. States she has minimal discomfort, just some cramping. States her bleeding is minimal ad denies any headaches, visual disturbances or Baby Blues. Karely is taking 1.5oz every 2-3 hours and has seen the Maintenance Custodian. Question answered regarding the feeling of a constant kristi horse in lower leg. Instructed her to call [place] after phone call is over to have it evaluated, states understanding. States it just feels like a constant kristi horse, denies any redness or swelling.
== END 2025-09-07 13:20 | disposition home or self-care (01) | DRG 807 ==
LOC: WP 06:10 → WPOUT 06:12 → WP 06:12
PROVIDERS: Obstetrics & Gynecology; Admitting Provider Advanced Practice Midwife; PCP Physician Assistant Medical; Referring Provider Advanced Practice Midwife; Visit Provider Advanced Practice Midwife
DX: O99.824 Streptococcus B carrier state complicating childbirth (principal); Z37.0 Single live birth; G90.A Postural orthostatic tachycardia syndrome [POTS]; O99.354 Diseases of the nervous system complicating childbirth; O70.0 First degree perineal laceration during delivery; Z3A.38 38 weeks gestation of pregnancy; Z79.82 Long term (current) use of aspirin; Z87.59 Personal history of other complications of pregnancy, childbirth and the puerperium
CPT/HCPCS: 59025; 59050; 85025; 86780; 86850; 86900; 86901; 99221; G0378